=== PATIENT | female | born 1945 | race Caucasian/White ===

== ENCOUNTER 2020-05-04 16:11 | Outpatient (REF) | payer MEDICARE, SELFPAY ==
[2020-05-04 20:54] LABS: Bilirubin Negative (Negative); Blood Negative (Negative); Clarity Clear (Clear); Glucose Negative (Negative); Ketones Negative (Negative); Leukocyte Esterase Small (Negative); Nitrite Negative (Negative); Specific Gravity >= 1.030 (1.005-1.025)
[2020-05-04 21:07] LABS: Bacteria Few HPF (Negative); Epithelial Cells Few HPF (Negative); RBC Negative HPF (0-2)
[2020-05-04 21:08] LABS: C & S Indicated? C&S Done As Ordered; Casts Negative LPF (Negative); Crystals Rare Calcium Oxalate HPF (Negative); Mucus Negative (Negative)
== END 2020-05-04 16:31 ==
LOC: LBN 16:11
PROVIDERS: Visit Provider Nurse Practitioner
DX: G20 Parkinson's disease (principal)
CPT/HCPCS: 81003; 81015; 87086

== ENCOUNTER 2020-06-27 07:22 | Day surgery (SDC) | payer MEDICARE, OTHER, SELFPAY ==
[2020-06-27] MEDS: Tropicam./Phenyleph. (1/2.5%) 5 ML BTL OD ×3 (07:44→07:58)
[2020-06-27 07:52] VITALS: BP 117/58; PULSE 67; RESP 16; TEMP 36.8; O2SAT 90
[2020-06-27] MEDS: Tetracaine 0.5% 4 ML BTL OD (08:22)
[2020-06-27] MEDS: Balanced Salt Soln.-PLUS 500 ML BAG (08:24)
[2020-06-27] MEDS: Duovisc Viscoelastic System EACH 1 EACH (08:25)
[2020-06-27] MEDS: Lidocaine 1% Pres-Free 5 ML VIAL (08:25)
[2020-06-27] MEDS: Lidocaine 2% Jelly 6 ML SYR (08:26)
[2020-06-27] MEDS: Povidone-Iodine Ophth 30 ML BTL (08:28)
--- NOTE | 2020-06-27 08:41 | W.PM.DSUDISC ---
Discharge Plan Disposition Patient Disposition: HOME Condition: Good Discharge Details Attending Provider: Brandan Richardson Primary Care Provider: An Tello [place] Meds and New Rx's Prescriptions: No Action miconazole nitrate 2 % Cream 1 applic TOPICAL BID RF: 0 lovastatin 40 mg tablet 40 mg PO DAILY RF: 0 calcium carbonate [Calcium 600] 600 mg calcium (1,500 mg) Tablet 600 mg PO DAILY RF: 0 lisinopril 10 mg tablet 10 mg PO DAILY RF: 0 carbidopa-levodopa 25-100 mg tablet 1 tab PO TID RF: 0 atenolol 50 mg tablet 50 mg PO DAILY RF: 0 pregabalin 50 mg Capsule 50 mg PO TID RF: 0 cholecalciferol (vitamin D3) [Vitamin D3] 50 mcg (2,000 unit) Capsule 2,000 unit PO DAILY RF: 0 multivitamin [One A Day] Tablet 1 tab PO DAILY RF: 0 aspirin 81 mg Tablet 81 mg PO DAILY RF: 0 Discharge Instructions Stand Alone Forms: Post-op Topical Cataract, Tucker Ganey (DSU) Discharge Orders Discharge Orders: Discharge Order (Routine); Ordered 06/27/20 Ordered By: Brandan Richardson DS: Diagnosis Discharge Diagnosis (1) Cortical cataract of right eye: Status: Resolved (2) Nuclear sclerotic cataract of right eye: Status: Resolved (3) Epiretinal membrane (ERM) of right eye: Status: Chronic
--- NOTE | 2020-06-27 08:42 | W.PM.OP ---
Date of service: 06/27/20 Time of Service: 08:42 Operative Note Operative Note DATE OF PROCEDURE: 06/27/20 PRE-OP DIAGNOSIS: Nuclear/cortical cataract, right eye POST-OP DIAGNOSIS: same PROCEDURE: Cataract extraction using phacoemulsification with intraocular lens implant, right eye SURGEON: Brandan Richardson ANESTHESIA TYPE: Local By Surgeon and MAC Refer to Anesthesia Record ESTIMATED BLOOD LOSS: 0 PATHOLOGY: none sent COMPLICATIONS: None Patient was transported to: same day Patient's condition: stable Implants: [employer] / [employer] Tecnis ZCB00 intraocular lens Indications: Progressive decreased vision due to cataract, right eye Procedure Description: CATARACT SURGERY OPERATIVE REPORT PREOPERATIVE DIAGNOSIS: Nuclear/cortical cataract, right eye POSTOPERATIVE DIAGNOSIS: Same OPERATION: Cataract extraction using phacoemulsification with posterior chamber intraocular lens implant, right eye. IOL: IOL Insurance Consultant/Model: [employer] / SAMYM Tecnis ZCB00 IOL Power: + 21.5 diopters IOL Serial Number: [id number] Optic Diameter: 6.0mm Haptic/Overall Diameter: 13.0mm PHACO INFO: Dwaine [employer]erm[employer]urion Vision System with OZil and Active Fluidics Cumulative Dispersed Energy (CDE): 12.76 seconds SURGEON: Brandan Richardson MD, RYAN ANESTHESIA: Monitored Anesthesia Care (MAC), with local sub-tenon's anesthetic infiltration COMPLICATIONS: None SPECIMENS: None INDICATIONS FOR PROCEDURE: The patient is a 74-year-old lady with history of diminished visual acuity in her right eye. She is noted to have a significant nuclear and cortical cataract. She also has an epiretinal membrane in the right eye. The option of cataract surgery was offered to the patient and she wished to proceed, understanding that postoperative visual acuity will be limited by the presence of her pre-existing maculopathy. PROCEDURE: The correct surgical eye was identified and marked as the right eye and the pupil was dilated in the preoperative area using mydriatics and cycloplegics. The dilated pupil size was 7.0 mm. She elected to proceed with out oral sedation. The patient was brought to the operating room where cardiopulmonary monitoring was instituted and surgical time-out was performed, confirming the correct operative eye and IOL power. Topical anesthesia was administered and ophthalmic povidone-iodine 5% was instilled into the conjunctival fornices. Lidocaine gel was applied to the cornea and the alvin-ocular area was prepped with Betadine 10% solution and draped in the usual sterile fashion for intraocular surgery, including an aperture drape. A Tegaderm transparent film dressing was cut in half and used to cover the lashes and lid margins. Care was taken to sequester the lashes and lid margins under the Tegaderm dressing. A lid speculum was placed between the lids of the operative eye and the Sal[place]-Toño operating microscope was maneuvered into position. Jeovany scissors were then used to make a conjunctival buttonhole approximately 6mm posterior to the limbus in the inferonasal quadrant. Blunt dissection was carried out to expose bare sclera, and a blunt-tipped sub-tenon?s anesthesia cannula was introduced and passed posteriorly along the globe where non-preserved plain lidocaine was injected into posterior sub-Tenon?s space. A sideport knife was used to make a paracentesis port inferiortemporally. Intraocular phenylephrine/lidocaine was injected into the anterior chamber. The anterior chamber was then filled with viscoelastic. A 2.4mm keratome knife was used to create a half-thickness groove at the limbus and then to construct a three-plane near-clear corneal tunnel extending 2.0mm into clear cornea in the superiortemporal position. . A flap was raised on the anterior capsule and capsulorhexis forceps were used to complete a continuous curvilinear capsulorhexis of 5.5 mm. Balanced salt solution was then used to perform cortical cleaving hydrodissection and nuclear hydrodelineation until the lens could be freely rotated within the capsular bag. The lens nucleus was then disassembled and removed within the capsular bag and iris plane using phacoemulsification. Residual cortical material was removed using the I/A handpiece. The posterior capsule was carefully polished to remove as much residual lens epithelial cells as safely possible. There was some residual posterior subcapsular plaque in the subincisional area which could not be safely removed. The capsular bag was then inflated and the anterior chamber deepened with viscoelastic. The lens implant described above was inserted into the capsular bag using the SAMMY [place] Injector. A Kuglen hook was used to dial the IOL into position. Residual viscoelastic was then removed first from posterior to the IOL, then from the anterior chamber using the I/A handpiece. The lens implant was noted to center nicely within the capsular bag. The incisions were stromally hydrated, and the anterior chamber was reformed using BSS. Then 0.5cc of moxifloxacin 1.0mg/ml were injected into the capsular bag and anterior chamber. The incisions were checked with a Weck spear and found to be secure. Several drops of ophthalmic povidone-iodine 5% were then applied to the eye followed by two drops of Imprimis combination prednisolone/moxifloxacin/nepafenac solution. The drapes were removed and a clear plastic protective eye shield was placed over the eye. The patient was then returned to [facility] in stable condition.
== END 2020-06-27 09:08 | disposition home or self-care (01) ==
PROVIDERS: PCP Nurse Practitioner; Visit Provider Ophthalmology
PROC: (CPT 66984; principal; 2020-06-27 08:30)
DX: H25.11 Age-related nuclear cataract, right eye (principal); H35.371 Puckering of macula, right eye; E11.9 Type 2 diabetes mellitus without complications; I10 Essential (primary) hypertension; E78.5 Hyperlipidemia, unspecified
CPT/HCPCS: 66984; V2632

== ENCOUNTER 2020-07-11 06:30 | Day surgery (SDC) | payer MEDICARE, OTHER, SELFPAY ==
[2020-07-11 06:36] VITALS: BP 120/62; PULSE 63; RESP 18; TEMP 36.5; O2SAT 92
[2020-07-11] MEDS: Tropicam./Phenyleph. (1/2.5%) 5 ML BTL OS ×3 (06:57→07:08)
[2020-07-11] MEDS: Tetracaine 0.5% 4 ML BTL OS (07:26)
[2020-07-11] MEDS: Lidocaine 2% Jelly 6 ML SYR (07:27)
[2020-07-11] MEDS: Povidone-Iodine Ophth 30 ML BTL (07:27)
[2020-07-11] MEDS: Lidocaine 1% Pres-Free 5 ML VIAL (07:35)
[2020-07-11] MEDS: Balanced Salt Soln.-PLUS 500 ML BAG (07:35)
[2020-07-11] MEDS: Duovisc Viscoelastic System EACH 1 EACH (07:36)
--- NOTE | 2020-07-11 08:05 | PDOC.DSDIS_ITS ---
Discharge Plan Disposition Patient Disposition: HOME Condition: Good Discharge Details Attending Provider: Brandan Richardson Primary Care Provider: An Tello [place] Meds and New Rx's Prescriptions: No Action miconazole nitrate 2 % Cream 1 applic TOPICAL BID RF: 0 lovastatin 40 mg tablet 40 mg PO DAILY RF: 0 calcium carbonate [Calcium 600] 600 mg calcium (1,500 mg) Tablet 600 mg PO DAILY RF: 0 lisinopril 10 mg tablet 10 mg PO DAILY RF: 0 carbidopa-levodopa 25-100 mg tablet 1 tab PO TID RF: 0 atenolol 50 mg tablet 50 mg PO DAILY RF: 0 pregabalin 50 mg Capsule 50 mg PO TID RF: 0 cholecalciferol (vitamin D3) [Vitamin D3] 50 mcg (2,000 unit) Capsule 2,000 unit PO DAILY RF: 0 multivitamin [One A Day] Tablet 1 tab PO DAILY RF: 0 aspirin 81 mg Tablet 81 mg PO DAILY RF: 0 Discharge Instructions Stand Alone Forms: Post-op Topical Cataract, Tucker Salazar (DSU) Discharge Orders Discharge Orders: Discharge Order (Routine); Ordered 07/11/20 Ordered By: Brandan Richardson DS: Diagnosis Discharge Diagnosis (1) Cortical cataract of left eye: Status: Resolved (2) Nuclear sclerotic cataract of left eye: Status: Resolved
--- NOTE | 2020-07-11 08:06 | W.PM.OP ---
Date of service: 07/11/20 Time of Service: 08:06 Operative Note Operative Note DATE OF PROCEDURE: 07/11/20 PRE-OP DIAGNOSIS: Nuclear/cortical cataract, left eye POST-OP DIAGNOSIS: same PROCEDURE: Cataract extraction using phacoemulsification with intraocular lens implant, left eye SURGEON: Brandan Richardson ANESTHESIA TYPE: Local By Surgeon and MAC Refer to Anesthesia Record PATHOLOGY: none sent COMPLICATIONS: None Patient was transported to: same day Patient's condition: stable Implants: [employer] / [employer] Tecnis ZCB00 Indications: Progressive decreased vision due to cataract, left eye Procedure Description: CATARACT SURGERY OPERATIVE REPORT PREOPERATIVE DIAGNOSIS: Nuclear/cortical cataract, left eye POSTOPERATIVE DIAGNOSIS: Same OPERATION: Cataract extraction using phacoemulsification with posterior chamber intraocular lens implant, left eye. IOL: IOL Vacuum Conditioner Operator/Model: [employer] / SAMMY Tecnis ZCB00 IOL Power: + 21.5 diopters IOL Serial Number: [id number] Optic Diameter: 6.0mm Haptic/Overall Diameter: 13.0mm PHACO INFO: [employer] Vision System with OZil and Active Fluidics Cumulative Dispersed Energy (CDE): 5.59 seconds SURGEON: Brandan Richardson MD, RYAN ANESTHESIA: Monitored Anesthesia Care (MAC), with local sub-tenon's anesthetic infiltration COMPLICATIONS: None SPECIMENS: None INDICATIONS FOR PROCEDURE: The patient is a 74-year-old lady with history of diminished visual acuity in both eyes secondary to the development of bilateral nuclear and cortical cataract. She has already undergone cataract surgery in her right eye and is doing fairly well postoperatively. Postoperative visual acuity is limited by the presence of her pre-existing epiretinal membrane in the right eye. She now presents for cataract surgery in the left eye. PROCEDURE: The correct surgical eye was identified and marked as the left eye and the pupil was dilated in the preoperative area using mydriatics and cycloplegics. The dilated pupil size was 7.0 mm. She elected to proceed without sedation. The patient was brought to the operating room where cardiopulmonary monitoring was instituted and surgical time-out was performed, confirming the correct operative eye and IOL power. Topical anesthesia was administered and ophthalmic povidone-iodine 5% was instilled into the conjunctival fornices. Lidocaine gel was applied to the cornea and the alvin-ocular area was prepped with Betadine 10% solution and draped in the usual sterile fashion for intraocular surgery, including an aperture drape. A Tegaderm transparent film dressing was cut in half and used to cover the lashes and lid margins. Care was taken to sequester the lashes and lid margins under the Tegaderm dressing. A lid speculum was placed between the lids of the operative eye and the Salinas-Toño operating microscope was maneuvered into position. Jeovany scissors were then used to make a conjunctival buttonhole approximately 6mm posterior to the limbus in the inferonasal quadrant. Blunt dissection was carried out to expose bare sclera, and a blunt-tipped sub-tenon?s anesthesia cannula was introduced and passed posteriorly along the globe where non-preserved plain lidocaine was injected into posterior sub-Tenon?s space. A sideport knife was used to make a paracentesis port superior/superiortemporally. Intraocular phenylephrine/lidocaine was injected into the anterior chamber. The anterior chamber was then filled with viscoelastic. A 2.4mm keratome knife was used to create a half-thickness groove at the limbus and then to construct a three-plane near-clear corneal tunnel extending 2.0mm into clear cornea in the temporal position. . A flap was raised on the anterior capsule and capsulorhexis forceps were used to complete a continuous curvilinear capsulorhexis of 5.0 mm. Balanced salt solution was then used to perform cortical cleaving hydrodissection and nuclear hydrodelineation until the lens could be freely rotated within the capsular bag. The lens nucleus was then disassembled and removed within the capsular bag and iris plane using phacoemulsification. Residual cortical material was removed using the 45-degree angled silicone I/A tip with 0.3mm port. The posterior capsule was carefully polished to remove as much residual lens epithelial cells as safely possible. The capsular bag was then inflated and the anterior chamber deepened with viscoelastic. The lens implant described above was inserted into the capsular bag using the SAMMY [place] Injector. A Kuglen hook was used to dial the IOL into position. Residual viscoelastic was then removed first from posterior to the IOL, then from the anterior chamber using the I/A handpiece. The lens implant was noted to center nicely within the capsular bag. The incisions were stromally hydrated, and the anterior chamber was reformed using BSS. Then 0.5cc of moxifloxacin 1.0mg/ml were injected into the capsular bag and anterior chamber. The incisions were checked with a Weck spear and found to be secure. Several drops of ophthalmic povidone-iodine 5% were then applied to the eye followed by two drops of Imprimis combination prednisolone/moxifloxacin/nepafenac solution. The drapes were removed and a clear plastic protective eye shield was placed over the eye. The patient was then returned to Same Day Surgery in stable condition.
== END 2020-07-11 08:25 | disposition home or self-care (01) ==
PROVIDERS: PCP Nurse Practitioner; Visit Provider Ophthalmology
PROC: (CPT 66984; principal; 2020-07-11 07:30)
DX: H25.12 Age-related nuclear cataract, left eye; H25.012 Cortical age-related cataract, left eye; Z96.1 Presence of intraocular lens; Z98.41 Cataract extraction status, right eye
CPT/HCPCS: 66984; V2632

== ENCOUNTER 2022-06-04 19:13 | Outpatient (REF) | payer MEDICARE, OTHER, SELFPAY ==
[2022-06-04 19:27] LABS: Abs Immature Grans 0.02 10^3/uL (0.0-0.06); Absolute Basophil Count 0.02 10^3/uL (0.0-0.2); Absolute Lymphocyte Count 1.37 10^3/uL (1.2-3.4); Absolute Monocyte Count 0.43 10^3/uL (0.1-0.8); Absolute Neutrophil Count 2.37 10^3/uL (1.2-6.7); Basophils % 0.5; Eosinophils % 2.3; HCT 40.8 % (36.0-46.0); Immature Grans % 0.5; Lymphocytes % 31.8; MCH 29.5 pg (27.0-33.0); MCHC 31.9 % (32.0-36.0); MCV 93 fL (80-95); MPV 10.9 fL (8.0-11.0); Neutrophils % 54.9; Platelet Count 179 10^3/uL (130-400); RDW 14.9 % (11.7-14.6); RDW-SD 51.8 fL; WBC 4.31 10^3/uL (4.4-10.8)
[2022-06-04 19:36] LABS: Iron 85 ug/dL (50-170); Total Iron Binding Capacity 317 ug/dL (250-450); Transferrin Sat 27 % (15-50)
[2022-06-04 19:49] LABS: Hemoglobin A1C 6.4 % (<5.7)
[2022-06-04 20:00] LABS: Vitamin D 25 Total 46.3 ng/mL (30-100)
[2022-06-04 20:03] LABS: ALT 9 U/L (14-59); AST 12 U/L (15-37); Albumin 3.9 g/dL (3.4-5.0); Alkaline Phosphatase 73 U/L (46-116); Anion Gap 6.6 mmol/L (3-11); BUN 15 mg/dL (7-18); Bilirubin, Total 0.4 mg/dL (0.2-1.0); CO2 32.4 mmol/L (21.0-32.0); CREATININE 0.7 mg/dL (0.55-1.02); Chloride 105 mmol/L (98-107); Estimated GFR 90.14 (mL/min/1.73m2); Ferritin 209 ng/mL (8-252); Glucose 143 mg/dL (74-106); Potassium 4.5 mmol/L (3.5-5.1); Sodium 144 mmol/L (136-145); TSH (W/Ref FT4) 0.87 uIU/mL (0.36-3.74); Total Protein 6.5 g/dL (6.4-8.2); Vitamin B12 421 pg/mL (193-986)
[2022-06-04 20:07] LABS: Folate > 20.0 ng/mL (8.6-20.0)
[2022-06-04 20:26] LABS: NT-proBNP 938 pg/mL (<300)
== END 2022-06-04 19:14 | disposition home or self-care (01) ==
LOC: LBN 19:13
PROVIDERS: PCP Nurse Practitioner; Visit Provider Nurse Practitioner Gerontology
DX: J12.81 Pneumonia due to SARS-associated coronavirus (principal); R68.89 Other general symptoms and signs; E11.9 Type 2 diabetes mellitus without complications; R00.2 Palpitations; I10 Essential (primary) hypertension; E78.5 Hyperlipidemia, unspecified; R06.02 Shortness of breath; R06.2 Wheezing; R05.8 Other specified cough; Z79.899 Other long term (current) drug therapy
CPT/HCPCS: 80053; 82306; 82607; 82728; 82746; 83036; 83540; 83550; 83735; 83880; 84443; 85025

== ENCOUNTER 2022-06-13 16:46 | Outpatient (REF) | payer MEDICARE, OTHER, SELFPAY ==
--- OUTSIDE RECORDS SUMMARY | 2022-06-13 17:01 | XMS_ITS ---
Author Name An Tello Address [address], [place] [id number] Organization [facility] Address [address], [place] [id number] Care Team Providers Care Cytogeneticist Name Role Phone An Tello Unavailable [phone] PROBLEMS Type Condition ICD9-CM Code NPH69-OR Code Onset Dates Condition Status SNOMED Code Problem Family history of breast cancer Z80.3 Active 188252004 Problem Cataract H26.9 Active 143063426 Problem Osteopenia M85.80 Active 26254437 Problem Murmur R01.1 Active 501521925 Problem Neuropathy G62.9 Active 855433763 Problem Other specified diabetes mellitus without complications E13.9 Active 513446422 Problem Hyperlipidemia, unspecified E78.5 Active 56356120 Problem Parkinson disease G20 Active 472237 00 Problem Hypertension I10 Active 45573104 Problem Controlled type 2 diabetes mellitus without complication, without long-term current use of insulin E11.9 Active 148072725 Problem GERD (gastroesophageal reflux disease) K21.9 Active 928329838 Problem Unsteady R26.81 Active 616132140 Problem Aortic valve insufficiency, etiology of cardiac valve disease unspecified I35.1 Active 7254492 Problem Swelling of both lower extremities M79.89 Active 78359593 Problem Arthritis M19.90 Active 4206234 ALLERGIES Substance Reaction Event Type Date Status Niacin Flushing and hives Drug Allergy May, Ac tive ENCOUNTERS Encounter Location Date Diagnosis [address] [id number] May, [address] [id number] 30 Apr, 2022 [facility] [address] [id number] Apr, [address] [id number] Apr, [address] [id number] 18 Apr, 2022 Housing Assistance HOUS [address] [id number] 17 Apr, 2022 Controlled type 2 diabetes mellitus without complication, unspecified penitentiary insulin use status E11.9 ; Burning sensation R20.8 and History of recent hospitalization Z92.[address] [id number] 11 Apr, [address] [id number] 10 Apr, 2022 [facility] [address] [id number] 05 Apr, 2022 Diffuse pain in left lower extremity M79.605 ; Left leg swelling M79.89 and Cellulitis of left lower extremity L03.[address] [id number] 05 Apr, [address] [id number] 08 Feb, [address] [id number] 03 Feb, [address] [id number] 25 Jan, 2022 [facility] Referral Insurance Coverage [facility] Referral Insurance Coverage [address] [id number] Jan, Screening mammogram for breast cancer Z12.31 ; Osteopenia M85.80 ; Annual physical exam Z00.00 ; Encounter for immunization Z23 ; Other specified diabetes mellitus without complications E13.9 and Parkinson disease G20 [address] [address] 06 Jan, 2022 [facility] Care Coordination [facility] Care Coordination [address] [id number] 28 Dec, 2021 [place] Medicaid for [place]ly and Disabled VTM[employer] [address] [address] Dec, [place] [employer] for [place]ly and [place] VTM[place] ; Housing Assistance HOUS and [facility]CM [place] [address] [place] [address] 15 Dec, [address] [id number] 08 Dec, [address], [place] [id number] 02 Dec, [address], [place] [id number] 16 Nov, 2021 Controlled type 2 diabetes mellitus without complication, unspecified continuous churn buttermaker insulin use status E11.9 ; Osteopenia M85.80 ; GERD (gastroesophageal reflux disease) K21.9 ; Murmur R01.1 ; Hypertension I10 ; Hyperlipidemia, unspecified E78.5 ; Neuropathy G62.9 and Breast cancer screening by mammogram Z12.[address] [id number] Oct, [address], [place] [id number] Oct, Hyperlipidemia, unspecified E78.[address], [place] [id number] 11 Oct, 2021 [place] [address] [facility] [id number] August, [address], [place] [id number] August, Intertrigo L30.[address], [place] [id number] August, [address], [place] [id number] 17 Aug, 2021 Controlled type 2 diabetes mellitus without complication, unspecified penitentiary insulin use status E11.9 ; Dietary counseling and surveillance Z71.3 ; Counseling on health promotion and disease prevention Z71.89 ; Neuropathy G62.9 ; Encounter for immunization Z23 ; Unsteady R26.81 and Intertrigo L30.[address], [place] [id number] 20 Jul, [address], [place] [id number] 13 Jul, [address], [place] [id number] 16 Jun, [address] [id number] 03 Jun, 2021 CCM Update Care Plan CCM Update Care Plan [address], [place] [id number] 15 May, 2021 Dietary counseling and surveillance Z71.3 ; Counseling on health promotion and disease prevention Z71.89 ; Controlled type 2 diabetes mellitus without complication, without long-term current use of insulin E11.9 ; Unsteady R26.81 ; Parkinson disease G20 and Aortic valve insufficiency, etiology of cardiac valve disease unspecified I35.[address] [id number] 11 May, [address] [id number] 04 May, 2021 Hypertension 401.9 ; Swelling of both lower extremities M79.89 and Hypertension I10 [address] [id number] Apr, [facility] Referral equipment need CCC Referral [address] [id number] Apr, [address] [id number] Apr, Hyperlipidemia, unspecified E78.[address] [place] [address] Apr, [facility] Healthy Living Referral [facility] Healthy Living Referral [address] [id number] Mar, Neuropathy G62.[address] [place] [address] Feb, [facility] Referral Utility Assistance [facility] Referral Utility Assistance [address] [id number] Feb, Encounter for immunization Z23 ; Dietary counseling and surveillance Z71.3 ; Counseling on health promotion and disease prevention Z71.89 ; Controlled type 2 diabetes mellitus without complication, unspecified continuous churn buttermaker insulin use status E11.9 ; Blurred vision, left eye H53.8 ; Swelling of both lower extremities M79.89 and Neuropathy G62.[address] [id number] Feb, [facility] Referral Utility Assistance CCC Referral Utility Assistance and CCM Specialist Visit Follow Up CCM Specialist Visit Follow Up [address] [id number] Feb, [facility] Referral Utility Assistance CCC Referral Utility Assistance and CCM Specialist Visit Follow Up CCM Specialist Visit Follow Up [address] [id number] Jan, [address] [id number] Jan, Neuropathy G62.[address] [id number] Jan, [address] [id number] 28 Dec, [address], [place] [id number] Nov, Hypertension I10 [address], [place] [id number] Nov, [address], [place] [id number] Nov, Swelling of both lower extremities M79.89 and Neuropathy G62.[address], [place] [id number] Nov, Hypertension 401.9 and Hyperlipidemia, unspecified E78.[address], [place] [id number] 15 Oct, 2020 Swelling of both lower extremities M79.[address], [place] [id number] Sep, [address] [id number] Sep, [address] [id number] August, [address], [place] [id number] August, Dietary counseling and surveillance Z71.3 ; Counseling on health promotion and disease prevention Z71.89 ; Controlled type 2 diabetes mellitus without complication, unspecified penitentiary insulin use status E11.9 ; Aortic valve insufficiency, etiology of cardiac valve disease unspecified I35.1 ; Hypertension I10 ; Swelling of both lower extremities M79.89 ; Murmur R01.1 ; Neuropathy G62.9 and Parkinson disease G20 [address], [place] [id number] 08 Jul, 2020 Edema, unspecified type R60.[address], [place] [id number] 08 Jul, 2020 Essential hypertension I10 and Swelling of both lower extremities M79.[address], [place] [id number] Jul, Aortic valve insufficiency, etiology of cardiac valve disease unspecified I35.1 and Edema, unspecified type R60.[address], [place] [id number] Jul, [address] [id number] Jun, [address], [place] [id number] Jun, Pre-operative general physical examination Z01.818 ; Hypertension I10 ; Aortic valve insufficiency, etiology of cardiac valve disease unspecified I35.1 ; Swelling of both lower extremities M79.89 ; Controlled type 2 diabetes mellitus without complication, without long-term current use of insulin E11.9 and Parkinson disease G20 [address] [id number] May, [address] [id number] May, [address] [id number] May, [address], [place] [id number] 16 May, 2020 Hypertension I10 and Hypertension 401.[address], [place] [id number] 11 May, 2020 Parkinson disease G20 ; Controlled type 2 diabetes mellitus without complication, unspecified penitentiary insulin use status E11.9 and Unsteadiness R26.[address], [place] [id number] 03 May, 2020 Hyperlipidemia, unspecified E78.[address], [place] [id number] Apr, Right knee pain, unspecified chronicity M25.561 and Dysuria R30.[address], [place] [id number] Apr, [address], [place] [id number] Apr, [address], [place] [id number] Apr, [address], [place] [id number] 15 Apr, 2020 Neuropathy G62.9 ; Controlled type 2 diabetes mellitus without complication, unspecified penitentiary insulin use status E11.9 ; Cataract H26.9 ; Parkinson disease G20 ; Swelling of both lower extremities M79.89 and Right knee pain, unspecified chronicity M25.561 [facility] [address] [id number] 13 Apr, 2020 Transportation TRANS [address], [place] [id number] Apr, [address], [place] [id number] Apr, Unsteadiness R26.81 [facility] [address], [place] [id number] Mar, General Assistance GEN [address] [id number] Mar, [address] [id number] Mar, Transportation TRANS [facility] [address] [facility], [place] [id number] 11 Mar, 2020 Other OTH [address], [place] [id number] 09 Mar, [address], [place] [id number] Mar, Controlled type 2 diabetes mellitus without complication, unspecified continuous churn buttermaker insulin use status E11.9 ; Stress fracture, unspecified site, sequela M84.30XS ; Swelling of both lower extremities M79.89 ; Neuropathy G62.9 and Essential hypertension I10 [facility] [address] [facility], [place] [id number] 08 Mar, 2020 [facility] [address] [facility], [place] [id number] Mar, Acute pain of right knee M25.[address] [id number] Feb, [facility] [address] [facility], [place] [id number] Feb, Hyperlipidemia 272.[address], [place] [id number] Feb, [address], [place] [id number] Feb, Unilateral edema of lower extremity R60.[address] [id number] Feb, Outreach OUT [address], [place] [id number] Feb, [address], [place] [id number] Feb, Acute pain of right knee M25.561 and Unilateral edema of lower extremity R60.0 [facility] [address] [facility], [place] [id number] Feb, [facility] [address] [facility], [place] [id number] Feb, [facility] [address] [facility], [place] [id number] 18 Feb, 2020 Acute pain of right knee M25.561 [facility] [address] [facility], [place] [id number] 16 Feb, 2020 Transitional Care Management TCM [facility] [address] [facility], [place] [id number] 15 Jan, 2020 Neuropathy G62.[address], [place] [id number] 05 Jan, [address] [id number] 28 Dec, [address] [id number] 09 Dec, 2019 Dietary counseling and surveillance Z71.3 ; Counseling on health promotion and disease prevention Z71.89 ; Controlled type 2 diabetes mellitus without complication, without long-term current use of insulin E11.9 and Encounter for immunization Z23 [address] [id number] 31 Nov, 2019 Hypertension I10 [address] [id number] 04 Nov, 2019 Hypertension 401.9 and Hyperlipidemia, unspecified E78.[address] [id number] 21 Oct, 2019 CCM Follow up CCM and General Assistance GEN [address] [id number] 10 Oct, 2019 Screening for breast cancer Z12.[address] [id number] 11 Sep, 2019 Controlled type 2 diabetes mellitus without complication, unspecified continuous churn buttermaker insulin use status E11.9 ; Dietary counseling and surveillance Z71.3 ; Encounter for immunization Z23 ; Counseling on health promotion and disease prevention Z71.89 ; Parkinson disease G20 ; Neuropathy G62.9 and Hypertension I10 [address] [id number] 10 Sep, [address] [id number] 26 Aug, 2019 General Assistance GEN and CCM Follow up CCM [address] [id number] August, CCM Follow up CCM [address] [id number] August, Hyperlipidemia, unspecified E78.[address] [id number] Jul, General Assistance GEN and CCM CCM [address] [place] [phone] 16 Jul, 2019 HLW HTN HLW HTN [address] [id number] 15 Jul, 2019 CCM CCM ; CCM Follow up CCM and General Assistance GEN [address] [id number] 14 Jul, 2019 Neuropathy G62.[address] [id number] 13 Jul, 2019 Neuropathy G62.[address] [id number] Jun, General Assistance GEN ; Food Assistance FOOD and Other OTH [address] [id number] Jun, [address] [id number] Jun, [address] [id number] Jun, [address] [id number] Jun, Controlled type 2 diabetes mellitus without complication, unspecified penitentiary insulin use status E11.9 ; Tinea pedis of both feet B35.3 ; Dietary counseling Z71.3 ; Exercise counseling Z71.82 ; Hypertension I10 and Rash R21 [address] [id number] Apr, Hypertension I10 and Hypertension 401.[address] [id number] Mar, [address] [id number] Mar, Hyperlipidemia, unspecified E78.[address] [id number] Mar, Dietary counseling and surveillance Z71.3 ; Rash R21 ; Controlled type 2 diabetes mellitus without complication, unspecified penitentiary insulin use status E11.9 ; Counseling on health promotion and disease prevention Z71.89 and Hyperlipidemia, unspecified E78.[address] [id number] Feb, Neuropathy G62.[address] [id number] Feb, [address] [id number] Feb, [address] [id number] Feb, [address] [id number] Jan, [address] [id number] Dec, Rash R21 ; Swelling of both lower extremities M79.89 ; Controlled type 2 diabetes mellitus without complication, unspecified penitentiary insulin use status E11.9 ; Hypertension I10 and Hyperlipidemia, unspecified E78.[address] [id number] Nov, Swelling of both lower extremities M79.[address] [id number] 15 Nov, [address] [id number] 15 Nov, [address] [id number] 14 Nov, 2018 GERD (gastroesophageal reflux disease) K21.9 ; Hypertension I10 and Hypertension 401.[address] [id number] 13 Nov, 2018 Aortic valve insufficiency, etiology of cardiac valve disease unspecified I35.1 and Swelling of both lower extremities M79.[address] [id number] 07 Nov, 2018 Bilateral lower extremity edema R60.[address] [id number] Oct, PRAPARE NEGATIVE PRAN [address] [id number] Sep, Controlled type 2 diabetes mellitus without complication, unspecified penitentiary insulin use status E11.9 ; Parkinson disease G20 ; Neuropathy G62.9 and GERD (gastroesophageal reflux disease) K21.[address] [id number] August, Screening for malignant neoplasm of breast Z12.[address] [id number] 17 Aug, 2018 Neuropathy G62.9 and Hyperlipidemia, unspecified E78.[address] [id number] August, [address] [id number] August, [address] [id number] August, Neuropathy G62.[address] [id number] Jul, [address] [id number] Jul, At low risk for fall Z91.81 ; Screening for neurological condition Z13.89 ; Driving safety issue Z91.89 ; Dietary counseling Z71.3 and Depression screening Z13.[address] [id number] 15 Jun, 2018 Hyperlipidemia, unspecified E78.[address] [id number] Jun, Controlled type 2 diabetes mellitus without complication, without long-term current use of insulin E11.9 ; Parkinson disease G20 ; Neuropathy G62.9 and Hypertension I10 [address], [place] [id number] May, GERD (gastroesophageal reflux disease) K21.9 and Hypertension I10 [address] [id number] Apr, Hypertension 401.9 ; Hyperlipidemia 272.4 ; Neuropathy G62.9 and GERD (gastroesophageal reflux disease) K21.[address] [id number] Apr, [address] [id number] Mar, Hypertension I10 [address] [id number] Mar, Controlled type 2 diabetes mellitus without complication, unspecified continuous churn buttermaker insulin use status E11.9 ; Hypertension I10 and Neuropathy G62.[address], [place] [id number] Feb, Hypertension I10 [address] [id number] Jan, Encounter for immunization Z23 [address] [id number] Dec, Neuropathy G62.[address] [id number] Dec, Neuropathy G62.[address] [id number] Dec, Hyperlipidemia, unspecified E78.[address], [place] [id number] Dec, Controlled type 2 diabetes mellitus without complication, unspecified penitentiary insulin use status E11.9 ; Annual physical exam Z00.00 ; Hyperlipidemia, unspecified E78.5 ; Neuropathy G62.9 ; Hypertension I10 ; Parkinson disease G20 and Nutritional counseling Z71.[address] [id number] Nov, GERD (gastroesophageal reflux disease) K21.[address], [place] [id number] Sep, Hypertension I10 [address] [id number] Sep, Hyperlipidemia, unspecified E78.[address], [place] [id number] Sep, Controlled type 2 diabetes mellitus without complication, unspecified continuous churn buttermaker insulin use status E11.9 and Parkinson disease G20 [address] [id number] August, Hypertension I10 [address] [id number] Jul, [address] [id number] Jun, Screening for breast cancer Z12.[address] [id number] Jun, Neuropathy G62.[address] [id number] May, GERD (gastroesophageal reflux disease) K21.[address] [id number] 15 May, [address] [id number] 14 May, 2017 Controlled type 2 diabetes mellitus without complication, unspecified penitentiary insulin use status E11.9 ; Neuropathy G62.9 and Arthritis M19.[address] [id number] Apr, Neuropathy G62.[address] [id number] Mar, Hypertension I10 [address] [id number] 04 Mar, 2017 Hyperlipidemia, unspecified E78.[address] [id number] 10 Feb, 2017 Transportation TRANS [address] [id number] 08 Feb, 2017 Hypertension I10 and Hyperlipidemia, unspecified E78.[address] [id number] 08 Feb, 2017 Controlled type 2 diabetes mellitus without complication, unspecified continuous churn buttermaker insulin use status E11.9 ; Hypertension I10 ; GERD (gastroesophageal reflux disease) K21.9 ; Hyperlipidemia, unspecified E78.5 ; Neuropathy G62.9 ; Generalized muscle weakness M62.81 ; Unsteadiness R26.81 and Encounter for immunization Z23 [address] [id number] Nov, Need for hepatitis C screening test Z11.59 ; Aortic valve insufficiency, etiology of cardiac valve disease unspecified I35.1 ; Neuropathy G62.9 ; Acute bilateral low back pain without sciatica M54.5 and Swelling of both lower extremities M79.[address] [id number] Nov, Hypertension I10 [address] [id number] Nov, Hypertension I10 [address] [id number] Nov, [address] [id number] Nov, Neuropathy G62.[address] [id number] Nov, Neuropathy G62.9 ; Lower extremity edema R60.0 ; Cardiac murmur R01.1 ; Unsteady R26.81 and Acute bilateral low back pain without sciatica M54.[address] [id number] Nov, GERD (gastroesophageal reflux disease) K21.[address] [id number] Sep, Hypertension I10 [address] [id number] August, [address] [id number] August, Annual physical exam Z00.00 ; Hyperlipidemia, unspecified E78.5 ; GERD (gastroesophageal reflux disease) K21.9 ; Neuropathy G62.9 ; Controlled type 2 diabetes mellitus without complication, unspecified continuous churn buttermaker insulin use status E11.9 and Osteopenia, unspecified location M85.[address] [id number] Jul, Hypertension I10 [address] [id number] May, Hypertension I10 [address] [id number] Apr, [address] [id number] Apr, [address] [id number] Apr, Other specified diabetes mellitus without complications E13.9 ; Neuropathy G62.9 ; Murmur, cardiac R01.1 and Screening for breast cancer Z12.[address] [id number] Apr, Screening for breast cancer Z12.[address] [id number] Apr, Hyperlipidemia, unspecified E78.[address] [id number] Apr, [address] [id number] Mar, Hypertension I10 [address], [place] [id number] Mar, Hypertension I10 [address] [id number] Feb, Hypertension I10 [address], [place] [id number] Jan, [address] [id number] Jan, [address] [id number] Jan, Other specified diabetes mellitus without complications E13.9 and Hyperlipidemia, unspecified E78.[address], [place] [id number] Nov, [address] [id number] Oct, Diabetes type 2, controlled E11.9 ; Rash R21 and Immunization due Z23 [address] [place] [address] Oct, [address], [place] [id number] Sep, [address] [place] [address] August, [address] [id number] Jul, Diabetes type 2 controlled 250.00 ; Osteopenia M85.80 ; GERD (gastroesophageal reflux disease) K21.9 ; Hypertension I10 and Skin lesion L98.[address], [place] [id number] Apr, Type 2 diabetes mellitus without complications E11.9 ; Osteopenia M85.80 ; Hypertension I10 ; Hyperlipidemia E78.5 and GERD (gastroesophageal reflux disease) K21.[address], [place] [id number] Apr, Hyperlipidemia, unspecified E78.5 and Essential (primary) hypertension I10 [address] [id number] Apr, [address], [place] [id number] Feb, [address] [id number] Jan, Breast cancer screening Z12.[address] [id number] Oct, Diabetes type 2 controlled 250.00 ; Hypertension 401.9 ; Hyperlipidemia 272.4 and GERD (gastroesophageal reflux disease) 530.[address], [place] [id number] Sep, Heartburn 787.1 and Pain in both feet 729.[address], [place] [id number] Jul, [address] [place] [address] Jul, [address], [place] [id number] Jul, Annual Physical Exam V70.0 ; Diabetes type 2 controlled 250.00 ; Heartburn 787.1 ; Joint pain 719.40 ; Lipoma 214.9 and Bilateral tinnitus 388.[address], [place] [id number] Jul, Hypertension 401.9 and Hyperlipidemia 272.[address], [place] [id number] Jul, Hypertension 401.[address], [place] [id number] Mar, Diabetes type 2 controlled 250.[address], [place] [id number] Mar, Hypertension 401.9 and Hyperlipidemia 272.[address], [place] [id number] Jan, [address], [place] [id number] Jan, Need for prophylactic vaccination with Streptococcus pneumoniae (Pneumococcus) and Influenza vaccines V06.[address], [place] [id number] Jan, Diabetes type 2 controlled 250.00 ; Hyperlipidemia 272.4 ; Hypertension 401.9 ; Screening for breast cancer V76.10 and Screening for Osteoporosis V82.[address], [place] [id number] Nov, Dysuria 788.[address], [place] [id number] Nov, Hypertension 401.[address], [place] [id number] Nov, Hyperlipidemia 272.[address], [place] [id number] Nov, Hyperlipidemia 272.4 and Hypertension 401.[address], [place] [id number] Oct, [address], [place] [id number] Jun, Diabetes type 2 controlled 250.00 ; Hypertension 401.9 and Hyperlipidemia 272.[address], [place] [id number] Mar, Hypertension 401.9 and Hyperlipidemia 272.[address], [place] [id number] Jan, [address], [place] [id number] Dec, Diabetes type 2 controlled 250.00 ; Hypertension 401.9 ; Hyperlipidemia 272.4 and Cerumen impaction 380.[address], [place] [id number] Dec, Foot pain, left 729.5 and HTN (hypertension) 401.[address], [place] [id number] Oct, [address], [place] [id number] Oct, [address], [place] [id number] Oct, Family history of breast cancer V16.[address], [place] [id number] Sep, Diabetes type 2 controlled 250.00 ; Hyperlipidemia 272.4 and Hypertension 401.[address], [place] [id number] Sep, Hyperlipidemia 272.4 and Hypertension 401.[address], [place] [id number] August, Left foot pain 729.[address], [place] [id number] Jul, [address], [place] [id number] Jul, [address], [place] [id number] Jun, Diabetes type 2 controlled 250.00 ; Hyperlipidemia 272.4 ; Hypertension 401.9 and LBP (low back pain) 724.[address] [id number] Jun, [address], [place] [id number] Jun, [address], [place] [id number] May, Colon cancer screening V76.[address], [place] [id number] May, [address], [place] [id number] Mar, Diabetes type 2 controlled [address], [place] [id number] Jan, [address] [id number] Dec, [address] [id number] Dec, 2011 Elevated cholesterol 272.0 ; Benign essential HTN 401.1 and Controlled diabetes mellitus 250.[address] [id number] Sep, [address] [id number] Jun, [address] [id number] May, [address] [id number] August, Cervical cancer screening V76.2 IMMUNIZATIONS Vaccine Route Administration Date Status Influenza Adult FluBlok high dose PURCHASED IM Intramuscular Jan 16, 2019 Administered Influenza Adult FluBlok high dose PURCHASED IM Intramuscular Dec 23, 2019 Administered Influenza Adult FluBlok high dose PURCHASED IM Intramuscular Jan 24, 2022 Administered COVID-19 Pfizer IM Intramuscular Mar 10, 2021 Administ ered Tetanus Toxoid [id number] Unknown Apr 14, 2010 Adminis tered Toradol Ketorolac Tromethamine IM Intramuscular Feb Administered Influenza Adult FluBlok high dose PURCHASED IM Intramuscular Jan 27, 2018 Administered INFLUENZA 18 YRS TO 64 YRS OLD-STATE SUPPLIED Unknown Jan 16, 2010 Administered COVID-19 Pfizer Unknown August 29, 2021 Administered COVID-19 Moderna [id number] Unknown June 21, 2020 Adm inistered COVID-19 Moderna [id number] Unknown July 19, 2020 Adm inistered Zostavax [facility] [id number] [place] Subcutaneous Jan 07, 2013 Admi nistered Prevnar PCV 13 [facility] [id number] Unknown Nov 30, 2015 Ad ministered Pneumovax [facility] [id number] IM Intramuscular Feb 01, 2014 Adm inistered TDaP Adult [facility] [id number] Unknown November 12, 2019 Admin istered INFLUENZA 18 YRS TO 64 YRS OLD-STATE SUPPLIED IM Intramuscular Feb 20, 2017 Administered INFLUENZA 18 YRS TO 64 YRS OLD-STATE SUPPLIED Unknown Nov 30, 2015 Administered INFLUENZA 18 YRS TO 64 YRS OLD-STATE SUPPLIED Unknown Jan 28, 2015 Administered INFLUENZA 18 YRS TO 64 YRS OLD-STATE SUPPLIED Unknown Jan 13, 2014 Administered SOCIAL HISTORY Qualifiers Date Former Smoker REASON FOR REFERRAL Reason screening mammo Referral Organization [facility] Referring Provider First Name Brandan Referring Provider Last Name Radha Referring Provider Specialty [facility] Referring Provider Referring Provider email [email or web address] Referred Provider [facility], [facility] Referred Provider Specialty Radiology Referral Appointment Date 2011-09-03 Reason screening colonoscop y Referral Organization [facility] Referring Provider First Name Brandan Referring Provider Last Name Radha Referring Provider Specialty Family Medi cine Referring Provider Referring Provider email [email or web address] Referred Provider Andres Roe Referred Provider Specialty Gastroentero logy Referral Appointment Date 2012-06-05 Reason left foot pain with weight bearing. Referral Organization [facility] Referring Provider First Name An Referring Provider Last Name Omer Referring Provider Specialty Nurse Libra jo Referring Provider Referring Provider email [email or web address] Referred Provider [facility], [facility] Medicine Referred Provider Specialty Physical The rapist Reason Left foot pain great er than six months refractory to treatment. Referral Organization [facility] Referring Provider First Name An Referring Provider Last Name Omer Referring Provider Specialty Nurse Libra jo Referring Provider Referring Provider email [email or web address] Referred Provider Jacob Brown Referred Provider Specialty Podiatry Referral Appointment Date 2013-01-20 Reason left foot, chronic t endonitis 06/24/13 TH Pt went to [facility] in [place], [place] 06/23/13 Referral Organization [facility] Referring Provider First Name An Referring Provider Last Name Omer Referring Provider Specialty Nurse Libra jo Referring Provider Referring Provider email [email or web address] Referred Provider Jacob Brown Referred Provider Specialty Podiatry Reason Please evaluate for progressing weakness and unsteadiness. Faxed referral please call pt to schedule appt Referral Organization [facility] Referring Provider First Name An Referring Provider Last Name Omer Referring Provider Specialty Nurse Libra jo Referring Provider Referring Provider email [email or web address] Referred Provider [facility], Neurology Referred Provider Specialty Neurology Referral Appointment Date 2017-04-18 Reason Patient currently in pain. Difficult navigating her home. Please evaluate and treat. URGENT Faxed referral. Please call pt to schedule appt. JM Referral Organization [facility] Referring Provider First Name An Referring Provider Last Name Omer Referring Provider Specialty Nurse Libra oj Referring Provider Referring Provider email [email or web address] Special[facility] Orthopedic S vivian Referral Appointment Date 2020-03-02 Reason Patient needs home h ealth services due to inability to walk while right knee pain is being evaluated by Ortho, cause is unknown at this time Faxed referral. 03/15/2020 JM Referral Organization [facility] [place] Referring Provider First Name An Referring Provider Last Name Omer Referring Provider Specialty Nurse Libra jo Referring Provider Referring Provider email [email or web address] Referred Provider [facility] Care, Referral Appointment Date 2020-05-03 Reason PLease evaluate and treat Please contact our office within 7 days to notify [facility] of scheduled appointment Faxed to [facility] 04/25/20 [facility] Referral Organization [facility] [place] Referring Provider First Name An Referring Provider Last Name Omer Referring Provider Specialty Nurse Libra jo Referring Provider Referring Provider email [email or web address] Referred Provider [facility], Referred Provider Specialty Physical The rapist Referral Appointment Date 2020-05-03 FUNCTIONAL STATUS PLAN OF CARE Activity Details VITAL SIGNS Temperature 98.2 degrees Fahrenheit Heart Rate 70 BPM 2022-05-01 Respiratory Rate 16 /min 2022-04-19 Oximetry 97 % 2022-05-01 Height 67 in 2022-05-01 Weight 187 lbs 2022-01-24 BMI 29.29 kg/m2 2022-01-24 Blood pressure systolic 132 mmHg Blood pressure diastolic 80 mmHg 2022-04 MEDICATIONS Medication Instructions Dosage Frequency Start Date End Date Duration Status ACCUCHEK AMARILYS PLUS FASTCLIX DRUM 1 Code 250 Medicall necessity Test once daily as directed Oct, 90 days Active Accu-Chek Amarilys Plus N/A In Vitro Once a day (250.00, medical necessity) as directed Oct, 90 days Active Carbidopa-Levod opa 25-100 MG Orally Three times a day 2 tablets 8h Active Protonix 40 MG Orally every 24 hours 1 tablet Apr, Active Zofran ODT 4 MG Orally Every 8 hours 1 tablet on the tongue and allow to dissolve as needed 8h May, Active Ecotrin Low Strength 81 MG Orally every 24 hours 1 tablet Apr, Active MiraLax 17 GM Orally Once a day 1 packet mixed with 8 ounces of fluid 24h May, Active Calcium Carbonate 500 MG Orally Twice a day 2 tablets with food 12h May, Active Gabapentin 100 MG Orally three times a day two capsules 8h 90 days Active Apixaban 5 MG Orally Twice a day 1 tablet 12h May, Active One Daily - Orally Once a day 1 tablet 24h Active Senna Lax 8.6 MG Orally Once a day 2 tablets as needed 24h May, Active Lisinopril 5 MG Orally Once a day 3 tablets 24h 15 May, 2022 90 days Active Atorvastatin Calcium 10 MG Orally Once a day 1 tablet 24h May, Active Miconazole Nitrate 2 % Topically Twice a day 1 application 12h May, Active Atenolol 50 MG Orally Once a day 1 tablet 24h 90 days Active Vitamin D3 2000 UNIT Orally Once a day as directed 24h 27 Jan, 2014 Active PROCEDURES Procedure Date Ordered Result Body Site Manager Benef[employer] Phone Consultation November 03, 2019 CAPILLARY BLOOD DRAW September 24, 2019 Manager Benef[employer] Phone Consultation Feb 29, 2020 [facility] ([facility]) only, general care management, 20 minutes or more of clinical staff time for chronic care management services or behavioral health integration services directed by an [facility] pract Jan 11, 2020 CAPILLARY BLOOD DRAW June 17, 2019 MED NUTRITION, INDIV, SUBSEQ Dec 23, 2019 [facility] ([facility]) only, general care management, 20 minutes or more of clinical staff time for chronic care management services or behavioral health integration services directed by an [facility] pract Mar 11, 2020 [employer] Phone Consultation Mar 09, 2020 INJ KETOROLAC TROMETHAMINE 15 MG Mar 08, 2020 [facility] VISIT ESTABLISHED PATIENT Mar 02, 2020 FQ VISIT ESTABLISHED PATIENT Dec 11, 2018 Manager Benef[employer] Phone Consultation July 29, 2019 Manager [employer] Phone Consultation July 10, 2019 CAPILLARY BLOOD DRAW Mar 18, 2019 CAPILLARY BLOOD DRAW Dec 18, 2018 Manager Benef[employer] Phone Consultation September 08, 2019 Manager [employer] Phone Consultation September 01, 2019 [facility] ([facility]) only, general care management, 20 minutes or more of clinical staff time for chronic care management services or behavioral health integration services directed by an [facility] or [facility] pract August 05, 2019 Manager [employer] Phone Consultation August 05, 2019 [facility] ([facility]) only, general care management, 20 minutes or more of clinical staff time for chronic care management services or behavioral health integration services directed by an [facility] pract September 08, 2019 GLYCATED HEMOGLOBIN TEST Mar 07, 2021 [facility] VISIT ESTABLISHED PATIENT July 15, 2020 [facility] ([facility]) only, general care management, 20 minutes or more of clinical staff time for chronic care management services or behavioral health integration services directed by an [facility] pract Jun 08, 2020 [facility] VISIT ESTABLISHED PATIENT May 26, 2020 [facility] ([facility]) only, general care management, 20 minutes or more of clinical staff time for chronic care management services or behavioral health integration services directed by an [facility] pract Apr 27, 2020 CCM PHONE Feb 10, 2021 [facility] ([facility]) only, general care management, 20 minutes or more of clinical staff time for chronic care management services or behavioral health integration services directed by an [facility] pract Jan 10, 2021 [facility] ([facility]) only, general care management, 20 minutes or more of clinical staff time for chronic care management services or behavioral health integration services directed by an [facility] or [facility] pract Dec 06, 2020 MED NUTRITION, INDIV, SUBSEQ August 23, 2020 CCM PHONE Mar 03, 2021 [facility] ([facility]) only, general care management, 20 minutes or more of clinical staff time for chronic care management services or behavioral health integration services directed by an [facility] pract Feb 10, 2021 Manager [employer] Phone Consultation Mar 25, 2020 [facility]Q VISIT ESTABLISHED PATIENT Mar 16, 2020 Manager [employer] Phone Consultation Mar 15, 2020 Manager [employer] Phone Consultation Apr 27, 2020 [facility] ([facility]) only, general care management, 20 minutes or more of clinical staff time for chronic care management services or behavioral health integration services directed by an [facility] or [facility] pract Apr 06, 2020 [employer] Phone Consultation Apr 06, 2020 Manager [employer] Phone Consultation Apr 05, 2020 [facility] VISIT ESTABLISHED PATIENT May 10, 2020 [facility] VISIT ESTABLISHED PATIENT Mar 23, 2020 [facility] VISIT ESTABLISHED PATIENT Apr 29, 2020 CAPILLARY BLOOD DRAW July 03, 2012 CAPILLARY BLOOD DRAW June 30, 2013 CAPILLARY BLOOD DRAW July 28, 2014 VENIPUNCTURE IH July 19, 2014 [facility] VISIT ESTABLISHED PATIENT September 17, 2018 CAPILLARY BLOOD DRAW Jan 27, 2014 [facility] VISIT ESTABLISHED PATIENT Dec 18, 2018 URINE-NO MICRO (Urine Dip Stick) Dec 09, 2013 GLYCATED HEMOGLOBIN TEST Mar 18, 2019 CAPILLARY BLOOD DRAW May 06, 2015 GLYCATED HEMOGLOBIN TEST September 24, 2019 CAPILLARY BLOOD DRAW November 03, 2014 GLYCATED HEMOGLOBIN TEST Dec 23, 2019 [facility] VISIT ESTABLISHED PATIENT September 24, 2014 [facility] VISIT ESTABLISHED PATIENT June 17, 2019 PNEUMOCOCCAL VACCINE (23) Adult Feb 01, 2014 [facility] VISIT ESTABLISHED PATIENT Mar 08, 2020 CAPILLARY BLOOD DRAW Apr 29, 2020 URINE-NO MICRO (Urine Dip Stick) May 10, 2020 GLYCATED HEMOGLOBIN TEST August 23, 2020 GLYCATED HEMOGLOBIN TEST Jan 06, 2013 GLYCATED HEMOGLOBIN TEST October 02, 2012 CAPILLARY BLOOD DRAW Mar 19, 2018 FLU VACCINE Jan 27, 2018 [facility] VISIT ESTABLISHED PATIENT Dec 18, 2017 CAPILLARY BLOOD DRAW September 18, 2017 Manager [employer] Phone Consultation October 31, 2018 ANNUAL WELLNESS SUBSEQUENT VISIT July 18, 2018 CAPILLARY BLOOD DRAW September 17, 2018 CAPILLARY BLOOD DRAW June 17, 2018 GLYCATED HEMOGLOBIN TEST Apr 01, 2012 [facility] VISIT ESTABLISHED PATIENT Nov 25, 2018 EAR irrigation/lavage Jan 06, 2013 [facility] VISIT ESTABLISHED PATIENT Nov 19, 2018 MAMMOGRAM, BOTH BREASTS Jan 27, 2014 [facility] VISIT ESTABLISHED PATIENT July 28, 2014 FQ VISIT ESTABLISHED PATIENT November 03, 2014 [facility] VISIT ESTABLISHED PATIENT May 06, 2015 VENIPUNCTURE IH May 04, 2016 CAPILLARY BLOOD DRAW November 04, 2015 CAPILLARY BLOOD DRAW August 10, 2015 FQ VISIT ESTABLISHED PATIENT Dec 12, 2016 FQ VISIT ESTABLISHED PATIENT Nov 16, 2016 CAPILLARY BLOOD DRAW August 15, 2016 FQ VISIT ESTABLISHED PATIENT August 10, 2015 CAPILLARY BLOOD DRAW May 09, 2016 [facility] VISIT ESTABLISHED PATIENT November 04, 2015 [facility] VISIT ESTABLISHED PATIENT May 09, 2016 CAPILLARY BLOOD DRAW May 29, 2017 [facility] VISIT ESTABLISHED PATIENT August 15, 2016 Manager Benef[employer] Phone Consultation Feb 22, 2017 FLU VACCINE Feb 20, 2017 [facility] VISIT ESTABLISHED PATIENT Feb 20, 2017 [facility] VISIT ESTABLISHED PATIENT May 29, 2017 [facility] VISIT ESTABLISHED PATIENT September 18, 2017 Fluzone High-Dose over age 65 Jan 27, 2018 [facility] VISIT ESTABLISHED PATIENT Mar 19, 2018 [facility] VISIT ESTABLISHED PATIENT June 17, 2018 GLYCATED HEMOGLOBIN TEST June 17, 2018 GLYCATED HEMOGLOBIN TEST Mar 19, 2018 ADMN FLU VACCINE Jan 27, 2018 GLYCATED HEMOGLOBIN TEST September 18, 2017 GLYCATED HEMOGLOBIN TEST May 29, 2017 GLYCATED HEMOGLOBIN TEST August 15, 2016 GLYCATED HEMOGLOBIN TEST May 09, 2016 GLYCATED HEMOGLOBIN TEST November 04, 2015 GLYCATED HEMOGLOBIN TEST August 10, 2015 GLYCATED HEMOGLOBIN TEST May 06, 2015 GLYCATED HEMOGLOBIN TEST November 03, 2014 IMMUNIZATION ADMIN Feb 01, 2014 GLYCATED HEMOGLOBIN TEST July 28, 2014 GLYCATED HEMOGLOBIN TEST Jan 27, 2014 GLYCATED HEMOGLOBIN TEST July 03, 2012 GLYCATED HEMOGLOBIN TEST June 30, 2013 [facility] VISIT ESTABLISHED PATIENT Dec 23, 2019 IMMUNIZATION ADMIN Feb 20, 2017 CAPILLARY BLOOD DRAW Mar 07, 2021 CAPILLARY BLOOD DRAW Feb 20, 2017 CAPILLARY BLOOD DRAW August 23, 2020 GLYCATED HEMOGLOBIN TEST Feb 20, 2017 MED NUTRITION, INDIV, SUBSEQ September 24, 2019 THER/PROPH/DIAG INJ, SC/IM Mar 08, 2020 GLYCATED HEMOGLOBIN TEST June 17, 2019 CAPILLARY BLOOD DRAW Dec 23, 2019 MED NUTRITION, INDIV, SUBSEQ Mar 18, 2019 GLYCATED HEMOGLOBIN TEST Dec 18, 2018 ANNUAL WELLNESS INITIAL VISIT July 18, 2018 GLYCATED HEMOGLOBIN TEST September 17, 2018 CCM PHONE Jan 18, 2022 [facility] VISIT ESTABLISHED PATIENT Jan 24, 2022 Manager Benefit Phone Consultation Jan 10, 2022 CCM Home Visit Feb 06, 2022 ADMN FLU VACCINE Feb 20, 2017 [facility] ([facility]) only, general care management, 20 minutes or more of clinical staff time for chronic care management services or behavioral health integration services directed by an [facility] pract Feb 06, 2022 [facility] ([facility]) only, general care management, 20 minutes or more of clinical staff time for chronic care management services or behavioral health integration services directed by an [facility] pract Feb 20, 2022 [facility] VISIT ESTABLISHED PATIENT Apr 19, 2022 Manager Benefit Phone Consultation Apr 24, 2022 CCM PHONE May 11, 2021 CCM PHONE Apr 21, 2021 MED NUTRITION, INDIV, SUBSEQ May 30, 2021 CCM PHONE May 26, 2021 [facility] ([facility]) only, general care management, 20 minutes or more of clinical staff time for chronic care management services or behavioral health integration services directed by an [facility] pract May 11, 2021 CCM PHONE May 11, 2021 [facility] ([facility]) only, general care management, 20 minutes or more of clinical staff time for chronic care management services or behavioral health integration services directed by an [facility] pract September 07, 2021 VENIPUNCT, ROUTINE* (IH) Mar 20, 2013 MED NUTRITION, INDIV, SUBSEQ August 29, 2021 Manager Benefit Face to Face visit Jan 15, 2013 [facility] ([facility]) only, general care management, 20 minutes or more of clinical staff time for chronic care management services or behavioral health integration services directed by an [facility] pract July 11, 2021 CAPILLARY BLOOD DRAW Jan 06, 2013 [facility] ([facility]) only, general care management, 20 minutes or more of clinical staff time for chronic care management services or behavioral health integration services directed by an [facility] pract May 26, 2021 CAPILLARY BLOOD DRAW October 02, 2012 VENIPUNCTURE IH September 23, 2012 TRANS CARE MGMT 14 DAY DISCH May 01, 2022 CCM Home Visit Dec 21, 2021 Manager Benefit Face to Face visit Jan 01, 2022 Manager Benefit Phone Consultation May 02, 2022 [facility] ([facility]) only, general care management, 20 minutes or more of clinical staff time for chronic care management services or behavioral health integration services directed by an [facility] pract May 02, 2022 Manager Benefit Phone Consultation May 14, 2022 Transitional Care Management-CC Portion May 14, 2022 ADMN FLU VACCINE Dec 23, 2019 CCM Home Visit Jan 01, 2022 TRANS CARE MGMT 7 DAY DISCH May 01, 2022 MED NUTRITION, INDIV, SUBSEQ Mar 07, 2021 [facility] ([facility]) only, general care management, 20 minutes or more of clinical staff time for chronic care management services or behavioral health integration services directed by an [facility] October 13, 2020 [facility] ([facility]) only, general care management, 20 minutes or more of clinical staff time for chronic care management services or behavioral health integration services directed by an [facility] pract October 11, 2020 [facility] ([facility]) only, general care management, 20 minutes or more of clinical staff time for chronic care management services or behavioral health integration services directed by an [facility] August 24, 2020 CCM PHONE August 24, 2020 [facility] Clinic Visit Mar 07, 2021 [facility] VISIT ESTABLISHED PATIENT July 21, 2020 [facility] ([facility]) only, general care management, 20 minutes or more of clinical staff time for chronic care management services or behavioral health integration services directed by an [facility] pract July 13, 2020 [facility] VISIT ESTABLISHED PATIENT Nov 30, 2020 [facility] ([facility]) only, general care management, 20 minutes or more of clinical staff time for chronic care management services or behavioral health integration services directed by an [facility] pract Mar 03, 2021 Transitional Care Management-CC Portion Apr 24, 2022 CAPILLARY BLOOD DRAW August 29, 2021 SPECIMEN HANDLING May 01, 2022 CAPILLARY BLOOD DRAW May 30, 2021 [facility] VISIT ESTABLISHED PATIENT May 01, 2022 GLYCATED HEMOGLOBIN TEST May 30, 2021 GLYCATED HEMOGLOBIN TEST August 29, 2021 [facility] VISIT ESTABLISHED PATIENT Nov 28, 2021 FLU VACCINE Jan 24, 2022 URINE-NO MICRO (Urine Dip Stick) May 01, 2022 SPECIMEN HANDLING May 01, 2022 ADMN FLU VACCINE Jan 24, 2022 [facility] VISIT ESTABLISHED PATIENT August 29, 2021 [facility] VISIT ESTABLISHED PATIENT May 30, 2021 [facility] VISIT ESTABLISHED PATIENT Mar 07, 2021 [facility] VISIT ESTABLISHED PATIENT August 23, 2020 SPECIMEN HANDLING May 10, 2020 [facility] VISIT ESTABLISHED PATIENT September 24, 2019 GLYCATED HEMOGLOBIN TEST Apr 29, 2020 FLU VACCINE Dec 23, 2019 FQ VISIT ESTABLISHED PATIENT Mar 18, 2019 CAPILLARY BLOOD DRAW Apr 01, 2012 VENIPUNCTURE Dec 21, 2011 [facility] ([facility]) only, general care management, 20 minutes or more of clinical staff time for chronic care management services or behavioral health integration services directed by an [facility] pract November 10, 2021 [facility] ([facility]) only, general care management, 20 minutes or more of clinical staff time for chronic care management services or behavioral health integration services directed by an [facility] pract Jan 10, 2022 RESULTS Name Result Date Reference Range [facility] 2022-05-18 AGAP 12.4 BUN 12 7-18 BN/CR 15.1 CA 8.7 8.5-10.1 CO2 33 21-31 CL 100 98-107 CREAT 0.82 0.55-1.02 EGFRAA 82.37 EGFRNAA 67.96 GLU 103 70-100 K 3.7 3.5-5.1 NA 142 136-145 CBC WITH DIFF 2022-05-18 IG% 2.30 BA% 0.2 0.0-2.0 BA# 0.01 0.00-0.20 EO% 1.2 1.0-7.0 EO# 0.06 0.00-0.70 HCT 40 36-46 HGB 12.5 12.0-15.5 LY% 24 19-48 LY# 1.22 1.20-3.40 MCH 30.1 27.1-32.0 MCHC 32 33-36 IG% 2.30 MCV 95.7 81.0-99.0 MO% 7.9 3.0-10.0 MO# 0.41 0.11-0.70 IG% 2.30 NE# 3.38 1.20-6.70 IG% 2.30 NEUT% 65 40-74 PLATELETS 198 150-400 RBC 4.15 3.90-5.03 RDW 15.4 11.6-14.8 WBC 5.2 4.8-10.8 [facility] 2022-05-17 AGAP 5.9 BUN 12 7-18 BN/CR 16.4 CA 8.5 8.5-10.1 CO2 39 21-31 CL 104 98-107 CREAT 0.72 0.55-1.02 EGFRAA 95.71 EGFRNAA 78.97 GLU 97 70-100 K 4.0 3.5-5.1 NA 145 136-145 CBC WITH DIFF 2022-05-17 IG% 2.10 BA% 0.2 0.0-2.0 BA# 0.01 0.00-0.20 EO% 2.1 1.0-7.0 EO# 0.09 0.00-0.70 HCT 40 36-46 HGB 12.3 12.0-15.5 LY% 25 19-48 LY# 1.08 1.20-3.40 MCH 30.0 27.1-32.0 MCHC 31 33-36 IG% 2.10 MCV 96.8 81.0-99.0 MO% 5.7 3.0-10.0 MO# 0.25 0.11-0.70 IG% 2.10 NE# 2.86 1.20-6.70 IG% 2.10 NEUT% 65 40-74 PLATELETS 186 150-400 RBC 4.10 3.90-5.03 RDW 15.5 11.6-14.8 WBC 4.4 4.8-10.8 CBC WITH DIFF 2022-05-16 IG% 3.20 BA% 0.0 0.0-2.0 BA# 0.00 0.00-0.20 EO% 1.4 1.0-7.0 EO# 0.06 0.00-0.70 HCT 40 36-46 HGB 12.0 12.0-15.5 LY% 25 -48 LY# 1.09 1.20-3.40 MCH 29.5 27.1-32.0 MCHC 30 33-36 IG% 3.20 MCV 97.1 81.0-99.0 MO% 7.5 3.0-10.0 MO# 0.33 0.11-0.70 IG% 3.20 NE# 2.80 1.20-6.70 IG% 3.20 NEUT% 63 40-74 PLATELETS 181 150-400 RBC 4.07 3.90-5.03 RDW 15.3 11.6-14.8 WBC 4.4 4.8-10.8 I-STAT BMP W/IONIZED CALCIUM (BACKUP) 06-14-00 IBUN 10.0 8.0-26.0 ICL 97 98-109 ICO2 37 24-29 ICREAT 0.9 0.6-1.3 IGLUC 91 70-105 IONIZEDCA 1.18 1.12-1.32 IPOT 3.90 3.50-4.90 ISODIUM 141 138-146 [facility] 2022-05-15 AGAP 8.5 BUN 11 7-18 BN/CR 14.9 CA 8.3 8.5-10.1 CO2 38 21-31 CL 103 98-107 CREAT 0.72 0.55-1.02 EGFRAA 95.71 EGFRNAA 78.97 GLU 117 70-100 K 4.1 3.5-5.1 NA 145 136-145 CBC WITH DIFF 2022-05-15 IG% 1.30 BA% 0.2 0.0-2.0 BA# 0.01 0.00-0.20 EO% 1.3 1.0-7.0 EO# 0.06 0.00-0.70 HCT 36 36-46 HGB 11.3 12.0-15.5 LY% 24 19-48 LY# 1.12 1.20-3.40 MCH 30.5 27.1-32.0 MCHC 31 33-36 IG% 1.30 MCV 97.3 81.0-99.0 MO% 8.4 3.0-10.0 MO# 0.39 0.11-0.70 IG% 1.30 NE# 2.98 1.20-6.70 IG% 1.30 NEUT% 65 40-74 PLATELETS 165 150-400 RBC 3.71 3.90-5.03 RDW 15.3 11.6-14.8 WBC 4.6 4.8-10.8 [facility] 2022-05-14 AGAP 7.7 BUN 9 7-18 BN/CR 10.7 CA 8.2 8.5-10.1 CO2 38 21-31 CL 104 98-107 CREAT 0.87 0.55-1.02 EGFRAA 76.93 EGFRNAA 63.47 GLU 125 70-100 K 3.7 3.5-5.1 NA 146 136-145 CBC WITH DIFF 2022-05-14 IG% 1.20 BA% 0.2 0.0-2.0 BA# 0.01 0.00-0.20 EO% 0.8 1.0-7.0 EO# 0.04 0.00-0.70 HCT 36 36-46 HGB 11.2 12.0-15.5 LY% 13 19-48 LY# 0.65 1.20-3.40 MCH 29.9 27.1-32.0 MCHC 31 33-36 IG% 1.20 MCV 96.8 81.0-99.0 MO% 9.1 3.0-10.0 MO# 0.45 0.11-0.70 IG% 1.20 NE# 3.72 1.20-6.70 IG% 1.20 NEUT% 76 40-74 PLATELETS 160 150-400 RBC 3.74 3.90-5.03 RDW 15.1 11.6-14.8 WBC 4.9 4.8-10.8 ARTERIAL BLOOD GAS 2022-05-14 DENILSON'S POSITIVE BE 16.0 DEVICE Nasal Cannula FIO2 8 LPM HCO3 41.1 22.0-26.0 O2SAT 52.0 95.0-100.0 PCO2 72.5 35.0-45.0 PH(A) 7.36 7.35-7.45 PO2 30.0 70.0-100.0 SITE (A) LEFT RADIAL TCO2 43.0 23.0-27.0 BMP 2022-05-13 AGAP 4.5 BUN 10 7-18 BN/CR 12.9 CA 8.5 8.5-10.1 CO2 40 21-31 CL 105 98-107 CREAT 0.80 0.55-1.02 EGFRAA 84.75 EGFRNAA 69.93 GLU 113 70-100 K 4.4 3.5-5.1 NA 144 136-145 CBC WITH DIFF 2022-05-13 IG% 0.60 BA% 0.2 0.0-2.0 BA# 0.01 0.00-0.20 EO% 1.2 1.0-7.0 EO# 0.06 0.00-0.70 HCT 37 36-46 HGB 11.3 12.0-15.5 LY% 20 -48 LY# 1.02 1.20-3.40 MCH 30.0 27.1-32.0 MCHC 31 33-36 IG% 0.60 MCV 97.9 81.0-99.0 MO% 7.0 3.0-10.0 MO# 0.36 0.11-0.70 IG% 0.60 NE# 3.64 1.20-6.70 IG% 0.60 NEUT% 71 40-74 PLATELETS 189 150-400 RBC 3.77 3.90-5.03 RDW 15.1 11.6-14.8 WBC 5.1 4.8-10.8 BMP 2022-05-12 AGAP 6.7 BUN 10 7-18 BN/CR 12.8 CA 8.4 8.5-10.1 CO2 38 21-31 CL 105 98-107 CREAT 0.79 0.55-1.02 EGFRAA 85.99 EGFRNAA 70.95 GLU 129 70-100 K 4.6 3.5-5.1 NA 145 136-145 CBC WITH DIFF 2022-05-12 IG% 0.50 BA% 0.2 0.0-2.0 BA# 0.01 0.00-0.20 EO% 0.4 1.0-7.0 EO# 0.02 0.00-0.70 HCT 38 36-46 HGB 11.8 12.0-15.5 LY% 16 19-48 LY# 0.89 1.20-3.40 MCH 30.3 27.1-32.0 MCHC 31 33-36 IG% 0.50 MCV 98.2 81.0-99.0 MO% 6.5 3.0-10.0 MO# 0.36 0.11-0.70 IG% 0.50 NE# 4.23 1.20-6.70 IG% 0.50 NEUT% 76 40-74 PLATELETS 199 150-400 RBC 3.90 3.90-5.03 RDW 15.2 11.6-14.8 WBC 5.5 4.8-10.8 ESR 2022-05-12 ESR 16.00 0.00-30.00 C-REACTIVE PROTEIN 2022-05-12 CRP 4.70 <0.90 BMP 2022-05-11 AGAP 6.2 BUN 14 7-18 BN/CR 17.5 CA 8.6 8.5-10.1 CO2 36 21-31 CL 104 98-107 CREAT 0.80 0.55-1.02 EGFRAA 84.75 EGFRNAA 69.93 GLU 180 70-100 K 4.5 3.5-5.1 NA 141 136-145 CBC WITH DIFF 2022-05-11 IG% 1.00 BA% 0.3 0.0-2.0 BA# 0.01 0.00-0.20 EO% 0.0 1.0-7.0 EO# 0.00 0.00-0.70 HCT 36 36-46 HGB 11.3 12.0-15.5 LY% 19 19-48 LY# 0.57 1.20-3.40 MCH 30.0 27.1-32.0 MCHC 31 33-36 IG% 1.00 MCV 96.3 81.0-99.0 MO% 5.0 3.0-10.0 MO# 0.15 0.11-0.70 IG% 1.00 NE# 2.27 1.20-6.70 IG% 1.00 NEUT% 75 40-74 PLATELETS 173 150-400 RBC 3.77 3.90-5.03 RDW 14.9 11.6-14.8 WBC 3.0 4.8-10.8 MAGNESIUM 2022-05-11 MG 1.9 1.8-2.4 TROPONIN-I HIGH SENSITIVITY 2022-05-10 TROP-I HS 10 0-51 CMP 2022-05-10 A/G 0.9 AGAP 9.5 ALB 3.2 3.4-5.0 ALKP 76 50-130 ALT 6 14-59 AST 29 15-37 BUN 23 7-18 BN/CR 24.1 CA 8.6 8.5-10.1 CO2 35 21-31 CL 99 98-107 CREAT 0.95 0.55-1.02 EGFRAA 69.50 EGFRNAA 57.35 GLOB 3.76 GLU 137 70-100 K 5.0 3.5-5.1 NA 138 136-145 TBIL 0.8 <=1.2 TP 7.0 6.4-8.2 BNP BETA NATRIURETIC PEPTIDE 2022-05-10 BNP 275 0-100 CBC WITH DIFF 2022-05-10 IG% 0.30 BA% 0.5 0.0-2.0 BA# 0.03 0.00-0.20 EO% 2.6 1.0-7.0 EO# 0.15 0.00-0.70 HCT 41 36-46 HGB 12.6 12.0-15.5 LY% 13 19-48 LY# 0.75 1.20-3.40 MCH 29.6 27.1-32.0 MCHC 31 33-36 IG% 0.30 MCV 96.9 81.0-99.0 MO% 7.9 3.0-10.0 MO# 0.46 0.11-0.70 IG% 0.30 NE# 4.38 1.20-6.70 IG% 0.30 NEUT% 76 40-74 PLATELETS 189 150-400 RBC 4.26 3.90-5.03 RDW 15.4 11.6-14.8 WBC 5.8 4.8-10.8 PT INR OUTSIDE FACILITY 2022-05-10 INR 1.06 INR 1.06 INR 1.06 INR 1.06 10.9 9.3-11.2 LDH 2022-05-10 LDH 281 81-234 D-DIMER 2022-05-10 DDIMER 1620.0 0.0-400.0 SARS-COV ANTIGEN, [place] 2022-05-10 SARS COV ANTIGEN NEGATIVE NEGATIVE TROPONIN-I HIGH SENSITIVITY 2022-05-10 TROP-I HS 12 0-51 VIRAL PANEL BY PCR (FLU A/B, RSV, SARS-COV-2) 2022-05-10 CULTURE, BLOOD ADULT 2([facility]) 2022-05-10 BLOOD CULTURE See Result Notes CULTURE, BLOOD ADULT 1([facility] [place]) 2022-05-10 BLOOD CULTURE See Result Notes URINE DIP IH 2022-05-01 Microscopic Examination Urine-Color yellow Appearance cloudy Specific [place] 1.010 pH 6 Glucose normal Protein negative Occult Blood negative Bilirubin negative Urobilinogen,Semi-Qn negative Nitrite, Urine negative Ketones negative Leukocyte esterase +++ HCG Urinalysis Gross Exam CMP 2022-05-01 ALBUMIN 4.0 3.6-5.1 ALBUMIN/GLOBULIN RATIO 2.0 1.0-2 .5 ALKALINE PHOSPHATASE 47 37-153 ALT 12 6-29 AST 13 10-35 BILIRUBIN, TOTAL 0.6 0.2-1.2 UREA NITROGEN (BUN) 25 7-25 BUN/CREATININE RATIO NOT APPLICABLE 6-22 CALCIUM 8.8 8.6-10.4 CARBON DIOXIDE 37 20-32 CHLORIDE 100 98-110 CREATININE 0.95 0.60-1.00 EGFR 62 >OR = 60 GLOBULIN 2.0 1.9-3.7 GLOBULIN 2.0 1.9-3.7 GLUCOSE 88 65-99 POTASSIUM 4.1 3.5-5.3 PROTEIN, TOTAL 6.0 6.1-8.1 SODIUM 142 135-146 URINE CULTURE ROUTINE 2022-05-01 CULTURE, URINE, ROUTINE SEE NOTE CBC WITH DIFF 2022-05-01 ABSOLUTE BASOPHILS 52 0-200 ABSOLUTE LYMPHOCYTES 1813 850-390 0 BASOPHILS 0.5 COMMENT(S) ABSOLUTE EOSINOPHILS 82 15-500 EOSINOPHILS 0.8 HEMATOCRIT 41.7 35.0-45.0 HEMOGLOBIN 13.9 11.7-15.5 LYMPHOCYTES 17.6 MCH 30.8 27.0-33.0 MCHC 33.3 32.0-36.0 MCV 92.5 80.0-100.0 ABSOLUTE MONOCYTES 721 200-950 MONOCYTES 7.0 MPV 9.7 7.5-12.5 NEUTROPHILS 74.1 ABSOLUTE NEUTROPHILS 7632 1500-78 00 PLATELET COUNT 316 140-400 RED BLOOD CELL COUNT 4.51 3.80-5. 10 RDW 14.0 11.0-15.0 WHITE BLOOD CELL COUNT 10.3 3.8-1 0.8 CBC WITH DIFF 2022-04-22 IG% 0.50 BA% 0.1 0.0-2.0 BA# 0.01 0.00-0.20 EO% 0.0 1.0-7.0 EO# 0.00 0.00-0.70 HCT 40 36-46 HGB 12.9 12.0-15.5 LY% 9 19-48 LY# 0.73 1.20-3.40 MCH 30.3 27.1-32.0 MCHC 32 33-36 IG% 0.50 MCV 94.1 81.0-99.0 MO% 3.7 3.0-10.0 MO# 0.31 0.11-0.70 IG% 0.50 NE# 7.32 1.20-6.70 IG% 0.50 NEUT% 87 40-74 PLATELETS 229 150-400 RBC 4.26 3.90-5.03 RDW 14.0 11.6-14.8 WBC 8.4 4.8-10.8 PTT 2022-04-22 PTT 63.3 21.7-29.3 CBC WITH DIFF 2022-04-21 IG% 0.90 BA% 0.5 0.0-2.0 BA# 0.03 0.00-0.20 EO% 4.6 1.0-7.0 EO# 0.27 0.00-0.70 HCT 38 36-46 HGB 12.2 12.0-15.5 LY% 20 19-48 LY# 1.19 1.20-3.40 MCH 30.7 27.1-32.0 MCHC 32 33-36 IG% 0.90 MCV 95.2 81.0-99.0 MO% 10.0 3.0-10.0 MO# 0.58 0.11-0.70 IG% 0.90 NE# 3.70 1.20-6.70 IG% 0.90 NEUT% 64 40-74 PLATELETS 179 150-400 RBC 3.98 3.90-5.03 RDW 14.3 11.6-14.8 WBC 5.8 4.8-10.8 PTT 2022-04-21 PTT 45.0 21.7-29.3 PTT 2022-04-20 PTT 54.1 21.7-29.3 CMP 2022-04-20 A/G 0.8 AGAP 11.4 ALB 2.9 3.4-5.0 ALKP 67 50-130 ALT 6 14-59 AST 15 15-37 BUN 27 7-18 BN/CR 31.4 CA 8.3 8.5-10.1 CO2 31 21-31 CL 101 98-107 CREAT 0.85 0.55-1.02 EGFRAA 79.02 EGFRNAA 65.20 GLOB 3.72 GLU 141 70-100 K 4.2 3.5-5.1 NA 139 136-145 TBIL 0.7 <=1.2 TP 6.6 6.4-8.2 FOLATE ([place]) 2022-04-20 FOL 46.3 8.6-58.9 LDH 2022-04-20 LDH 362 81-234 PTT 2022-04-20 PTT 39.7 21.7-29.3 FERRITIN 2022-04-20 FERR 288 8-252 C-REACTIVE PROTEIN 2022-04-20 CRP 29.20 <0.90 HEMOGLOBIN A1C 2022-04-20 A1C 6.2 <5.7 ESTAVEGLUC 131 <140 SARS-COV ANTIGEN, [place]INTON 2022-04-20 SARS COV ANTIGEN NEGATIVE NEGATIVE VIRAL PANEL BY PCR (FLU A/B, RSV, SARS-COV-2) 2022-04-19 CBC WITH DIFF 2022-04-19 IG% 0.50 BA% 0.4 0.0-2.0 BA# 0.03 0.00-0.20 EO% 1.5 1.0-7.0 EO# 0.12 0.00-0.70 HCT 43 36-46 HGB 13.7 12.0-15.5 LY% 13 19-48 LY# 1.03 1.20-3.40 MCH 30.4 27.1-32.0 MCHC 32 33-36 IG% 0.50 MCV 95.8 81.0-99.0 MO% 8.9 3.0-10.0 MO# 0.72 0.11-0.70 IG% 0.50 NE# 6.17 1.20-6.70 IG% 0.50 NEUT% 76 40-74 PLATELETS 167 150-400 RBC 4.50 3.90-5.03 RDW 14.6 11.6-14.8 WBC 8.1 4.8-10.8 D-DIMER 2022-04-19 DDIMER >5000.0 0.0-400.0 CBC WITH DIFF 2022-04-20 IG% 0.70 BA% 0.3 0.0-2.0 BA# 0.02 0.00-0.20 EO% 2.6 1.0-7.0 EO# 0.15 0.00-0.70 HCT 45 36-46 HGB 14.6 12.0-15.5 LY% 17 19-48 LY# 0.99 1.20-3.40 MCH 30.9 27.1-32.0 MCHC 33 33-36 IG% 0.70 MCV 94.3 81.0-99.0 MO% 9.9 3.0-10.0 MO# 0.57 0.11-0.70 IG% 0.70 NE# 4.01 1.20-6.70 IG% 0.70 NEUT% 69 40-74 PLATELETS 129 150-400 RBC 4.72 3.90-5.03 RDW 14.5 11.6-14.8 WBC 5.8 4.8-10.8 D-DIMER 2022-04-20 DDIMER 4290.0 0.0-400.0 Venous Doppler 2022-04-19 MAMMOGRAM 2022-02-02 Results: Birads 1 DEXA 2022-02-02 RESULTS: Normal HGA1C [place] 2021-11-28 HGA1C 6.0 4 - 7 BMP 2021-11-28 UREA NITROGEN (BUN) 18 7-25 BUN/CREATININE RATIO NOT APPLICABLE -22 CALCIUM 9.6 8.6-10.4 CARBON DIOXIDE 24 20-32 CHLORIDE 97 98-110 CREATININE 0.98 0.60-1.00 EGFR 60 >OR = 60 GLUCOSE TNP SODIUM 145 135-146 SPECIMEN INTEGRITY COMPROMISED 2021-11-28 SPECIMEN INTEGRITY COMPROMISED HGA1C [place] 2021-08-29 HGA1C 6.5 4 - 7 CMP 2021-08-29 ALBUMIN 4.5 3.6-5.1 ALBUMIN/GLOBULIN RATIO 1.9 1.0-2 .5 ALKALINE PHOSPHATASE 63 37-153 ALT 11 6-29 AST 13 10-35 BILIRUBIN, TOTAL 0.5 0.2-1.2 UREA NITROGEN (BUN) 18 7-25 BUN/CREATININE RATIO NOT APPLICABLE 10-04 CALCIUM 9.7 8.6-10.4 CARBON DIOXIDE 29 20-32 CHLORIDE 100 98-110 CREATININE 0.80 0.60-0.93 eGFR 84 >OR = 60 eGFR NON-AFR. SPANISH 73 >OR = 60 GLOBULIN 2.4 1.9-3.7 GLOBULIN 2.4 1.9-3.7 GLUCOSE 117 65-99 POTASSIUM 4.5 3.5-5.3 PROTEIN, TOTAL 6.9 6.1-8.1 SODIUM 138 135-146 HGA1C [place] 2021-05-30 HGA1C 6.3 4 - 7 HGA1C [place] 2021-03-07 HGA1C 6.1 4 - 7 HGA1C [place] 2020-08-23 HGA1C 6.1 4 - 7 BMP 2020-07-21 UREA NITROGEN (BUN) 14 7-25 BUN/CREATININE RATIO NOT APPLICABLE -22 CALCIUM 9.3 8.6-10.4 CARBON DIOXIDE 33 20-32 CHLORIDE 101 98-110 CREATININE 0.66 0.60-0.93 eGFR 102 >OR = 60 eGFR NON-AFR. SPANISH 88 >OR = 60 GLUCOSE 91 65-139 POTASSIUM 4.4 3.5-5.3 SODIUM 141 135-146 Echocardiogram Ejection Fraction % URINE DIP IH Microscopic Examination Urine-Color yellow Appearance clear Specific [place] 1.020 pH 5 Glucose normal Protein trace Occult Blood trace Bilirubin negative Urobilinogen,Semi-Qn negative Nitrite, Urine negative Ketones negative Leukocyte esterase ++ HCG Urinalysis Gross Exam URINE CULTURE ROUTINE 2020-05-10 CULTURE, URINE, ROUTINE SEE NOTE HGA1C [place] 2020-04-29 HGA1C 6.2 4 - 7 CMP 2020-03-24 A/G 1.4 AGAP 12.8 ALB 4.1 3.4-5.0 ALKP 86 50-130 ALT 17 14-59 AST 14 15-37 BUN 15 7-18 BN/CR 20.5 CA 9.3 8.5-10.1 CO2 32 21-31 CL 105 98-107 CREAT 0.75 0.55-1.02 EGFRAA 91.81 EGFRNAA 75.75 GLOB 2.88 GLU 85 70-100 K 4.1 3.5-5.1 NA 146 136-145 TBIL 0.4 <=1.2 TP 7.0 6.4-8.2 HGA1C [place] 2019-12-23 HGA1C 6.2 4 - 7 MAMMOGRAM 2019-11-04 Results: BIRADS 1 HGA1C [place] HGA1C 6.1 4 - 7 BMP 2019-09-24 UREA NITROGEN (BUN) 17 7-25 BUN/CREATININE RATIO NOT APPLICABLE -22 CALCIUM 9.3 8.6-10.4 CARBON DIOXIDE 29 20-32 CHLORIDE 103 98-110 CREATININE 0.76 0.60-0.93 eGFR 91 >OR = 60 eGFR NON-AFR. SPANISH 78 >OR = 60 GLUCOSE 144 65-139 POTASSIUM 4.3 3.5-5.3 SODIUM 143 135-146 HGA1C [place] HGA1C 6.1 4 - 7 HGA1C [place] HGA1C 6.1 4 - 7 LIPID PANEL 2019-03-18 CHOLESTEROL, TOTAL 164 <200 CHOLESTEROL, TOTAL 164 <200 HDL CHOLESTEROL 59 >50 LDL-CHOLESTEROL 75 NON HDL CHOLESTEROL 105 <130 CHOL/HDLC RATIO 2.8 <5.0 TRIGLYCERIDES 199 <150 HGA1C [place] HGA1C 6.1 4 - 7 Echocardiogram 2018-12-09 Ejection Fraction % BMP 2018-11-19 UREA NITROGEN (BUN) 17 7-25 BUN/CREATININE RATIO NOT APPLICABLE 6-22 CALCIUM 9.2 8.6-10.4 CARBON DIOXIDE 31 20-32 CHLORIDE 105 98-110 CREATININE 0.83 0.60-0.93 eGFR 82 >OR = 60 eGFR NON-AFR. SPANISH 71 >OR = 60 GLUCOSE 112 65-99 POTASSIUM 4.3 3.5-5.3 SODIUM 141 135-146 HGA1C [place] HGA1C 6.0 4 - 7 MAMMOGRAM 2018-09-18 Results: BIRADS 1 HGA1C [place] HGA1C 6.2 4 - 7 HGA1C [place] HGA1C 6.0 4 - 7 LIPID PANEL 2017-12-24 CHOLESTEROL, TOTAL 157 <200 CHOLESTEROL, TOTAL 157 <200 HDL CHOLESTEROL 49 >50 LDL-CHOLESTEROL 79 NON HDL CHOLESTEROL 108 <130 CHOL/HDLC RATIO 3.2 <5.0 TRIGLYCERIDES 202 <150 HGA1C [place] HGA1C 6.1 4 - 7 CMP 2017-12-18 ALBUMIN 4.5 3.6-5.1 ALBUMIN/GLOBULIN RATIO 2.1 1.0-2 .5 ALKALINE PHOSPHATASE 53 33-130 ALT 17 6-29 AST 18 10-35 BILIRUBIN, TOTAL 0.3 0.2-1.2 UREA NITROGEN (BUN) 17 7-25 BUN/CREATININE RATIO NOT APPLICABLE 6-22 CALCIUM 9.5 8.6-10.4 CARBON DIOXIDE 30 20-32 CHLORIDE 104 98-110 CREATININE 0.86 0.60-0.93 eGFR 79 >OR = 60 eGFR NON-AFR. SPANISH 68 >OR = 60 GLOBULIN 2.1 1.9-3.7 GLOBULIN 2.1 1.9-3.7 GLUCOSE 100 65-99 POTASSIUM 4.3 3.5-5.3 PROTEIN, TOTAL 6.6 6.1-8.1 SODIUM 142 135-146 MICROALBUMIN RANDOM URINE WITH CREATININE CREATININE RANDOM URINE MICROALBUMIN MICROALBUMIN/CREATININE RATIO X HGA1C [place] 2017-09-18 HGA1C 6.2 4 - 7 MAMMOGRAM Results: BIRADS 1 HGA1C [place] 2017-05-29 HGA1C 6.2 4 - 7 HGA1C [place] 2017-02-21 HGA1C 6.0 4 - 7 CMP 2017-02-20 ALBUMIN 4.7 3.6-5.1 ALBUMIN/GLOBULIN RATIO 2.1 1.0-2 .5 ALKALINE PHOSPHATASE 67 33-130 ALT 15 6-29 AST 15 10-35 BILIRUBIN, TOTAL 0.5 0.2-1.2 UREA NITROGEN (BUN) 13 7-25 BUN/CREATININE RATIO NOT APPLICABLE 6-22 CALCIUM 10.5 8.6-10.4 CARBON DIOXIDE 28 20-31 CHLORIDE 102 98-110 CREATININE 0.73 0.60-0.93 eGFR 97 >OR = 60 eGFR NON-AFR. SPANISH 83 >OR = 60 GLOBULIN 2.2 1.9-3.7 GLOBULIN 2.2 1.9-3.7 GLUCOSE 120 65-99 POTASSIUM 4.6 3.5-5.3 PROTEIN, TOTAL 6.9 6.1-8.1 SODIUM 141 135-146 JOE IFA SCREEN WITH REFL TO TITER AND PATTERN IFA 2017-02-20 JOE SCREEN, IFA NEGATIVE NEGATIVE TSH WITH REFLEX 2017-02-20 TSH W/REFLEX TO FT4 1.78 0.40-4.5 0 RHEUMATOID FACTOR 2017-02-20 RHEUMATOID FACTOR <14 <14 CBC WITH DIFF 2017-02-20 ABSOLUTE BASOPHILS 40 0-200 ABSOLUTE LYMPHOCYTES 1727 850-390 0 BASOPHILS 0.7 ABSOLUTE EOSINOPHILS 34 15-500 EOSINOPHILS 0.6 HEMATOCRIT 42.9 35.0-45.0 HEMOGLOBIN 14.6 11.7-15.5 LYMPHOCYTES 30.3 MCH 30.1 27.0-33.0 MCHC 33.9 32.0-36.0 MCV 88.9 80.0-100.0 ABSOLUTE MONOCYTES 382 200-950 MONOCYTES 6.7 MPV 8.7 7.5-12.5 NEUTROPHILS 61.7 ABSOLUTE NEUTROPHILS 3517 1500-78 00 PLATELET COUNT 195 140-400 RED BLOOD CELL COUNT 4.83 3.80-5. 10 RDW 14.0 11.0-15.0 WHITE BLOOD CELL COUNT 5.7 3.8-1 0.8 VITAMIN B12 AND FOLATE SERUM PANEL [id number] FOLATE, SERUM >24.0 VITAMIN B12 [phone] LIPID PANEL 2017-02-20 CHOLESTEROL, TOTAL 164 <200 CHOLESTEROL, TOTAL 164 <200 HDL CHOLESTEROL 55 >50 LDL-CHOLESTEROL 78 NON HDL CHOLESTEROL 109 <130 CHOL/HDLC RATIO 3.0 <5.0 TRIGLYCERIDES 213 <150 SED RATE BY MODIFIED [place] 8 SED RATE BY MODIFIED [place] 2 < OR = 30 HEPATITIS C ANTIBODY /WITH R EFLEX TO HCV RNA QUANTITATIVE REAL TIME PCR 2016-12-12 HEPATITIS C ANTIBODY NON-REACTIVE NON-KIESHA CTIVE SIGNAL TO CUT-OFF 0.01 <1.00 Echocardiogram Ejection Fraction % HGA1C [facility] 2016-08-15 HGA1C 6.2 4 - 7 DEXA RESULTS: HGA1C [facility] 2016-05-09 HGA1C 6.0 4 - 7 MAMMOGRAM Results: [facility] 2016-05-04 ALBUMIN 4.5 3.6-5.1 ALBUMIN/GLOBULIN RATIO 2.0 1.0-2 .5 ALKALINE PHOSPHATASE 60 33-130 ALT 18 6-29 AST 19 10-35 BILIRUBIN, TOTAL 0.5 0.2-1.2 UREA NITROGEN (BUN) 15 -25 BUN/CREATININE RATIO NOT APPLICABLE 10-04 CALCIUM 9.7 8.6-10.4 CARBON DIOXIDE 25 20-31 CHLORIDE 104 98-110 CREATININE 0.77 0.50-0.99 eGFR 91 >OR = 60 eGFR NON-AFR. SPANISH 79 >OR = 60 GLOBULIN 2.2 1.9-3.7 GLOBULIN 2.2 1.9-3.7 GLUCOSE 125 65-99 POTASSIUM 4.3 3.5-5.3 PROTEIN, TOTAL 6.7 6.1-8.1 SODIUM 142 135-146 LIPID PANEL 2016-05-04 CHOLESTEROL, TOTAL 162 125-200 CHOLESTEROL, TOTAL 162 125-200 HDL CHOLESTEROL 52 >OR = 46 LDL-CHOLESTEROL 73 <130 NON HDL CHOLESTEROL 110 CHOL/HDLC RATIO 3.1 < OR = 5.0 TRIGLYCERIDES 184 <150 HGA1C [facility] 2015-11-04 HGA1C 5.8 4 - 7 HGA1C [facility] 2015-08-10 HGA1C 5.9 4 - 7 HGA1C [facility] 2015-05-06 HGA1C 6.2 4 - 7 [facility] 2015-04-29 ALBUMIN 4.6 3.6-5.1 ALBUMIN/GLOBULIN RATIO 2.1 1.0-2 .5 ALKALINE PHOSPHATASE 65 33-130 ALT 15 6-29 AST 17 10-35 BILIRUBIN, TOTAL 0.5 0.2-1.2 UREA NITROGEN (BUN) 14 725 BUN/CREATININE RATIO NOT APPLICABLE 10-04 CALCIUM 10.0 8.6-10.4 CARBON DIOXIDE 30 19-30 CHLORIDE 104 98-110 CREATININE 0.80 0.50-0.99 eGFR 88 >OR = 60 eGFR NON-AFR. SPANISH 76 >OR = 60 GLOBULIN 2.2 1.9-3.7 GLOBULIN 2.2 1.9-3.7 GLUCOSE 113 65-99 POTASSIUM 4.4 3.5-5.3 PROTEIN, TOTAL 6.8 6.1-8.1 SODIUM 143 135-146 LIPID PANEL 2015-04-29 CHOLESTEROL, TOTAL 200 125-200 CHOLESTEROL, TOTAL 200 125-200 HDL CHOLESTEROL 51 >OR = 46 LDL-CHOLESTEROL 103 <130 NON HDL CHOLESTEROL 149 CHOL/HDLC RATIO 3.9 < OR = 5.0 TRIGLYCERIDES 228 <150 MAMMOGRAM Results: HGA1C [facility] 2014-11-03 HGA1C 6.1 4 - 7 HGA1C [facility] 2014-07-28 HGA1C 6.1 4 - 7 CMP 2014-07-19 ALBUMIN 4.6 3.6-5.1 ALBUMIN/GLOBULIN RATIO 2.1 1.0-2 .5 ALKALINE PHOSPHATASE 60 33-130 ALT 17 6-29 AST 16 10-35 BILIRUBIN, TOTAL 0.4 0.2-1.2 UREA NITROGEN (BUN) 12 7-25 BUN/CREATININE RATIO NOT APPLICABLE 6-22 CALCIUM 9.8 8.6-10.4 CARBON DIOXIDE 30 19-30 CHLORIDE 104 98-110 CREATININE 0.74 0.50-0.99 eGFR 97 >OR = 60 eGFR NON-AFR. SPANISH 84 >OR = 60 GLOBULIN 2.2 1.9-3.7 GLOBULIN 2.2 1.9-3.7 GLUCOSE 104 65-99 POTASSIUM 4.2 3.5-5.3 PROTEIN, TOTAL 6.8 6.1-8.1 SODIUM 142 135-146 LIPID PANEL 2014-07-19 CHOLESTEROL, TOTAL 158 125-200 CHOLESTEROL, TOTAL 158 125-200 HDL CHOLESTEROL 50 >OR = 46 LDL-CHOLESTEROL 55 <130 NON HDL CHOLESTEROL 108 CHOL/HDLC RATIO 3.2 < OR = 5.0 TRIGLYCERIDES 267 <150 HGA1C [facility] 2014-01-27 HGA1C 6.0 4 - 7 MAMMOGRAM Results: DEXA RESULTS: URINE DIP 2013-12-09 Microscopic Examination Urine-Color yellow Appearance clear Specific [place] 1.020 pH 5 Glucose normal Protein trace Occult Blood about 250 Bilirubin negative Urobilinogen,Semi-Qn negative Nitrite, Urine negative Ketones negative Leukocyte esterase 2++ HCG Urinalysis Gross Exam URINE CULTURE ROUTINE 2013-12-09 CULTURE, URINE, ROUTINE SEE NOTE HGA1C [facility] 2013-06-30 HGA1C 6.1 4 - 7 % [facility] 2013-03-20 ALBUMIN 4.4 3.6-5.1 ALBUMIN/GLOBULIN RATIO 1.8 1.0-2 .5 ALKALINE PHOSPHATASE 58 33-130 ALT 18 6-29 AST 18 10-35 BILIRUBIN, TOTAL 0.4 0.2-1.2 UREA NITROGEN (BUN) 14 7-25 BUN/CREATININE RATIO NOT APPLICABLE 10-04 CALCIUM 9.6 8.6-10.4 CARBON DIOXIDE 29 19-30 CHLORIDE 105 98-110 CREATININE 0.81 0.50-0.99 eGFR 88 >OR = 60 eGFR NON-AFR. SPANISH 76 >OR = 60 GLOBULIN 2.4 1.9-3.7 GLOBULIN 2.4 1.9-3.7 GLUCOSE 113 65-99 POTASSIUM 4.5 3.5-5.3 PROTEIN, TOTAL 6.8 6.1-8.1 SODIUM 142 135-146 LIPID PANEL 2013-03-20 CHOLESTEROL, TOTAL 155 125-200 CHOLESTEROL, TOTAL 155 125-200 HDL CHOLESTEROL 48 >OR = 46 LDL-CHOLESTEROL 69 <130 NON HDL CHOLESTEROL 107 CHOL/HDLC RATIO 3.2 < OR = 5.0 TRIGLYCERIDES 192 <150 HGA1C [place] HGA1C 6.1 4 - 7 % MAMMOGRAM Results: HGA1C [facility] 2012-10-02 HGA1C 6.3 4 - 7 % [facility] 2012-09-23 ALBUMIN 4.5 3.6-5.1 ALBUMIN/GLOBULIN RATIO 1.9 1.0-2 .5 ALKALINE PHOSPHATASE 58 33-130 ALT 16 6-29 AST 17 10-35 BILIRUBIN, TOTAL 0.4 0.2-1.2 UREA NITROGEN (BUN) 18 7-25 BUN/CREATININE RATIO NOT APPLICABLE 10-04 CALCIUM 9.0 8.6-10.4 CARBON DIOXIDE 26 19-30 CHLORIDE 107 98-110 CREATININE 0.70 0.50-0.99 eGFR 105 >OR = 60 eGFR NON-AFR. SPANISH 91 >OR = 60 GLOBULIN 2.4 1.9-3.7 GLOBULIN 2.4 1.9-3.7 GLUCOSE 100 65-99 POTASSIUM 4.5 3.5-5.3 PROTEIN, TOTAL 6.9 6.1-8.1 SODIUM 143 135-146 LIPID PANEL 2012-09-23 CHOLESTEROL, TOTAL 162 125-200 CHOLESTEROL, TOTAL 162 125-200 HDL CHOLESTEROL 51 >OR = 46 LDL-CHOLESTEROL 71 <130 NON HDL CHOLESTEROL 111 CHOL/HDLC RATIO 3.2 < OR = 5.0 TRIGLYCERIDES 200 <150 HGA1C [facility] HGA1C 6.1 4 - 7 % COLONOSCOPY 2012-06-11 NOTES: RESULTS: diverticulosis HGA1C [facility] 2012-04-01 HGA1C 6.2 4 - 7 % Blood Pressure Monitoring Blood Pressure Monitoring [facility] 2011-12-21 ALB 4.1 3.4-5.0 A/G RAT 1.9 1.1-1.8 ALK PHOS 57 38-126 SGPT/ALT 23 14-54 ANION GP 10.7 SGOT/AST 21 15-37 T. BILI 0.5 0.4-2.0 BUN 15 8-26 BUN/CREA 23.4 12-20 CALCIUM 9.4 8.5-10.5 CO2 30.5 21-32 CL 103 100-108 CREAT 0.64 0.6-1.3 GFR >60 GLUCOSE 107 70-110 POTASSIUM 4.2 3.6-5.2 T. PROT 6.3 6.4-8.2 NA 140 135-148 LIPID PANEL 2011-12-21 CHOL 151 -200 HDL CHOL 42 40-60 LDL CALCULATED 70 -130 RISK 3.6 TRIG 197 30-200 HGA1C [facility] HGA1C MAMMOGRAM Results: DIABETIC RETINAL EYE EXAM RESULT: THINPREP PAP AND HPV mRNA E6 E7 with imaging 2010-08-31 COMMENT REPORT STATUS: INTERPRETATION/RESULT: normal HPV mRNA E6/E7 not detected GENERAL CATEGORIZATION: PATHOLOGIST: CLINICAL INFORMATION: COMMENT: REVENUE ACCOUNTANT: INFECTION: LMP: PREV. BX: PREV. PAP: REVIEW REVENUE ACCOUNTANT: SOURCE: STATEMENT OF ADEQUACY: HPV 16 RNA HPV 18/45 RNA ANNUAL PHYSICAL DATE: NOTES: RESULTS: COLONOSCOPY NOTES: RESULTS: REASON FOR VISIT Insurance Providers Health Insurance Type Health Plan Insurance Address Health Plan Insurance Phone Health Plan Insurance Name Health Plan Coverage Dates Member ID Patient Relationship to Subscriber Patient Address Patient Phone Patient Name Patient Date of Subscriber ID Subscriber Name Subscriber Date of Group No MEDICARE [facility] [address] [facility] [address] MEDICARE [employer] self Ivette Page [id number] [place] F[employer]HC [address] [facility] [address] [place] F[employer] self Ivette Page [id number] [employer] [address] [place] [address] [employer] [place] [employer] self Ivette Page [id number] [facility] [address] [place] [address] [facility] C[facility] self Ivette Page [id number] ANTHEM BC/BS [address] [facility] [address] AN[employer]M BC/BS self Ivette Page [id number] MEDICAL (GENERAL) HISTORY Type Description Date Medical History Type II diabetes Medical History Hypertension Medical History Hyperlipidemia Medical History Hypercholesterolemia Medical History Carpal Tunnel Right Hand Medical History Lipoma Left Thigh Medical History Functional Heart Murmur Medical History Early Cataracts Medical History family history of Adenomatous Po lyps Surgical History Lumpectomy- benign 1976 Surgical History Bilateral cataracts 2020 Hospitalization History [facility] -Deep Venous Thrombosis; Covid-19; Coronary Arteriosclerosis 04/19-04/23/22 Hospitalization History [facility] -Asthenia; Acute hypoxemic respiratory failure; Pneumonia; DVT; Hypertensive disorder 05/17-05/30/22
[2022-06-13 17:11] LABS: Abs Immature Grans 0.04 10^3/uL (0.0-0.06); Absolute Basophil Count 0.03 10^3/uL (0.0-0.2); Absolute Eosinophil Count 0.11 10^3/uL (0.0-0.7); Absolute Lymphocyte Count 1.38 10^3/uL (1.2-3.4); Absolute Monocyte Count 0.38 10^3/uL (0.1-0.8); Absolute Neutrophil Count 3.09 10^3/uL (1.2-6.7); Basophils % 0.6; Eosinophils % 2.2; HCT 40.5 % (36.0-46.0); HGB 12.7 g/dL (11.2-15.7); Immature Grans % 0.8; Lymphocytes % 27.4; MCH 29.3 pg (27.0-33.0); MCHC 31.4 % (32.0-36.0); MCV 93 fL (80-95); MPV 10.7 fL (8.0-11.0); Monocytes % 7.6; Neutrophils % 61.4; Platelet Count 224 10^3/uL (130-400); RBC 4.34 10^6/uL (3.93-5.22); RDW-SD 51.8 fL; WBC 5.03 10^3/uL (4.4-10.8)
[2022-06-13 17:28] LABS: ALT 12 U/L (14-59); AST 14 U/L (15-37); Albumin 3.7 g/dL (3.4-5.0); Alkaline Phosphatase 67 U/L (46-116); Anion Gap 4.5 mmol/L (3-11); BUN 18 mg/dL (7-18); Bilirubin, Total 0.5 mg/dL (0.2-1.0); CO2 33.5 mmol/L (21.0-32.0); CREATININE 0.9 mg/dL (0.55-1.02); Calcium 9.3 mg/dL (8.5-10.1); Chloride 109 mmol/L (98-107); Estimated GFR 66.67 (mL/min/1.73m2); Glucose 117 mg/dL (74-106); NT-proBNP 546 pg/mL (<300); Potassium 4.8 mmol/L (3.5-5.1); Sodium 147 mmol/L (136-145)
== END 2022-06-13 16:47 | disposition home or self-care (01) ==
LOC: LBN 16:46
PROVIDERS: PCP Nurse Practitioner; Visit Provider Nurse Practitioner Gerontology
DX: I10 Essential (primary) hypertension (principal); E11.9 Type 2 diabetes mellitus without complications; R68.89 Other general symptoms and signs; R06.02 Shortness of breath; E78.5 Hyperlipidemia, unspecified
CPT/HCPCS: 80053; 83880; 85025

== ENCOUNTER 2022-07-02 16:31 | Outpatient (REF) | payer MEDICARE, OTHER, SELFPAY ==
[2022-07-02 20:08] LABS: Bilirubin Negative (Negative); Blood Negative (Negative); Clarity Sl Cloudy (Clear); Glucose Negative (Negative); Ketones Trace mg/dL (Negative); Leukocyte Esterase Trace (Negative); Nitrite Negative (Negative); Specific Gravity >= 1.030 (1.005-1.025); Urobilinogen 0.2 mg/dL (Up to 0.2); pH 5.5 (5-8)
[2022-07-02 20:14] LABS: Bacteria Few HPF (Negative); C & S Indicated? C&S Done As Ordered; Casts Negative LPF (Negative); Crystals Negative HPF (Negative); Epithelial Cells Few HPF (Negative); Mucus Negative (Negative); RBC 0-2 HPF (0-2)
== END 2022-07-02 16:32 | disposition home or self-care (01) ==
LOC: LBN 16:31
PROVIDERS: PCP Nurse Practitioner; Visit Provider Nurse Practitioner Gerontology
DX: R41.3 Other amnesia (principal); R53.83 Other fatigue; R68.89 Other general symptoms and signs; R82.998 Other abnormal findings in urine
CPT/HCPCS: 87077; 81003; 81015; 87086; 87186

== ENCOUNTER 2022-07-14 10:30 | Emergency (ER) | payer MEDICARE, OTHER, MEDICAID, SELFPAY ==
[2022-07-14] VITALS (11 sets, daily range): BP systolic 133–150; BP diastolic 54–77; PULSE 64–71; RESP 18–20; TEMP 36.2–37.1; O2SAT 88–99
--- NOTE | 2022-07-14 10:43 | W.ED.GENAD ---
Discharge Plan Disposition Patient Disposition[facility] Discharge Details Clinical Impression: Bilateral edema of lower extremity Primary Care Provider: An Tello ED Provider: Brian Le Home Meds and New Rx's Prescriptions: No Action miconazole nitrate 2 % Cream 1 applic TOPICAL BID Patient Comments: not taking lovastatin 40 mg tablet 40 mg PO DAILY Patient Comments: TAKE 1 TABLET BY MOUTH ONCE DAILY DIRECTED calcium carbonate [Calcium 600] 600 mg calcium (1,500 mg) Tablet 600 mg PO DAILY lisinopril 10 mg tablet 15 mg PO DAILY Patient Comments: TAKE 1 TABLET BY MOUTH ONCE DAILY carbidopa-levodopa 25-100 mg tablet 1 tab PO TID Patient Comments: TAKE 1 TABLET BY MOUTH THREE TIMES DAILY atenolol 50 mg tablet 50 mg PO DAILY Patient Comments: TAKE 1 TABLET BY MOUTH ONCE DAILY FOR 90 DAYS pregabalin 50 mg Capsule 50 mg PO TID Patient Comments: not taking cholecalciferol (vitamin D3) [Vitamin D3] 50 mcg (2,000 unit) Capsule 2,000 unit PO DAILY Patient Comments: not taking multivitamin [One A Day] Tablet 1 tab PO DAILY aspirin 81 mg Tablet 81 mg PO DAILY quetiapine 25 mg Tablet 25 mg PO DAILY sennosides [senna] 8.6 mg Tablet 8.6 mg PO DAILY atorvastatin 10 mg tablet 10 mg PO QHS pantoprazole 40 mg tablet,delayed release (DR/EC) 40 mg PO DAILY ropinirole 0.5 mg Tablet 0.5 mg PO QHS furosemide 20 mg Tablet 20 mg PO TID gabapentin 100 mg capsule 200 mg PO TID polyethylene glycol Powder 1 pwd MISCELLANEOUS PRN PRN acetaminophen 325 mg Capsule 650 mg PO PRN PRN Eliquis 5 mg tablet 5 mg PO BID Patient Comments: Take 2 tablets by mouth two times a day for 6 days. Then take 1 tablet by mouth two times a day. Discharge Instructions Additional Instructions: Please resume all medications. If you were concerned regarding progression of the DVT that this lady has had since May please have this done as an outpatient. Her exam [id number] ultrasound in the emergency department did not reveal any abnormalities. No evidence of CHF on presentation to the emergency department. Please continue all medications Medical Decision Making 76-year-old lady sent to the emergency department by the prison for evaluation of possible DVT and congestive heart failure. She was given extra dose of Lasix for some lower extremity swelling since she reports a dramatic improvement since the Lasix was given to her yesterday. She arrives to the emergency department in no acute distress. No shortness of breath. Her work-up in the emergency room does not reveal any significant congestive heart failure. Her BNP is elevated at 800 however at her age cutoff of 900 is reasonable. EKG without any signs of ischemia. Normal troponin Bedside ultrasound did not reveal any B-lines. And bedside ultrasound did not reveal any DVTs of his left or right lower extremity. Unfortunately we are unable to obtain a formal ultrasound of the lower extremities. The patient is anticoagulated with Eliquis 5 mg twice daily. She will be sent back to the [facility] without any change in her management. HPI General Date/Time Provider Initiated Documentation: 07/14/22 10:43. HPI Narrative: 76-year-old lady presented to the emergency department from her prison without any complaints other than she felt her legs but under tension last night from some fluid retention and she was given a dose of Lasix with great improvement according to the patient. She arrives with out any complaints. Report from EMS and from the prison states that they are concerned that the patient may be in CHF and that she may have a DVT. We are reaching out to [facility] where she was treated before being transferred to the [facility] to understand what medical problems she has. We will also reach out to the [facility] for a list of her current medications. Related Data Home Medications Medication Instructions Recorded Confirmed atenolol 50 mg tablet 50 mg PO DAILY 06/24/20 07/14/22 calcium carbonate 600 mg calcium 600 mg PO DAILY 06/24/20 07/14/22 (1,500 mg) tablet (Calcium) carbidopa 25 mg-levodopa 100 mg 1 tab PO TID 06/24/20 07/14/22 tablet cholecalciferol (vitamin D3) 50 2,000 unit PO DAILY 06/24/20 07/11/20 mcg (2,000 unit) capsule (Vitamin D3) lisinopril 10 mg tablet 15 mg PO DAILY 06/24/20 07/14/22 lovastatin 40 mg tablet 40 mg PO DAILY 06/24/20 07/11/20 miconazole nitrate 2 % topical 1 applic topical BID 06/24/20 07/11/20 cream pregabalin 50 mg capsule 50 mg PO TID 06/24/20 07/08/20 aspirin 81 mg tablet 81 mg PO DAILY 06/27/20 07/14/22 multivitamin 1 tab PO DAILY 06/27/20 07/14/22 acetaminophen 325 mg capsule 650 mg PO PRN PRN 07/14/22 07/14/22 apixaban 5 mg tablet (Eliquis) 5 mg PO BID 07/14/22 07/14/22 atorvastatin 10 mg tablet 10 mg PO QHS 07/14/22 07/14/22 furosemide 20 mg tablet 20 mg PO TID 07/14/22 07/14/22 gabapentin 100 mg capsule 200 mg PO TID 07/14/22 07/14/22 pantoprazole 40 mg tablet,delayed 40 mg PO DAILY 07/14/22 07/14/22 release polyethylene glycol 1 pwd miscellaneous PRN PRN 07/14/22 07/14/22 quetiapine 25 mg tablet 25 mg PO DAILY 07/14/22 07/14/22 ropinirole 0.5 mg tablet 0.5 mg PO QHS 07/14/22 07/14/22 sennosides 8.6 mg tablet (senna) 8.6 mg PO DAILY 07/14/22 07/14/22 Allergies Allergy/AdvReac Type Severity Reaction Status Date / Time niacin AdvReac Intermediate Flushing & Unverified 07/11/20 06:50 Hives General Stated Complaint: GenMedical SHERIDAN: 4 Review of Systems Narrative: 10 point review of system is otherwise negative unless otherwise specified in the HPI PFSH All Active Problems (Updated 07/14/22 @ 12:25 by Brian Le MD) Bilateral edema of lower extremity (Acute) Epiretinal membrane (ERM) of right eye (Chronic) Medical History (Updated 07/14/22 @ 12:25 by Brian Le MD) Aortic valve insufficiency Carpal tunnel syndrome, right Diabetes mellitus Functional heart murmur History of adenomatous polyp of colon Hypercholesteremia Hyperlipidemia Hypertension Lipoma of left thigh Parkinson disease Swelling of both lower extremities Surgical History (Updated 07/11/20 @ 08:06 by Brandan Richardson MD) History of lumpectomy History of tubal ligation Hx of carpal tunnel repair Right Social History Smoking/Tobacco Use Status: Former Tobacco Use Quit Date: 04/15/89 Smoking risk assessment performed?: Yes Alcohol Intake: never Drug use: Never Substance use type: does not use Do you feel safe at home: Yes Exam Narrative Exam Narrative: Awake alert calm no acute distress pleasant cooperative PERRLA EOMI MMM Neck no JVD Heart regular rhythm and rate no murmurs Lungs clear to auscultation bilaterally Abdomen soft nondistended nontender Neuro 2-12 grossly intact strength 5/5 bilaterally Skin no rashes Lower extremities. Mild pitting edema. Psych calm adequate mood Course Vital Signs Vital signs: Vital Signs Temperature 37.1 C 07/14/22 10:35 Pulse 71 07/14/22 10:35 Respiratory Rate 18 07/14/22 10:35 Blood Pressure 133/77 07/14/22 10:35 Pulse Oximetry 88 L 07/14/22 10:35 Temperature 37.1 C 07/14/22 10:35 Temperature Source Temporal Artery Scan 07/14/22 10:35 Pulse 71 07/14/22 10:35 Respiratory Rate 18 07/14/22 10:35 Respiratory Effort Normal 07/14/22 10:40 Blood Pressure 133/77 07/14/22 10:35 Blood Pressure Position Sitting 07/14/22 10:35 Pulse Oximetry 88 L 07/14/22 10:35 Oxygen Delivery Method Room Air 07/14/22 10:35 Oxygen Flow Rate 0 07/14/22 10:35 Pain Level 0 07/14/22 10:35 POCUS Exam (ED) Limited Thoracic Lung Exam DATE OF EXAM: 07/14/22 TIME OF EXAM: 11:40 PROVIDER THAT PERFORMED THE STUDY: Brian Le REASON FOR EXAM: Shortness ofBreath VISUALIZED STRUCTURES: right anterior and left anterior PERTINENT FINDINGS/IMPRESSION: No apparent abnormalities Limited Vascular Exam DATE OF EXAM: 07/14/22 TIME OF EXAM: 11:50 PROVIDER THAT PERFORMED THE STUDY: Brian Le IS THIS A REPEAT EXAM DURING THIS ENCOUNTER: No Vascular Exam: Left lower extremity REASON FOR EXAM: Concern for DVT left lower extremity Exam Complete and Right lower extremity REASON FOR EXAM: Concern for DVT right lower extremity Exam Complete DIFFERENTIAL DIAGNOSES: No DVT visualized
--- NOTE | 2022-07-14 10:45 | RT.EKG_ITS ---
APPROVED REPORT Exam: Resting ECG Reason for Exam: sob Patient Location: E HR:62 bpm ECG Measurements Heart Rate 62 AXIS MN 193 P 37 QRSd 97 QRS 1 QT 416 T -6 QTc 423 Conclusion Sinus rhythm...normal P axis, V-rate 60- 99 Inferior infarct, age indeterminate...Q>35mS, T neg, II III aVF Anterolateral infarct, old...Q>40mS, abnrm ST-T, V3-V6,I,aVL
--- NOTE | 2022-07-14 10:58 | DI.RAD_ITS ---
Exam(s) XR CHEST 2V PA LATERAL EXAM: XR CHEST 2V PA LATERAL CLINICAL HISTORY: sob. TECHNIQUE: 2D digital imaging was performed. COMPARISON: No exams were available for comparison FINDINGS: 2 views: Cardiomegaly. Tortuous ascending thoracic aorta and aortic arch. Lungs are clear. No infiltrates nor pleural effusions. No evidence of pulmonary edema. IMPRESSION: No acute pulmonary findings. Cardiomegaly and tortuous intrathoracic aorta. DATA REPOSITORY: RADIATION DOSE DELIVERED:
[2022-07-14 11:41] LABS: Abs Immature Grans 0.03 10^3/uL (0.0-0.06); Absolute Basophil Count 0.04 10^3/uL (0.0-0.2); Absolute Eosinophil Count 0.07 10^3/uL (0.0-0.7); Absolute Lymphocyte Count 1.53 10^3/uL (1.2-3.4); Absolute Monocyte Count 0.53 10^3/uL (0.1-0.8); Absolute Neutrophil Count 3.51 10^3/uL (1.2-6.7); Basophils % 0.7; Eosinophils % 1.2; HCT 43.1 % (36.0-46.0); HGB 13.8 g/dL (11.2-15.7); Immature Grans % 0.5; Lymphocytes % 26.8; MCH 29.5 pg (27.0-33.0); MCV 92 fL (80-95); MPV 9.3 fL (8.0-11.0); Monocytes % 9.3; Neutrophils % 61.5; Platelet Count 205 10^3/uL (130-400); RBC 4.68 10^6/uL (3.93-5.22); RDW 15.2 % (11.7-14.6); RDW-SD 51.6 fL; WBC 5.71 10^3/uL (4.4-10.8)
[2022-07-14 11:59] LABS: Troponin I < 50 ng/L (<or=60)
[2022-07-14 12:02] LABS: ALT 12 U/L (14-59); AST 16 U/L (15-37); Albumin 3.8 g/dL (3.4-5.0); Alkaline Phosphatase 74 U/L (46-116); Anion Gap 3.8 mmol/L (3-11); BUN 15 mg/dL (7-18); Bilirubin, Total 0.5 mg/dL (0.2-1.0); CO2 37.2 mmol/L (21.0-32.0); CREATININE 0.9 mg/dL (0.55-1.02); Calcium 9.2 mg/dL (8.5-10.1); Chloride 103 mmol/L (98-107); Estimated GFR 66.67 (mL/min/1.73m2); Glucose 107 mg/dL (74-106); NT-proBNP 881 pg/mL (<300); Potassium 3.9 mmol/L (3.5-5.1); Sodium 144 mmol/L (136-145); Total Protein 6.6 g/dL (6.4-8.2)
--- NOTE | 2022-07-14 12:15 | DI.VRAD_ITS ---
PROCEDURE INFORMATION: Exam: XR Chest Exam date and time: 07/14/2022 12:02 PM Age: 76 years old Clinical indication: Shortness of breath TECHNIQUE: Imaging protocol: Radiologic exam of the chest. Views: 2 views. COMPARISON: No relevant prior studies available. FINDINGS: Lungs: No focal consolidation. Pleural spaces: Unremarkable. No pleural effusion. No pneumothorax. Heart/Mediastinum: Mild cardiomegaly Vasculature: Tortuous aorta Bones/joints: Unremarkable. IMPRESSION: No focal consolidation. Dictated and Authenticated by: Joe Gray MD. Ordering:LISET Torres MD
--- NOTE | 2022-07-14 13:35 | NUR.NOTE ---
Nursing Note: Patient returned to the [facility] via [facility]. Facesheet faxed to [facility].
== END 2022-07-14 13:25 | disposition skilled nursing facility (03) ==
PROVIDERS: Emergency Provider Emergency Medicine; PCP Nurse Practitioner
DX: R60.0 Localized edema (principal); I11.0 Hypertensive heart disease with heart failure; I50.9 Heart failure, unspecified; E11.9 Type 2 diabetes mellitus without complications; G20 Parkinson's disease; R79.89 Other specified abnormal findings of blood chemistry; Z79.01 Long term (current) use of anticoagulants; Z79.82 Long term (current) use of aspirin
CPT/HCPCS: 36415; 80053; 93005; 99285; 71046; 83880; 84484; 85025; 93010; 99284

== ENCOUNTER 2022-07-18 16:13 | Outpatient (REF) | payer MEDICARE, OTHER, SELFPAY ==
[2022-07-18 17:49] LABS: Abs Immature Grans 0.02 10^3/uL (0.0-0.06); Absolute Basophil Count 0.04 10^3/uL (0.0-0.2); Absolute Lymphocyte Count 1.29 10^3/uL (1.2-3.4); Absolute Monocyte Count 0.45 10^3/uL (0.1-0.8); Basophils % 0.8; HCT 43.3 % (36.0-46.0); HGB 13.8 g/dL (11.2-15.7); Immature Grans % 0.4; Lymphocytes % 26.3; MCH 30.2 pg (27.0-33.0); MCHC 31.9 % (32.0-36.0); MCV 95 fL (80-95); MPV 10.2 fL (8.0-11.0); Monocytes % 9.2; Neutrophils % 61.3; Platelet Count 211 10^3/uL (130-400); RBC 4.57 10^6/uL (3.93-5.22); RDW 15.1 % (11.7-14.6); RDW-SD 53.1 fL
[2022-07-18 18:01] LABS: ALT 12 U/L (14-59); AST 15 U/L (15-37); Alkaline Phosphatase 79 U/L (46-116); Anion Gap 5.2 mmol/L (3-11); BUN 15 mg/dL (7-18); Bilirubin, Total 0.5 mg/dL (0.2-1.0); CO2 32.8 mmol/L (21.0-32.0); CREATININE 0.8 mg/dL (0.55-1.02); Chloride 105 mmol/L (98-107); Estimated GFR 76.79 (mL/min/1.73m2); Glucose 106 mg/dL (74-106); NT-proBNP 622 pg/mL (<300); Potassium 4.7 mmol/L (3.5-5.1); Sodium 143 mmol/L (136-145); Total Protein 6.5 g/dL (6.4-8.2)
== END 2022-07-18 16:14 | disposition home or self-care (01) ==
LOC: LBN 16:13
PROVIDERS: PCP Nurse Practitioner; Visit Provider Nurse Practitioner Gerontology
DX: R68.89 Other general symptoms and signs (principal)
CPT/HCPCS: 80053; 83880; 85025

== ENCOUNTER 2022-07-31 16:30 | Outpatient (REF) | payer MEDICARE, OTHER, SELFPAY ==
[2022-07-31 17:49] LABS: Abs Immature Grans 0.03 10^3/uL (0.0-0.06); Absolute Basophil Count 0.03 10^3/uL (0.0-0.2); Absolute Lymphocyte Count 1.33 10^3/uL (1.2-3.4); Absolute Monocyte Count 0.41 10^3/uL (0.1-0.8); Absolute Neutrophil Count 3.17 10^3/uL (1.2-6.7); Basophils % 0.6; HCT 43.9 % (36.0-46.0); HGB 13.9 g/dL (11.2-15.7); Immature Grans % 0.6; Lymphocytes % 26.2; MCH 29.6 pg (27.0-33.0); MCHC 31.7 % (32.0-36.0); MCV 93 fL (80-95); MPV 10.4 fL (8.0-11.0); Monocytes % 8.1; Neutrophils % 62.5; Platelet Count 202 10^3/uL (130-400); RDW 14.8 % (11.7-14.6); RDW-SD 50.8 fL; WBC 5.07 10^3/uL (4.4-10.8)
[2022-07-31 17:52] LABS: Bilirubin Negative (Negative); Blood Negative (Negative); Clarity Clear (Clear); Glucose Negative (Negative); Ketones Negative (Negative); Leukocyte Esterase Negative (Negative); Nitrite Negative (Negative); Urobilinogen 0.2 mg/dL (Up to 0.2); pH 6.5 (5-8)
[2022-07-31 17:59] LABS: ALT 17 U/L (14-59); AST 15 U/L (15-37); Albumin 3.9 g/dL (3.4-5.0); Alkaline Phosphatase 82 U/L (46-116); Anion Gap 5.3 mmol/L (3-11); BUN 13 mg/dL (7-18); Bilirubin, Total 0.4 mg/dL (0.2-1.0); CO2 34.7 mmol/L (21.0-32.0); CREATININE 0.8 mg/dL (0.55-1.02); Calcium 8.8 mg/dL (8.5-10.1); Chloride 106 mmol/L (98-107); Estimated GFR 76.79 (mL/min/1.73m2); Glucose 141 mg/dL (74-106); NT-proBNP 739 pg/mL (<300); Potassium 4.8 mmol/L (3.5-5.1); Sodium 146 mmol/L (136-145); Total Protein 6.5 g/dL (6.4-8.2)
== END 2022-07-31 16:31 | disposition home or self-care (01) ==
LOC: LBN 16:30
PROVIDERS: PCP Nurse Practitioner; Visit Provider Nurse Practitioner Gerontology
DX: R53.83 Other fatigue (principal); R68.89 Other general symptoms and signs; I50.9 Heart failure, unspecified; E11.9 Type 2 diabetes mellitus without complications; R39.89 Other symptoms and signs involving the genitourinary system
CPT/HCPCS: 80053; 81003; 83880; 85025; 87086

== ENCOUNTER 2022-10-12 12:41 | Inpatient (IN) | payer MEDICARE, OTHER, SELFPAY ==
--- NOTE | 2022-10-12 12:30 | RT.EKG_ITS ---
APPROVED REPORT Exam: Resting ECG Reason for Exam: Dyspnea Patient Location: E HR:65 bpm ECG Measurements Heart Rate 65 AXIS SD 202 P 48 QRSd 149 QRS -67 QT 456 T 52 QTc 475 Conclusion Sinus rhythm...normal P axis, V-rate 60- 99 Left bundle branch block...QRSd>120, broad/notched R ST elevation secondary to IVCD...Multiple VCG criteria
[2022-10-12 12:44] VITALS: BP 112/59; PULSE 66; RESP 21; TEMP 36.9; O2SAT 95
[2022-10-12 12:52] VITALS: RESP 20
--- NOTE | 2022-10-12 13:00 | DI.CT_ITS ---
Exam(s) CT CHEST PE CTA EXAM: CT CHEST PE CTA CLINICAL HISTORY: shortness of breath, hypoxia. TECHNIQUE: Imaging Protocol: Axial CT angiography was performed with multi-slice acquisition and mu lti-planar reconstructions as well as axial, coronal and sagittal MIP reconstructions. CONTRAST MATERIAL: Intravenous: Omnipaque 350 Contrast volume:100 ml COMPARISON: CR,XR XR CHEST 2V PA LATERAL from 07/14/2022 FINDINGS: Exam somewhat limited due to respiratory motion. Pulmonary Arteries: No evidence of filling defect to suggest pulmonary emboli. Tracheobronchial tree: Patent where visualized. Mediastinum and Lanie: No dominant adenopathy or fluid collection. Pulmonary parenchyma: Limited evaluation due to respiratory motion and expiratory changes. Mild to m oderate emphysematous changes. No consolidation or dominant measurable mass. Pleura: No effusion or pneumothorax. Heart: Mild left ventricular dilatation.. No coronary artery calcifications are seen. Aorta: Motion at the aortic root. Dilatation of the ascending aorta to 6.2 by 5.6 cm. Accurate leif urement difficult due to motion. No dissection. Descending aorta 2.8 cm and tortuous. Upper abdomen: Moderate size hiatal hernia. Bones: Unremarkable for age. Tubes, Catheters, and Lines: None IMPRESSION: No evidence of pulmonary embolism. Dilated ascending aorta to a diameter of 6.2 cm. Lungs not well evaluated due to expiratory changes and respiratory motion. Findings called to Dr. Senior of the emergency department. RADIATION DOSE DELIVERED: 550.51mGy.cm Total DLP DATA REPOSITORY: All CT scans at this facility are submitted to the National Radiology Data Registry (NRDR) Dose Index Registry (DIR) with the [employer] (A[employer]). RADIATION OPTIMIZATION: All CT scans at this facility use at least one of these dose optimization te chniques: automated exposure control; mA and/or kV adjustment per patient size (includes targeted exa ms where dose is matched to clinical indication); or iterative reconstruction.
--- NOTE | 2022-10-12 13:12 | ED.GENADUL_ITS ---
Discharge Plan Discharge Details Chief Complaint: SOB Primary Care Provider: An Tello ED Provider: Zacarias Sneior Home Meds and New Rx's Prescriptions: No Action miconazole nitrate 2 % Cream 1 applic TOPICAL BID Patient Comments: not taking lovastatin 40 mg tablet 40 mg PO DAILY Patient Comments: TAKE 1 TABLET BY MOUTH ONCE DAILY DIRECTED calcium carbonate [Calcium 600] 600 mg calcium (1,500 mg) Tablet 600 mg PO DAILY lisinopril 10 mg tablet 15 mg PO DAILY Patient Comments: TAKE 1 TABLET BY MOUTH ONCE DAILY carbidopa-levodopa 25-100 mg tablet 1 tab PO TID Patient Comments: TAKE 1 TABLET BY MOUTH THREE TIMES DAILY atenolol 50 mg tablet 50 mg PO DAILY Patient Comments: TAKE 1 TABLET BY MOUTH ONCE DAILY FOR 90 DAYS pregabalin 50 mg Capsule 50 mg PO TID Patient Comments: not taking cholecalciferol (vitamin D3) [Vitamin D3] 50 mcg (2,000 unit) Capsule 2,000 unit PO DAILY Patient Comments: not taking multivitamin [One A Day] Tablet 1 tab PO DAILY aspirin 81 mg Tablet 81 mg PO DAILY quetiapine 25 mg Tablet 25 mg PO DAILY sennosides [senna] 8.6 mg Tablet 8.6 mg PO DAILY atorvastatin 10 mg tablet 10 mg PO QHS pantoprazole 40 mg tablet,delayed release (DR/EC) 40 mg PO DAILY ropinirole 0.5 mg Tablet 0.5 mg PO QHS furosemide 20 mg Tablet 20 mg PO TID gabapentin 100 mg capsule 200 mg PO TID polyethylene glycol Powder 1 pwd MISCELLANEOUS PRN PRN acetaminophen 325 mg Capsule 650 mg PO PRN PRN Eliquis 5 mg tablet 5 mg PO BID Patient Comments: Take 2 tablets by mouth two times a day for 6 days. Then take 1 tablet by mouth two times a day. Medical Decision Making 76 yo female with hx of dvt on apixiban, hld, htn, DM, who comes in with cc of shortness of breath for 2 days and at the [facility] today was found to have a room air saturation of 80% so was sent here. She denies fevers, has had a dry cough, no chest pain/pressure. She arrives stable, on 3 L NC she is 95% and speaking in full sentences. She has wheezing at the apices bilaterally, diminished breath sounds at the bases, no jvd, no calf tenderness, mild sewlling of both lower extremities to the distal tibias. Bedside u/s shows no significant b lines, no effusion and normal appearing EF. Unclear etiology for her hypoxia and shortness of breath, will treat with duoneb and obtain ecg/troponin, cbc, cmp, probnp and cta of the chest to evaluate for pe vs infiltrate. labs show pco2 over 80, mild increase in probnp from prior, mag 1.6 otherwise benign labs, ct shows enlarged thoracic aorta, no dissection, no PE. Still requiring oxygen is 4L NC and still has wheezing at the apices, given the pco2 suspect she could have undiagnosed copd, will discuss with hospitalist about admission Differential Diagnosis Differential Diagnosis: asthma/copd, chf, pneumonia, pe Medical Records Medical records reviewed: Yes I reviewed the patient's medical records. ECG Data Attestation: I personally reviewed and interpreted this ECG (s) as follows: Prior ECG tracings: available for review Interpretation: sinus rate of 65, pr 202, qtc 475, no stemi, lbbb HPI General Mode of arrival: EMS . Date/Time Provider Initiated Documentation: 10/12/22 12:47 . Limitations to Documentation: no limitations . Information obtained by: patient . History of Present Illness 76 year old F presents to the emergency department with the chief complaint of shortness of breath, Patient started experiencing this day(s) (2) and it has been constant. No relieving factors improve symptom(s), No exacerbating factors reported . Patient notes no other symptoms.. Patient did receive the following treatments prior to arrival, none Related Data Home Medications Medication Instructions Recorded Confirmed atenolol 50 mg tablet 50 mg PO DAILY 06/24/20 07/14/22 calcium carbonate 600 mg calcium 600 mg PO DAILY 06/24/20 07/14/22 (1,500 mg) tablet (Calcium) carbidopa 25 mg-levodopa 100 mg 1 tab PO TID 06/24/20 07/14/22 tablet cholecalciferol (vitamin D3) 50 2,000 unit PO DAILY 06/24/20 07/11/20 mcg (2,000 unit) capsule (Vitamin D3) lisinopril 10 mg tablet 15 mg PO DAILY 06/24/20 07/14/22 lovastatin 40 mg tablet 40 mg PO DAILY 06/24/20 07/11/20 miconazole nitrate 2 % topical 1 applic topical BID 06/24/20 07/11/20 cream pregabalin 50 mg capsule 50 mg PO TID 06/24/20 07/08/20 aspirin 81 mg tablet 81 mg PO DAILY 06/27/20 07/14/22 multivitamin 1 tab PO DAILY 06/27/20 07/14/22 acetaminophen 325 mg capsule 650 mg PO PRN PRN 07/14/22 07/14/22 apixaban 5 mg tablet (Eliquis) 5 mg PO BID 07/14/22 07/14/22 atorvastatin 10 mg tablet 10 mg PO QHS 07/14/22 07/14/22 furosemide 20 mg tablet 20 mg PO TID 07/14/22 07/14/22 gabapentin 100 mg capsule 200 mg PO TID 07/14/22 07/14/22 pantoprazole 40 mg tablet,delayed 40 mg PO DAILY 07/14/22 07/14/22 release polyethylene glycol 1 pwd miscellaneous PRN PRN 07/14/22 07/14/22 quetiapine 25 mg tablet 25 mg PO DAILY 07/14/22 07/14/22 ropinirole 0.5 mg tablet 0.5 mg PO QHS 07/14/22 07/14/22 sennosides 8.6 mg tablet (senna) 8.6 mg PO DAILY 07/14/22 07/14/22 Allergies Allergy/AdvReac Type Severity Reaction Status Date / Time niacin AdvReac Intermediate Flushing & Unverified 07/11/20 06:50 Hives General Stated Complaint: SOB SHERIDAN: 3 Review of Systems All systems reviewed & are unremarkable except as noted in HPI and below Constitutional Constitutional: Denies chills, Denies fever(s) and Denies weakness Cardiovascular Cardiovascular: Denies chest pain Respiratory Respiratory: Denies cough Gastrointestinal Gastrointestinal: Denies abdominal pain, Denies nausea and Denies vomiting Musculoskeletal Musculoskeletal: Denies joint swelling Integumentary/Breasts Skin/Breast: Denies rash Neurologic Neurologic: Denies weakness PFSH All Active Problems (Updated 08/14/22 @ 00:03 by JAMARCUS SAUER) Epiretinal membrane (ERM) of right eye (Chronic) Medical History (Updated 08/14/22 @ 00:03 by JAMARCUS SAUER) Aortic valve insufficiency Carpal tunnel syndrome, right Diabetes mellitus Functional heart murmur History of adenomatous polyp of colon Hypercholesteremia Hyperlipidemia Hypertension Lipoma of left thigh Parkinson disease Swelling of both lower extremities Surgical History (Updated 07/11/20 @ 08:06 by Brandan Richardson MD) History of lumpectomy History of tubal ligation Hx of carpal tunnel repair Right Social History Smoking/Tobacco Use Status: Former Tobacco Use Quit Date: 04/15/89 Smoking risk assessment performed?: Yes Alcohol Intake: never Drug use: Never Substance use type: does not use Do you feel safe at home: Yes Exam Const General: no acute distress Orientation: alert HENMT Head: normal to inspection Ears: external ears normal General nose exam: external nose normal Mouth: moist mucous membranes Eyes General: appearance normal, both eyes and all related structures Neck Neck: normal visual inspection Resp Effort & Inspection: normal respiratory effort and able to speak in complete sentences Auscultation: wheezes Cardio Jugular venous pressure: no JVD Rate: regular rate Skin General skin exam: no rashes or lesions noted Neuro General: patient alert and patient oriented x3 Extrem General: normal to inspection Psych Mental Status: mental status grossly normal Course Vital Signs Vital signs: Vital Signs Temperature 36.9 C 10/12/22 12:44 Pulse 66 10/12/22 12:44 Respiratory Rate 21 10/12/22 12:44 Blood Pressure 112/59 L 10/12/22 12:44 Pulse Oximetry 95 10/12/22 12:44 Temperature 36.9 C 10/12/22 12:44 Temperature Source Oral 10/12/22 12:44 Pulse 66 10/12/22 12:44 Respiratory Rate 20 10/12/22 12:52 Respiratory Effort Normal, Non-Labored 10/12/22 12:52 Respiratory Depth Normal 10/12/22 12:52 Respiratory Pattern Normal 10/12/22 12:52 Blood Pressure 112/59 L 10/12/22 12:44 Pulse Oximetry 95 10/12/22 12:44 Oxygen Delivery Method Nasal Cannula 10/12/22 12:44 Oxygen Flow Rate 5 10/12/22 12:44 Pain Level 0 10/12/22 12:44 Lab/Test Results Lab/Test Results: 10/12/22 12:53 Blood Blood Culture - Pending 10/12/22 12:53 Blood Blood Culture - Pending POCUS Exam (ED) Limited Cardiac Exam DATE OF EXAM: 10/12/22 TIME OF EXAM: 13:17 PROVIDER THAT PERFORMED THE STUDY: Zacarias Parrish IS THIS A REPEAT EXAM DURING THIS ENCOUNTER: no REASON FOR EXAM: Dyspnea VISUALIZED STRUCTURES: Left ventricle and Right ventricle VIEW OBTAINED: Parasternal long-axis PERTINENT FINDINGS/IMPRESSION: No LV dysfunction and No pericardial effusion Exam complete
[2022-10-12 13:19] LABS: Source Nasal/Nares
[2022-10-12 13:22] LABS: BE (Venous) 13 mmol/L (-2-3); HCO3 (Venous) 40 mmol/L (23-28); O2 Sat (Venous) 90 %; TCO2 (Venous) 36 mmol/L (24-29); pH (Venous) 7.29 (7.31-7.41); pO2 (Venous) 63 mmHg
[2022-10-12 13:23] LABS: Abs Immature Grans 0.03 10^3/uL (0.0-0.06); Absolute Basophil Count 0.03 10^3/uL (0.0-0.2); Absolute Eosinophil Count 0.06 10^3/uL (0.0-0.7); Absolute Lymphocyte Count 1.03 10^3/uL (1.2-3.4); Absolute Monocyte Count 0.52 10^3/uL (0.1-0.8); Absolute Neutrophil Count 4.94 10^3/uL (1.2-6.7); Basophils % 0.5; Eosinophils % 0.9; HCT 43.9 % (36.0-46.0); HGB 13.6 g/dL (11.2-15.7); Immature Grans % 0.5; Lymphocytes % 15.6; MCH 29.6 pg (27.0-33.0); MCV 96 fL (80-95); MPV 9.3 fL (8.0-11.0); Monocytes % 7.9; Neutrophils % 74.6; Platelet Count 187 10^3/uL (130-400); RBC 4.59 10^6/uL (3.93-5.22); RDW 14.5 % (11.7-14.6); RDW-SD 50.4 fL; WBC 6.61 10^3/uL (4.4-10.8)
[2022-10-12 13:24] LABS: pCO2 (Venous) 83 mmHg (41-51)
[2022-10-12 13:44] LABS: INR 1.1 (0.9-1.1); Prothrombin Time 10.7 sec (9.3-11.0)
[2022-10-12 13:46] VITALS: O2SAT 98
[2022-10-12] MEDS: Albuterol/Ipratropium 3 ML UPD VIAL UPD ×3 (13:46→16:50)
[2022-10-12 13:53] LABS: AST 14 U/L (15-37); Albumin 3.5 g/dL (3.4-5.0); Alkaline Phosphatase 95 U/L (46-116); BUN 9 mg/dL (7-18); Bilirubin, Total 0.9 mg/dL (0.2-1.0); CREATININE 0.8 mg/dL (0.55-1.02); Calcium 8.3 mg/dL (8.5-10.1); Chloride 101 mmol/L (98-107); Estimated GFR 76.79 (mL/min/1.73m2); Glucose 124 mg/dL (74-106); Magnesium 1.6 mg/dL (1.8-2.4); NT-proBNP 1179 pg/mL (<300); Potassium 3.9 mmol/L (3.5-5.1); Sodium 144 mmol/L (136-145); TSH (W/Ref FT4) 0.91 uIU/mL (0.36-3.74); Total Protein 6.3 g/dL (6.4-8.2); Troponin I < 50 ng/L (<or=60)
[2022-10-12 13:54] LABS: ALT < 6 U/L (14-59)
[2022-10-12 14:01] LABS: Procalcitonin < 0.1 ng/mL
[2022-10-12 14:08] LABS: COVID-19 PCR Negative (Negative)
[2022-10-12] MEDS: Normal Saline Flush 10 ML SYR IVP (14:11)
[2022-10-12] MEDS: Normal Saline - Diluent 50 ML VIAL IJ (14:14)
[2022-10-12] MEDS: Omnipaque 350 MG/ML 100 ML BTL IJ (14:14)
[2022-10-12] MEDS: MAGNESIUM SULFATE 2 GM/50 ML BAG IVPB (15:30)
[2022-10-12] MEDS: methylPREDNISolone SUCC 125 MG VIAL IVP (15:39)
[2022-10-12 15:58] LABS: Bilirubin Negative (Negative); Blood Trace-intact (Negative); Clarity Clear (Clear); Glucose Negative (Negative); Ketones Negative (Negative); Leukocyte Esterase Negative (Negative); Nitrite Negative (Negative); Urobilinogen 0.2 mg/dL (Up to 0.2)
--- OUTSIDE RECORDS SUMMARY | 2022-10-12 16:03 | XMS_ITS | Patient Health Record ---
Author Name Unknown Organization [facility] Address [address] [facility], [place] [address] Care Team Providers Care Multimedia Journalist Name Role Phone An Tello Unavailable [phone] Morenita Dumas Unavailable [phone] Juana Kwan Unavailable Juliet Tyler Unavailable [phone] Vane Belle Unavailable [phone] Brandan Garcia MD Unavailable [phone] DONNA Mahan Kerry Unavailable [phone] Mickei Lemons Unavailable PROBLEMS Type Condition ICD9-CM Code [id number] Code Onset Dates Condition Status W/U Status Risk SNOMED Code Notes Problem Family history of breast cancer Z80.3 confirmed 609498471 Problem Cataract H26.9 confirmed 069117140 Problem Osteopenia M85.80 confirmed 64533710 0 Problem Murmur R01.1 confirmed 14560126 Problem Neuropathy G62.9 confirmed 930335249 Problem Other specified diabetes mellitus without complications E13.9 confirmed 275752839 Problem Hyperlipidemi a, unspecified E78.5 confirmed 19080167 Problem Parkinson disease G20 confirmed 93037915 Problem Hypertension I10 confirmed 0139750 3 Problem Controlled type 2 diabetes mellitus without complication, without long-term current use of insulin E11.9 confirmed 806611518 Problem GERD (gastroesopha geal reflux disease) K21.9 confirmed 828880740 Problem Unsteady R26.81 confirmed 92462456 Problem Aortic valve insufficiency , etiology of cardiac valve disease unspecified I35.1 confirmed 50751914 Problem Swelling of both lower extremities M79.89 confirmed 83021016 00 6018349 Problem Arthritis M19.90 confirmed 5874428 ALLERGIES Allergen (clinical drug ingredient) Drug/Non Drug Allergy documented on EMR Reaction Allergy Type Onset Date Status Niacin([facility] Code:[id number]) Flushing and hives Drug Allergy Active ENCOUNTERS from 1945 to 2022-10-12 Encounter Location Date Provider Diagnosis [address] [id number] 18 Jul, [address] [id number] Jul, [facility] ER Visit ER [address] [id number] Jun, [address] [id number] Jun, [facility] CCM Update Care Plan CCM Update Care Plan [address] [id number] May, [address] [id number] Apr, [facility] and Transitional Care Management [address] [id number] Apr, [address] [id number] Apr, [address] [id number] Apr, [facility] Housing Assistance [address] [id number] Apr, [facility] Controlled type 2 diabetes mellitus without complication, 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 terminal press operator insulin 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 E11.9 ; Burning sensation R20.8 and History of recent hospitalization Z92.[address] [id number] 11 Apr, [address] [id number] Apr, [facility] and Transitional Care Management [address] [id number] 05 Apr, 2022 [place] [facility] Diffuse pain in left lower extremity M79.605 ; Left leg swelling M79.89 and Cellulitis of left lower extremity L03.[address] [id number] 05 Apr, [address] [id number] 08 Feb, [address] [id number] Feb, [address] [id number] Jan, [facility] Referral Insuran ce Coverage [facility] Referral Insurance Coverage [address] [id number] Jan, [facility] Screening mammogram for breast cancer Z12.31 ; Osteopenia M85.80 ; Annual physical exam Z00.00 ; Encounter for immunization Z23 ; Other specified diabetes mellitus without complications E13.9 and Parkinson disease G20 [address] [phone] 06 Jan, 2022 [facility] Care Coordination [facility] Care Coordination [address] [id number] 28 Dec, 2021 [facility] Medicaid for Elderly and Disabled VTMED [address] [phone] 19 Dec, 2021 [facility] Medicaid for Elderly and Disabled VTMED ; Housing Assistance HOUS and [address] [address] 15 Dec, [address] [id number] 08 Dec, [address] [id number] 02 Dec, [address] [id number] 16 Nov, 2021 [facility] Controlled type 2 diabetes mellitus without complication, unspecified long-term insulin use status E11.9 ; Osteopenia M85.80 ; GERD (gastroesophageal reflux disease) K21.9 ; Murmur R01.1 ; Hypertension I10 ; Hyperlipidemia, unspecified E78.5 ; Neuropathy G62.9 and Breast cancer screening by mammogram Z12.[address] [id number] Oct, [address] [id number] Oct, An Tello Hyperlipidemia, unspecified E78.[address], [place] [id number] Oct, An Tello [facility] [address] [facility] [id number] August, An Tello [address], [place] [id number] August, An Tello Intertrigo L30.[address], [place] [id number] August, An Tello [address] [id number] August, An Tello Controlled type 2 diabetes mellitus without complication, unspecified long-term insulin use status E11.9 ; Dietary counseling and surveillance Z71.3 ; Counseling on health promotion and disease prevention Z71.89 ; Neuropathy G62.9 ; Encounter for immunization Z23 ; Unsteady R26.81 and Intertrigo L30.[address], [place] [id number] 20 Jul, 2021 An Tello [address] [id number] 13 Jul, 2021 An Tello [address] [id number] 16 Jun, 2021 An Tello [address] [id number] Jun, An Tello CCM Update Care Plan CCM Update Care Plan [address], [place] [id number] 15 May, 2021 An Tello Dietary counseling a nd surveillance Z71.3 ; Counseling on health promotion and disease prevention Z71.89 ; Controlled type 2 diabetes mellitus without complication, without long-term current use of insulin E11.9 ; Unsteady R26.81 ; Parkinson disease G20 and Aortic valve insufficiency, etiology of cardiac valve disease unspecified I35.[address] [id number] 11 May, 2021 An Tello [address] [id number] 04 May, 2021 An Tello Hypertension 401.9 ; Swelling of both lower extremities M79.89 and Hypertension I10 [address] [id number] Apr, An Tello [facility] Referral equipme nt need CCC Referral [address] [id number] Apr, An Tello [address] [id number] Apr, An Tello Hyperlipidemia, unspecified E78.[address] [place] [address] Apr, An Tello [facility]CM Healthy Living Referral CCM Healthy Living Referral [address] [id number] Mar, Mickie Lemons Neuropathy G62.[address] [place] [address] Feb, An Tello [facility] Referral Utility Assistance [facility] Referral Utility Assistance [address], [place] [id number] Feb, An Tello Encounter for immunization Z23 ; Dietary counseling and surveillance Z71.3 ; Counseling on health promotion and disease prevention Z71.89 ; Controlled type 2 diabetes mellitus without complication, unspecified long-term insulin use status E11.9 ; Blurred vision, left eye H53.8 ; Swelling of both lower extremities M79.89 and Neuropathy G62.[address] [id number] Feb, An Tello [facility] Referral Utility Assistance [facility] Referral Utility Assistance and CCM Specialist Visit Follow Up CCM Specialist Visit Follow Up [address] [id number] Feb, An Tello [facility] Referral Utility Assistance [facility] Referral Utility Assistance and CCM Specialist Visit Follow Up CCM Specialist Visit Follow Up [address] [id number] Jan, An Tello [address] [id number] Jan, An Tello Neuropathy G62.[address] [id number] Jan, An Tello [address] [id number] Dec, An Tello [address] [id number] Nov, An Tello Hypertension I10 [address] [id number] Nov, An Tello [address] [id number] Nov, An Tello Swelling of both low er extremities M79.89 and Neuropathy G62.[address] [id number] Nov, An Tello Hypertension 401.9 a nd Hyperlipidemia, unspecified E78.[address] [id number] Oct, An Tello Swelling of both low er extremities M79.[address] [id number] Sep, An Tello [address] [id number] Sep, An Tello [address] [id number] August, An Tello [address] [id number] August, An Tello Dietary counseling a nd surveillance Z71.3 ; Counseling on health promotion and disease prevention Z71.89 ; Controlled type 2 diabetes mellitus without complication, unspecified long-term insulin use status E11.9 ; Aortic valve insufficiency, etiology of cardiac valve disease unspecified I35.1 ; Hypertension I10 ; Swelling of both lower extremities M79.89 ; Murmur R01.1 ; Neuropathy G62.9 and Parkinson disease G20 [address] [id number] Jul, An Tello Edema, unspecified type R60.[address] [id number] 08 Jul, 2020 An Tello Essential hypertensi on I10 and Swelling of both lower extremities M79.[address] [id number] Jul, An Tello Aortic valve insufficiency, etiology of cardiac valve disease unspecified I35.1 and Edema, unspecified type R60.[address] [id number] Jul, An Tello [address] [id number] Jun, An Tello [address] [id number] Jun, An Tello Pre-operative genera l physical examination Z01.818 ; Hypertension I10 ; Aortic valve insufficiency, etiology of cardiac valve disease unspecified I35.1 ; Swelling of both lower extremities M79.89 ; Controlled type 2 diabetes mellitus without complication, without long-term current use of insulin E11.9 and Parkinson disease G20 [address] [id number] May, [address] [id number] May, [address] [id number] May, [address] [id number] 16 May, 2020 [facility] Hypertension I10 and Hypertension 401.[address], [place] [id number] 11 May, 2020 [facility] Parkinson disease G2 0 ; Controlled type 2 diabetes mellitus without complication, unspecified terminal press operator insulin use status E11.9 and Unsteadiness R26.[address], [place] [id number] 03 May, 2020 Ansteve Tello Hyperlipidemia, unspecified E78.[address], [place] [id number] Apr, [facility] Right knee pain, unspecified chronicity M25.561 and Dysuria R30.[address], [place] [id number] Apr, [address], [place] [id number] Apr, [address], [place] [id number] Apr, [address] [id number] 15 Apr, 2020 [facility] Neuropathy G62.9 ; Controlled type 2 diabetes mellitus without complication, unspecified long-term insulin use status E11.9 ; Cataract H26.9 ; Parkinson disease G20 ; Swelling of both lower extremities M79.89 and Right knee pain, unspecified chronicity M25.561 [place] [address] [address] [facility] [id number] 13 Apr, 2020 [facility] Transportation TRANS [address], [place] [id number] Apr, An Dyer [address], [place] [id number] Apr, An Tello Unsteadiness R26.81 [facility] [address] [facility], [place] [id number] Mar, An Tello General Assistance G EN [facility] [address] [facility], [place] [id number] Mar, An Tello [facility] [address] [facility] [id number] Mar, An Tello Transportation TRANS [facility] [address] [facility], [place] [id number] Mar, An Tello Other OTH [address], [place] [id number] Mar, An Tello [address], [place] [id number] Mar, nA Tello Controlled type 2 diabetes mellitus without complication, unspecified terminal press operator insulin use status E11.9 ; Stress fracture, unspecified site, sequela M84.30XS ; Swelling of both lower extremities M79.89 ; Neuropathy G62.9 and Essential hypertension I10 [address], [place] [id number] Mar, An Tello [address], [place] [id number] Mar, An Tello Acute pain of right knee M25.[address] [id number] Feb, An Tello [address], [place] [id number] Feb, An Tello Hyperlipidemia 272.[address], [place] [id number] Feb, An Tello [address] [place] [id number] Feb, An Tello Unilateral edema of lower extremity R60.[address] [id number] Feb, An Tello Outreach OUT [address], [place] [id number] Feb, An Tello [address], [place] [id number] Feb, An Tello Acute pain of right knee M25.561 and Unilateral edema of lower extremity R60.[address], [place] [id number] Feb, [address] [id number] Feb, [address] [id number] 18 Feb, 2020 [facility] Acute pain of right knee M25.[address] [id number] 16 Feb, 2020 [facility] Transitional Care Management TCM [address] [id number] 15 Jan, 2020 [facility] Neuropathy G62.[address] [id number] 05 Jan, 2020 [facility] [address] [facility], [place] [id number] 28 Dec, [address] [id number] 09 Dec, 2019 [facility] Dietary counseling a nd surveillance Z71.3 ; Counseling on health promotion and disease prevention Z71.89 ; Controlled type 2 diabetes mellitus without complication, without long-term current use of insulin E11.9 and Encounter for immunization Z23 [address] [id number] 31 Nov, 2019 [facility] Hypertension I10 [address] [id number] 04 Nov, 2019 [facility] Hypertension 401.9 a nd Hyperlipidemia, unspecified E78.[address] [id number] Oct, [facility] CCM Follow up CCM an d General Assistance GEN [address] [id number] Oct, [facility] Screening for breast cancer Z12.[address] [id number] 11 Sep, 2019 [facility] Controlled type 2 diabetes mellitus without complication, unspecified terminal press operator insulin use status E11.9 ; Dietary counseling and surveillance Z71.3 ; Encounter for immunization Z23 ; Counseling on health promotion and disease prevention Z71.89 ; Parkinson disease G20 ; Neuropathy G62.9 and Hypertension I10 [address] [id number] Sep, [address] [id number] August, [facility] General Assistance G EN and CCM Follow up CCM [address] [id number] August, [facility] CCM Follow up CCM [address], [place] [id number] August, An Omer Hyperlipidemia, unspecified E78.[address], [place] [id number] Jul, [facility] General Assistance G EN and CCM CCM [place] [address] [place] [phone] 16 Jul, 2019 An Dyer HLW HTN HLW HTN [address], [place] [id number] Jul, An Dyer CCM CCM ; CCM Follow up CCM and General Assistance GEN [address], [place] [id number] Jul, [facility] Neuropathy G62.[address], [place] [id number] Jul, An Omer Neuropathy G62.[address], [place] [id number] Jun, [facility] General Assistance G EN ; Food Assistance FOOD and Other OTH [address], [place] [id number] Jun, [facility] [address] [facility], [place] [id number] Jun, [address], [place] [id number] Jun, [address] [id number] Jun, [facility] Controlled type 2 diabetes mellitus without complication, unspecified long-term insulin use status E11.9 ; Tinea pedis of both feet B35.3 ; Dietary counseling Z71.3 ; Exercise counseling Z71.82 ; Hypertension I10 and Rash R21 [address], [place] [id number] Apr, An Dyer Hypertension I10 and Hypertension 401.[address], [place] [id number] Mar, An Omer [address], [place] [id number] Mar, Andeyanira Tello Hyperlipidemia, unspecified E78.[address] [id number] Mar, An Omer Dietary counseling a nd surveillance Z71.3 ; Rash R21 ; Controlled type 2 diabetes mellitus without complication, unspecified long-term insulin use status E11.9 ; Counseling on health promotion and disease prevention Z71.89 and Hyperlipidemia, unspecified E78.[address] [id number] Feb, An Tello Neuropathy G62.[address] [id number] Feb, An Tello [address] [id number] Feb, An Tello [address] [id number] Feb, An Tello [address] [id number] Jan, An Tello [address] [id number] Dec, An Tello Rash R21 ; Swelling of both lower extremities M79.89 ; Controlled type 2 diabetes mellitus without complication, unspecified long-term insulin use status E11.9 ; Hypertension I10 and Hyperlipidemia, unspecified E78.[address] [id number] Nov, An Tello Swelling of both low er extremities M79.[address] [id number] Nov, An Tello [address] [id number] Nov, An Tello [address] [id number] Nov, An Tello GERD (gastroesophage al reflux disease) K21.9 ; Hypertension I10 and Hypertension 401.[address] [id number] Nov, An Tello Aortic valve insufficiency, etiology of cardiac valve disease unspecified I35.1 and Swelling of both lower extremities M79.[address] [id number] Nov, An Tello Bilateral lower extremity edema R60.[address] [id number] Oct, An Tello PRAPARE NEGATIVE PRA N [address] [id number] Sep, An Tello Controlled type 2 diabetes mellitus without complication, unspecified long-term insulin use status E11.9 ; Parkinson disease G20 ; Neuropathy G62.9 and GERD (gastroesophageal reflux disease) K21.[address], [place] [id number] August, [facility] Screening for malignant neoplasm of breast Z12.[address], [place] [id number] August, An Omer Neuropathy G62.9 and Hyperlipidemia, unspecified E78.[address], [place] [id number] 14 Aug, [address], [place] [id number] August, [address], [place] [id number] August, An Omer Neuropathy G62.[address], [place] [id number] Jul, An Omer [address], [place] [id number] Jul, Ansteve Tello At low risk for fall Z91.81 ; Screening for neurological condition Z13.89 ; Driving safety issue Z91.89 ; Dietary counseling Z71.3 and Depression screening Z13.[address], [place] [id number] Jun, An Omer Hyperlipidemia, unspecified E78.[address], [place] [id number] Jun, An Omer Controlled type 2 diabetes mellitus without complication, without long-term current use of insulin E11.9 ; Parkinson disease G20 ; Neuropathy G62.9 and Hypertension I10 [address] [id number] May, An Omer GERD (gastroesophage al reflux disease) K21.9 and Hypertension I10 [address] [id number] Apr, An Omer Hypertension 401.9 ; Hyperlipidemia 272.4 ; Neuropathy G62.9 and GERD (gastroesophageal reflux disease) K21.[address], [place] [id number] Apr, Andeyanira Tello [address], [place] [id number] Mar, An Omer Hypertension I10 [address] [id number] Mar, An Tello Controlled type 2 diabetes mellitus without complication, unspecified terminal press operator insulin use status E11.9 ; Hypertension I10 and Neuropathy G62.[address], [place] [id number] 15 Feb, 2018 An Tello Hypertension I10 [address] [id number] 15 Jan, 2018 An Tello Encounter for immunization Z23 [address] [id number] 21 Dec, 2017 An Tello Neuropathy G62.[address] [id number] 20 Dec, 2017 An Tello Neuropathy G62.[address], [place] [id number] 11 Dec, 2017 An Tello Hyperlipidemia, unspecified E78.[address], [place] [id number] 05 Dec, 2017 An Tello Controlled type 2 diabetes mellitus without complication, unspecified terminal press operator insulin use status E11.9 ; Annual physical exam Z00.00 ; Hyperlipidemia, unspecified E78.5 ; Neuropathy G62.9 ; Hypertension I10 ; Parkinson disease G20 and Nutritional counseling Z71.[address], [place] [id number] Nov, An Tello GERD (gastroesophage al reflux disease) K21.[address], [place] [id number] 14 Sep, 2017 An Tello Hypertension I10 [address] [id number] 11 Sep, 2017 An Tello Hyperlipidemia, unspecified E78.[address] [id number] 06 Sep, 2017 An Tello Controlled type 2 diabetes mellitus without complication, unspecified long-term insulin use status E11.9 and Parkinson disease G20 [address], [place] [id number] August, An Tello Hypertension I10 [address] [id number] 16 Jul, 2017 An Tello [address] [id number] 23 Jun, 2017 An Tello Screening for breast cancer Z12.[address], [place] [id number] Jun, An Tello Neuropathy G62.[address] [id number] 19 May, 2017 An Tello GERD (gastroesophage al reflux disease) K21.[address] [id number] 15 May, 2017 An Tello [address] [id number] 14 May, 2017 An Tello Controlled type 2 diabetes mellitus without complication, unspecified long-term insulin use status E11.9 ; Neuropathy G62.9 and Arthritis M19.[address] [id number] Apr, An Tello Neuropathy G62.[address] [id number] Mar, An Tello Hypertension I10 [address] [id number] Mar, An Tello Hyperlipidemia, unspecified E78.[address] [id number] 10 Feb, 2017 An Tello Transportation TRANS [address] [id number] Feb, An Tello Hypertension I10 and Hyperlipidemia, unspecified E78.[address] [id number] 08 Feb, 2017 An Tello Controlled type 2 diabetes mellitus without complication, unspecified terminal press operator insulin use status E11.9 ; Hypertension I10 ; GERD (gastroesophageal reflux disease) K21.9 ; Hyperlipidemia, unspecified E78.5 ; Neuropathy G62.9 ; Generalized muscle weakness M62.81 ; Unsteadiness R26.81 and Encounter for immunization Z23 [address] [id number] Nov, An Tello Need for hepatitis C screening test Z11.59 ; Aortic valve insufficiency, etiology of cardiac valve disease unspecified I35.1 ; Neuropathy G62.9 ; Acute bilateral low back pain without sciatica M54.5 and Swelling of both lower extremities M79.[address] [id number] Nov, An Tello Hypertension I10 [address] [id number] Nov, An Tello Hypertension I10 [address] [id number] Nov, An Tello [address] [id number] Nov, An Tello Neuropathy G62.[address] [id number] Nov, An Tello Neuropathy G62.9 ; Lower extremity edema R60.0 ; Cardiac murmur R01.1 ; Unsteady R26.81 and Acute bilateral low back pain without sciatica M54.[address] [id number] Nov, An Tello GERD (gastroesophage al reflux disease) K21.[address] [id number] Sep, Brandan Garcia MD Hypertension I10 [address] [id number] August, An Tello [address] [id number] August, An Tello Annual physical exam Z00.00 ; Hyperlipidemia, unspecified E78.5 ; GERD (gastroesophageal reflux disease) K21.9 ; Neuropathy G62.9 ; Controlled type 2 diabetes mellitus without complication, unspecified long-term insulin use status E11.9 and Osteopenia, unspecified location M85.[address] [id number] Jul, An Tello Hypertension I10 [address] [id number] May, Brandan Garcia MD Hypertension I10 [address] [id number] Apr, Brandan Garcia MD [address] [id number] Apr, Brandan Garcia MD [address] [id number] Apr, An Tello Other specified diabetes mellitus without complications E13.9 ; Neuropathy G62.9 ; Murmur, cardiac R01.1 and Screening for breast cancer Z12.[address] [id number] Apr, Brandan Garcia MD Screening for breast cancer Z12.[address] [id number] Apr, An Tello Hyperlipidemia, unspecified E78.[address], [place] [id number] Apr, Brandan Garcia MD [address], [place] [id number] Mar, Brandan Garcia MD Hypertension I10 [address] [id number] Mar, Brandan Garcia MD Hypertension I10 [address], [place] [id number] Feb, Brandan Garcia MD Hypertension I10 [address] [id number] Jan, Brandan Garcia MD [address] [id number] Jan, An Tello [address] [id number] Jan, Brandan Garcia MD Other specified diabetes mellitus without complications E13.9 and Hyperlipidemia, unspecified E78.[address], [place] [id number] Nov, Brandan Garcia MD [address] [id number] Oct, An Tello Diabetes type 2, controlled E11.9 ; Rash R21 and Immunization due Z23 [address] [place] [address] Oct, An Tello [address] [id number] Sep, An Tello [address] [place] [address] August, Brandan Garcia MD [address], [place] [id number] Jul, An Tello Diabetes type 2 controlled 250.00 ; Osteopenia M85.80 ; GERD (gastroesophageal reflux disease) K21.9 ; Hypertension I10 and Skin lesion L98.[address], [place] [id number] Apr, An Tello Type 2 diabetes mellitus without complications E11.9 ; Osteopenia M85.80 ; Hypertension I10 ; Hyperlipidemia E78.5 and GERD (gastroesophageal reflux disease) K21.[address], [place] [id number] Apr, An Tello Hyperlipidemia, unspecified E78.5 and Essential (primary) hypertension I10 [place] [address] [place], [place] [id number] Apr, Brandan Garcia MD [address] [id number] Feb, Brandan Garcia MD [address] [id number] Jan, Brandan Garcia MD Breast cancer screening Z12.[address] [id number] Oct, [place] Diabetes type 2 controlled 250.00 ; Hypertension 401.9 ; Hyperlipidemia 272.4 and GERD (gastroesophageal reflux disease) 530.[address] [id number] Sep, [place] Heartburn 787.1 and Pain in both feet 729.[address] [id number] Jul, Brandan Gacria MD [address] [id number] Jul, Brandan Garcia MD [address] [id number] Jul, [place] Annual Physical Exam V70.0 ; Diabetes type 2 controlled 250.00 ; Heartburn 787.1 ; Joint pain 719.40 ; Lipoma 214.9 and Bilateral tinnitus 388.[address] [id number] Jul, [place] Hypertension 401.9 a nd Hyperlipidemia 272.[address] [id number] Jul, [place] Hypertension 401.[address] [id number] Mar, [place] Diabetes type 2 controlled 250.[address] [id number] Mar, [place] Hypertension 401.9 a nd Hyperlipidemia 272.[address] [id number] Jan, An T[place] [address] [id number] Jan, [place] Need for prophylacti c vaccination with Streptococcus pneumoniae (Pneumococcus) and Influenza vaccines V06.[address] [id number] Jan, [place] Diabetes type 2 controlled 250.00 ; Hyperlipidemia 272.4 ; Hypertension 401.9 ; Screening for breast cancer V76.10 and Screening for Osteoporosis V82.[address] [id number] Nov, [place] Dysuria 788.[address] [id number] Nov, [place] Hypertension 401.[address] [id number] Nov, Brandan Garcia MD Hyperlipidemia 272.[address] [id number] Nov, [place] Hyperlipidemia 272.4 and Hypertension 401.[address] [id number] Oct, [place] [address] [id number] Jun, [place] Diabetes type 2 controlled 250.00 ; Hypertension 401.9 and Hyperlipidemia 272.[address] [id number] Mar, [place] Hypertension 401.9 a nd Hyperlipidemia 272.[address] [id number] Jan, An [place] [address] [id number] Dec, [place] Diabetes type 2 controlled 250.00 ; Hypertension 401.9 ; Hyperlipidemia 272.4 and Cerumen impaction 380.[address] [id number] Dec, [place] Foot pain, left 729. 5 and HTN (hypertension) 401.[address] [id number] Oct, Brandan Garcia MD [address] [id number] Oct, Brandan Garcia MD [address] [id number] Oct, [place] Family history of breast cancer V16.[address] [id number] Sep, [place] Diabetes type 2 controlled 250.00 ; Hyperlipidemia 272.4 and Hypertension 401.[address] [id number] Sep, [place] Hyperlipidemia 272.4 and Hypertension 401.[address], [place] [id number] August, [place] Left foot pain 729.[address], [place] [id number] Jul, Brandan Garcia MD [address] [id number] Jul, Brandan Garcia MD [address], [place] [id number] Jun, [place] Diabetes type 2 controlled 250.00 ; Hyperlipidemia 272.4 ; Hypertension 401.9 and LBP (low back pain) 724.2 [facility] [address], [place] [id number] Jun, Brandan Garcia MD [address], [place] [id number] Jun, Brandan Garcia MD [address] [id number] May, [place] Colon cancer screeni ng V76.[address] [id number] May, Brandan Garcia MD [address] [id number] Mar, [place] Diabetes type 2 controlled 250.[address], [place] [id number] Jan, Brandan Garcia MD [address] [id number] Dec, [place] [address] [id number] Dec, [place] Elevated cholesterol 272.0 ; Benign essential HTN 401.1 and Controlled diabetes mellitus 250.[address] [id number] Sep, [place] [address] [id number] Jun, [place] [address] [id number] May, [place] [address] [id number] August, [place] Cervical cancer screening V76.2 IMMUNIZATIONS Vaccine Route Administration Date Status Influenza Adult FluBlok high dose PURCHASED IM Intramuscular Dec 23, 2019 Administered Influenza Adult FluBlok high dose PURCHASED IM Intramuscular Jan 24, 2022 Administered COVID-19 Pfizer IM Intramuscular Mar 10, 2021 Administ ered COVID-19 Pfizer Unknown August 29, 2021 Administered Tetanus Toxoid [id number] Unknown Apr 14, 2010 Adminis tered Influenza Adult FluBlok high dose PURCHASED IM Intramuscular Jan 27, 2018 Administered Influenza Adult FluBlok high dose PURCHASED IM Intramuscular Jan 16, 2019 Administered INFLUENZA 18 YRS TO 64 YRS [employer]LD-STATE SUPPLIED Unknown Jan 16, 2010 Administered COVID-19 Moderna [id number] Unknown June 21, 2020 Adm inistered COVID-19 Moderna [id number] Unknown July 19, 2020 Adm inistered Zostavax [facility] [id number] SC Subcutaneous Jan 07, 2013 Admi nistered Prevnar PCV 13 [facility] [id number] Unknown Nov 30, 2015 Ad ministered Pneumovax [facility] [id number] IM Intramuscular Feb 01, 2014 Adm inistered TDaP Adult [facility] [id number] Unknown November 12, 2019 Admin istered INFLUENZA 18 YRS TO 64 YRS [employer]LD-STATE SUPPLIED IM Intramuscular Feb 20, 2017 Administered INFLUENZA 18 YRS TO 64 YRS OLD-STATE SUPPLIED Unknown Nov 30, 2015 Administered INFLUENZA 18 YRS TO 64 YRS OLD-STATE SUPPLIED Unknown Jan 28, 2015 Administered INFLUENZA 18 YRS TO 64 YRS OLD-STATE SUPPLIED Unknown Jan 13, 2014 Administered SOCIAL HISTORY Tobacco Use: Social History Observation Description Date Details (start date - stop date) Former Smoker Sex Assigned At : Social History Observation Description Sex Assigned At Unknown OTHER TOBACCO USE: Question Answer Notes Are you an other tobacco user? No SMOKING STATUS: Question Answer Notes Are you a: former smoker PRAPARE Question Answer Notes Date Completed/Updated: 09/17/2018 Are you worried about losing your housing? No What is the highest level of school that you have finished? High school diploma or GED Has lack of transportation k ept you from medical appointments, meetings, work or from getting things needed for daily living? No How often do you see or talk to people that you care about and feel close to? (For example: talking to friends on the phone, visiting friends or family, going to anabaptism or club meetings) 3 to 5 times a week How stressed are you? Stress is when someone feels tense, nervous, anxious, or can't sleep at night because their mind is troubled A little bit In the past year have you sp ent more than 2 nights in a row in a senior living, usp, skilled nursing center, or juvenile correctional facility? No Are you a refugee? No What country are you from? [place] Do you feel physically and e motionally safe where you currently live? Yes In the past year, have you b een afraid of your partner or ex-partner? No PRAPARE Score: 4 REASON FOR REFERRAL from 1945 to 2022-10-12 Reason screening mammo Diagnosis 1 Screening Mammo (V76 .12) Referral Organization [facility] [place] Referring Provider First Name Brandan Referring Provider Last Name Radha Villagomez Referring Provider Specialty Family Medi cine Referred Provider [facility] Referred Provider Specialty Radiology Referral Priority Routine Referral Appointment Date 2011-09-03 Reason screening colonoscop y Diagnosis 1 Encounter for screen ing colonoscopy (V76.51) Referral Organization [facility] Referring Provider First Name Brandan Referring Provider Last Name Radha Villagomez Referring Provider Specialty Family Medi cine Referred Provider Andres Roe Referred Provider Specialty Gastroentero logy Referral Priority Routine Referral Appointment Date 2012-06-05 Reason left foot pain with weight bearing. Diagnosis 1 Left foot pain (729. 5) Referral Organization [facility] Referring Provider First Name An Referring Provider Last Name Omer Referring Provider Specialty Nurse Libra jo Referred Provider [facility] Referred Provider Specialty Physical The rapist Referral Priority Routine General Notes Jessie Brower 09/05 10:33:13 AM >referral faxed Reason Left foot pain great er than six months refractory to treatment. Diagnosis 1 Foot pain, left (729 .5) Referral Organization [facility] Referring Provider First Name An Referring Provider Last Name Omer Referring Provider Specialty Nurse Libra jo Referred Provider Jacob Brown Referred Provider Specialty Podiatry Referral Priority Routine Referral Appointment Date 2013-01-20 General Notes Daphney Vidal 013 9:34:07 AM >Scheduled 01/20/13 @ 2:00pm , faxed to provider's office, Pt aware of time and date of appt. Reason left foot, chronic t endonitis 06/24/13 TH Pt went to [facility] in [place], [place] 06/23/13 Diagnosis 1 Left foot pain (729. 5) Referral Organization [facility] Referring Provider First Name An Referring Provider Last Name Omer Referring Provider Specialty Nurse Pracbrit jo Referred Provider Jacob Brown Referred Provider Specialty Podiatry Referral Priority Routine General Notes Mckenzie Chappell 06/24/2013 3:47:34 PM >Pt went to [facility] in [place], [place] 06/23/13 Reason Please evaluate for progressing weakness and unsteadiness. Faxed referral please call pt to schedule appt Diagnosis 1 Generalized muscle w eakness (M62.81) Referral Organization [facility] [place] Referring Provider First Name An Referring Provider Last Name Omer Referring Provider Specialty Nurse Libra jo Referred Provider [facility], Neurology Referred Provider Specialty Neurology Referral Priority Routine Referral Appointment Date 2017-04-18 General Notes Ambreen Charles 02/22/20 11:52:32 AM >Faxed referral please call pt to schedule appt Ambreen Charles 02/21/2017 11:53:13 AM >Labs are pending Ambreen Charles 03/26/2017 10:41:31 AM >pt r/s due to weather. Reason Patient currently in pain. Difficult navigating her home. Please evaluate and treat. URGENT Faxed referral. Please call pt to schedule appt. JM Diagnosis 1 Acute pain of right knee (M25.561) Referral Organization [facility] Referring Provider First Name An Referring Provider Last Name Omer Referring Provider Specialty Nurse Libra jo Referred Provider [facility] Referred Provider Specialty Orthopedic S urgery Referral Priority Urgent Referral Appointment Date 2020-03-02 General Notes Lucy Mcneill 03/03 1:14:51 PM >Faxed referral. Please call pt to schedule appt. Reason Patient needs home h ealth services due to inability to walk while right knee pain is being evaluated by Ortho, cause is unknown at this time Faxed referral. 03/15/2020 JM Diagnosis 1 Right knee pain, uns pecified chronicity (M25.561) Referral Organization [facility] Referring Provider First Name An Referring Provider Last Name Omer Referring Provider Specialty Nurse Libra jo [facility] Referral Priority Routine Referral Appointment Date 2020-05-03 General Notes Lucy Mcneill 2019 11:20:55 AM >Faxed referral. Reason PLease evaluate and treat Please contact our office within 7 days to notify LR of scheduled appointment Faxed to [facility] 04/25/20 ath Diagnosis 1 Unsteadiness (R26.81 ) Referral Organization [facility] [place] Referring Provider First Name An Referring Provider Last Name Omer Referring Provider Specialty Nurse Libra jo Referred Provider [facility], Referred Provider Specialty Physical The rapist Referral Priority Routine Referral Appointment Date 2020-05-03 General Notes Elaine Salguero 04/25 11:07:52 AM >Faxed to [facility] VITAL SIGNS from 1945 to 2022-10-12 Temperature 98.2 degrees Fahrenheit Apr, Heart Rate 70 BPM Apr, Respiratory Rate 16 /min Apr, Oximetry 97 % Apr, Height 67 in Apr, Weight 187 lbs Jan, BMI 29.29 kg/m2 Jan, Blood pressure systolic 132 mmHg Apr, Blood pressure diastolic 80 mmHg Apr, MEDICATIONS Medication SIG (Take, Route, Frequency, Duration) Notes Start Date End Date Status Protonix 40 MG 1 tablet Orally ever y 24 hours Apr, Active Apixaban 5 MG 1 tablet Orally Twic e a day May, Active ACCUCHEK AMARILYS PLUS FASTCLIX DRUM 1 as directed Code 250 Medicall necessity Test once daily for 90 days Oct, Active Atenolol 50 MG 1 tablet Orally Once a day for 90 days Active Zofran ODT 4 MG 1 tablet on the tong ue and allow to dissolve as needed Orally Every 8 hours May, Active Vitamin D3 2000 UNIT as directed Orally Once a day Jan, Active Calcium Carbonate 500 MG 2 tablets with food Orally Twice a day May, Active Atorvastatin Calcium 10 MG 1 tablet Oral ly Once a day May, Active Lisinopril 5 MG 3 tablets Orally Onc e a day for 90 days May, Active Gabapentin 100 MG two capsules Orally three times a day for 90 days Active Carbidopa-Levodopa 25-100 MG 2 tablets Orally Three times a day Active MiraLax 17 GM 1 packet mixed with 8 ounces of fluid Orally Once a day May, Active Ecotrin Low Strength 81 MG 1 tablet Oral ly every 24 hours Apr, Active Miconazole Nitrate 2 % 1 application Top ically Twice a day May, Active Senna Lax 8.6 MG 2 tablets as needed Orally Once a day May, Active Accu-Chek Amarilys Plus N/A as directed In Vitro Once a day (250.00, medical necessity) for 90 days Oct, Active One Daily - 1 tablet Orally Once a day Active PROCEDURES from 1945 to 2022-10-12 Procedure Date Ordered Date Performed Result Body Sit e EAR IRRIGATION 2013-01-06 N/A RESULTS from 1945 to 2022-10-12 REASON FOR VISIT No Information MEDICAL (GENERAL) HISTORY Type Description Date Medical History Type II diabetes Medical History Hypertension Medical History Hyperlipidemia Medical History Hypercholesterolemia Medical History Carpal Tunnel Right Hand Medical History Lipoma Left Thigh Medical History Functional Heart Murmur Medical History Early Cataracts Medical History family history of Adenomatous Po lyps Surgical History Lumpectomy- benign 1976 Surgical History Bilateral cataracts 2020 Hospitalization History [facility] -Deep Venous Thrombosis; Covid-19; Coronary Arteriosclerosis 04/19-04/23/22 Hospitalization History [facility] -Asthenia; Acute hypoxemic respiratory failure; Pneumonia; DVT; Hypertensive disorder 05/17-05/30/22 MENTAL STATUS No Information ASSESSMENTS Encounter Date Diagnosis Assessment Notes Treatment Notes Treatment Clinical Notes Jul, Dietary counseling and surveillance (ICD-10 - Z71.3) Jul, Counseling on health promotion and disease prevention (ICD-10 - Z71.89) Physical activity counseling provided Jul, Controlled type 2 diabetes mellitus without complication, without long-term current use of insulin (ICD-10 - E11.9) Jul, ER Visit (ICD9-CM - ER) Jun, CCM Update Care Plan (ICD9-CM - CCM Update Care Plan ) Apr, Hospital Admit (ICD9-CM - HOSP) Apr, Transitional Care Management (ICD-10 - TCM) Apr, Arthritis (ICD-10 - M19.90) Apr, Housing Assistance (ICD9-CM - HOUS) Apr, Cataract (ICD-10 - H26.9) Apr, Controlled type 2 diabetes mellitus without complication, without long-term current use of insulin (ICD-10 - E11.9) Apr, Hyperlipidemia, unspecified (ICD-10 - E78.5) Apr, Hypertension (ICD-10 - I10) Apr, Other specified diabetes mellitus without complications (ICD-10 - E13.9) Apr, Controlled type 2 diabetes mellitus without complication, unspecified long-term insulin use status (ICD-10 - E11.9) Apr, Burning sensation (ICD-10 - R20.8) Apr, History of recent hospitalization (ICD-10 - Z92.89) Apr, Other Scribed for BENNIE Campoverde, by Morenita Dumas, Virtual scribe. I, BENNIE Machuca, have personally reviewed and agreed with the information entered by the Virtual scribe. Apr, Transitional Care Management (ICD-10 - TCM) Apr, Hospital Admit (ICD9-CM - HOSP) Apr, Diffuse pain in left lower extremity (ICD-10 - M79.605) Apr, Left leg swelling (ICD-10 - M79.89) Apr, Cellulitis of left lower extremity (ICD-10 - L03.116) Apr, Other Scribed for Dr. Belle by Demetrice Becker, medical clerk, on 04/19/2022. I, Dr. Belle, have personally reviewed and agreed with the information entered by the medical clerk. Feb, Cataract (ICD-10 - H26.9) Feb, Hypertension (ICD-10 - I10) Feb, Other specified diabetes mellitus without complications (ICD-10 - E13.9) Feb, Hyperlipidemia, unspecified (ICD-10 - E78.5) Feb, Controlled type 2 diabetes mellitus without complication, unspecified terminal press operator insulin use status (ICD-10 - E11.9) Feb, Arthritis (ICD-10 - M19.90) Feb, Controlled type 2 diabetes mellitus without complication, without long-term current use of insulin (ICD-10 - E11.9) Feb, Essential hypertension (ICD-10 - I10) Jan, [facility] Referral Insurance Coverage (ICD9-CM - [facility] Referral Insurance Coverage) Jan, Cataract (ICD-10 - H26.9) Jan, Hypertension (ICD-10 - I10) Jan, Other specified diabetes mellitus without complications (ICD-10 - E13.9) Jan, Hyperlipidemia, unspecified (ICD-10 - E78.5) Jan, Controlled type 2 diabetes mellitus without complication, unspecified terminal press operator insulin use status (ICD-10 - E11.9) Jan, Arthritis (ICD-10 - M19.90) Jan, Controlled type 2 diabetes mellitus without complication, without long-term current use of insulin (ICD-10 - E11.9) Jan, Essential hypertension (ICD-10 - I10) Jan, Other Assisted patimallika t with Utility Accounts Director Medicaid Application, attached all supporting documentation. Dropped application off to sister and she will have patient sign and return so I can fax in. Jan, Screening mammogram for breast cancer (ICD-10 - Z12.31) [facility] Jan, Osteopenia (ICD-10 - M85.80) [facility] Jan, Annual physical exam (ICD-10 - Z00.00) Jan, Encounter for immunization (ICD-10 - Z23) Patient presents for flu shot. Screening questions reviewed with patient. There was no contraindication to patient receiving the flu shot today. Consent received prior to injection. Vaccine Information Sheet offered to patient. Jan, Other specified diabetes mellitus without complications (ICD-10 - E13.9) Jan, Parkinson disease (ICD-10 - G20) Jan, Other Scribed for BENNIE Campoverde, by Elaina Feliz scribe. I, BENNIE Machuca, have personally reviewed and agreed with the information entered by the Virtual scribe. Jan, [facility] Care Coordination (ICD9-CM - [facility] Care Coordination) Dec, [place] Medicaid for Elderly and Disabled (ICD9-CM - VTMED) Dec, Cataract (ICD-10 - H26.9) Dec, Hypertension (ICD-10 - I10) 28 Dec, 2021 Other specified diabetes mellitus without complications (ICD-10 - E13.9) 28 Dec, 2021 Hyperlipidemia, unspecified (ICD-10 - E78.5) 28 Dec, 2021 Controlled type 2 diabetes mellitus without complication, unspecified terminal press operator insulin use status (ICD-10 - E11.9) 28 Dec, 2021 Arthritis (ICD-10 - M19.90) 28 Dec, 2021 Controlled type 2 diabetes mellitus without complication, without long-term current use of insulin (ICD-10 - E11.9) 28 Dec, 2021 Essential hypertension (ICD-10 - I10) 19 Dec, 2021 Housing Assistance (ICD9-CM - HOUS) 19 Dec, 2021 [place] Medicaid for Elderly and Disabled (ICD9-CM - VTMED) 19 Dec, 2021 CCM (ICD-10 - CCM) 16 Nov, 2021 Osteopenia (ICD-10 - M85.80) 16 Nov, 2021 Controlled type 2 diabetes mellitus without complication, unspecified terminal press operator insulin use status (ICD-10 - E11.9) 16 Nov, 2021 GERD (gastroesophageal reflux disease) (ICD-10 - K21.9) 16 Nov, 2021 Murmur (ICD-10 - R01.1) 16 Nov, 2021 Hypertension (ICD-10 - I10) 16 Nov, 2021 Hyperlipidemia, unspecified (ICD-10 - E78.5) Nov, Neuropathy (ICD-10 - G62.9) Nov, Breast cancer screening by mammogram (ICD-10 - Z12.31) Nov, Other Scribed for BENNIE Campoverde, by Morenita Dumas Virtual scribe. I, BENNIE Machuca, have personally reviewed and agreed with the information entered by the Virtual scribe. Oct, Cataract (ICD-10 - H26.9) Oct, Hypertension (ICD-10 - I10) Oct, Other specified diabetes mellitus without complications (ICD-10 - E13.9) Oct, Hyperlipidemia, unspecified (ICD-10 - E78.5) Oct, Controlled type 2 diabetes mellitus without complication, unspecified long-term insulin use status (ICD-10 - E11.9) Oct, Arthritis (ICD-10 - M19.90) Oct, Controlled type 2 diabetes mellitus without complication, without long-term current use of insulin (ICD-10 - E11.9) Oct, Essential hypertension (ICD-10 - I10) Oct, Hyperlipidemia, unspecified (ICD-10 - E78.5) August, Cataract (ICD-10 - H26.9) August, Hypertension (ICD-10 - I10) August, Other specified diabetes mellitus without complications (ICD-10 - E13.9) August, Hyperlipidemia, unspecified (ICD-10 - E78.5) August, Controlled type 2 diabetes mellitus without complication, unspecified long-term insulin use status (ICD-10 - E11.9) August, Arthritis (ICD-10 - M19.90) August, Controlled type 2 diabetes mellitus without complication, without long-term current use of insulin (ICD-10 - E11.9) August, Essential hypertension (ICD-10 - I10) August, Intertrigo (ICD-10 - L30.4) August, Controlled type 2 diabetes mellitus without complication, unspecified terminal press operator insulin use status (ICD-10 - E11.9) August, Counseling on health promotion and disease prevention (ICD-10 - Z71.89) Physical activity counseling provided August, Dietary counseling and surveillance (ICD-10 - Z71.3) August, Neuropathy (ICD-10 - G62.9) August, Encounter for immunization (ICD-10 - Z23) Patient presented requesting COVID vaccination. Screening questions reviewed with patient and patient was appropriate to vaccinate. Patient questions answered and Emergency Use Authorization Statements given. Patient tolerated the immunization well, was observed in clinic for the recommended interval, and left the clinic in stable condition. August, Unsteady (ICD-10 - R26.81) August, Intertrigo (ICD-10 - L30.4) August, Other Scribed for BENNIE Campoverde, by Elaina Feliz scribe. I, BENNIE Machuca, have personally reviewed and agreed with the information entered by the Virtual scribe. Jun, Cataract (ICD-10 - H26.9) Jun, Hypertension (ICD-10 - I10) Jun, Other specified diabetes mellitus without complications (ICD-10 - E13.9) Jun, Hyperlipidemia, unspecified (ICD-10 - E78.5) Jun, Controlled type 2 diabetes mellitus without complication, unspecified long-term insulin use status (ICD-10 - E11.9) Jun, Arthritis (ICD-10 - M19.90) Jun, Controlled type 2 diabetes mellitus without complication, without long-term current use of insulin (ICD-10 - E11.9) Jun, Essential hypertension (ICD-10 - I10) Jun, CCM Update Care Plan (ICD9-CM - CCM Update Care Plan ) May, Dietary counseling and surveillance (ICD-10 - Z71.3) May, Counseling on health promotion and disease prevention (ICD-10 - Z71.89) Physical activity counseling provided May, Controlled type 2 diabetes mellitus without complication, without long-term current use of insulin (ICD-10 - E11.9) May, Unsteady (ICD-10 - R26.81) May, Parkinson disease (ICD-10 - G20) May, Aortic valve insufficiency, etiology of cardiac valve disease unspecified (ICD-10 - I35.1) May, Other Scribed for BENNIE Campoverde, by Elaina Feliz scribe. I, BENNIE Machuca, have personally reviewed and agreed with the information entered by the Virtual scribe. 11 May, 2021 Cataract (ICD-10 - H26.9) May, Hypertension (ICD-10 - I10) May, Other specified diabetes mellitus without complications (ICD-10 - E13.9) May, Hyperlipidemia, unspecified (ICD-10 - E78.5) May, Controlled type 2 diabetes mellitus without complication, unspecified terminal press operator insulin use status (ICD-10 - E11.9) May, Arthritis (ICD-10 - M19.90) May, Controlled type 2 diabetes mellitus without complication, without long-term current use of insulin (ICD-10 - E11.9) 11 May, 2021 Essential hypertension (ICD-10 - I10) May, Hypertension (ICD9-CM - 401.9) May, Swelling of both lower extremities (ICD-10 - M79.89) May, Hypertension (ICD-10 - I10) Apr, [facility] Referral equipment need (ICD9-CM - [facility] Referral) Apr, Cataract (ICD-10 - H26.9) Apr, Hypertension (ICD-10 - I10) Apr, Other specified diabetes mellitus without complications (ICD-10 - E13.9) Apr, Hyperlipidemia, unspecified (ICD-10 - E78.5) Apr, Controlled type 2 diabetes mellitus without complication, unspecified terminal press operator insulin use status (ICD-10 - E11.9) Apr, Arthritis (ICD-10 - M19.90) Apr, Controlled type 2 diabetes mellitus without complication, without long-term current use of insulin (ICD-10 - E11.9) Apr, Essential hypertension (ICD-10 - I10) Apr, Hyperlipidemia, unspecified (ICD-10 - E78.5) Apr, [facility] Healthy Living Referral (ICD9-CM - [facility] Healthy Living Referral) Mar, Neuropathy (ICD-10 - G62.9) Feb, Encounter for immunization (ICD-10 - Z23) Patient presented requesting COVID vaccination. Screening questions reviewed with patient and patient was appropriate to vaccinate. Patient questions answered and Emergency Use Authorization Statements given. Patient tolerated the immunization well, was observed in clinic for the recommended interval, and left the clinic in stable condition. Patient presented requesting COVID vaccination. Screening questions reviewed with patient and patient was appropriate to vaccinate. Patient questions answered and Emergency Use Authorization Statements given. Patient tolerated the immunization well, was observed in clinic for the recommended interval, and left the clinic in stable condition. Patient presents for flu shot. Screening questions reviewed with patient. There was no contraindication to patient receiving the flu shot today. Consent received prior to injection. Vaccine Information Sheet offered to patient. Feb, Dietary counseling and surveillance (ICD-10 - Z71.3) Feb, [facility] Referral Utility Assistance (ICD9-CM - [facility] Referral Utility Assistance) Feb, Counseling on health promotion and disease prevention (ICD-10 - Z71.89) Physical activity counseling provided Feb, Controlled type 2 diabetes mellitus without complication, unspecified long-term insulin use status (ICD-10 - E11.9) Feb, Blurred vision, left eye (ICD-10 - H53.8) Feb, Swelling of both lower extremities (ICD-10 - M79.89) Feb, Neuropathy (ICD-10 - G62.9) Feb, Other Scribed for BENNIE Campoverde, by Elaina Feliz scribe. I, BENNIE Machuca, have personally reviewed and agreed with the information entered by the Virtual scribe. Feb, [facility] Referral Utility Assistance (ICD9-CM - [facility] Referral Utility Assistance) Feb, CCM Specialist Visit Follow Up (ICD9-CM - CCM Specialist Visit Follow Up) Feb, [facility] Referral Utility Assistance (ICD9-CM - [facility] Referral Utility Assistance) Feb, CCM Specialist Visit Follow Up (ICD9-CM - CCM Specialist Visit Follow Up) Feb, Cataract (ICD-10 - H26.9) Feb, Hypertension (ICD-10 - I10) Feb, Other specified diabetes mellitus without complications (ICD-10 - E13.9) Feb, Hyperlipidemia, unspecified (ICD-10 - E78.5) Feb, Controlled type 2 diabetes mellitus without complication, unspecified terminal press operator insulin use status (ICD-10 - E11.9) Feb, Arthritis (ICD-10 - M19.90) Feb, Controlled type 2 diabetes mellitus without complication, without long-term current use of insulin (ICD-10 - E11.9) Feb, Essential hypertension (ICD-10 - I10) Jan, Cataract (ICD-10 - H26.9) Jan, Hypertension (ICD-10 - I10) Jan, Other specified diabetes mellitus without complications (ICD-10 - E13.9) Jan, Hyperlipidemia, unspecified (ICD-10 - E78.5) 29 Jan, 2021 Controlled type 2 diabetes mellitus without complication, unspecified terminal press operator insulin use status (ICD-10 - E11.9) 29 Jan, 2021 Arthritis (ICD-10 - M19.90) 29 Jan, 2021 Controlled type 2 diabetes mellitus without complication, without long-term current use of insulin (ICD-10 - E11.9) 29 Jan, 2021 Essential hypertension (ICD-10 - I10) 26 Jan, 2021 Neuropathy (ICD-10 - G62.9) 28 Dec, 2020 Cataract (ICD-10 - H26.9) 28 Dec, 2020 Hypertension (ICD-10 - I10) 28 Dec, 2020 Other specified diabetes mellitus without complications (ICD-10 - E13.9) Dec, Hyperlipidemia, unspecified (ICD-10 - E78.5) 28 Dec, 2020 Controlled type 2 diabetes mellitus without complication, unspecified long-term insulin use status (ICD-10 - E11.9) 28 Dec, 2020 Arthritis (ICD-10 - M19.90) Dec, Controlled type 2 diabetes mellitus without complication, without long-term current use of insulin (ICD-10 - E11.9) Dec, Essential hypertension (ICD-10 - I10) Nov, Cataract (ICD-10 - H26.9) Nov, Hypertension (ICD-10 - I10) Nov, Hypertension (ICD-10 - I10) Nov, Other specified diabetes mellitus without complications (ICD-10 - E13.9) Nov, Hyperlipidemia, unspecified (ICD-10 - E78.5) Nov, Controlled type 2 diabetes mellitus without complication, unspecified terminal press operator insulin use status (ICD-10 - E11.9) Nov, Arthritis (ICD-10 - M19.90) Nov, Controlled type 2 diabetes mellitus without complication, without long-term current use of insulin (ICD-10 - E11.9) Nov, Essential hypertension (ICD-10 - I10) 18 Nov, 2020 Neuropathy (ICD-10 - G62.9) Nov, Swelling of both lower extremities (ICD-10 - M79.89) Nov, Other Scribed for BENNIE Campoverde, by Morenita Dumas Virtual scribe. I, BENNIE Machuca, have personally reviewed and agreed with the information entered by the Virtual scribe. Nov, Hypertension (ICD9-CM - 401.9) Nov, Hyperlipidemia, unspecified (ICD-10 - E78.5) Oct, Swelling of both lower extremities (ICD-10 - M79.89) Oct, Cataract (ICD-10 - H26.9) Oct, Hypertension (ICD-10 - I10) Oct, Other specified diabetes mellitus without complications (ICD-10 - E13.9) Oct, Hyperlipidemia, unspecified (ICD-10 - E78.5) Oct, Controlled type 2 diabetes mellitus without complication, unspecified long-term insulin use status (ICD-10 - E11.9) Oct, Arthritis (ICD-10 - M19.90) Oct, Controlled type 2 diabetes mellitus without complication, without long-term current use of insulin (ICD-10 - E11.9) Oct, Essential hypertension (ICD-10 - I10) Sep, Cataract (ICD-10 - H26.9) Sep, Hypertension (ICD-10 - I10) Sep, Other specified diabetes mellitus without complications (ICD-10 - E13.9) Sep, Hyperlipidemia, unspecified (ICD-10 - E78.5) Sep, Controlled type 2 diabetes mellitus without complication, unspecified terminal press operator insulin use status (ICD-10 - E11.9) Sep, Arthritis (ICD-10 - M19.90) Sep, Controlled type 2 diabetes mellitus without complication, without long-term current use of insulin (ICD-10 - E11.9) Sep, Essential hypertension (ICD-10 - I10) August, Cataract (ICD-10 - H26.9) August, Hypertension (ICD-10 - I10) August, Other specified diabetes mellitus without complications (ICD-10 - E13.9) August, Hyperlipidemia, unspecified (ICD-10 - E78.5) August, Controlled type 2 diabetes mellitus without complication, unspecified long-term insulin use status (ICD-10 - E11.9) 12 Aug, 2020 Arthritis (ICD-10 - M19.90) August, Controlled type 2 diabetes mellitus without complication, without long-term current use of insulin (ICD-10 - E11.9) August, Essential hypertension (ICD-10 - I10) August, Dietary counseling and surveillance (ICD-10 - Z71.3) August, Counseling on health promotion and disease prevention (ICD-10 - Z71.89) Physical activity counseling provided August, Controlled type 2 diabetes mellitus without complication, unspecified long-term insulin use status (ICD-10 - E11.9) August, Aortic valve insufficiency, etiology of cardiac valve disease unspecified (ICD-10 - I35.1) August, Hypertension (ICD-10 - I10) August, Swelling of both lower extremities (ICD-10 - M79.89) August, Murmur (ICD-10 - R01.1) August, Neuropathy (ICD-10 - G62.9) August, Parkinson disease (ICD-10 - G20) August, Other Scribed for BENNIE Campoverde, by Morenita Dumas Virtual scribe. I, BENNIE Machuca, have personally reviewed and agreed with the information entered by the Virtual scribe. Jul, Essential hypertension (ICD-10 - I10) Jul, Edema, unspecified type (ICD-10 - R60.9) Jul, Swelling of both lower extremities (ICD-10 - M79.89) Advised to take Lasix 20mg in the morning rather than at night. Reviewed the importance of elevating her legs for 15 minutes at least 2-3x/day in her recliner and to stick with a low salt diet. Another handout on low salt diet given. Will recheck BMP today and follow up during the first week of August after she has had her ECHO. Jul, Aortic valve insufficiency, etiology of cardiac valve disease unspecified (ICD-10 - I35.1) Jul, Edema, unspecified type (ICD-10 - R60.9) Jul, Other Scribed for An Tello NP by Lilly Javier medical clerk. An Price NP, have reviewed and agree with the information entered by the scribe Jun, Controlled type 2 diabetes mellitus without complication, without long-term current use of insulin (ICD-10 - E11.9) Jun, Cataract (ICD-10 - H26.9) Jun, Hypertension (ICD-10 - I10) Jun, Essential hypertension (ICD-10 - I10) Jun, Other specified diabetes mellitus without complications (ICD-10 - E13.9) Jun, Arthritis (ICD-10 - M19.90) Jun, Hyperlipidemia, unspecified (ICD-10 - E78.5) Jun, Controlled type 2 diabetes mellitus without complication, unspecified terminal press operator insulin use status (ICD-10 - E11.9) Jun, Pre-operative general physical examination (ICD-10 - Z01.818) Jun, Hypertension (ICD-10 - I10) Jun, Aortic valve insufficiency, etiology of cardiac valve disease unspecified (ICD-10 - I35.1) Jun, Swelling of both lower extremities (ICD-10 - M79.89) Jun, Controlled type 2 diabetes mellitus without complication, without long-term current use of insulin (ICD-10 - E11.9) Jun, Parkinson disease (ICD-10 - G20) Jun, Other Scribed for BENNIE Campoverde, by Morenita Dumas Virtual scribe. An Price FNP, have personally reviewed and agreed with the information entered by the Virtual scribe. Jun, Other Scribed for BENNIE Campoverde, by Elaina Feliz scribe. An Price FNP, have personally reviewed and agreed with the information entered by the Virtual scribe. May, Controlled type 2 diabetes mellitus without complication, unspecified long-term insulin use status (ICD-10 - E11.9) May, Hyperlipidemia, unspecified (ICD-10 - E78.5) May, Cataract (ICD-10 - H26.9) May, Essential hypertension (ICD-10 - I10) May, Hypertension (ICD-10 - I10) May, Controlled type 2 diabetes mellitus without complication, without long-term current use of insulin (ICD-10 - E11.9) May, Other specified diabetes mellitus without complications (ICD-10 - E13.9) May, Arthritis (ICD-10 - M19.90) May, Hypertension (ICD-10 - I10) 16 May, 2020 Hypertension (ICD9-CM - 401.9) May, Parkinson disease (ICD-10 - G20) May, Controlled type 2 diabetes mellitus without complication, unspecified terminal press operator insulin use status (ICD-10 - E11.9) May, Unsteadiness (ICD-10 - R26.81) May, Other Scribed for BENNIE Campoverde, by Elaina Feliz scribe. I, BENNIE Machuca, have personally reviewed and agreed with the information entered by the Virtual scribe. May, Hyperlipidemia, unspecified (ICD-10 - E78.5) Apr, Dysuria (ICD-10 - R30.0) Apr, Right knee pain, unspecified chronicity (ICD-10 - M25.561) Apr, Other Scribed for BENNIE Campoverde, by Elaina Feliz scribe. An Price FNP, have personally reviewed and agreed with the information entered by the Virtual scribe. Apr, Controlled type 2 diabetes mellitus without complication, unspecified terminal press operator insulin use status (ICD-10 - E11.9) Apr, Neuropathy (ICD-10 - G62.9) Apr, Cataract (ICD-10 - H26.9) Apr, Parkinson disease (ICD-10 - G20) Apr, Swelling of both lower extremities (ICD-10 - M79.89) Apr, Right knee pain, unspecified chronicity (ICD-10 - M25.561) 15 Yoel, 2021 Other Scribed for BENNIE Campoverde, by Elaina Feliz scribe. I, BENNIE Machuca, have personally reviewed and agreed with the information entered by the Virtual scribe. Apr, Arthritis (ICD-10 - M19.90) Apr, Controlled type 2 diabetes mellitus without complication, unspecified terminal press operator insulin use status (ICD-10 - E11.9) Apr, Hyperlipidemia, unspecified (ICD-10 - E78.5) Apr, Transportation (ICD-10 - TRANS) Apr, Cataract (ICD-10 - H26.9) Apr, Controlled type 2 diabetes mellitus without complication, without long-term current use of insulin (ICD-10 - E11.9) Apr, Essential hypertension (ICD-10 - I10) Apr, Hypertension (ICD-10 - I10) Apr, Other specified diabetes mellitus without complications (ICD-10 - E13.9) Apr, Unsteadiness (ICD-10 - R26.81) Mar, General Assistance (ICD9-CM - GEN) Mar, Other specified diabetes mellitus without complications (ICD-10 - E13.9) Mar, Arthritis (ICD-10 - M19.90) Mar, Hyperlipidemia, unspecified (ICD-10 - E78.5) Mar, Controlled type 2 diabetes mellitus without complication, unspecified long-term insulin use status (ICD-10 - E11.9) Mar, Cataract (ICD-10 - H26.9) Mar, Controlled type 2 diabetes mellitus without complication, without long-term current use of insulin (ICD-10 - E11.9) Mar, Essential hypertension (ICD-10 - I10) Mar, Hypertension (ICD-10 - I10) Mar, Transportation (ICD-10 - TRANS) Mar, Other (ICD9-CM - OTH) Mar, Stress fracture, unspecified site, sequela (ICD-10 - M84.30XS) Mar, Controlled type 2 diabetes mellitus without complication, unspecified long-term insulin use status (ICD-10 - E11.9) Mar, Swelling of both lower extremities (ICD-10 - M79.89) Mar, Neuropathy (ICD-10 - G62.9) Mar, Essential hypertension (ICD-10 - I10) Mar, Other Scribed for BENNIE Campoverde, by Elaina Feliz scribe. I, BENNIE Machuca, have personally reviewed and agreed with the information entered by the Virtual scribe. Mar, Acute pain of right knee (ICD-10 - M25.561) Mar, Other Scribed for BENNIE Campoverde, by Elaina Feliz scribe. I, BENNIE Machuca, have personally reviewed and agreed with the information entered by the Virtual scribe. Feb, Cataract (ICD-10 - H26.9) Feb, Hypertension (ICD-10 - I10) Feb, Controlled type 2 diabetes mellitus without complication, without long-term current use of insulin (ICD-10 - E11.9) Feb, Other specified diabetes mellitus without complications (ICD-10 - E13.9) Feb, Arthritis (ICD-10 - M19.90) Feb, Controlled type 2 diabetes mellitus without complication, unspecified terminal press operator insulin use status (ICD-10 - E11.9) Feb, Hyperlipidemia, unspecified (ICD-10 - E78.5) 25 Feb, 2020 Hyperlipidemia (ICD9-CM - 272.4) 25 Feb, 2020 Outreach (ICD9-CM - OUT) 25 Feb, 2020 Unilateral edema of lower extremity (ICD-10 - R60.0) Feb, Acute pain of right knee (ICD-10 - M25.561) Feb, Unilateral edema of lower extremity (ICD-10 - R60.0) Feb, Other Scribed for BENNIE Campoverde, by Elaina Feliz scribe. Dee, BENNIE Machuca, have personally reviewed and agreed with the information entered by the Virtual scribe. Feb, Acute pain of right knee (ICD-10 - M25.561) Feb, Other Scribed for BENNIE Campoverde, by Elaina Feliz scribe. I, BENNIE Machuca, have personally reviewed and agreed with the information entered by the Virtual scribe. Feb, Transitional Care Management (ICD-10 - TCM) Jan, Neuropathy (ICD-10 - G62.9) Dec, Other specified diabetes mellitus without complications (ICD-10 - E13.9) Dec, Arthritis (ICD-10 - M19.90) Dec, Controlled type 2 diabetes mellitus without complication, unspecified long-term insulin use status (ICD-10 - E11.9) Dec, Hyperlipidemia, unspecified (ICD-10 - E78.5) Dec, Controlled type 2 diabetes mellitus without complication, without long-term current use of insulin (ICD-10 - E11.9) Dec, Cataract (ICD-10 - H26.9) Dec, Hypertension (ICD-10 - I10) Dec, Dietary counseling and surveillance (ICD-10 - Z71.3) Dec, Counseling on health promotion and disease prevention (ICD-10 - Z71.89) Physical activity counseling provided Dec, Controlled type 2 diabetes mellitus without complication, without long-term current use of insulin (ICD-10 - E11.9) Dec, Encounter for immunization (ICD-10 - Z23) Screening questionnaire reviewed with patient and consent obtained. Pt given flu shot; see immunization record. Bandaid applied, pt tolerated well. DONNA Castrejon Dec, Other Scribed for BENNIE Campoverde, by Elaina Feliz scribe on 12/23/19. An Price FNP, have personally reviewed and agreed with the information entered by the Virtual scribe. Nov, Hypertension (ICD-10 - I10) Nov, Hypertension (ICD9-CM - 401.9) Nov, Hyperlipidemia, unspecified (ICD-10 - E78.5) Oct, CCM Follow up (ICD-10 - CCM) Oct, General Assistance (ICD9-CM - GEN) Oct, Screening for breast cancer (ICD-10 - Z12.39) Sep, Controlled type 2 diabetes mellitus without complication, unspecified long-term insulin use status (ICD-10 - E11.9) Rancho Price, scribed for An Tello on 09/24/19 at 11:00 am for this patient. Sep, Dietary counseling and surveillance (ICD-10 - Z71.3) Sep, Encounter for immunization (ICD-10 - Z23) Sep, Counseling on health promotion and disease prevention (ICD-10 - Z71.89) Physical activity counseling provided Sep, Parkinson disease (ICD-10 - G20) Sep, Neuropathy (ICD-10 - G62.9) Sep, Hypertension (ICD-10 - I10) August, Other specified diabetes mellitus without complications (ICD-10 - E13.9) August, Arthritis (ICD-10 - M19.90) August, Controlled type 2 diabetes mellitus without complication, unspecified terminal press operator insulin use status (ICD-10 - E11.9) August, General Assistance (ICD9-CM - GEN) August, Hyperlipidemia, unspecified (ICD-10 - E78.5) August, Hypertension (ICD-10 - I10) August, Cataract (ICD-10 - H26.9) August, Controlled type 2 diabetes mellitus without complication, without long-term current use of insulin (ICD-10 - E11.9) August, CCM Follow up (ICD-10 - CCM) August, CCM Follow up (ICD-10 - CCM) August, Hyperlipidemia, unspecified (ICD-10 - E78.5) Jul, Other specified diabetes mellitus without complications (ICD-10 - E13.9) Jul, Arthritis (ICD-10 - M19.90) Jul, Controlled type 2 diabetes mellitus without complication, unspecified terminal press operator insulin use status (ICD-10 - E11.9) Jul, General Assistance (ICD9-CM - GEN) Jul, Hyperlipidemia, unspecified (ICD-10 - E78.5) Jul, Cataract (ICD-10 - H26.9) Jul, Controlled type 2 diabetes mellitus without complication, without long-term current use of insulin (ICD-10 - E11.9) Jul, Hypertension (ICD-10 - I10) 22 Jul, 2019 CCM (ICD-10 - CCM) 16 Jul, 2019 HLW HTN (ICD9-CM - HLW HTN) 15 Jul, 2019 CCM (ICD-10 - CCM) 15 Jul, 2019 CCM Follow up (ICD-10 - CCM) 15 Jul, 2019 General Assistance (ICD9-CM - GEN) 14 Jul, 2019 Neuropathy (ICD-10 - G62.9) 13 Jul, 2019 Neuropathy (ICD-10 - G62.9) Jun, General Assistance (ICD9-CM - GEN) Jun, Food Assistance (ICD-10 - FOOD) Jun, Other (ICD9-CM - OTH) Jun, Controlled type 2 diabetes mellitus without complication, unspecified long-term insulin use status (ICD-10 - E11.9) Jun, Tinea pedis of both feet (ICD-10 - B35.3) Jun, Dietary counseling (ICD-10 - Z71.3) Jun, Exercise counseling (ICD-10 - Z71.82) Jun, Hypertension (ICD-10 - I10) Jun, Rash (ICD-10 - R21) Jun, Other Scribed for An Tello by Juana Rios and Nima Horton, medical scribes. I, An Tello APRN, have personally reviewed and agree with the information entered. Apr, Hypertension (ICD-10 - I10) Apr, Hypertension (ICD9-CM - 401.9) Mar, Hyperlipidemia, unspecified (ICD-10 - E78.5) Mar, Dietary counseling and surveillance (ICD-10 - Z71.3) Mar, Rash (ICD-10 - R21) Mar, Controlled type 2 diabetes mellitus without complication, unspecified long-term insulin use status (ICD-10 - E11.9) Mar, Counseling on health promotion and disease prevention (ICD-10 - Z71.89) Physical activity counseling provided Mar, Hyperlipidemia, unspecified (ICD-10 - E78.5) Feb, Neuropathy (ICD-10 - G62.9) Dec, Rash (ICD-10 - R21) Dec, Swelling of both lower extremities (ICD-10 - M79.89) Dec, Controlled type 2 diabetes mellitus without complication, unspecified long-term insulin use status (ICD-10 - E11.9) Dec, Hypertension (ICD-10 - I10) Dec, Hyperlipidemia, unspecified (ICD-10 - E78.5) Nov, Swelling of both lower extremities (ICD-10 - M79.89) Nov, GERD (gastroesophageal reflux disease) (ICD-10 - K21.9) Nov, Hypertension (ICD-10 - I10) Nov, Hypertension (ICD9-CM - 401.9) Nov, Aortic valve insufficiency, etiology of cardiac valve disease unspecified (ICD-10 - I35.1) Nov, Swelling of both lower extremities (ICD-10 - M79.89) Nov, Bilateral lower extremity edema (ICD-10 - R60.0) Pt to lab, sitting in chair. Venous blood draw, #23 G needle, Left AC, 1st attempt. Sample obtained, pressure bandage applied, pt tolerated well. Label applied to sample. DONNA Castrejon Oct, PRAPARE NEGATIVE (ICD9-CM - PRAN) Sep, Controlled type 2 diabetes mellitus without complication, unspecified terminal press operator insulin use status (ICD-10 - E11.9) Sep, Parkinson disease (ICD-10 - G20) Sep, Neuropathy (ICD-10 - G62.9) Sep, GERD (gastroesophageal reflux disease) (ICD-10 - K21.9) August, Screening for malignant neoplasm of breast (ICD-10 - Z12.31) August, Neuropathy (ICD-10 - G62.9) August, Hyperlipidemia, unspecified (ICD-10 - E78.5) August, Neuropathy (ICD-10 - G62.9) Jul, At low risk for fall (ICD-10 - Z91.81) Patient has not had any falls in the past year. She lives in a one story house with a basement where laundry is located. We discussed potenial risks for falls, including making sure her house was well lit, using rails when walking up ans down stairs and ensuring that all rugs have no slip backing on them. Patient is not currently exercsing on a regular basis she agrees to start regular exercising at least 20 min three times a week. DONNA Castrejon Jul, Screening for neurological condition (ICD-10 - Z13.89) Patient passed mini-cog, denies any memory issues, councelled on importance of excersing brain, she does do word puzzles and reads often. She will continue to do so. DONNA baird Jul, Driving safety issue (ICD-10 - Z91.89) Patient does not drive due to macular degeneration, she reports that she does not always wear seatbelt for short distance. Councelled that most accidents happen within a mile from home. Patient agrees to try to wear seatbelt 100% of the time. DONNA Darenll Jul, Dietary counseling (ICD-10 - Z71.3) Patient states she eats three meals a day and tries to avoid snacking. She reports that she only drinks two cups of coffee a day and one small glass of water with her pills. We talked about importance of being well hydrated, she expressed concern over having to void more with increased fluid intake. Patient agrees to try to increase water by two 8 oz glasses in the daytime. DONNA Castrejon Jul, Depression screening (ICD-10 - Z13.31) Patient's mood is good, she is pleasant and engaged throughout the encounter, she reports sleep is good and she denies daytime fatigue or sleepiness. DONNA baird Jun, Hyperlipidemia, unspecified (ICD-10 - E78.5) Jun, Controlled type 2 diabetes mellitus without complication, without long-term current use of insulin (ICD-10 - E11.9) Jun, Parkinson disease (ICD-10 - G20) Jun, Neuropathy (ICD-10 - G62.9) Jun, Hypertension (ICD-10 - I10) May, GERD (gastroesophageal reflux disease) (ICD-10 - K21.9) May, Hypertension (ICD-10 - I10) Apr, Hypertension (ICD9-CM - 401.9) Apr, Hyperlipidemia (ICD9-CM - 272.4) Apr, Neuropathy (ICD-10 - G62.9) Apr, GERD (gastroesophageal reflux disease) (ICD-10 - K21.9) Mar, Hypertension (ICD-10 - I10) Mar, Controlled type 2 diabetes mellitus without complication, unspecified long-term insulin use status (ICD-10 - E11.9) Mar, Hypertension (ICD-10 - I10) Mar, Neuropathy (ICD-10 - G62.9) Feb, Hypertension (ICD-10 - I10) Jan, Encounter for immunization (ICD-10 - Z23) Pt here as a walk-in pt for flu shot, to lab, sitting in chair. Screening questionnaire reviewed with patient and consent obtained. Pt given flu shot; see immunization record. Bandaid applied, pt tolerated well. Juliet Tyler MA Dec, Neuropathy (ICD-10 - G62.9) Dec, Neuropathy (ICD-10 - G62.9) Dec, Hyperlipidemia, unspecified (ICD-10 - E78.5) Dec, Controlled type 2 diabetes mellitus without complication, unspecified long-term insulin use status (ICD-10 - E11.9) Diabetes diet reviewed. Dec, Annual physical exam (ICD-10 - Z00.00) Dec, Hyperlipidemia, unspecified (ICD-10 - E78.5) Heart healthy diet reviewed Dec, Neuropathy (ICD-10 - G62.9) To examine feet daily. Dec, Hypertension (ICD-10 - I10) avoid excess salt. Dec, Parkinson disease (ICD-10 - G20) carbidopa/levadopa - neuro f/u. Dec, Nutritional counseling (ICD-10 - Z71.3) Nov, GERD (gastroesophageal reflux disease) (ICD-10 - K21.9) Sep, Hypertension (ICD-10 - I10) Sep, Hyperlipidemia, unspecified (ICD-10 - E78.5) Sep, Controlled type 2 diabetes mellitus without complication, unspecified terminal press operator insulin use status (ICD-10 - E11.9) Sep, Parkinson disease (ICD-10 - G20) August, Hypertension (ICD-10 - I10) Jun, Screening for breast cancer (ICD-10 - Z12.31) Jun, Neuropathy (ICD-10 - G62.9) May, GERD (gastroesophageal reflux disease) (ICD-10 - K21.9) May, Controlled type 2 diabetes mellitus without complication, unspecified long-term insulin use status (ICD-10 - E11.9) Will forward DM diet info May, Neuropathy (ICD-10 - G62.9) May, Arthritis (ICD-10 - M19.90) May, Annual physical exam (ICD-10 - Z00.00) Apr, Neuropathy (ICD-10 - G62.9) Mar, Hypertension (ICD-10 - I10) Mar, Hyperlipidemia, unspecified (ICD-10 - E78.5) Feb, Transportation (ICD-10 - TRANS) Feb, Hypertension (ICD-10 - I10) Feb, Controlled type 2 diabetes mellitus without complication, unspecified terminal press operator insulin use status (ICD-10 - E11.9) Feb, Hyperlipidemia, unspecified (ICD-10 - E78.5) Feb, Hypertension (ICD-10 - I10) Feb, GERD (gastroesophageal reflux disease) (ICD-10 - K21.9) Feb, Hyperlipidemia, unspecified (ICD-10 - E78.5) Feb, Neuropathy (ICD-10 - G62.9) gabapentin at night, consider lyrica going forward. Feb, Generalized muscle weakness (ICD-10 - M62.81) Neuro eval. Feb, Unsteadiness (ICD-10 - R26.81) neuro eval. Consider PT for unsteadiness and strengthening going forward. Feb, Encounter for immunization (ICD-10 - Z23) Pt here for the Influenza vaccine, paitent sitting in chair, R deltoid cleaned w/alcohol wipe. Patient tolarated porcedure well. Bandaid applied and information of vaccine sent with patient. Adrianne Stevenson CMA. Nov, Need for hepatitis C screening test (ICD-10 - Z11.59) Nov, Aortic valve insufficiency, etiology of cardiac valve disease unspecified (ICD-10 - I35.1) Reveiwed echo and expectations going forward. Nov, Neuropathy (ICD-10 - G62.9) Continue hs dose of gabapentin - she defers an increase at this time. Nov, Acute bilateral low back pain without sciatica (ICD-10 - M54.5) OTC analgesics prn. She defers PT but consider going forward. Heat/cold prn. Nov, Swelling of both lower extremities (ICD-10 - M79.89) Begin wearing support hose, non in am and off in pm. Nov, Other 25 minutes spen t in counseling and coordination of care. Nov, Hypertension (ICD-10 - I10) Nov, Hypertension (ICD-10 - I10) Nov, Neuropathy (ICD-10 - G62.9) Rx cancelled at [facility] and a new one was sent to [facility] per Pt's request Nov, Neuropathy (ICD-10 - G62.9) Trial of gabapentin hs. Nov, Lower extremity edema (ICD-10 - R60.0) Elevate, avoid salt, wear compression hose. Nov, Cardiac murmur (ICD-10 - R01.1) Nov, Unsteady (ICD-10 - R26.81) consider referral to PT. Nov, Acute bilateral low back pain without sciatica (ICD-10 - M54.5) Nov, GERD (gastroesophageal reflux disease) (ICD-10 - K21.9) Sep, Hypertension (ICD-10 - I10) August, Annual physical exam (ICD-10 - Z00.00) August, Hyperlipidemia, unspecified (ICD-10 - E78.5) No change in meds. Increase activity. August, GERD (gastroesophageal reflux disease) (ICD-10 - K21.9) May use tums prn. August, Neuropathy (ICD-10 - G62.9) Today appers more pain when walking. Podiatry f/u. Willing to do lyrica/gabapentin trial in the future. August, Controlled type 2 diabetes mellitus without complication, unspecified long-term insulin use status (ICD-10 - E11.9) Diabetes diet, reviewed carbohydrate lowering diet. August, Osteopenia, unspecified location (ICD-10 - M85.80) Cont/ vit D3 and calcium. Jul, Hypertension (ICD-10 - I10) May, Hypertension (ICD-10 - I10) Apr, Other specified diabetes mellitus without complications (ICD-10 - E13.9) Diet , activity, wt. loss. No rx changes. Apr, Neuropathy (ICD-10 - G62.9) Try otc topicas, consider lyrica going forward. Apr, Murmur, cardiac (ICD-10 - R01.1) Not symptomatic, consider echo at some time. Apr, Screening for breast cancer (ICD-10 - Z12.39) Apr, Screening for breast cancer (ICD-10 - Z12.39) Apr, Hyperlipidemia, unspecified (ICD-10 - E78.5) Venipuncture with 23g from L AC on 1st attempt. Patient tolerated procedure well. Pressure bandage applied. Adrianne Stevenson, [employer] TECHNICIAN Mar, Hypertension (ICD-10 - I10) Mar, Hypertension (ICD-10 - I10) Feb, Hypertension (ICD-10 - I10) Jan, Other specified diabetes mellitus without complications (ICD-10 - E13.9) Jan, Hyperlipidemia, unspecified (ICD-10 - E78.5) Oct, Diabetes type 2, controlled (ICD-10 - E11.9) Continue excellant diabetes control, increase activity. Oct, Rash (ICD-10 - R21) Oct, Immunization due (ICD-10 - Z23) prevnar called to [facility] Jul, Diabetes type 2 controlled (ICD9-CM - 250.00) Exercise and lower carbohydrates. Jul, Osteopenia (ICD-10 - M85.80) continue vit d and calcium Jul, GERD (gastroesophageal reflux disease) (ICD-10 - K21.9) con't ranitadine Jul, Hypertension (ICD-10 - I10) monitor sodium Jul, Skin lesion (ICD-10 - L98.9) Eval by dr. Marie next week will bx if lesion is dermal. Apr, Type 2 diabetes mellitus without complications (ICD-10 - E11.9) Counseled on diabetes diet, carbs listed and to reduce carb consumption. Defers nutritional counseling Pt here sitting in chair. Pt needs HgA1C check done. Explained procedure to patient. Finger cleansed with alcohol prep pad. Fingerstick done, sample obtained. Bandaid applied. Pt tolerated well. Results entered in computer and forwarded to provider.Ellen, [employer] TECHNICIAN Apr, Osteopenia (ICD-10 - M85.80) walking encouraged Apr, Hypertension (ICD-10 - I10) monitor sodium - limit to 2300mg daily Apr, Hyperlipidemia (ICD-10 - E78.5) heart healthy diet and exercise Apr, GERD (gastroesophageal reflux disease) (ICD-10 - K21.9) GERD diet. Raise HOB. Do not eat prior to bedtime. Apr, Hyperlipidemia, unspecified (ICD-10 - E78.5) Apr, Essential (primary) hypertension (ICD-10 - I10) Apr, Other Pt here for scheduled blood draw. 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 Pt ambulated out of office. Jan, Breast cancer screening (ICD-10 - Z12.39) Oct, Diabetes type 2 controlled (ICD9-CM - 250.00) Pt here, to lab, sitting in chair. Pt needs HgA1C check done. Fingerstick done, sample obtained. Bandaid applied. Pt tolerated well. DONNA Mena Counseled on carohydrates and need to use decreasing carbs in diet as 1st line strategy for diabetes tx. Oct, Hypertension (ICD9-CM - 401.9) Monitor sodium Oct, Hyperlipidemia (ICD9-CM - 272.4) Heart healthy diet counseling Oct, GERD (gastroesophageal reflux disease) (ICD9-CM - 530.81) GERD diet and modifications discussed Sep, Heartburn (ICD9-CM - 787.1) may do trial of reduced dosing. Gerd diet discussed. Sep, Pain in both feet (ICD9-CM - 729.5) supportive shoes, monitor, defers podiatry appt. today but will consider in future. Jul, Annual Physical Exam (ICD9-CM - V70.0) Jul, Diabetes type 2 controlled (ICD9-CM - 250.00) Pt needs HgA1C check done. Fingerstick done, sample obtained. Pt tolerated well. DONNA Mena Continue heart healthydiet and exercise - increase activity. No med changes Jul, Heartburn (ICD9-CM - 787.1) Trial of H2 megan to be re-evaluated in 6-8 weeks. Jul, Joint pain (ICD9-CM - 719.40) Improving with exercise - monitor. Jul, Lipoma (ICD9-CM - 214.9) Does not appear to be excisable - continue to monitor. Jul, Bilateral tinnitus (ICD9-CM - 388.30) Consider ENT for any hearing issues or worsening of symptoms. Jul, Hypertension (ICD9-CM - 401.9) Jul, Hyperlipidemia (ICD9-CM - 272.4) Jul, Other Pt to lab, sitt ing in chair. Venous blood draw, #23 G needle, Left AC, 1st attempt. obtained, pressure bandage applied, pt tolerated well. MARK Griffin Jul, Hypertension (ICD9-CM - 401.9) Mar, Diabetes type 2 controlled (ICD9-CM - 250.00) Mar, Hypertension (ICD9-CM - 401.9) Mar, Hyperlipidemia (ICD9-CM - 272.4) Jan, Need for prophylactic vaccination with Streptococcus pneumoniae (Pneumococcus) and Influenza vaccines (ICD9-CM - V06.6) Pt here in lab. Discussed vaccines, VIS forms given. Immunizations given, see immunization section. Bandaids applied, patient tolerated well. MARK Mcgovern Jan, Diabetes type 2 controlled (ICD9-CM - 250.00) Continue dietary monitoring and exercise encouraged. Jan, Hyperlipidemia (ICD9-CM - 272.4) Jan, Hypertension (ICD9-CM - 401.9) Jan, Screening for breast cancer (ICD9-CM - V76.10) Jan, Screening for Osteoporosis (ICD9-CM - V82.81) Encouraged calcium rich foods and to maintain activity level. Plan may change with dexa results. Jan, Other Will follow up on immunizations of Pneumovax and tetanus Nov, Dysuria (ICD9-CM - 788.1) Nov, Hypertension (ICD9-CM - 401.9) Nov, Hyperlipidemia (ICD9-CM - 272.4) Nov, Hyperlipidemia (ICD9-CM - 272.4) Nov, Hypertension (ICD9-CM - 401.9) Jun, Diabetes type 2 controlled (ICD9-CM - 250.00) Jun, Hypertension (ICD9-CM - 401.9) Jun, Hyperlipidemia (ICD9-CM - 272.4) Jun, Other Heart healthy d iet and exercise. Mar, Hypertension (ICD9-CM - 401.9) Mar, Hyperlipidemia (ICD9-CM - 272.4) Jan, Other Questions about Medicare programs. Will call and we will sit down with her book and look through them. Dec, Diabetes type 2 controlled (ICD9-CM - 250.00) Dec, Hypertension (ICD9-CM - 401.9) Dec, Hyperlipidemia (ICD9-CM - 272.4) Dec, Cerumen impaction (ICD9-CM - 380.4) Dec, Foot pain, left (ICD9-CM - 729.5) Dec, HTN (hypertension) (ICD9-CM - 401.9) Oct, Family history of breast cancer (ICD9-CM - V16.3) Sep, Diabetes type 2 controlled (ICD9-CM - 250.00) Control carb intake. Sep, Hyperlipidemia (ICD9-CM - 272.4) Heart healthy diet. Sep, Hypertension (ICD9-CM - 401.9) Home b/p's and monitor salt. Sep, Hyperlipidemia (ICD9-CM - 272.4) Sep, Hypertension (ICD9-CM - 401.9) Sep, Other Venipuncture R hand by DG. August, Left foot pain (ICD9-CM - 729.5) Jun, Diabetes type 2 controlled (ICD9-CM - 250.00) Defers nutritional counseling. Discussed low carbs,low fat and exercise. Jun, Hyperlipidemia (ICD9-CM - 272.4) Jun, Hypertension (ICD9-CM - 401.9) Jun, LBP (low back pain) (ICD9-CM - 724.2) Defers PT. She requested stretching suggestions - a handout was provided. May, Colon cancer screening (ICD9-CM - V76.51) Mar, Diabetes type 2 controlled (ICD9-CM - 250.00) Hgba1c is increased. Counseld on carbohydrates and exercise today and consequences of long-term elevated blood glocose with end point organ damage. 25 minutes spent in counseling. She will work towards complying with a heart healthy diabetic diet and increase her activity. Dec, Elevated cholesterol (ICD9-CM - 272.0) Fasting lab draw R AC #23bf for CMP and Lipids. No problems. Dec, Benign essential HTN (ICD9-CM - 401.1) Dec, Controlled diabetes mellitus (ICD9-CM - 250.00) August, Cervical cancer screening (ICD9-CM - V76.2) PLAN OF TREATMENT Treatment Notes Assessment Notes Clinical Notes Controlled type 2 diabetes mellitus without complication, unspecified long-term insulin use status I, Rancho Velazquez, scribed for An Tello on 09/24/19 at 11:00 am for this patient. Dietary counseling Patient state s she eats three meals a day and tries to avoid snacking. She reports that she only drinks two cups of coffee a day and one small glass of water with her pills. We talked about importance of being well hydrated, she expressed concern over having to void more with increased fluid intake. Patient agrees to try to increase water by two 8 oz glasses in the daytime. DONNA Castrejon Heartburn may do trial of redu romy dosing. Gerd diet discussed. Joint pain Improving with exerc ise - monitor. Other specified diabetes mellitus without complications Diet , activity, wt. loss. No rx changes. Encounter for immunization Annalisa hansen questionnaire reviewed with patient and consent obtained. Pt given flu shot; see immunization record. Bandaid applied, pt tolerated well. DONNA Castrejon Neuropathy Trial of gabapentin hs. Encounter for immunization Patient prese nts for flu shot. Screening questions reviewed with patient. There was no contraindication to patient receiving the flu shot today. Consent received prior to injection. Vaccine Information Sheet offered to patient. Diabetes type 2 controlled Defers nutrit ional counseling. Discussed low carbs,low fat and exercise. Diabetes type 2 controlled Control carb intake. Hyperlipidemia, unspecified Venipuncture with 23g from L AC on 1st attempt. Patient tolerated procedure well. Pressure bandage applied. K. Elva, [employer] TECHNICIAN Diabetes type 2 controlled Exercise and lower carbohydrates. Neuropathy To examine feet evin y. Acute bilateral low back pain without sciatica OTC analgesics prn. She defers PT but consider going forward. Heat/cold prn. Hyperlipidemia heart healthy diet a nd exercise Unsteady consider referral to PT. Need for prophylactic vaccination with Streptococcus pneumoniae (Pneumococcus) and Influenza vaccines Pt here in lab. Discussed vaccines, VIS forms given. Immunizations given, see immunization section. Bandaids applied, patient tolerated well. MARK Mcgovern Encounter for immunization Patient prese nted requesting COVID vaccination. Screening questions reviewed with patient and patient was appropriate to vaccinate. Patient questions answered and Emergency Use Authorization Statements given. Patient tolerated the immunization well, was observed in clinic for the recommended interval, and left the clinic in stable condition. Encounter for immunization Patient prese nted requesting COVID vaccination. Screening questions reviewed with patient and patient was appropriate to vaccinate. Patient questions answered and Emergency Use Authorization Statements given. Patient tolerated the immunization well, was observed in clinic for the recommended interval, and left the clinic in stable condition. Patient presented requesting COVID vaccination. Screening questions reviewed with patient and patient was appropriate to vaccinate. Patient questions answered and Emergency Use Authorization Statements given. Patient tolerated the immunization well, was observed in clinic for the recommended interval, and left the clinic in stable condition. Patient presents for flu shot. Screening questions reviewed with patient. There was no contraindication to patient receiving the flu shot today. Consent received prior to injection. Vaccine Information Sheet offered to patient. Hypertension monitor sodium Neuropathy Continue hs dose of gabapentin - she defers an increase at this time. Type 2 diabetes mellitus without complications Counseled on diabetes diet, carbs listed and to reduce carb consumption. Defers nutritional counseling Pt here sitting in chair. Pt needs HgA1C check done. Explained procedure to patient. Finger cleansed with alcohol prep pad. Fingerstick done, sample obtained. Bandaid applied. Pt tolerated well. Results entered in computer and forwarded to provider.Mellissaylkhushbu,LJ GERD (gastroesophageal reflux disease) con't ranitadine Encounter for immunization Pt he re as a walk-in pt for flu shot, to lab, sitting in chair. Screening questionnaire reviewed with patient and consent obtained. Pt given flu shot; see immunization record. Bandaid applied, pt tolerated well. Juliet Tyler MA GERD (gastroesophageal reflux disease) GERD diet and modifications discussed At low risk for fall Patient has not had any falls in the past year. She lives in a one story house with a basement where laundry is located. We discussed potenial risks for falls, including making sure her house was well lit, using rails when walking up ans down stairs and ensuring that all rugs have no slip backing on them. Patient is not currently exercsing on a regular basis she agrees to start regular exercising at least 20 min three times a week. DONNA Castrejon LBP (low back pain) Defers PT. She reque sted stretching suggestions - a handout was provided. Bilateral lower extremity edema Pt to lab, sitting in chair. Venous blood draw, #23 G needle, Left AC, 1st attempt. Sample obtained, pressure bandage applied, pt tolerated well. Label applied to sample. DONNA Castrejon Screening mammogram for breast cancer [facility] Neuropathy Today appers more pa in when walking. Podiatry f/u. Willing to do lyrica/gabapentin trial in the future. Osteopenia [facility] Diabetes type 2 controlled Pt here, to l ab, sitting in chair. Pt needs HgA1C check done. Fingerstick done, sample obtained. Bandaid applied. Pt tolerated well. DONNA Mena Counseled on carohydrates and need to use decreasing carbs in diet as 1st line strategy for diabetes tx. GERD (gastroesophageal reflux disease) May use tums prn. Hyperlipidemia, unspecified Heart health y diet reviewed Immunization due [facility] Hyperlipidemia Heart healthy diet c ounseling Hypertension Home b/p's and monit or salt. Diabetes type 2 controlled Continue diet jessica monitoring and exercise encouraged. Diabetes type 2, controlled Continue exc ellant diabetes control, increase activity. Elevated cholesterol Fasting lab draw R AC #23bf for CMP and Lipids. No problems. Screening for neurological condition Patient passed mini-cog, denies any memory issues, councelled on importance of excersing brain, she does do word puzzles and reads often. She will continue to do so. DONNA Castrejon Swelling of both lower extremities Advised to take Lasix 20mg in the morning rather than at night. Reviewed the importance of elevating her legs for 15 minutes at least 2-3x/day in her recliner and to stick with a low salt diet. Another handout on low salt diet given. Will recheck BMP today and follow up during the first week of August after she has had her ECHO. Heartburn Trial of H2 megan to be re-evaluated in 6-8 weeks. Driving safety issue Patient lim s not drive due to macular degeneration, she reports that she does not always wear seatbelt for short distance. Councelled that most accidents happen within a mile from home. Patient agrees to try to wear seatbelt 100% of the time. DONNA Darnell Hypertension monitor sodium - betancourt it to 2300mg daily Murmur, cardiac Not symptomatic, con monotype setter echo at some time. Parkinson disease carbidopa/levadopa - neuro f/u. Bilateral tinnitus Consider ENT for any hearing issues or worsening of symptoms. Unsteadiness neuro eval. Consider PT for unsteadiness and strengthening going forward. Osteopenia, unspecified location Cont/ vit D3 and calcium. Aortic valve insufficiency, etiology of cardiac valve disease unspecified Reveiwed echo and expectations going forward. Hypertension Monitor sodium Encounter for immunization Pt here for t he Influenza vaccine, paitent sitting in chair, R deltoid cleaned w/alcohol wipe. Patient tolarated porcedure well. Bandaid applied and information of vaccine sent with patient. Adrianne Stevenson CMA. Lower extremity edema Elevate, avoid bobby t, wear compression hose. Hyperlipidemia, unspecified No change in meds. Increase activity. Osteopenia walking encouraged Screening for Osteoporosis Encouraged ca lcium rich foods and to maintain activity level. Plan may change with dexa results. Controlled type 2 diabetes mellitus without complication, unspecified long-term insulin use status Diabetes diet reviewed. Lipoma Does not appear to b e excisable - continue to monitor. Pain in both feet supportive shoes, mo ralf, defers podiatry appt. today but will consider in future. Neuropathy Try otc topicas, con monotype setter lyrica going forward. Generalized muscle weakness Neuro eval. Diabetes type 2 controlled Pt needs HgA1 C check done. Fingerstick done, sample obtained. Pt tolerated well. DONNA Mena Continue heart healthydiet and exercise - increase activity. No med changes Osteopenia continue vit d and c alcium Hyperlipidemia Heart healthy diet. Depression screening Patient's m ood is good, she is pleasant and engaged throughout the encounter, she reports sleep is good and she denies daytime fatigue or sleepiness. DONNA Castrejon GERD (gastroesophageal reflux disease) GERD diet. Raise HOB. Do not eat prior to bedtime. 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 Neuropathy Rx cancelled at [facility] and a new one was sent to [facility] per Pt's request Swelling of both lower extremities Begin wearing support hose, non in am and off in pm. Hypertension avoid excess salt. Controlled type 2 diabetes mellitus without complication, unspecified long-term insulin use status Will forward DM diet info Neuropathy gabapentin at night, consider lyrica going forward. Diabetes type 2 controlled Hgba1c is inc reased. 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 25 minutes spent in counseling. She will work towards complying with a heart healthy diabetic diet and increase her activity. Skin lesion Eval by dr. Pace ne next week will bx if lesion is dermal. Future Test Test Name Order Date HGA1C FINGERSTICK [id number] HGA1C FINGERSTICK [id number] Referrals Referral Date Details 2011-09-03 2011-09-03, screenin g mammo, Radiology [facility] 2012-06-05 2012-06-05, za [facility] colonoscopy, Andres Roe left foot pain with weight bearing., Rehab Medicine [facility] 2013-01-20 2013-01-20, Left ronnie t pain greater than six months refractory to treatment., Jacob Brown left foot, chronic t endonitis 06/24/13 TH Pt went to [facility] in [place], [place] 06/23/13, Jacob Brown 2017-04-18 2017-04-18, Please e valuate for progressing weakness and unsteadiness. Faxed referral please call pt to schedule appt, Neurology [facility] 2020-03-02 2020-03-02, Patient currently in pain. Difficult navigating her home. Please evaluate and treat. URGENT Faxed referral. Please call pt to schedule appt. NATTY, Orthopedics [facility] 2020-05-03 2020-05-03, Patient needs home health services due to inability to walk while right knee pain is being evaluated by Ortho, cause is unknown at this time Faxed referral. 03/15/2020 NATTY [facility] 2020-05-03 2020-05-03, PLease e valuate and treat Please contact our office within 7 days to notify HC of scheduled appointment Faxed to [facility] 04/25/20 carine [facility] Health Care Insurance Providers Payer Name Payer Address Payer Phone Insured Name Patient Relationship to Insured Coverage Start Date Coverage End Date Subscriber Number Group Number MEDICARE FQHC [address] [place] [phone] Page,Nellie knapp Self - patient is the insured 3 [id number] [employer] [address] [place] [address] [phone] Page,Nellie knapp Self - patient is the insured [id number] [place] FQHC [address] [facility] [phone] Page,Nellie knapp Self - patient is the insured [id number] MEDICATIONS ADMINISTERED Medication Instructions Date of Administration Dosag e Toradol Ketorolac Tromethamine Feb, 20 20 60 mg
[2022-10-12 16:05] LABS: Bacteria Rare HPF (Negative); C & S Indicated? No; Crystals Negative HPF (Negative); Epithelial Cells Rare HPF (Negative); Mucus Negative (Negative); RBC 0-2 HPF (0-2); WBC 0-2 HPF (0-5)
[2022-10-12 16:11] LABS: BE (Venous) 13 mmol/L (-2-3); HCO3 (Venous) 40 mmol/L (23-28); O2 Sat (Venous) 61 %; TCO2 (Venous) 37 mmol/L (24-29); pH (Venous) 7.29 (7.31-7.41); pO2 (Venous) 34 mmHg
[2022-10-12 16:13] LABS: pCO2 (Venous) 82 mmHg (41-51)
[2022-10-12 17:01] VITALS: BP 141/64; PULSE 70; RESP 20; TEMP 36.1; O2SAT 100
--- NOTE | 2022-10-12 17:56 | W.PM.HP.N ---
Date of service: 10/12/22 Time of Service: 17:56 Assessment and Plan Assessment and plan (1) COPD exacerbation: Status: Acute Assessment and plan: patient presented w/ hypoxemia and hypercarbia however she seems to be partially compensating for her hypercarbia and this has been chronic as evidence by her his CO2 on her electrolyte panel. She is not obtunded from her CO2 levels and her oxygen needs have quickly corrected. She has been weaned to room air w/ SPO2 of 100%. This suggests that her oxygen deficity was rapidly corrected, probably by the diuresis from her lasix. As Dr. Senior found no systolic dysfunction on her POCUS exam, she probably has HFPEF although it is not listed on her problems list from the senior care. We will try to get records from [facility]. If she remains hospitalized through the weekend, then I will get a formal echocardiogram on Saturday. For her COPD, I will keep her on corticosteroids for now but put her on a short burst over a few days, add Spiriva to her regimen, add short course of doxycycline as she told me she has coughed up some yellowish mucous recently I have given her one more dose of lasix 40 mg IVP this evening and will resume her home dose (2) Acute on chronic heart failure: Status: Acute (3) Diabetes mellitus: Assessment and plan: monitor blood sugars and cover w/ sliding scale (4) Hypertension: Assessment and plan: resume her home meds History of Present Illness History of Present Illness Chief Complaint: dyspnea Narrative: 76 yr old female resident of [facility] who has been there since April 2022 after hospitalization at [facility], details of her hospitalization are not clear but she apparently had a DVT and had been on apixaban until recently presented to the ED from [facility] w/ symptoms of dyspnea associated w/ SPO2 of 80%. The patient herself is a bit vague about the onset of her symptoms but our ED learned from [facility] that she has been dyspneic x 2 days. She denies any fever or rigors and has had minimal cough or sputum production. No associated CP. She has had some mild leg edema. Evaluation in the ED included labs, EKG, CTA chest. Patient arrived to the ED in acute respiratory distress on 3 lpm oxygen w/ SPO2 of 95% The ED attending performed beside POCUS exam of her lungs and heart. He indicated that her LV function was grossly normal and her lung chun had no significant B lines. CTA chest showed the following: FINDINGS: Exam somewhat limited due to respiratory motion. Pulmonary Arteries: No evidence of filling defect to suggest pulmonary emboli. Tracheobronchial tree: Patent where visualized. Mediastinum and Lanie: No dominant adenopathy or fluid collection. Pulmonary parenchyma: Limited evaluation due to respiratory motion and expiratory changes.? Mild to moderate emphysematous changes.? No consolidation or dominant measurable mass. Pleura: No effusion or pneumothorax. Heart: Mild left ventricular dilatation..? No coronary artery calcifications are seen. Aorta: Motion at the aortic root.? Dilatation of the ascending aorta to 6.2 by 5.6 cm.? Accurate measurement difficult due to motion.? No dissection.? ? Descending aorta 2.8 cm and tortuous. Upper abdomen:? Moderate size hiatal hernia. Bones: Unremarkable for age. Tubes, Catheters, and Lines: None Labs were remarkable for the following: normal CBC, CMP elevated CO2 41, low Mg 1.6 otherwise normal renal and liver fxn, pro-BNP 1179 (previous values of 600 to 700), normal troponin, normal procalcitonin, normal TSH, VBG w/ elevated PCO2 83, pH 7.29 Patient was treated w/ lasix 20 mg IVP and given solumedrol 125 mg IVP and DuoNeb treatments x 2. She was not started on antibiotics as she had no evidence for pneumonia or infectious cause. The working diagnosis was combination of CHF and COPD exacerbation. Dr. Senior called upon me to admit her for control of her CHF and COPD. Review of Systems All systems reviewed & are unremarkable except as noted in HPI and below PFSH All Active Problems (Updated 10/12/22 @ 21:53 by Marco Jordan MD) Acute on chronic heart failure (Acute) COPD exacerbation (Acute) Epiretinal membrane (ERM) of right eye (Chronic) Medical History Aortic valve insufficiency Carpal tunnel syndrome, right Diabetes mellitus Functional heart murmur History of adenomatous polyp of colon Hypercholesteremia Hyperlipidemia Hypertension Lipoma of left thigh Parkinson disease Swelling of both lower extremities Surgical History History of lumpectomy History of tubal ligation Hx of carpal tunnel repair Right Social History Smoking/Tobacco Use Status: Former Tobacco Use Quit Date: 04/15/89 Smoking risk assessment performed?: Yes Alcohol Intake: never Drug use: Never Substance use type: does not use Housing: senior care Do you feel safe at home: Yes Meds Allergies and Home Medications Allergies Allergy/AdvReac Type Severity Reaction Status Date / Time niacin AdvReac Intermediate Flushing & Unverified 10/12/22 17:07 Hives Home Medications Medication Instructions Recorded Confirmed Type atenolol 50 mg tablet 50 mg PO DAILY 06/24/20 10/12/22 History calcium carbonate 600 mg calcium 600 mg PO DAILY 06/24/20 10/12/22 History (1,500 mg) tablet (Calcium) carbidopa 25 mg-levodopa 100 mg 1 tab PO DIRECTED 06/24/20 10/12/22 History tablet lisinopril 10 mg tablet 15 mg PO DAILY 06/24/20 10/12/22 History aspirin 81 mg tablet 81 mg PO DAILY 06/27/20 10/12/22 History multivitamin 1 tab PO DAILY 06/27/20 10/12/22 History acetaminophen 325 mg capsule 650 mg PO PRN PRN 07/14/22 10/12/22 History atorvastatin 10 mg tablet 10 mg PO QHS 07/14/22 10/12/22 History furosemide 20 mg tablet 20 mg PO DIRECTED 07/14/22 10/12/22 History gabapentin 100 mg capsule 200 mg PO TID 07/14/22 10/12/22 History pantoprazole 40 mg tablet,delayed 40 mg PO DAILY 07/14/22 10/12/22 History release ropinirole 0.5 mg tablet 0.5 mg PO QHS 07/14/22 10/12/22 History sennosides 8.6 mg tablet (senna) 17.2 mg PO DAILY 07/14/22 10/12/22 History cholecalciferol (vitamin D3) 10 400 unit PO DAILY 10/12/22 10/12/22 History mcg (400 unit) tablet pimavanserin 34 mg capsule 34 mg PO DAILY 10/12/22 10/12/22 History (Nuplazid) polyethylene glycol 3350 17 gram 17 g PO BID 10/12/22 10/12/22 History oral powder packet (Miralax) Exam Narrative Exam Narrative: Alert and oriented to person and place and circumstances HEENT: Atraumatic normocephalic, pupils equally round reactive to light and accommodation, extraocular motion intact, TMs intact, nares moist and patent without exudate or bleeding, oropharynx noninjected without exudate Neck: Supple, nontender, without thyromegaly or lymphadenopathy or JVD. Normal carotid pulses, no use of accessory respiratory muscles Lungs: diffuse dry rales with expiratory wheezing Heart: Regular rate and rhythm without murmur rub or gallop. Normal apical impulse Abdomen: Nondistended, normal bowel sounds, nontender to palpation or percussion, no organomegaly, no bruits, no palpable masses Genitalia and rectal exam: Deferred Breasts: Deferred Extremities: Normal range of motion with normal strength. 1+ edema of her feet and ankles Neurologic: Cranial nerves II through XII grossly within normal limits. Normal strength and sensation over the face trunk and extremities. No tremors. Results Imaging CT scan - chest: report reviewed EKG: image reviewed Labs 10/12/22 13:12 10/12/22 13:12 Labs: Laboratory Results - last 24 hr 10/12/22 10/12/22 10/12/22 13:08 13:12 13:12 WBC RBC Hgb Hct MCV MCH MCHC RDW Plt Count MPV Immature Gran % Neutrophils % Lymphocytes % Monocytes % Eosinophils % Basophils % Nucleated RBC % Absolute Neutrophils Absolute Lymphocytes Absolute Monocytes Absolute Eosinophils Absolute Basophils PT INR APTT VBG pH VBG pCO2 VBG pO2 VBG HCO3 VBG Total CO2 VBG O2 Saturation VBG Base Excess Sodium 144 Potassium 3.9 Chloride 101 Carbon Dioxide 41.0 H Anion Gap 2.0 L BUN 9 Creatinine 0.8 Est GFR (CKD-EPI 2020) 76.79 Glucose 124 H Calcium 8.3 L Magnesium 1.6 L Total Bilirubin 0.9 AST 14 L ALT < 6 L Alkaline Phosphatase 95 Troponin I < 50 NT-Pro-B Natriuret Pep 1179 H Total Protein 6.3 L Albumin 3.5 Procalcitonin < 0.1 TSH 0.91 Urine Color Urine Clarity Urine pH Ur Specific [place] Urine Protein Urine Ketones Urine Blood Urine Nitrite Urine Bilirubin Urine Urobilinogen Ur Leukocyte Esterase Urine RBC Urine WBC Ur Epithelial Cells Urine Crystals Urine Bacteria Urine Mucus Ur Culture Indicated? Urine Glucose COVID-19 Source Nasal/Nares SARS-CoV-2 (PCR) Negative 10/12/22 10/12/22 10/12/22 13:12 13:12 13:12 WBC 6.61 RBC 4.59 Hgb 13.6 Hct 43.9 MCV 96 H MCH 29.6 MCHC 31.0 L RDW 14.5 Plt Count 187 MPV 9.3 Immature Gran % 0.5 Neutrophils % 74.6 Lymphocytes % 15.6 Monocytes % 7.9 Eosinophils % 0.9 Basophils % 0.5 Nucleated RBC % 0.0 Absolute Neutrophils 4.94 Absolute Lymphocytes 1.03 L Absolute Monocytes 0.52 Absolute Eosinophils 0.06 Absolute Basophils 0.03 PT 10.7 INR 1.1 APTT 25.0 VBG pH 7.29 L VBG pCO2 83 H* VBG pO2 63 VBG HCO3 40 H VBG Total CO2 36 H VBG O2 Saturation 90 VBG Base Excess 13 H Sodium Potassium Chloride Carbon Dioxide Anion Gap BUN Creatinine Est GFR (CKD-EPI 2020) Glucose Calcium Magnesium Total Bilirubin AST ALT Alkaline Phosphatase Troponin I NT-Pro-B Natriuret Pep Total Protein Albumin Procalcitonin TSH Urine Color Urine Clarity Urine pH Ur Specific [place] Urine Protein Urine Ketones Urine Blood Urine Nitrite Urine Bilirubin Urine Urobilinogen Ur Leukocyte Esterase Urine RBC Urine WBC Ur Epithelial Cells Urine Crystals Urine Bacteria Urine Mucus Ur Culture Indicated? Urine Glucose COVID-19 Source SARS-CoV-2 (PCR) 10/12/22 10/12/22 15:45 16:00 WBC RBC Hgb Hct MCV MCH MCHC RDW Plt Count MPV Immature Gran % Neutrophils % Lymphocytes % Monocytes % Eosinophils % Basophils % Nucleated RBC % Absolute Neutrophils Absolute Lymphocytes Absolute Monocytes Absolute Eosinophils Absolute Basophils PT INR APTT VBG pH 7.29 L VBG pCO2 82 H* VBG pO2 34 VBG HCO3 40 H VBG Total CO2 37 H VBG O2 Saturation 61 VBG Base Excess 13 H Sodium Potassium Chloride Carbon Dioxide Anion Gap BUN Creatinine Est GFR (CKD-EPI 2020) Glucose Calcium Magnesium Total Bilirubin AST ALT Alkaline Phosphatase Troponin I NT-Pro-B Natriuret Pep Total Protein Albumin Procalcitonin TSH Urine Color Yellow Urine Clarity Clear Urine pH 6.0 Ur Specific [place] 1.010 Urine Protein Negative Urine Ketones Negative Urine Blood Trace-intact H Urine Nitrite Negative Urine Bilirubin Negative Urine Urobilinogen 0.2 Ur Leukocyte Esterase Negative Urine RBC 0-2 Urine WBC 0-2 Ur Epithelial Cells Rare Urine Crystals Negative Urine Bacteria Rare Urine Mucus Negative Ur Culture Indicated? No Urine Glucose Negative COVID-19 Source SARS-CoV-2 (PCR) Last Vital Signs Temp 36.1 C L 10/12/22 17:01 Pulse 70 10/12/22 17:01 Resp 20 10/12/22 17:01 BP 141/64 H 10/12/22 17:01 Pulse Ox 100 10/12/22 17:01 Time Spent Time spent with Patient: 55-74 minutes Time was spent: preparing to see the patient(eg.review tests), obtaining and/or reviewing separately otained hiistory, ordering medications,tests, procedures, indepentently interpreting results, counseling the patient and care coordination
[2022-10-12] MEDS: Magnesium Oxide 400 MG TAB 800 MG PO (20:13)
[2022-10-12] MEDS: Doxycycline Hyclate 100 MG CAP PO (20:14)
[2022-10-12] MEDS: Acetaminophen 325 MG TAB PO (20:14)
[2022-10-12] MEDS: Gabapentin 100 MG CAP 200 MG PO (20:15)
[2022-10-12] MEDS: Furosemide 40 MG/4 ML VIAL IVP (20:15)
[2022-10-12] MEDS: Carbidopa 25/Levodopa 100 TAB PO (20:58)
[2022-10-12 21:30] LABS: Troponin I < 50 ng/L (<or=60)
[2022-10-12] MEDS: rOPINIRole 0.5 MG TAB PO (22:14)
[2022-10-12] MEDS: Atorvastatin 10 MG TAB PO (22:15)
[2022-10-12] MEDS: methylPREDNISolone SUCC 125 MG VIAL 60 MG IVP (22:15)
[2022-10-12] MEDS: Haloperidol 5 MG/ML VIAL (23:05)
--- NOTE | 2022-10-12 23:15 | RES.FACE_ITS ---
Date of service: 10/12/22 Time of Service: 23:15 Assessment & Plan (1) Delirium: Ms nuno is disoriented and agitated acutely. She was spitting on and grabbing and twisting the fingers of the nurses, so soft restraints were applied for her safety and that of the staff. I think given the clinical scenario steroid- induced delerium/psychosis is the most likely diagnosis. She is retatin CO2, but I would expect this to cause more sedation. When I evaluated her in person, she was confused and cussing at me and the nurse and kicking me (legs are free). She had grabbed the O2 tube and refusing to put it back on. R41.0 - Disorientation, unspecified Plan Continue soft restrains as long as they are adequate We tried 2mg haloperidol, but this hasn't had much effect. Given her state of hightened stimulation, will try lorazepam 1mg IV Plan Detail Total time on date of encounter, ([id number] and non [id number]) (minutes): 25 Time was spent: reviewing prior notes and diagnostics, providing direct patient care and documenting today's visit
[2022-10-12] MEDS: LORazepam 2 MG/ML VIAL 1 MG IVP (23:28)
[2022-10-13] VITALS (18 sets, daily range): BP systolic 115–138; BP diastolic 65–72; PULSE 65–80; RESP 7–20; TEMP 36.4–37; O2SAT 86–99
[2022-10-13] MEDS: diphenhydrAMINE 50 MG/ML VIAL 25 MG IVP (01:19)
[2022-10-13] MEDS: methylPREDNISolone SUCC 125 MG VIAL 60 MG IVP (05:48)
--- NOTE | 2022-10-13 06:03 | NUR.NOTE ---
Pt started getting agitated around 2300 , pt was violent , kicking and hitting, scratching, spitting, profanity toward staff, pt tried to pull her iv and would not allow iv meds, pt also tried to pull her Mac catheter out. pt scratch herself on right groin and it is red as the result. meds were ordered and charge nurse helped pulling the med . during this time pt scratched staffs hands during.
[2022-10-13] MEDS: Magnesium Oxide 400 MG TAB 800 MG PO (08:28)
[2022-10-13] MEDS: Lisinopril 5 MG TAB 15 MG PO (08:28)
[2022-10-13] MEDS: Polyethylene Glycol 3350 17 GM PACKET PO (08:28)
[2022-10-13] MEDS: Aspirin E.C. 81 MG TABEC PO (08:29)
[2022-10-13] MEDS: Pantoprazole 40 MG TABCR PO (08:29)
[2022-10-13] MEDS: Gabapentin 100 MG CAP 200 MG PO ×2 (08:29→13:39)
[2022-10-13] MEDS: Senna TAB 1 TAB PO (08:29)
[2022-10-13] MEDS: Atenolol 50 MG TAB PO (08:29)
[2022-10-13] MEDS: Multivitamin TAB 1 TAB PO (08:29)
[2022-10-13] MEDS: Cholecalciferol (Vitamin D3) 400 UNIT TAB PO (08:30)
[2022-10-13] MEDS: Furosemide 20 MG TAB PO (08:30)
[2022-10-13] MEDS: Doxycycline Hyclate 100 MG CAP PO (08:30)
[2022-10-13] MEDS: Carbidopa 25/Levodopa 100 TAB PO ×3 (08:30→17:20)
[2022-10-13] MEDS: Calcium Carbonate 1.5 GM TAB PO (08:30)
[2022-10-13] MEDS: Insulin Aspart 300 UNITS/3 ML PEN SC ×3 (09:02→17:19)
[2022-10-13] MEDS: Albuterol/Ipratropium 3 ML UPD VIAL UPD ×2 (09:05→17:25)
[2022-10-13] MEDS: Tiotropium Bromide-Respimat 10 PUFF INH 2 PUFF IH (09:06)
--- NOTE | 2022-10-13 09:13 | INITIAL_ITS ---
Date of service: 10/13/22 Time of Service: 09:13 Care Management Initial Assmt Initial Assessment REASON FOR HOSPITALIZATION:: COPD exacerbation PREVIOUS FUNCTIONAL STATUS/SOCIAL/FAMILY SUPPORTS:: Pamela lives at the [facility] in [place]. She has a son Gianfranco and a daughter Mckayla and both live locally. She also has 3 grandchildren that she sees from time to time. Ivette is . CURRENT FUNCTIONAL STATUS:: Pamela was sitting up in bed when CM met with her. She had been confused and a bit combative earlier but appeared to be alert and oriented at the time of the visit. She informed CM that she has been at the [facility] for about 6 months (true) and that she went there from [facility] in [place] where she was hospitalized for about 6 weeks with covid, a blood clot and parkinsonism. ADVANCE DIRECTIVES:: on file. Marco and Mckayla are agent/alternate agent Has patient been provided with info about the portal/API?: Yes Did the patient sign up for the portal?: No CODE STATUS:: DNR/DNI INSURANCE COVERAGE / FINANCIAL ISSUES:: Medicare, [employer], [email or web address] CURRENT HOME/COMMUNITY SERVICES/EQUIPMENT:: lives at [facility] PRIMARY CARE PHYSICIAN:: An Tello POTENTIAL DISCHARGE NEEDS:: follow up with facility provider and PCP PATIENT/FAMILY EDUCATION NEEDS:: Review of discharge instructions, limitations, activity, follow up plan discuss Ask Me Three TRANSPORTATION:: via RCT coordinated by CM PLAN:: Anticipate Ivette will discharge back to [facility] when medically cleared by the provider. She will follow up with the facility provider and plan of care and transport via RCT., CM will follow and assess for ongoing discharge concerns. [facility] All Active Problems (Updated 10/13/22 @ 15:15 by Marco Jordan MD) Metabolic encephalopathy (Acute) Delirium (Acute) Acute on chronic heart failure (Acute) COPD exacerbation (Acute) Epiretinal membrane (ERM) of right eye (Chronic) Medical History Aortic valve insufficiency Carpal tunnel syndrome, right Diabetes mellitus Functional heart murmur History of adenomatous polyp of colon Hypercholesteremia Hyperlipidemia Hypertension Lipoma of left thigh Parkinson disease Swelling of both lower extremities Surgical History History of lumpectomy History of tubal ligation Hx of carpal tunnel repair Right Social History Smoking/Tobacco Use Status: Unknown Smoking risk assessment performed?: Yes Alcohol Intake: never Drug use: Never Substance use type: does not use Housing: half-way Do you feel safe at home: Yes
[2022-10-13 09:14] LABS: Anion Gap 2.4 mmol/L (3-11); BUN 14 mg/dL (7-18); CO2 40.6 mmol/L (21.0-32.0); CREATININE 0.7 mg/dL (0.55-1.02); Chloride 101 mmol/L (98-107); Estimated GFR 90.14 (mL/min/1.73m2); Glucose 161 mg/dL (74-106); Magnesium 2.2 mg/dL (1.8-2.4); Potassium 3.9 mmol/L (3.5-5.1); Sodium 144 mmol/L (136-145)
[2022-10-13 09:18] LABS: Hemoglobin A1C 6.1 % (<5.7)
--- NOTE | 2022-10-13 09:19 | RESPIRATORY ---
Pt states that she normally wears 2L O2 all the time at the [facility].
--- NOTE | 2022-10-13 09:50 | PDOC.CMIN ---
Date of service: 10/13/22 Time of Service: 09:50 Care Management Initial Assmt Initial Assessment REASON FOR HOSPITALIZATION:: COPD Exacerbation PFSH All Active Problems (Updated 10/12/22 @ 23:18 by Sudheer Benitez) Delirium (Acute) Acute on chronic heart failure (Acute) COPD exacerbation (Acute) Epiretinal membrane (ERM) of right eye (Chronic) Medical History Aortic valve insufficiency Carpal tunnel syndrome, right Diabetes mellitus Functional heart murmur History of adenomatous polyp of colon Hypercholesteremia Hyperlipidemia Hypertension Lipoma of left thigh Parkinson disease Swelling of both lower extremities Surgical History History of lumpectomy History of tubal ligation Hx of carpal tunnel repair Right Social History Smoking/Tobacco Use Status: Former Tobacco Use Quit Date: 04/15/89 Smoking risk assessment performed?: Yes Alcohol Intake: never Drug use: Never Substance use type: does not use Housing: custodial Do you feel safe at home: Yes
[2022-10-13] MEDS: predniSONE 20 MG TAB 40 MG PO (11:48)
--- NOTE | 2022-10-13 13:45 | W.PM.PROGNOT ---
Date of Service Date of service: 10/13/22 Time of Service: 13:45 Assessment and Plan Assessment and plan (1) COPD exacerbation: Status: Acute Assessment and plan: Patient is exhibited hypercapnic respiratory failure will be put on BiPAP we will recheck her VBG and monitor her response. Change Solu-Medrol to prednisone continue bronchodilators continue Spiriva. Professional time spent interviewing and examining patient, discussion of goals of care with hospital team (care management, nursing and consulting professionals) was 30 minutes. (2) Acute on chronic heart failure: Status: Acute Assessment and plan: Continue furosemide however I will increase her dose to twice a day monitor electrolytes as well as her daily weight and intake and output. We will obtain an echocardiogram on Saturday morning (3) Diabetes mellitus: Assessment and plan: monitor blood sugars and cover w/ sliding scale (4) Hypertension: Assessment and plan: resume her home meds (5) Metabolic encephalopathy: Status: Acute Assessment and plan: Combination of baseline dementia from her parkinsonism but also suspect superimposed hypercapnic narcosis but also cannot rule out steroid-induced encephalopathy versus . We will withhold her gabapentin while she is somnolent. We have already checked a VBG and her CO2 is already declining. We will support her with BiPAP overnight. Continue treatment of her COPD exacerbation with steroids and bronchodilators. I switch her Solu-Medrol to prednisone and we will taper that over the next few days. Subjective Subjective Interval history since last seen: Patient became very agitated last night and was medicated w/ ativan and haldol and now she is encephalopathic thinking she is in [facility] airport then when told she is in [place], she thought she was in [place]. When I told her that she is in [facility], she told me that she did not realize they had such a nice TV studio. Apparently The [facility] did not send her Nuplazid. She has Parkinsonism w/ dementia but yesterday on admission she was very much alert and oriented, she knew she was in [facility] and in the hospital. While I was talking the patient she attempted to take a pill from 1 hand to the other but she did not actually have a pill in her hand. Exam Narrative Exam Narrative: Elderly white female lying in bed with her eyes shut who is obviously confused not oriented to place or time HEENT is unremarkable no facial asymmetry no dysarthric speech Lungs with diffuse fine rales no rhonchi no wheezing Heart is regular with a harsh systolic murmur best heard over the apex and left lower sternal border consistent with much regurgitation Abdomen obese soft and nontender normal bowel sounds Extremities with trace to 1+ pitting edema, normal strength in both upper and lower extremities Objective Last Vital Signs Temp 36.5 C 10/13/22 11:02 Pulse 78 10/13/22 11:02 Resp 18 10/13/22 11:02 BP 115/70 10/13/22 11:02 Pulse Ox 95 10/13/22 11:02 Laboratory Results - last 24 hr 10/12/22 10/12/22 10/12/22 13:08 13:12 13:12 PT INR APTT VBG pH VBG pCO2 VBG pO2 VBG HCO3 VBG Total CO2 VBG O2 Saturation VBG Base Excess Sodium 144 Potassium 3.9 Chloride 101 Carbon Dioxide 41.0 H Anion Gap 2.0 L BUN 9 Creatinine 0.8 Est GFR (CKD-EPI 2020) 76.79 Glucose 124 H Hemoglobin A1c Calcium 8.3 L Magnesium 1.6 L Total Bilirubin 0.9 AST 14 L ALT < 6 L Alkaline Phosphatase 95 Troponin I < 50 NT-Pro-B Natriuret Pep 1179 H Total Protein 6.3 L Albumin 3.5 Procalcitonin < 0.1 TSH 0.91 Urine Color Urine Clarity Urine pH Ur Specific [place] Urine Protein Urine Ketones Urine Blood Urine Nitrite Urine Bilirubin Urine Urobilinogen Ur Leukocyte Esterase Urine RBC Urine WBC Ur Epithelial Cells Urine Crystals Urine Bacteria Urine Mucus Ur Culture Indicated? Urine Glucose SARS-CoV-2 (PCR) Negative 10/12/22 10/12/22 10/12/22 13:12 15:45 16:00 PT 10.7 INR 1.1 APTT 25.0 VBG pH VBG pCO2 VBG pO2 VBG HCO3 VBG Total CO2 VBG O2 Saturation VBG Base Excess Sodium Potassium Chloride Carbon Dioxide Anion Gap BUN Creatinine Est GFR (CKD-EPI 2020) Glucose Hemoglobin A1c Calcium Magnesium Total Bilirubin AST ALT Alkaline Phosphatase Troponin I < 50 NT-Pro-B Natriuret Pep Total Protein Albumin Procalcitonin TSH Urine Color Yellow Urine Clarity Clear Urine pH 6.0 Ur Specific [place] 1.010 Urine Protein Negative Urine Ketones Negative Urine Blood Trace-intact H Urine Nitrite Negative Urine Bilirubin Negative Urine Urobilinogen 0.2 Ur Leukocyte Esterase Negative Urine RBC 0-2 Urine WBC 0-2 Ur Epithelial Cells Rare Urine Crystals Negative Urine Bacteria Rare Urine Mucus Negative Ur Culture Indicated? No Urine Glucose Negative SARS-CoV-2 (PCR) 10/12/22 10/13/22 10/13/22 16:00 08:45 08:45 PT INR APTT VBG pH 7.29 L VBG pCO2 82 H* VBG pO2 34 VBG HCO3 40 H VBG Total CO2 37 H VBG O2 Saturation 61 VBG Base Excess 13 H Sodium 144 Potassium 3.9 Chloride 101 Carbon Dioxide 40.6 H Anion Gap 2.4 L BUN 14 Creatinine 0.7 Est GFR (CKD-EPI 2020) 90.14 Glucose 161 H Hemoglobin A1c 6.1 H Calcium 9.0 Magnesium 2.2 Total Bilirubin AST ALT Alkaline Phosphatase Troponin I NT-Pro-B Natriuret Pep Total Protein Albumin Procalcitonin TSH Urine Color Urine Clarity Urine pH Ur Specific [place] Urine Protein Urine Ketones Urine Blood Urine Nitrite Urine Bilirubin Urine Urobilinogen Ur Leukocyte Esterase Urine RBC Urine WBC Ur Epithelial Cells Urine Crystals Urine Bacteria Urine Mucus Ur Culture Indicated? Urine Glucose SARS-CoV-2 (PCR) Time Spent with Patient Time Spent with Patient: 25-34 minutes Time was spent: preparing to see the patient(eg.review tests), ordering medications,tests, procedures, referring, communicating with other health lawn care professional, indepentently interpreting results and care coordination
--- NOTE | 2022-10-13 14:17 | RESPIRATORY ---
Pt unable to provide thorough history at this time due to lethargy and being placed on BiPAP for increased CO2 on blood gas. RT Assessment Start: 10/13/22 13:51 Freq: .q shift and prn Status: Active Protocol: Document 10/13/22 14:16 ([facility]13[facility]22 14[email or web address] Assessment Pulmonary History Pulmonary History COPD Smoking History Smoking/Tobacco Use Status Unknown OXYGEN HISTORY: Supplemental O2 At Rest 2 Current Respiratory Symptoms Current Respiratory Symptoms Other Respiratory Breath Sounds Pulse Rate <100 Respiratory Rate 18-25 Shortness of Breath None Respiratory Therapy Score Total 1 Assessment and Plan RT Treatment Protocol Bronchodilator Aerosol Therapy Protocol,Lung Expansion Therapy Protocol,Bronchial Hygiene Therapy Protocol Note Pt unable to provide thorough history at this time. Pt lethargic and placed on BiPAP S/T, 12/, 40%.
[2022-10-13 14:28] LABS: BE (Venous) 15 mmol/L (-2-3); HCO3 (Venous) 40 mmol/L (23-28); O2 Sat (Venous) 91 %; TCO2 (Venous) 35 mmol/L (24-29); pCO2 (Venous) 58 mmHg (41-51); pH (Venous) 7.44 (7.31-7.41); pO2 (Venous) 57 mmHg
[2022-10-13] MEDS: Enoxaparin 40 MG/0.4 ML SYR SC (15:35)
[2022-10-13] MEDS: Normal Saline Flush 10 ML SYR IVP (16:17)
[2022-10-13] MEDS: LORazepam 2 MG/ML VIAL 1 MG IM ×2 (16:18→23:02)
--- NOTE | 2022-10-13 21:17 | NUR.NOTE ---
Nursing Note:pt agitated upon entering shift. restraints still in place from previous shift. Pt yelling at this rn asking what I am trying to prove and to set her free. pt then tried to claw at this rn arm. deescalation used and patient calmed down, but per medical charge entry specialist restraints kept in place to ensure patient remains non violent and that oxygen and valencia stay in place. restraints assessed with no significant findings. wctm.
--- NOTE | 2022-10-13 23:02 | NUR.NOTE ---
Nursing Note: Introduced self to patient. Pulling Oxygen mask off and confused. Requested by primary nurse to administer Lorazepam 1mg IM for agitation. Patient is oriented to person and that she is at the hospital.
[2022-10-14] VITALS (7 sets, daily range): BP systolic 108–157; BP diastolic 54–83; PULSE 75–78; RESP 12–22; TEMP 36.5–36.6; O2SAT 88–94
[2022-10-14] MEDS: Doxycycline Hyclate 100 MG CAP PO ×2 (07:28→21:19)
[2022-10-14] MEDS: Pantoprazole 40 MG TABCR PO (07:28)
[2022-10-14] MEDS: Lisinopril 5 MG TAB 15 MG PO (07:30)
[2022-10-14] MEDS: Carbidopa 25/Levodopa 100 TAB PO ×2 (07:31→16:56)
[2022-10-14] MEDS: Atenolol 50 MG TAB PO (07:31)
[2022-10-14] MEDS: Aspirin E.C. 81 MG TABEC PO (07:31)
[2022-10-14] MEDS: Furosemide 20 MG TAB PO (07:31)
[2022-10-14] MEDS: Cholecalciferol (Vitamin D3) 400 UNIT TAB PO (07:32)
[2022-10-14] MEDS: Calcium Carbonate 1.5 GM TAB PO (07:32)
[2022-10-14] MEDS: Magnesium Oxide 400 MG TAB 800 MG PO ×2 (07:32→21:19)
[2022-10-14] MEDS: Polyethylene Glycol 3350 17 GM PACKET PO ×2 (07:33→21:20)
[2022-10-14] MEDS: Multivitamin TAB 1 TAB PO (07:33)
[2022-10-14] MEDS: Enoxaparin 40 MG/0.4 ML SYR SC (07:36)
[2022-10-14] MEDS: Senna TAB 2 TAB PO (07:36)
[2022-10-14] MEDS: predniSONE 20 MG TAB 40 MG PO (07:37)
[2022-10-14] MEDS: Nystatin POWDER 60 GM JAR TP (07:52)
[2022-10-14] MEDS: LORazepam 2 MG/ML VIAL 1 MG IM/IV ×4 (09:02→22:23)
[2022-10-14] MEDS: Tiotropium Bromide-Respimat 10 PUFF INH 2 PUFF IH (09:46)
[2022-10-14] MEDS: Albuterol/Ipratropium 3 ML UPD VIAL UPD ×4 (09:46→21:19)
[2022-10-14 11:54] LABS: Abs Immature Grans 0.06 10^3/uL (0.0-0.06); Absolute Neutrophil Count 14.55 10^3/uL (1.2-6.7); BE (Venous) 16 mmol/L (-2-3); Basophils % 0.2; Eosinophils % 0.1; HCO3 (Venous) 39 mmol/L (23-28); HCT 47.9 % (36.0-46.0); HGB 15.1 g/dL (11.2-15.7); Immature Grans % 0.4; Lymphocytes % 5.1; MCH 29.6 pg (27.0-33.0); MCHC 31.5 % (32.0-36.0); MCV 94 fL (80-95); MPV 9.1 fL (8.0-11.0); Neutrophils % 90.2; O2 Sat (Venous) 96 %; Platelet Count 213 10^3/uL (130-400); RDW 14.6 % (11.7-14.6); RDW-SD 49.8 fL; TCO2 (Venous) 34 mmol/L (24-29); WBC 16.13 10^3/uL (4.4-10.8); pCO2 (Venous) 51 mmHg (41-51); pO2 (Venous) 73 mmHg
[2022-10-14 11:57] LABS: Absolute Basophil Count 0.03 10^3/uL (0.0-0.2); Absolute Eosinophil Count 0.02 10^3/uL (0.0-0.7); Absolute Lymphocyte Count 0.82 10^3/uL (1.2-3.4); Absolute Monocyte Count 0.65 10^3/uL (0.1-0.8)
[2022-10-14 12:06] LABS: Ammonia 14 umol/L (11-32)
[2022-10-14 12:13] LABS: Calcium 8.9 mg/dL (8.5-10.1)
[2022-10-14 12:36] LABS: BUN 24 mg/dL (7-18); CREATININE 0.7 mg/dL (0.55-1.02); Chloride 100 mmol/L (98-107); Estimated GFR 90.14 (mL/min/1.73m2); Glucose 153 mg/dL (74-106); Potassium 4.4 mmol/L (3.5-5.1); Sodium 139 mmol/L (136-145)
--- NOTE | 2022-10-14 14:57 | PGE_ITS ---
Date of Service Date of service: 10/14/22 Time of Service: 14:57 Assessment and Plan Assessment and plan (1) COPD exacerbation: Status: Acute Assessment and plan: patient demonstrated hypercapnic and hypoxemic respiratory failure on admission but the hypercapnia has resolved. She still has hypoxemia when she is off her oxygen. She is not showing acute infection although I did put her on doxycycline for possible bronchitis. We will start to wean her steroids. Continue bronchodilators and supplemental oxygen. Continue use of soft wrist restraints as needed to protect her from her self. Professional time spent interviewing and examining patient, discussion of goals of care with hospital team (care management, nursing and consulting professionals) was 45 minutes. (2) Acute on chronic heart failure: Status: Acute Assessment and plan: I think she may have had some mild congestive failure on admission she does not appear to be overtly hypervolemic at the present time. Continue on her current home dose of furosemide 20 mg daily. Continue to monitor her electrolytes and BUN and creatinine. Continue her Lasix PERRL and her aspirin and atenolol and atorvastatin. 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 There may be a component of steroid-induced encephalopathy. Her ammonia level is normal so it does not appear to be hepatic encephalopathy. Her CO2 now is normalized so does not appear to be secondary to CO2 narcosis. Furthermore if she were hypercapnic she would probably be more sedated. We will treat her with scheduled doses of low- dose Klonopin along with prn Ativan for breakthrough agitation. Avoid QTc prolonging medications and avoid medicines require cytochrome metabolism. We will discontinue her Nuplazid I expect he will take 5 half-lives or 11 days for this to get out of her system. Subjective Subjective Interval history since last seen: Patient was briefly calm and cooperative this morning and her soft wrist restraints were removed. However at late this morning she became severely agitated uncooperative pulling her oxygen off try to pull her Mac catheter out. While she is awake she is delirious and agitated. I reviewed her medication history from her MAR from [place]. Patient's been on Nuplazid since 08/29/2022. I also reviewed the monograph on Nuplazid and has a prolonged half- life. Has elimination half-life of 57 hours. He also has a greater than 5% incidence of increasing confusion. I think given that she has been on this medication for 6 weeks now and she has had no improvement in her dementia from her parkinsonism think we should take her off the Nuplazid allows us to wash out of her system before trying another antipsychotic. Has strong interactions with cytochrome medications and also can interact with QTc prolonging medications. As such I will just treat her agitation with benzodiazepines. Her CO2 is actually improved.Her CO2 is down to 51 now from a peak of 82. Her pH is normalized. However she still requiring supplemental oxygen when she pulls her oxygen mask off she drops down in the 70s. She requires soft wrist restraints in order to maintain placement of her oxygen mask. As such if we release her wrist restraints she will pull her oxygen off and because severe hypoxemia and her potential demise. Present time I think she has been diuresed enough. We will continue to treat her COPD exacerbation with bronchodilators. We will start to wean her steroids in case this may be some delirium from her steroids. Exam Narrative Exam Narrative: Patient is awake alert but confused. She does call out for her nurse so I think she recognizes she is in the hospital. She does respond to her name when I call her by her first name. I introduced myself as her doctor she uses a few expletive words and tells me to get out of her room. She is not in any acute respiratory distress she is able to holler and talk wit hout getting dyspneic. There is no accessory respiratory muscle use. Lungs are clear anteriorly with prolonged expiratory phase there is no rales wheezes or rhonchi Heart is regular rate and rhythm Abdomen soft nondistended Lower extremities without peripheral cyanosis or edema. Objective Last Vital Signs Temp 36.6 C 10/14/22 07:20 Pulse 78 10/14/22 09:46 Resp 18 10/14/22 09:46 BP 150/71 H 10/14/22 07:20 Pulse Ox 91 L 10/14/22 11:45 Laboratory Results - last 24 hr 10/14/22 10/14/22 10/14/22 11:47 11:47 11:47 WBC 16.13 H RBC 5.10 Hgb 15.1 Hct 47.9 H MCV 94 MCH 29.6 MCHC 31.5 L RDW 14.6 Plt Count 213 MPV 9.1 Immature Gran % 0.4 Neutrophils % 90.2 Lymphocytes % 5.1 Monocytes % 4.0 Eosinophils % 0.1 Basophils % 0.2 Nucleated RBC % 0.0 Absolute Neutrophils 14.55 H Absolute Lymphocytes 0.82 L Absolute Monocytes 0.65 Absolute Eosinophils 0.02 Absolute Basophils 0.03 VBG pH VBG pCO2 VBG pO2 VBG HCO3 VBG Total CO2 VBG O2 Saturation VBG Base Excess Sodium 139 Potassium 4.4 Chloride 100 Carbon Dioxide 37.0 H Anion Gap 2.0 L BUN 24 H Creatinine 0.7 Est GFR (CKD-EPI 2020) 90.14 Glucose 153 H Calcium 8.9 Ammonia 14 10/14/22 11:47 WBC RBC Hgb Hct MCV MCH MCHC RDW Plt Count MPV Immature Gran % Neutrophils % Lymphocytes % Monocytes % Eosinophils % Basophils % Nucleated RBC % Absolute Neutrophils Absolute Lymphocytes Absolute Monocytes Absolute Eosinophils Absolute Basophils VBG pH 7.50 H VBG pCO2 51 VBG pO2 73 VBG HCO3 39 H VBG Total CO2 34 H VBG O2 Saturation 96 VBG Base Excess 16 H Sodium Potassium Chloride Carbon Dioxide Anion Gap BUN Creatinine Est GFR (CKD-EPI 2020) Glucose Calcium Ammonia Time Spent with Patient Time Spent with Patient: 35-49 minutes Time was spent: preparing to see the patient(eg.review tests), obtaining and/or reviewing separately otained hiistory, ordering medications,tests, procedures, referring, communicating with other health physician locums urgent care, indepentently interpreting results and care coordination
--- NOTE | 2022-10-14 16:05 | NUR.NOTE ---
updated son about patient care. added that pt has been in restrains, has had extreme aggressive and yelling episodes, refusal of food, echo that is scheduled for tomorrow
[2022-10-14] MEDS: Insulin Aspart 300 UNITS/3 ML PEN SC (16:57)
[2022-10-14] MEDS: Normal Saline Flush 10 ML SYR IVP (16:57)
--- NOTE | 2022-10-14 20:22 | NUR.NOTE ---
Nursing Note: upon shift change pt found with valenica disconnected, bed full of food and urine. pt repositioned and cleaned, pt remains calm. wctm.
[2022-10-14] MEDS: Atorvastatin 10 MG TAB PO (21:19)
[2022-10-14] MEDS: clonazePAM 0.5 MG TAB 0.25 MG PO (21:19)
[2022-10-14] MEDS: rOPINIRole 0.5 MG TAB PO (21:19)
[2022-10-15] VITALS (21 sets, daily range): BP systolic 100–174; BP diastolic 60–87; PULSE 68–87; RESP 1–24; TEMP 36.5–37.1; O2SAT 88–97
--- NOTE | 2022-10-15 00:33 | NUR.NOTE ---
Nursing Note:pt continually taking off oxygen, desaturating to mid 70s when this happens. not redirectable. very confused. pt also attempting to pull out valencia. wctm.
--- NOTE | 2022-10-15 01:21 | NUR.NOTE ---
Nursing Note:pt continues screaming into hallway, even with restarted soft upper restraints she is still pulling oxygen off by sitting up and bringing hands to face. i am going to try nasal canula as it is smaller and hopefuly will stay on easier. o2 sat 88 to 91 on nc 5l
[2022-10-15] MEDS: LORazepam 2 MG/ML VIAL 1 MG IM/IV ×4 (05:15→17:39)
[2022-10-15] MEDS: Albuterol/Ipratropium 3 ML UPD VIAL UPD ×4 (07:58→21:41)
[2022-10-15] MEDS: Tiotropium Bromide-Respimat 10 PUFF INH 2 PUFF IH (08:04)
[2022-10-15] MEDS: Polyethylene Glycol 3350 17 GM PACKET PO ×2 (08:34→21:41)
[2022-10-15] MEDS: clonazePAM 0.5 MG TAB 0.25 MG PO ×2 (08:34→20:32)
[2022-10-15] MEDS: Atenolol 50 MG TAB PO (08:34)
[2022-10-15] MEDS: Enoxaparin 40 MG/0.4 ML SYR SC (08:34)
[2022-10-15] MEDS: Doxycycline Hyclate 100 MG CAP PO ×2 (08:34→21:43)
[2022-10-15] MEDS: Aspirin E.C. 81 MG TABEC PO (08:36)
[2022-10-15] MEDS: Nystatin POWDER 60 GM JAR TP ×2 (08:36→21:43)
[2022-10-15] MEDS: Senna TAB 2 TAB PO (08:37)
[2022-10-15] MEDS: Magnesium Oxide 400 MG TAB 800 MG PO ×2 (08:37→21:42)
[2022-10-15] MEDS: Furosemide 20 MG TAB PO (08:38)
[2022-10-15] MEDS: Lisinopril 5 MG TAB 15 MG PO (08:38)
[2022-10-15] MEDS: predniSONE 20 MG TAB PO (08:39)
[2022-10-15] MEDS: Carbidopa 25/Levodopa 100 TAB PO ×2 (08:39→11:49)
[2022-10-15] MEDS: Pantoprazole 40 MG TABCR PO (08:40)
[2022-10-15] MEDS: Calcium Carbonate 1.5 GM TAB PO (08:40)
[2022-10-15] MEDS: Multivitamin TAB 1 TAB PO (08:40)
[2022-10-15] MEDS: Cholecalciferol (Vitamin D3) 400 UNIT TAB PO (08:40)
[2022-10-15] MEDS: Normal Saline Flush 10 ML SYR IVP (10:58)
--- NOTE | 2022-10-15 11:19 | NUR.NOTE ---
@2270 this rn was notified by charge that oxygen needed to be titrated per dr andrade instructions. this rn went into pt room and changed nc 4L to 3L and pt oxygen sat decreased to 85%. this rn placed pt on oxymask and was able to get oxygen sat at 89-90% on 3.5L.
--- NOTE | 2022-10-15 11:23 | NUR.NOTE ---
paged RT as pt could use some deep suctioning and pt is unable to follow commands regarding coordination. RT to attempt to reeval at a later time as pt is extremely agitated and does not want to be disturbed
--- NOTE | 2022-10-15 16:32 | RESPIRATORY ---
Pt more able to answer questions but still un-cooperative RT Assessment Start: 10/13/22 13:51 Freq: .q shift and prn Status: Active Protocol: Document 10/15/22 12:18 NATTY (Rec: 10/15/22 12:26 NATTY [id number]) RT Assessment Pulmonary History Pulmonary History COPD OXYGEN HISTORY: Supplemental O2 At Rest 2 Trilogy/AVAPS Can use home machine No Current Respiratory Symptoms Current Respiratory Symptoms Cough Respiratory Breath Sounds Breath Sounds Any abnormal sounds, decreased breath sounds Response Mild response,subjective improvement Pulse Rate <100 Respiratory Rate 18-25 Shortness of Breath None Respiratory Therapy Score Total 3 Assessment and Plan RT Treatment Protocol Bronchodilator Aerosol Therapy Protocol Note Acapella left in patients room to assist with secretion clearance, patient very un- cooperative and re-evaluate in 72hrs
--- NOTE | 2022-10-15 16:56 | W.PM.PROGNOT ---
Date of Service Date of service: 10/15/22 Time of Service: 16:56 Assessment and Plan Assessment and plan (1) COPD exacerbation: Status: Acute Assessment and plan: with acute hypoxic hypercapnic respiratory failure. Continue doxycycline, scheduled + prn nebs, antitussives, pulmonary toilet. Requiring restraints due to pulling off her oxymask. Continue low dose prednisone, but consider increasing dose. (2) Acute on chronic heart failure: Status: Acute Assessment and plan: Continue furosemide, atenolol, atorvastatin. OBtain an echocardiogram. (3) Diabetes mellitus: Assessment and plan: Continue SSI BGs today: 95, 183, 167 (4) Hypertension: Assessment and plan: Last BP of 173/81 is the only truly elevated BP today. Continue current regimen. (5) Metabolic encephalopathy: Status: Acute Assessment and plan: Vs delirium due to nuplasid or due to dementia and being outside of her environment. I have consulted neurology, unavailable in house until 10/17/22. (6) DVT prophylaxis: Status: Acute Assessment and plan: SC enoxaparin (7) Discharge planning issues: Status: Acute Assessment and plan: DNR/DNI Continues to require hospitalization C/s palliative care, PT. Subjective Subjective Interval history since last seen: Ms Thao denies dizziness, headache, CP, SOB, nausea. She states that it hurts to open her eyes - that the lights bother her. Per nurses, pulls the oxymask off if not in restraints and desaturates to the 70s on RA in seconds. DId not permit bloodwork. Exam Narrative Exam Narrative: General: Pleasant elderly female, A&Ox1, prefers to keep her eyes closed, on oxymask at 3.5 L; in soft upper extremity restraints. HEENT: when does open her eyes (with the curtains closed), EOMI, MMM Heart: RRR, no m/r/g Lungs:Diminished breath sounds B Abdomen: soft, nontender, nondistended Extremities: no edema BLEs; BUEs in soft restraints. Objective Last Vital Signs Temp 36.5 C 10/15/22 14:51 Pulse 74 10/15/22 16:40 Resp 20 10/15/22 16:40 BP 173/81 H 10/15/22 14:51 Pulse Ox 94 10/15/22 16:40 Time Spent with Patient Time Spent with Patient: 25-34 minutes Time was spent: preparing to see the patient(eg.review tests), obtaining and/or reviewing separately otained hiistory, ordering medications,tests, procedures, referring, communicating with other health clinical care manager, indepentently interpreting results, counseling the patient and care coordination
[2022-10-15] MEDS: rOPINIRole 0.5 MG TAB PO (21:42)
[2022-10-15] MEDS: guaiFENesin 600 MG TABCR PO (21:43)
[2022-10-15] MEDS: Atorvastatin 10 MG TAB PO (21:43)
--- NOTE | 2022-10-15 21:44 | PDOC.CMPRO ---
Date of service: 10/15/22 Time of Service: 21:44 Care Management Progress Note Progress Note Text Progress Note Text: S/O:Pamela was sitting up in bed when CM met with her. She was confused and unable to engage in meaningful conversation. Pamela was yelling out periodically during the day and has required the use of soft restraints to prevent removal of oxygen and medical lines. She has requires the use of an oxymask with 3-4L/min of O2 to maintain her oxygen saturation levels in the high 80s to low 90s.. A:Pamela is a 76 year old woman admitted on 10/12/22 with a COPD exacerbation P:Ivette will discharge back to [facility] when medically cleared by the provider. She will follow up with the facility provider and plan of care and transport via RCT., CM will follow and assess for ongoing discharge concerns.
[2022-10-16] VITALS (12 sets, daily range): BP systolic 108–161; BP diastolic 58–72; PULSE 71–90; RESP 5–24; TEMP 36.5–37.1; O2SAT 89–93
[2022-10-16] MEDS: LORazepam 2 MG/ML VIAL 1 MG IM/IV ×2 (07:54→17:41)
[2022-10-16] MEDS: Albuterol/Ipratropium 3 ML UPD VIAL UPD ×4 (08:27→21:37)
[2022-10-16] MEDS: Nystatin POWDER 60 GM JAR TP ×2 (09:00→21:41)
[2022-10-16] MEDS: Insulin Aspart 300 UNITS/3 ML PEN SC (17:01)
--- NOTE | 2022-10-16 17:14 | PGE_ITS ---
Date of Service Date of service: 10/16/22 Time of Service: 17:14 Assessment and Plan Assessment and plan (1) COPD exacerbation: Status: Acute Assessment and plan: with acute hypoxic hypercapnic respiratory failure. Continue doxycycline, scheduled + prn nebs, antitussives, pulmonary toilet. Requiring restraints due to pulling off her oxygen. Continue low dose prednisone. (2) Acute on chronic heart failure: Status: Acute Assessment and plan: Continue furosemide, atenolol, atorvastatin. Await an echocardiogram. (3) Diabetes mellitus: Assessment and plan: Continue SSI (4) Hypertension: Assessment and plan: Last BP of 173/81 is the only truly elevated BP today. Continue current regimen. (5) Metabolic encephalopathy: Status: Acute Assessment and plan: Vs delirium due to nuplasid or due to dementia and being outside of her environment. I have consulted neurology, unavailable in house until 10/17/22. (6) DVT prophylaxis: Status: Acute Assessment and plan: SC enoxaparin (7) Discharge planning issues: Status: Acute Assessment and plan: DNR/DNI Continues to require hospitalization C/s palliative care, PT. Subjective Subjective Interval history since last seen: Ms Thao states that she has been feeling short of breath and coughing. She states her chest is irritated from coughing. Denies dizziness, states she is both hungry and nauseated. She is very interested in dinner, which was right about to be fed to her by nursing. She was transitioned to 3L of o2 By NC. She continues to pull off her NC and continues to require restraints. Exam Narrative Exam Narrative: General: Somewhat irritated elderly female, A&Ox1, prefers to keep her eyes closed, on NC at 3L; in soft upper extremity restraints. HEENT: when does open her eyes EOMI, MMM Heart: RRR, no m/r/g Lungs: Diminished breath sounds B Abdomen: soft, nontender, nondistended Extremities: no edema BLEs; BUEs in soft restraints. Objective Last Vital Signs Temp 36.9 C 10/16/22 15:17 Pulse 83 10/16/22 15:17 Resp 22 10/16/22 15:17 BP 122/68 10/16/22 15:17 Pulse Ox 92 10/16/22 16:19 Laboratory Results - last 24 hr 10/15/22 10/15/2223 11:44 11:44 11:44 WBC Cancelled RBC Cancelled Hgb Cancelled Hct Cancelled MCV Cancelled MCH Cancelled MCHC Cancelled RDW Cancelled Plt Count Cancelled MPV Cancelled Immature Gran % Cancelled Neutrophils % Cancelled Band Neutrophils % Cancelled Lymphocytes % Cancelled Atypical Lymphs % Cancelled Monocytes % Cancelled Eosinophils % Cancelled Basophils % Cancelled Metamyelocytes % Cancelled Myelocytes % Cancelled Promyelocytes % Cancelled Other Cells % Cancelled Nucleated RBC % Cancelled Absolute Neutrophils Cancelled Absolute Lymphocytes Cancelled Absolute Monocytes Cancelled Absolute Eosinophils Cancelled Absolute Basophils Cancelled RBC Morphology Cancelled Polychromasia Cancelled Hypochromasia Cancelled Poikilocytosis Cancelled Basophilic Stippling Cancelled Anisocytosis Cancelled Microcytosis Cancelled Macrocytosis Cancelled Spherocytes Cancelled Tear Drop Cells Cancelled Ovalocytes Cancelled Stomatocytes Cancelled Parsons-Firth Bodies Cancelled Karl Cells/Echinocytes Cancelled Acanthocytes (Spur) Cancelled Schistocytes Cancelled Sodium Cancelled Potassium Cancelled Chloride Cancelled Carbon Dioxide Cancelled Anion Gap Cancelled BUN Cancelled Creatinine Cancelled Est GFR (CKD-EPI 2020) Cancelled Glucose Cancelled Calcium Cancelled Magnesium Cancelled Procalcitonin Cancelled Time Spent with Patient Time Spent with Patient: 25-34 minutes Time was spent: preparing to see the patient(eg.review tests), obtaining and/or reviewing separately otained hiistory, ordering medications,tests, procedures, referring, communicating with other health neonatal intensive care nurse, indepentently interpreting results and counseling the patient
[2022-10-16] MEDS: Polyethylene Glycol 3350 17 GM PACKET PO (21:37)
[2022-10-16] MEDS: guaiFENesin 600 MG TABCR PO (21:39)
[2022-10-16] MEDS: clonazePAM 0.5 MG TAB 0.25 MG PO (21:39)
[2022-10-16] MEDS: Magnesium Oxide 400 MG TAB 800 MG PO (21:39)
[2022-10-16] MEDS: rOPINIRole 0.5 MG TAB PO (21:39)
[2022-10-16] MEDS: Doxycycline Hyclate 100 MG CAP PO (21:39)
[2022-10-16] MEDS: Atorvastatin 10 MG TAB PO (21:40)
[2022-10-17] VITALS (16 sets, daily range): BP systolic 94–137; BP diastolic 58–79; PULSE 69–86; RESP 1–20; TEMP 36.4–37.1; O2SAT 90–98
[2022-10-17 07:04] LABS: Abs Immature Grans 0.04 10^3/uL (0.0-0.06); Absolute Basophil Count 0.03 10^3/uL (0.0-0.2); Absolute Eosinophil Count 0.13 10^3/uL (0.0-0.7); Absolute Lymphocyte Count 0.96 10^3/uL (1.2-3.4); Absolute Monocyte Count 0.55 10^3/uL (0.1-0.8); Absolute Neutrophil Count 4.39 10^3/uL (1.2-6.7); Basophils % 0.5; Eosinophils % 2.1; HCT 46.6 % (36.0-46.0); Immature Grans % 0.7; Lymphocytes % 15.7; MCH 29.2 pg (27.0-33.0); MCHC 32.2 % (32.0-36.0); MCV 91 fL (80-95); MPV 9.4 fL (8.0-11.0); Platelet Count 178 10^3/uL (130-400); RBC 5.14 10^6/uL (3.93-5.22); RDW 14.1 % (11.7-14.6); RDW-SD 47.3 fL
[2022-10-17 07:22] LABS: Anion Gap 3.9 mmol/L (3-11); BUN 23 mg/dL (7-18); CO2 34.1 mmol/L (21.0-32.0); CREATININE 0.7 mg/dL (0.55-1.02); Calcium 8.9 mg/dL (8.5-10.1); Chloride 102 mmol/L (98-107); Estimated GFR 90.14 (mL/min/1.73m2); Glucose 124 mg/dL (74-106); Magnesium 2.2 mg/dL (1.8-2.4); Potassium 4.1 mmol/L (3.5-5.1); Sodium 140 mmol/L (136-145)
[2022-10-17] MEDS: Furosemide 20 MG TAB PO (07:51)
[2022-10-17] MEDS: Lisinopril 5 MG TAB 15 MG PO (07:51)
[2022-10-17] MEDS: Enoxaparin 40 MG/0.4 ML SYR SC (07:51)
[2022-10-17] MEDS: Senna TAB 2 TAB PO (07:51)
[2022-10-17] MEDS: predniSONE 20 MG TAB 10 MG PO (07:52)
[2022-10-17] MEDS: Multivitamin TAB 1 TAB PO (07:53)
[2022-10-17] MEDS: guaiFENesin 600 MG TABCR PO ×2 (07:53→21:05)
[2022-10-17] MEDS: Aspirin E.C. 81 MG TABEC PO (07:53)
[2022-10-17] MEDS: Calcium Carbonate 1.5 GM TAB PO (07:53)
[2022-10-17] MEDS: Cholecalciferol (Vitamin D3) 400 UNIT TAB PO (07:53)
[2022-10-17] MEDS: Pantoprazole 40 MG TABCR PO (07:53)
[2022-10-17] MEDS: Doxycycline Hyclate 100 MG CAP PO ×2 (07:53→21:05)
[2022-10-17] MEDS: Magnesium Oxide 400 MG TAB 800 MG PO ×2 (07:53→21:05)
[2022-10-17] MEDS: Carbidopa 25/Levodopa 100 TAB PO ×3 (07:54→16:52)
[2022-10-17] MEDS: clonazePAM 0.5 MG TAB 0.25 MG PO (07:54)
[2022-10-17] MEDS: Atenolol 50 MG TAB PO (07:55)
[2022-10-17] MEDS: Albuterol/Ipratropium 3 ML UPD VIAL UPD ×4 (08:11→19:13)
[2022-10-17] MEDS: Tiotropium Bromide-Respimat 10 PUFF INH 2 PUFF IH (08:18)
--- NOTE | 2022-10-17 09:24 | PDOC.CMPRO ---
Date of service: 10/17/22 Time of Service: 09:24 Care Management Progress Note Progress Note Text Progress Note Text: S/O: Ivette did not require O2 until three days prior to her admission, per Crystal from the [facility]. Ivette is being closely monitored and treated. She refuses Bi-pap. Neurology and Palliative consults are ordered. Anticipate, Patient will discharge back to the [facility] when medically cleared by provider. A:Pamela is a 76 year old woman admitted on 10/12/22 with a COPD exacerbation P:Ivette will discharge back to [facility] when medically cleared by the provider. She will follow up with the facility provider and plan of care and transport via RCT., CM will follow and assess for ongoing discharge concerns.
--- NOTE | 2022-10-17 10:29 | PT.INNT ---
Date of service: 10/17/22 Time of Service: 10:30 PT Notes Visit Reasons: COPD Exacerbation Patient has been combative and remains on soft restraints. Will hold off on PT evaluation until behavioral issue is managed/minimized/stabilized. Will recheck patient's appropriateness for PT tomorrow morning.
[2022-10-17] MEDS: Insulin Aspart 300 UNITS/3 ML PEN SC ×2 (12:08→16:52)
--- NOTE | 2022-10-17 12:58 | NCONE_ITS ---
Date of service: 10/17/22 Time of Service: 12:59 Assessment and Plan Assessment and plan (1) Delirium: Status: Acute (2) Parkinson disease: Assessment and plan: Ms. Thao is a 76 year-old woman with Parkinsons and MCI with visual hallucinations admitted with complicated respiratory failure with acute d elirium. Today seems to be her most lucid day. Unclear if LACK of Nuplazid contributed to delirium, but not likely as symptoms started prior to missing her first dose. Luckily, she seems to have had a first good day today, though unclear if this was due to any medication changes that have been made (such as steroid reduction), or more likely due to just time/recovery from acute illness. From a long-term care view point, I would d/c ropinirole which is the most likely agent to be contributing to hallucinations and for which there isn't a significant role for as she is on carbidopa-levodopa. I would also recommend d/c'ing clonazepam as this may be contributing to delirum or slowing recovery. Though, if there is a strong anxiety component when coming off, re-evaluation may be necessary. For agitation in the meantime, I would use Seroquel 25mg BID, though this can be increased higher as needed. I have reached out to her retirement team regarding Nuplazid. If that was of significant benefit, it would seem she should transition back to that as an outpatient - which will be somewhat complicated and team should reach out for instructions. Finally, ok to continue Sinemet 2-1-2 for now, though likely needs to increase back to 2 tabs TID at some point given noted outpatient decline in posture following reduction. She should f/up with [facility] as an outpatient. History of Present Illness History of Present Illness Chief Complaint: AMS Narrative: Handedness: right. HPI: Ms. Thao is a 76 year-old with Parkinsons - akinetic rigid type, hypertension, hyperlipidemia, DM2, neuropathy, DVT on apixaban. Ms. Thao was admitted on 10/12/22 for 2 days of increasing shortness of breath and hypoxia found to have hypercapneic respiratory failure, likely COPD exacerbation, and acute on chronic CHF. That first night, Ms. Thao became quite agitated requiring treatment with Ativan and Haldol and has since been in restraints, despite improvements in her CO2, COPD, CHF, etc though she still remains O2 dependent. There was concern steroid Rx may have contributed but I don't see that any steroids were given prior to 10/15/22 at which time she was started on prednisone 20mg daily which was reduced to 10mg daily today. She has not received Nuplazid since her arrival due to not having on formulary and then d/c'd by primary team over concern it could be contributing to her agitation. She has instead been started on clonazepam 0.25mg BID without clear benefit. This afternoon she has been the most lucid and cooperative of her stay. Ms. Thao was diagnosed with Parkinsons in 2018 with +Mary scan, though unclear how long she had symptoms prior to that time. She has been using a walker since 2019 and has not driven since 2019. Her primary neurologist is Dr. Amanda Salguero at [facility] whom she last saw on 04/10/22 at which time she was on Sinemet 25/100mg x2 TID. I reviewed those notes. Ms. Thao has been residing at the [facility] since Apr 2022 after hospitalization at [facility], but I do not have much information about that stay. I was able to review some of her NH notes from 06/12/22 onward. Per nursing staff at her facility whom I spoke to, since admission she has been pleasantly confused at times with non-disturbing visual hallucinations. 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 She was started on ropinirole 0.25mg HS at that time. F/up one week later, noted improved sleep but now with paranoia. On 06/30/22, Ivette was documented to continue to have hallucinations with mild paranoia - evening nurse that previous night indicated she saw 2 men during the night and a rabbit. Rec's at that time were to reduce Sinemet from 2 tabs TID to 2-1-2 as they thought this might help reduce hallucinations and paranoia. Notes also indicated she goes to bed at 7pm and is awake between 2-5am. Requip was increased to 0.5mg HS for insomnia. At follow-up on 07/07/22, notes indicate worsening hallucinations that were then becoming fearful for Ivette. She was started on Seroquel 25mg HS at that time, though they had wanted to start Nuplazid, but couldn't get insurance/NH approval. On 07/30/22, her VH again worsened after several weeks of improvement in both VH and sleep. They also note that she is increasingly leaning to the right. Seroquel was increased to 50mg HS. On 08/29/22, Ivette was no longer considered skilled and Seroquel was switched to Nuplazid for ongoing VH. There are no further notes to indicate response to Nuplazid until 10/11/22 when she was documented to be hypoxic and sent to the ER on 10/12/22. I am hoping to talk with team tomorrow to discuss how she was doing on Nuplazid. Work-up: -Labs (10/02/22): W 6.61, Na 144, CO2 41, Cr 0.8, Ca 8.3, Mag 1.6, trop x2 neg, a mmonia 14, BNP 1179, TSH 0.91, UA neg, VBG CO2 82 --> 51 on 10/14 Review of Systems All systems reviewed & are unremarkable except as noted in HPI and below PFSH All Active Problems (Updated 10/15/22 @ 17:09 by Camelia Asencio MD) Discharge planning issues (Acute) DVT prophylaxis (Acute) Metabolic encephalopathy (Acute) Delirium (Acute) Acute on chronic heart failure (Acute) COPD exacerbation (Acute) Epiretinal membrane (ERM) of right eye (Chronic) Medical History Aortic valve insufficiency Carpal tunnel syndrome, right Diabetes mellitus Functional heart murmur History of adenomatous polyp of colon Hypercholesteremia Hyperlipidemia Hypertension Lipoma of left thigh Parkinson disease Swelling of both lower extremities Surgical History History of lumpectomy History of tubal ligation Hx of carpal tunnel repair Right Social History Smoking/Tobacco Use Status: Unknown Smoking risk assessment performed?: Yes Alcohol Intake: never Drug use: Never Substance use type: does not use Housing: retirement Do you feel safe at home: Yes Visit Medication and Allergies Active Medications Generic Name Dose Route Start Last Admin Trade Name Freq PRN Reason Stop Dose Admin Acetaminophen 0 mg 10/12/22 15:26 10/12/22 20:14 Acetaminophen 325 Mg Tab PO 325 mg Q4H PRN PRN Administration Al Hydrox/Mg Hydrox/Simethicone 30 ml 10/12/22 15:26 Mylanta Suspension 30 Ml Cup PO Q2H PRN PRN Albuterol Sulfate 2.5 mg 10/12/22 15:26 Albuterol 2.5 Mg/3 Ml Inh Soln Vial UPD Q2H PRN PRN Albuterol/Ipratropium 3 ml 10/12/22 16:00 10/17/22 12:37 Albuterol/Ipratropium 3 Ml Upd Vial UPD 3 ml QID JENNY Administration Aspirin 81 mg 10/13/22 08:30 10/17/22 07:53 Aspirin E.C. 81 Mg Tabec PO 81 mg DAILY JENNY Administration Atenolol 50 mg 10/13/22 08:30 10/17/22 07:55 Atenolol 50 Mg Tab PO 50 mg DAILY JENNY Administration Atorvastatin Calcium 10 mg 10/12/22 22:00 10/16/22 21:40 Atorvastatin 10 Mg Tab PO 10 mg HS JENNY Administration Calcium Carbonate 1.5 gm 10/13/22 08:30 10/17/22 07:53 Calcium Carbonate 1.5 Gm Tab PO 1.5 gm DAILY JENNY Administration Carbidopa/Levodopa 1 tab 10/13/22 12:00 10/17/22 12:07 Carbidopa 25/Levodopa 100 Tab PO 1 tab DAILY@1200 JENNY Administration Carbidopa/Levodopa 2 tab 10/12/22 18:00 10/17/22 07:54 Carbidopa 25/Levodopa 100 Tab PO 2 tab BID@0830,1700 JENNY Administration Cholecalciferol 400 unit 10/13/22 08:30 10/17/22 07:53 Cholecalciferol (Vitamin D3) 400 Unit Tab PO 400 unit DAILY JENNY Administration Clonazepam 0.25 mg 10/14/22 20:00 10/17/22 07:54 Clonazepam 0.5 Mg Tab PO 0.25 mg BID JENNY Administration Dextrose 0 gm 10/12/22 22:04 Glucose Oral Gel 15 Gm/37.5 Gm Tube PO DIRECTED PRN Dextrose/Water 0 gm 10/12/22 22:04 Dextrose 50%-Water 25 Gm/50 Ml Syr IVP DIRECTED PRN Dimethicone/Zinc Oxide 0 gm 10/12/22 15:26 Layla Protect Cream 142 Gm Tube TP PRN PRN Docusate Sodium 100 mg 10/12/22 15:26 Docusate Sodium 100 Mg Cap PO TID PRN PRN Doxycycline Hyclate 100 mg 10/12/22 20:00 10/17/22 07:53 Doxycycline Hyclate 100 Mg Cap PO 100 mg BID [facility] Administration Enoxaparin Sodium 40 mg 10/14/22 08:30 10/17/22 07:51 Enoxaparin 40 Mg/0.4 Ml Syr SC 40 mg DAILY [facility] Administration Furosemide 20 mg 10/13/22 08:30 10/17/22 07:51 Furosemide 20 Mg Tab PO 20 mg DAILY [facility] Administration Gabapentin 200 mg 10/12/22 20:00 10/13/22 13:39 Gabapentin 100 Mg Cap PO 200 mg TID [facility] Administration Guaifenesin 600 mg 10/15/22 20:00 10/17/22 07:53 Guaifenesin 600 Mg Tabcr PO 600 mg BID [facility] Administration IV Miscellaneous Supplies 1 each 10/12/22 13:00 Iv Access IV DIRECTED [facility] Insulin Aspart 0 units 10/13/22 08:00 10/17/22 12:08 Insulin Aspart 300 Units/3 Ml Pen SC 1 unit 0800,1200,1700 [facility] Administration Protocol Lisinopril 15 mg 10/13/22 08:30 10/17/22 07:51 Lisinopril 5 Mg Tab PO 15 mg DAILY [facility] Administration Lorazepam 1 mg 10/14/22 00:32 10/16/22 17:41 Lorazepam 2 Mg/Ml Vial IM/IV 1 mg Q4H PRN PRN Administration Magnesium Hydroxide 30 ml 10/12/22 15:26 Milk Of Magnesia 30 Ml Cup PO DAILY PRN PRN Magnesium Oxide 800 mg 10/12/22 20:00 10/17/22 07:53 Magnesium Oxide 400 Mg Tab PO 800 mg BID [facility] Administration Multivitamins 1 tab 10/13/22 08:30 10/17/22 07:53 Multivitamin Tab PO 1 tab DAILY [facility] Administration Nystatin 0 gm 10/13/22 20:00 10/17/22 08:26 Nystatin Powder 60 Gm Jar TP Not Given BID [facility] Pantoprazole Sodium 40 mg 10/13/22 07:30 10/17/22 07:53 Pantoprazole 40 Mg Tabcr PO 40 mg DAILY@0730 JENNY Administration Polyethylene Glycol 17 gm 10/13/22 20:00 10/17/22 07:55 Polyethylene Glycol 3350 17 Gm Packet PO Not Given BID JENNY Prednisone 10 mg 10/17/22 08:30 10/17/22 07:52 Prednisone 20 Mg Tab PO 10/18/22 08:31 10 mg DAILY JENNY Administration Ropinirole HCl 0.5 mg 10/12/22 22:00 10/16/22 21:39 Ropinirole 0.5 Mg Tab PO 0.5 mg HS JENNY Administration Sennosides 2 tab 10/14/22 08:30 10/17/22 07:51 Senna Tab PO 2 tab DAILY JENNY Administration Sodium Chloride 0 ml 10/12/22 12:53 10/15/22 10:58 Normal Saline Flush 10 Ml Syr IVP 10 ml PRN PRN Administration Tiotropium [place] 2 puff 10/13/22 08:30 10/17/22 08:18 Tiotropium [place]-Respimat 10 Puff Inh IH 2 inh DAILY JENNY Administration Allergies niacin Adverse Reaction (Intermediate, Unverified 10/12/22 17:07) Flushing & Hives Exam Narrative Exam Narrative: Physical Exam: Gen: Patient of apparent stated age, NAD Head and face: no facial or cranial abnormalities Neck: Supple, no meningismus, no occipital tenderness CV: RRR, +harsh systolic murmur Resp: CTA B/L Abd: soft, nontender, nondistended Ext: No edema. No clubbing or cyanosis. No bony deformity. Neuro Exam: Language: fluency, naming, repetition, and comprehension intact; Mental Status: AAOxself; knew year, month, day of week; did not know city, hospital;, current events and fund of knowledge limited; Speech: no dysarthria Cranial nerves: Funduscopy: not performed CN II: visual chun intact CN III, IV, : extraocular movements intact, no nystagmus, pupils symmetric and reactive to light CN V: face sensation intact to LT CN VII: no facial asymmetry noted CN VIII: hearing intact bilaterally CN IX, X: palate rises symmetrically CN XI: trapezius/SCM 5/5 bilaterally CN XII: protrudes tongue symmetrically Sensory: intact to LT, absent Romberg Motor: bulk intact. Fine motor movements and pronator drift not tested due to restraints. Mild bilateral cogwheel rigidity. Strength 5/5 throughout including the deltoids, biceps, triceps, wrist extensors, hip flexors, knee flexors, knee extensors, ankle flexors, and ankle extensors. Reflexes: hyporeflexic throughout; toes down going bilaterally; Coordination: no ataixa Gait: not tested Results Last Vital Signs Temp 97.7 F 10/17/22 10:55 Pulse 76 10/17/22 12:37 Resp 20 10/17/22 12:37 BP 94/58 L 10/17/22 10:55 Pulse Ox 96 10/17/22 12:37 Labs 10/17/22 06:19 10/17/22 06:19 Labs: Laboratory Results - last 24 hr 10/16/22 10/16/22 10/17/22 05:35 05:35 06:19 WBC Cancelled RBC Cancelled Hgb Cancelled Hct Cancelled MCV Cancelled MCH Cancelled MCHC Cancelled RDW Cancelled Plt Count Cancelled MPV Cancelled Immature Gran % Cancelled Neutrophils % Cancelled Band Neutrophils % Cancelled Lymphocytes % Cancelled Atypical Lymphs % Cancelled Monocytes % Cancelled Eosinophils % Cancelled Basophils % Cancelled Metamyelocytes % Cancelled Myelocytes % Cancelled Promyelocytes % Cancelled Other Cells % Cancelled Nucleated RBC % Cancelled Absolute Neutrophils Cancelled Absolute Lymphocytes Cancelled Absolute Monocytes Cancelled Absolute Eosinophils Cancelled Absolute Basophils Cancelled RBC Morphology Cancelled Polychromasia Cancelled Hypochromasia Cancelled Poikilocytosis Cancelled Basophilic Stippling Cancelled Anisocytosis Cancelled Microcytosis Cancelled Macrocytosis Cancelled Spherocytes Cancelled Tear Drop Cells Cancelled Ovalocytes Cancelled Stomatocytes Cancelled [place] Bodies Cancelled Karl Cells/Echinocytes Cancelled Acanthocytes (Spur) Cancelled Schistocytes Cancelled Sodium Cancelled 140 Potassium Cancelled 4.1 Chloride Cancelled 102 Carbon Dioxide Cancelled 34.1 H Anion Gap Cancelled 3.9 BUN Cancelled 23 H Creatinine Cancelled 0.7 Est GFR (CKD-EPI 2020) Cancelled 90.14 Glucose Cancelled 124 H Calcium Cancelled 8.9 Magnesium Cancelled 2.2 10/17/22 06:19 WBC 6.10 RBC 5.14 Hgb 15.0 Hct 46.6 H MCV 91 MCH 29.2 MCHC 32.2 RDW 14.1 Plt Count 178 MPV 9.4 Immature Gran % 0.7 Neutrophils % 72.0 Band Neutrophils % Lymphocytes % 15.7 Atypical Lymphs % Monocytes % 9.0 Eosinophils % 2.1 Basophils % 0.5 Metamyelocytes % Myelocytes % Promyelocytes % Other Cells % Nucleated RBC % 0.0 Absolute Neutrophils 4.39 Absolute Lymphocytes 0.96 L Absolute Monocytes 0.55 Absolute Eosinophils 0.13 Absolute Basophils 0.03 RBC Morphology Polychromasia Hypochromasia Poikilocytosis Basophilic Stippling Anisocytosis Microcytosis Macrocytosis Spherocytes Tear Drop Cells Ovalocytes Stomatocytes [place] Bodies Karl Cells/Echinocytes Acanthocytes (Spur) Schistocytes Sodium Potassium Chloride Carbon Dioxide Anion Gap BUN Creatinine Est GFR (CKD-EPI 2020) Glucose Calcium Magnesium
--- NOTE | 2022-10-17 13:55 | NUR.NOTE ---
At approx 1128, pt restraints removed. Pt encouraged not to pull at valencia catheter or PIV. Pt stated she understood. sleeve placed on R leg and L arm to protect against pulling. MD discontineued Co2 monitoring and pt placed on simple NC at 2.5L/min. Pt in NAD. Will continue monitoring. Bed alarm on.
--- NOTE | 2022-10-17 15:23 | IN_ITS ---
Date of service: 10/17/22 Time of Service: 14:28 PT Notes Visit Reasons: COPD Exacerbation Physical Therapy Inpatient Initial Evaluation Date: 10/17/2022 Referring Doctor: Camelia Asencio MD x PT Orders: PT CONSULT: Limited ability Precautions: Fall. Standard. Activity as tolerated. Patient Profile/Admitting Diagnosis: Ivette is a 76-year-old female with past medical history significant for Parkinson's disease and diabetes mellitus who was admitted to the ED on 10/12/2022 due to worsening shortness of breath, wheezing, and generalized weakness. Patient is admitted to the MedSurg unit for COPD exacerbation, acute on chronic heart failure, diabetes mellitus, hypertension, and metabolic encephalopathy. PMHX: All Active Problems?(Updated 10/12/22 @ 21:53 by Marco Jordan MD) Acute on chronic heart failure (Acute) COPD exacerbation (Acute) Epiretinal membrane (ERM) of right eye (Chronic) Medical History? Aortic valve insufficiency Carpal tunnel syndrome, right Diabetes mellitus Functional heart murmur History of adenomatous polyp of colon Hypercholesteremia Hyperlipidemia Hypertension Lipoma of left thigh Parkinson disease Swelling of both lower extremities Surgical History? History of lumpectomy History of tubal ligation Hx of carpal tunnel repair Right Social History/Home Situation: Resident of the [facility]. Assistance with transfers provided by nursing staff at the [facility]. Patient is able to wheel herself from her room to the dining room with her wheelchair. Equipment Owned/DME: Wheelchair, FWW Subjective: Patient was initially seen this morning but was on soft restraints and appeared not appropriate for PT. This afternoon soft restraints were discharged and patient appeared to be much more responsive and appropriate to interview questions. She is agreeable to getting out of bed and transferring onto the [facility]. She states that she uses the wheelchair most of the time at the [facility] and that staff there helps her out with transfers. Objective: General Observation: Supine in bed. Oxygen supplementation at 2.5 L/min via NC. Mac catheter in place. Red toscano noted on left side of upper back and low back hospitalist Dr. Johnston came in to auscultate patient. Mental Status: Alert and oriented as to person and place when seen this afternoon. Now able to pay attention, focus, and respond appropriately. Pain: Denies Vital Signs: Oxygen saturation stayed above 90% on 2.5 L throughout session. ROM: Right Upper Extremity: Shoulder Flexion WFL. Shoulder abduction WFL. Elbow flexion WFL. Wrist flexion WFL. Functional opening and closing of hand WFL. Left Upper Extremity: Shoulder Flexion WFL. Shoulder abduction WFL. Elbow flexion WFL. Wrist flexion WFL. Functional opening and closing of hand WFL. Right Lower Extremity: Hip flexion WFL. Hip abduction WFL. Knee flexion WFL. Ankle dorsiflexion WFL. Ankle plantarflexion WFL. Left Lower Extremity: Hip flexion WFL. Hip abduction WFL. Knee flexion WFL. Ankle dorsiflexion WFL. Ankle plantarflexion WFL. Strength: Right Upper Extremity: Shoulder flexors 4-/5. Shoulder abductors 4-/5. Elbow flexors 4-/5. Elbow extensors 4-/5. Developer Advocate strong. Left Upper Extremity: Shoulder flexors 4-/5. Shoulder abductors 4-/5. Elbow flexors 4-/5. Elbow extensors 4-/5. Developer Advocate strong. Right Lower Extremity: Hip flexors 3+/5. Hip abductors 3+/5. Knee flexors 4-/5. Knee extensors 3+/5. Ankle dorsiflexors 4-/5. Ankle plantarflexors 4-/5. Left Lower Extremity: Hip flexors 3+/5. Hip abductors 3+/5. Knee flexors 4-/5. Knee extensors 3+/5. Ankle dorsiflexors 4-/5. Ankle plantarflexors 4-/5. Bed Mobility/Transfers: Rolling minimal assist with moderate verbal cueing for sequence and correct technique Supine to sit minimal assist with moderate verbal cueing for sequence and correct technique, HOB at 45 degrees Sit to stand minimal assist of 2 with moderate verbal cueing for sequence and correct technique Stand to sit contact guard assist, cues needed for hand placement Bed to reclining chair minimal assist of 2 with moderate verbal cueing for sequence and correct technique Gait: Instructed patient with level surface ambulation of 4-5 small steps x 2 to transfer from bedside to wheelchair and wheelchair to bedside chair. Difficulty initiating and completing movement noted with some freezing episodes made every time she was instrcuted to back up onto transfer surface. Balance: Static Sitting: Normal Dynamic Sitting: Good Static Standing: Fair Dynamic Standing: Poor Special Tests: Mobility Limitations Standardized Measure [facility] AM-PAC 6 clicks Basic Mobility Inpatient Short Form: Raw Score: 12 CMS Score: 69% deficit Informed Consent/Education: Patient was instructed in purpose of PT consult and plan of care. Agreeable to proceed with established PT POC to achieve personal goals. Assessment: Impaired activity tolerance due to pneumonia and COPD exacerbation compounded by pre-existing Parkinson's disease limit ability of patient to perform mobility ADL performance safely. She requires the assistance of 2 for transfers and the use of FWW. She needs verbal, visual, and tactile cueing to maximize her motor initiation, execution, and completion. Patient presents with clinical signs and symptoms consistent with current/admitting diagnoses that have resulted to mobility limitations, gait instability, generalized weakness, and overall ADL decline as demonstrated by the following impairment level findings: 1. Decreased strength to B UE/LE major muscle groups 2. Impaired sitting/standing balance 3. Impaired activity tolerance 4. Shortness of breath 6. Impaired motor planning from pre-existing PD and ongoing metabollic encephalopahty Impairments are contributing to the following functional limitations: 1. Decline in bed mobility skills 2. Decline in transfer skills 3. Difficulty with ambulation without assistive device and physical assistance 4. Increased completion time for mobility ADL performance 5. Increased risk for falls 6. Difficulty with managing steps alone safely Patient is assessed as a 51801 complexity based on the following: History: 76-year-old female with past medical history as indicated above Examination: Demonstrable impairment in strength, balance, and mobility level with underlying impairments and functional limitations as exhibited above as well as deficit score of 69% utilizing the [facility] Mobility Inpatient Short Form Presentation: Evolving Decision Makin moderate complexity Goals: Goals X1 week 1. Supine-Sit supervision 2. Sit-Supine supervision 3. Sit-Stand supervision 4. Stand-Sit stand by assist with FWW 5. Bed-Chair stand by assist with FWW 6. Chair-Bed stand by assist with FWW 7. Stand by assist gait on level surface with use of FWW for at least 25 feet without report of pain nor dyspnea 8. Good static and dynamic standing balance/tolerance Plan of Care/Treatment Plan: 1-2x/day, 7 days/week x 1 week. Plan of care has been reviewed with the DYEHOUSE WORKER providing the service under Physical Therapy direction. Coordinate with nurse to ensure that PD meds are taken half an hour to an hour before PT session to maximize performance and reduce fatigue. Initiate Physical Therapy intervention for pain management as needed, strengthening, bed mobility, transfers, gait, stairs, balance training, and use of assistive device. DISCHARGE RECOMMENDATIONS: [] Home with no services [] [] Home with services [specify] [] Home with outpatient PT [] [] SNF for continued rehabilitation [] [] Group Home Care [] [] SNF versus LTC based on ability to participate and progress [] [X] Return to SNF when medically cleared and continue with sub-acute rehab to maximize functional mobility outcomes TREATMENT CODE/TIME: 86604 x 25 minutes, 68493 x 15 minutes beginning at 14:28 PM. Thank you for the opportunity to participate in the care of this patient. Brittany Negrete PT, DPT, CLT [facility] [place], [place]
--- NOTE | 2022-10-17 20:14 | W.PM.PROGNOT ---
Date of Service Date of service: 10/17/22 Time of Service: 20:14 Subjective Subjective Interval history since last seen: Mary is here with a COPD exacerbation also due to some behavioral problems related to her Parkinson's disease. She has had episodes of being very difficult to manage and at times somewhat violent. She was placed in restraints on at least 1 occasion to avoid harm to others as she was lashing out and hitting the nurses. Most recently she is a bit calmer and cooperative. She had not been wearing her O2 and was desaturating regularly. Today she is much more cooperative. And Izzy from palliative care knows her and makes it clear that her COLST form indicates that she does not want to be treated against her will and is interested in comfort care. Restraints are discontinued. Dr. Acosta saw from neurology and made some recommendations on her medications to help with agitation likely secondary to some of her Parkinson's meds. Exam Narrative Exam Narrative: I visited the patient while she was getting physical therapy. She was cooperative. She helped with swinging her legs to the side of the bed and sat on the side of the bed. A thorough lung exam revealed generally good breath sounds bilaterally. Perhaps some minor end expiratory wheezes but mostly clear heart sounds were regular no abdominal tenderness her lower extremity showed no significant edema. Objective Last Vital Signs Temp 36.7 C 10/17/22 19:52 Pulse 74 10/17/22 19:52 Resp 18 10/17/22 19:52 BP 102/66 10/17/22 19:52 Pulse Ox 92 10/17/22 19:52 Laboratory Results - last 24 hr 10/17/22 10/17/22 06:19 06:19 WBC 6.10 RBC 5.14 Hgb 15.0 Hct 46.6 H MCV 91 MCH 29.2 MCHC 32.2 RDW 14.1 Plt Count 178 MPV 9.4 Immature Gran % 0.7 Neutrophils % 72.0 Lymphocytes % 15.7 Monocytes % 9.0 Eosinophils % 2.1 Basophils % 0.5 Nucleated RBC % 0.0 Absolute Neutrophils 4.39 Absolute Lymphocytes 0.96 L Absolute Monocytes 0.55 Absolute Eosinophils 0.13 Absolute Basophils 0.03 Sodium 140 Potassium 4.1 Chloride 102 Carbon Dioxide 34.1 H Anion Gap 3.9 BUN 23 H Creatinine 0.7 Est GFR (CKD-EPI 2020) 90.14 Glucose 124 H Calcium 8.9 Magnesium 2.2 Objective Narrative Objective Narrative: COPD exacerbation. Continue on present meds she appears to be improving likely may be able to transition back to the [facility] once her O2 dependence improves she is currently on 1.5 L. Parkinsonism she has active hallucinations secondary to the Parkinson's meds. Dr. Acosta feels she would be better off coming off of the antipsychotic medication and try Seroquel 25 mg p.o. twice daily. COLST. She is very clear she wants therapies aimed primarily at comfort and does not want to be treated against her will. We will avoid restraints and we will allow her to refuse treatments. Remains DNR/DNI. Time Spent with Patient Time Spent with Patient: 35-49 minutes Time was spent: preparing to see the patient(eg.review tests), obtaining and/or reviewing separately otained hiistory, ordering medications,tests, procedures, referring, communicating with other health child care center assistant director, indepentently interpreting results, counseling the patient and care coordination
[2022-10-17] MEDS: Atorvastatin 10 MG TAB PO (21:05)
[2022-10-17] MEDS: Polyethylene Glycol 3350 17 GM PACKET PO (21:05)
[2022-10-17] MEDS: QUEtiapine 25 MG TAB PO (21:26)
[2022-10-17] MEDS: Nystatin POWDER 60 GM JAR TP (21:27)
[2022-10-18] VITALS (10 sets, daily range): BP systolic 100–109; BP diastolic 60–70; PULSE 70–86; RESP 1–20; TEMP 35.7–36.7; O2SAT 89–93
[2022-10-18 07:13] LABS: Abs Immature Grans 0.08 10^3/uL (0.0-0.06); Absolute Basophil Count 0.03 10^3/uL (0.0-0.2); Absolute Eosinophil Count 0.15 10^3/uL (0.0-0.7); Absolute Lymphocyte Count 1.44 10^3/uL (1.2-3.4); Absolute Monocyte Count 0.63 10^3/uL (0.1-0.8); Absolute Neutrophil Count 4.25 10^3/uL (1.2-6.7); Basophils % 0.5; Eosinophils % 2.3; HCT 47.4 % (36.0-46.0); HGB 15.4 g/dL (11.2-15.7); Immature Grans % 1.2; Lymphocytes % 21.9; MCH 29.9 pg (27.0-33.0); MCHC 32.5 % (32.0-36.0); MCV 92 fL (80-95); MPV 9.6 fL (8.0-11.0); Monocytes % 9.6; Neutrophils % 64.5; Platelet Count 187 10^3/uL (130-400); RBC 5.15 10^6/uL (3.93-5.22); RDW 14.3 % (11.7-14.6); RDW-SD 48.4 fL; WBC 6.58 10^3/uL (4.4-10.8)
[2022-10-18 07:39] LABS: Anion Gap 6.3 mmol/L (3-11); BUN 23 mg/dL (7-18); CO2 35.7 mmol/L (21.0-32.0); CREATININE 0.8 mg/dL (0.55-1.02); Calcium 8.8 mg/dL (8.5-10.1); Chloride 104 mmol/L (98-107); Estimated GFR 76.79 (mL/min/1.73m2); Glucose 118 mg/dL (74-106); Potassium 3.7 mmol/L (3.5-5.1); Sodium 146 mmol/L (136-145)
[2022-10-18] MEDS: Enoxaparin 40 MG/0.4 ML SYR SC (07:53)
[2022-10-18] MEDS: Polyethylene Glycol 3350 17 GM PACKET PO ×2 (07:53→22:01)
[2022-10-18] MEDS: Senna TAB 2 TAB PO (07:53)
[2022-10-18] MEDS: predniSONE 20 MG TAB 10 MG PO (07:54)
[2022-10-18] MEDS: Carbidopa 25/Levodopa 100 TAB PO ×3 (07:54→16:57)
[2022-10-18] MEDS: Cholecalciferol (Vitamin D3) 400 UNIT TAB PO (07:54)
[2022-10-18] MEDS: Calcium Carbonate 1.5 GM TAB PO (07:54)
[2022-10-18] MEDS: Furosemide 20 MG TAB PO (07:55)
[2022-10-18] MEDS: Magnesium Oxide 400 MG TAB 800 MG PO ×2 (07:55→21:59)
[2022-10-18] MEDS: Multivitamin TAB 1 TAB PO (07:55)
[2022-10-18] MEDS: guaiFENesin 600 MG TABCR PO ×2 (07:55→22:01)
[2022-10-18] MEDS: QUEtiapine 25 MG TAB PO ×2 (07:55→22:00)
[2022-10-18] MEDS: Pantoprazole 40 MG TABCR PO (07:55)
[2022-10-18] MEDS: Nystatin POWDER 60 GM JAR TP (07:56)
[2022-10-18] MEDS: Doxycycline Hyclate 100 MG CAP PO ×2 (07:56→22:00)
[2022-10-18] MEDS: Aspirin E.C. 81 MG TABEC PO (07:56)
[2022-10-18] MEDS: Atenolol 50 MG TAB PO (07:56)
[2022-10-18] MEDS: Lisinopril 5 MG TAB 15 MG PO (07:56)
[2022-10-18] MEDS: Albuterol/Ipratropium 3 ML UPD VIAL UPD ×4 (07:59→19:21)
[2022-10-18] MEDS: Tiotropium Bromide-Respimat 10 PUFF INH 2 PUFF IH (08:00)
--- NOTE | 2022-10-18 09:56 | PDOC.CMPRO ---
Date of service: 10/18/22 Time of Service: 09:56 Care Management Progress Note Progress Note Text Progress Note Text: S/O:Ivette has a Palliative appointment scheduled for today. Neurology saw her yesterday, recommendations made. CM updated Angela at the [facility], where she resides. A:Pamela is a 76 year old woman admitted on 10/12/22 with a COPD exacerbation P:Ivette will discharge back to [facility] when medically cleared by the provider. She will follow up with the facility provider and plan of care and transport via RCT., CM will follow and assess for ongoing discharge concerns.
[2022-10-18] MEDS: Insulin Aspart 300 UNITS/3 ML PEN SC (11:29)
--- NOTE | 2022-10-18 14:03 | PTTR_ITS ---
PT Notes Visit Reasons: COPD Exacerbation 10/18/2022 Precautions: Fall. Standard. Activity as tolerated. SUBJECTIVE: ?Pt approached once in the morning but pt was not available for therapy, pt re-approached in the afternoon, pt in recliner agreeable to therapy. OBJECTIVE: ? PAIN: No c/o pain? BED MOBILITY/TRANSFERS? Sit-stand: Mod A ? Stand-sit: Mod A? Therapeutic Activity: Pt engage with multiple sit to cheryl with pt requiring tactile, verbal cues for guidance with activity, proper body position and safety while doing task, pt able to tolerate static standing balance activity with neutral stance 1min 40secs, 45secs, 3secs with min A/CGA to be able to stay upright. ? ASSESSMENT:?Pt having difficulty with reaching for arm rest during stand to s it, not able to perform sit to stand without using FWW to pull on, not able to initiate side step and forward stepping during transfer training with pot requiring max A for transition. pt situated in recliner after session, alarms, side table and call mejias setup, recliner positioning for safety, proper body alignment post session.? PLAN: Continue with global strengthening and general conditioning for improved mobility and activity tolerance. TREATMENT CODE/TIME: 90540 (1:35-2:00pm)
--- NOTE | 2022-10-18 14:06 | PCNE_ITS ---
Date of service: 10/18/22 Time of Service: 14:07 History of Present Illness Narrative: Ivette nuno is a 76-year-old woman who is a resident at the [facility]. She has a history of COPD, DVT, ascending thoracic aorta, Parkinson disease with hallucinations (on Seroquel for this as per the [facility] problem list), bilateral leg edema ([facility] problem list), aortic valve insufficiency/heart murmur, hypertension, hyperlipidemia, type 2 diabetes SHe was admitted to [facility] from her snf facility several days ago with increasing dyspnea and hypoxia/hypercapnia felt to be due to combination of COPD exacerbation, possible infectious component and acute on chronic heart failure. Her admission has been complicated by delirium, not unexpected given her history of Parkinson's with pervasive nighttime hallucinations. As per son Marco: Pt was independently in [place] until March 2022, when she had a bad fall and in acute hospital or SNF since. She was dxed with COVID, became hypoxic and very weak. Had prolonged hospital stay. (2-3 weeks). Initially went home on Oxygen for a week, but then had to be readmitted to hospital and eventually decision made she could no longer live independently. She has been content at the [facility]. Care Team: Primary Care physician:Selene Roper, JEIMY [facility]; previously followed at [facility] ([facility]), saw Dr. Wright once here. Social HX:[place] resident in the past, three years ago. Lives at the [facility] Children live in [place], [place] ([place], also [facility]) and one [place]([facility]). Sister in [place]. 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 Enjoys reading, soduko Gave up driving a few years ago. Impression of currents health status: I don't know What bothers you the most: can't say What worries you the most: DOn't know Function: Ambulation:Propels herself in WC, was able to use a walker while still living at home. ADLs: was able to toilet herself (including transfers). Dresses with assist, iADLs:Dependent Hearing:slightly decreased, no hearing aids Vision:reading glasses Spiritual history: No formal anabaptist, does not pray COping: I just carry on Palliative review of systems: Pain: None Dyspnea:None today GI symptoms:None Appetite:OK Depression: No Anxiety: None Emotional Distress: Spiritual/Existential Distress: Labs: Cr: 0.8 Liver panel:NL Albumin:NL CBC: hgb sl elevated ECHO 10/12: Mod AI, dilated aortic root. Chest CT: asc. aortic aneurysm. Advanced Care Planning: Advanced Directive: 2020 advanced directive on file. Consistent with 2022 COLST: DNR/DNI. Wants treatment at any time primarily directed towards comfort. Health Care Agent: Gianfranco page listed on 2020 AD. Note HCA listed on May 2022 COLST COLST: May 2022: DNR/DNI, no artificial nutrition, no IV hydration, trial of antibiotics with comfort as goal. This was signed by the patient. Limitations: Assessment and Plan Assessment and plan (1) Palliative care patient: Status: Acute Assessment and plan: PCT plans to continue to follow with patient and family after discharge (2) Hallucination, hypnopompic: Status: Acute Assessment and plan: Patient with known hallucinations on a fairly regular basis attributed to Parkinson's disease. [facility] neurology records not reviewed by me today. I did read Dr. Acosta note. I would say patient at increased risk for delirium given underlying frequent hallucinations. Following recommendations made by Dr. Acosta:- -DC ropinirole, as possibly contributing to hallucinations -Continue Sinemet -She recommended quetiapine 25 mg twice daily -Should patient develop hallucinations or delirium in the future, need to concentrate on supportive environment: -Try to keep patient out of ICU. Note that her COLST clearly states mostly comfort measures and only a trial of antibiotics, DNR/DNI. -Use a sitter to have someone with her 05/11 if she is hallucinating or delirious to reassure her. -Enlist family help to help reorient her. -Avoid physical restraints at all costs. Patient's COLST and advanced direct hiren endorse avoiding interventions and they clearly prioritize the comfort of the patient over procedures/tests requiring restraint. SHe had been goign to [facility] Neuro. But they would very much like to transfer to Dr. Wright for management of PD if possible (3) Ascending aortic aneurysm: Status: Acute Assessment and plan: Diagnosis was presented briefly (and separately to both patient (in person) and son Gianfranco (by phone). Interesting to note that in [facility] notes, 2017 e chocardiogram shows moderately enlarged ascending aortic aneurysm, 4.6, root 4.4. This number sounds similar to our echocardiogram although the CT scan says 6.2 cm. I will post the following to Gianfranco: That we have a family meeting in the next 1 to 2 weeks to discuss this diagnosis and then explore patient's goals of care. Based on this, decide whether to pursue further evaluation regarding possibility of repair. I shared that it is reassuring that it appears to been stable over the last 5 to 6 years. The widening is causing moderate AR. Christopher and patient agreed to follow-up meeting. (4) COPD exacerbation: Status: Acute (5) Hypoxia: Status: Acute (6) Advanced care planning/counseling discussion: Status: Acute Assessment and plan: I spoke with both the patient and son Gianfranco separately today regarding her advanced directives and COLST. Discussed goals of care. -Seems both the patient and the family are comfortable and content with her living at the [facility]. They both see this as a good long-term option for her. -Confirmed DNR/DNI. -Patient's COLST has checked off comfort measures only. Yet patient is in the hospital receiving IV antibiotics, supplemental oxygen. I reviewed this with her. She says she is glad she came into the hospital and received treatment that she received. She is glad she got antibiotics and some IV fluids. I am going to revise her COLST To reflect this today. To reflect this today. -I will also add her son Gianfranco as HCA to the COLST form, confirmed by patient today at the bedside. 16 to 30 minutes spent today on Advance Care Planning. Patient and family participated voluntarily. Advance care planning may include (not limited to) explanation and discussion of advance directives, choosing and appointing healthcare agents, alternatives to various ACP tools, discussion of (and if indicated, completion of) COLST form, discussion of patient's values and overall goals for treatment, palliative and disease directive care options, ways to avoid hospital readmission including hospice discussions, care preferences should the patient's several other adverse health events.See today's palliative care note for additional information. PFSH All Active Problems (Updated 10/18/22 @ 15:38 by Tessa Escobar MD) Advanced care planning/counseling discussion (Acute) Hypoxia (Acute) Ascending aortic aneurysm (Acute) Hallucination, hypnopompic (Acute) Due to Parkinsons Disease. Parkinson disease (Chronic) Palliative care patient (Acute) Discharge planning issues (Acute) DVT prophylaxis (Acute) Metabolic encephalopathy (Acute) Delirium (Acute) Acute on chronic heart failure (Acute) COPD exacerbation (Acute) Epiretinal membrane (ERM) of right eye (Chronic) Medical History Aortic valve insufficiency Carpal tunnel syndrome, right Diabetes mellitus Functional heart murmur History of adenomatous polyp of colon Hypercholesteremia Hyperlipidemia Hypertension Lipoma of left thigh Parkinson disease Swelling of both lower extremities Surgical History History of lumpectomy History of tubal ligation Hx of carpal tunnel repair Right Social History Smoking/Tobacco Use Status: Unknown Smoking risk assessment performed?: Yes Alcohol Intake: never Drug use: Never Substance use type: does not use Housing: detention Do you feel safe at home: Yes Exam Narrative Exam Narrative: [facility], October 18, 2022, Bidden' Pleasant elderly female, seems fatigued. Speech is fluid. Pleasant and interactive. Occasional cough. Wearing oxygen nasal cannula, does not appear to be in any respiratory distress. Results Last Vital Signs Temp 36.4 C L 10/18/22 11:16 Pulse 76 10/18/22 12:26 Resp 20 10/18/22 12:26 BP 103/60 10/18/22 11:16 Pulse Ox 91 L 10/18/22 11:16 Labs 10/18/22 06:26 10/18/22 06:26 Labs: Laboratory Results - last 24 hr 10/18/22 10/18/22 06:26 06:26 WBC 6.58 RBC 5.15 Hgb 15.4 Hct 47.4 H MCV 92 MCH 29.9 MCHC 32.5 RDW 14.3 Plt Count 187 MPV 9.6 Immature Gran % 1.2 Neutrophils % 64.5 Lymphocytes % 21.9 Monocytes % 9.6 Eosinophils % 2.3 Basophils % 0.5 Nucleated RBC % 0.0 Absolute Neutrophils 4.25 Absolute Lymphocytes 1.44 Absolute Monocytes 0.63 Absolute Eosinophils 0.15 Absolute Basophils 0.03 Sodium 146 H Potassium 3.7 Chloride 104 Carbon Dioxide 35.7 H Anion Gap 6.3 BUN 23 H Creatinine 0.8 Est GFR (CKD-EPI 2020) 76.79 Glucose 118 H Calcium 8.8
--- NOTE | 2022-10-18 14:19 | CHAPLAIN ---
Ivette was sitting up in the recliner when I visited. She told me she's from [place], near [facility]. According to Care Management notes, she's lived at [facility] for the past six months. Ivette talked about what she likes about living in [place] and the people there. She said she's in touch with family but was specific about which family members she's in contact with. I will continue to visit.
--- NOTE | 2022-10-18 15:31 | PGE_ITS ---
Date of Service Date of service: 10/18/22 Time of Service: 15:00 Assessment and Plan Assessment and plan (1) COPD exacerbation: Status: Acute Assessment and plan: with acute hypoxic hypercapnic respiratory failure. Continue doxycycline, scheduled + prn nebs, antitussives, pulmonary toilet. Continue low dose prednisone Now that the pateint is not hypoxic she is doing much better, conversant, cooperative, keeps O2 on, eating and drinking (2) Acute on chronic heart failure: Status: Acute Assessment and plan: Continue furosemide, atenolol, atorvastatin. Echocardiogram - LV nl size, wall thickness nl, LV systolic fxn NL, EF 55%, no wall motion abn. (3) Diabetes mellitus: Assessment and plan: Continue SSI Glucose ~ 110s (4) Hypertension: Assessment and plan: BP 110-130/60-70 - stable Continue current regimen. (5) Metabolic encephalopathy: Status: Resolved Assessment and plan: Vs delirium due to nuplasid or due to dementia and being outside of her environment. Neurology consult - improving mental status, pleasant, conversant, follows commands; participating with PT Increase Sinemet to 2 tabs TID per recommendation of neurology No increased somnolence with Seroquel (6) DVT prophylaxis: Status: Acute Assessment and plan: SC enoxaparin (7) Discharge planning issues: Status: Acute Assessment and plan: DNR/DNI Continues to require hospitalization Seen by palliative care - see their note, continues to be DNR/DNI and enjoys being at the [facility], return there when medically stable Discussed with Dr Asencio Subjective Subjective Patient reports: no new complaints, voiding w/o difficulty (valencia - clear yellow) and bowel movement; denies nausea or afebrile Interval history since last seen: Sitting on the bed, RR 16, SPO2 94% currently on 2 lpm, pleasant, conversant, confused. Exam Narrative Exam Narrative: Patient is awake alert but confused. She does respond to her name. She is not in any acute respiratory distress , no accessory respiratory muscle use, conversant, pleasant and cooperative, on 2 lpm O2 NC Lungs are clear anteriorly with prolonged expiratory phase there is no rales wheezes or rhonchi Heart is regular rate and rhythm Abdomen soft nondistended Lower extremities without peripheral cyanosis or edema. Objective Last Vital Signs Temp 36.5 C 07/06/23 16:03 Pulse 78 10/18/22 19:21 Resp 18 10/18/22 19:21 BP 103/63 10/18/22 16:03 Pulse Ox 92 10/18/22 19:21 Laboratory Results - last 24 hr 10/18/22 10/18/22 06:26 06:26 WBC 6.58 RBC 5.15 Hgb 15.4 Hct 47.4 H MCV 92 MCH 29.9 MCHC 32.5 RDW 14.3 Plt Count 187 MPV 9.6 Immature Gran % 1.2 Neutrophils % 64.5 Lymphocytes % 21.9 Monocytes % 9.6 Eosinophils % 2.3 Basophils % 0.5 Nucleated RBC % 0.0 Absolute Neutrophils 4.25 Absolute Lymphocytes 1.44 Absolute Monocytes 0.63 Absolute Eosinophils 0.15 Absolute Basophils 0.03 Sodium 146 H Potassium 3.7 Chloride 104 Carbon Dioxide 35.7 H Anion Gap 6.3 BUN 23 H Creatinine 0.8 Est GFR (CKD-EPI 2020) 76.79 Glucose 118 H Calcium 8.8 Time Spent with Patient Time Spent with Patient: 25-34 minutes Time was spent: preparing to see the patient(eg.review tests), ordering medications,tests, procedures, referring, communicating with other health career development coordinator, indepentently interpreting results, counseling the patient and care coordination
--- NOTE | 2022-10-18 16:21 | W.PM.PROGNOT ---
Date of Service Date of service: 10/18/22 Time of Service: 16:21 Assessment and Plan Assessment and plan (1) Delirium: Status: Acute (2) Parkinson disease: Status: Chronic Assessment and plan: Ms. Thao is a 76 year-old woman with Parkinsons and MCI with visual hallucinations admitted with complicated respiratory failure with acute delirium. She continues to improve from a mental status stand point. Continue medication changes as made yesterday. Monitor for sedation with Seroquel and if drowsy in the ams, but need to reduce the am dose. I will again follow-up with results of Nuplazid while at her halfway. Ok to continue Sinemet 2-1-2 for now, though likely needs to increase back to 2 tabs TID at some point given noted outpatient decline in posture following reduction. She and family would like her to transfer to neurology care closer to home. We will arrange for her to follow-up with me post-discharge. Please call with any further questions or concerns. Subjective Subjective Interval history since last seen: I was able to review more records from [facility]. She entered the [facility] after COVID infection pneumonia in late 2021/early 2022. SLUMS (06/06/22): . She otherwise seems to be doing much better. No longer agitated. Out of restraints. Working with PT, etc. Not overly sedated by Seroquel per nursing team. Exam Narrative Exam Narrative: Physical Exam: Constitutional: Patient of apparent stated age, well nourished, well developed, no acute distress, mild hypomima - she looks quite well today Neuro: MS/Language/Speech: Alert, oriented to self, clear language (fluency and comprehension), no dysarthria Motor: Normal tone. Minimal R UE cogwheel rigidity. FMM reduced bilaterally, no pronator drift. Diffuse bradykinesia, worse on R and in the LE. 4++/5 strength in bilateral upper and lower extremities. Coordination: Finger to nose performed without dysmetria Objective Last Vital Signs Temp 97.7 F 10/18/22 16:03 Pulse 75 10/18/22 16:03 Resp 20 10/18/22 16:03 BP 103/63 10/18/22 16:03 Pulse Ox 91 L 10/18/22 16:03 Laboratory Results - last 24 hr 10/18/22 10/18/22 06:26 06:26 WBC 6.58 RBC 5.15 Hgb 15.4 Hct 47.4 H MCV 92 MCH 29.9 MCHC 32.5 RDW 14.3 Plt Count 187 MPV 9.6 Immature Gran % 1.2 Neutrophils % 64.5 Lymphocytes % 21.9 Monocytes % 9.6 Eosinophils % 2.3 Basophils % 0.5 Nucleated RBC % 0.0 Absolute Neutrophils 4.25 Absolute Lymphocytes 1.44 Absolute Monocytes 0.63 Absolute Eosinophils 0.15 Absolute Basophils 0.03 Sodium 146 H Potassium 3.7 Chloride 104 Carbon Dioxide 35.7 H Anion Gap 6.3 BUN 23 H Creatinine 0.8 Est GFR (CKD-EPI 2020) 76.79 Glucose 118 H Calcium 8.8 Time Spent with Patient Time Spent with Patient: 25-34 minutes Time was spent: preparing to see the patient(eg.review tests), obtaining and/or reviewing separately otained hiistory, referring, communicating with other health career and guidance counselor and counseling the patient
[2022-10-18] MEDS: Atorvastatin 10 MG TAB PO (22:01)
[2022-10-19] VITALS (9 sets, daily range): BP systolic 106–129; BP diastolic 63–79; PULSE 70–78; RESP 4–20; TEMP 36.2–36.6; O2SAT 85–98
[2022-10-19] MEDS: Albuterol/Ipratropium 3 ML UPD VIAL UPD ×4 (07:36→19:49)
[2022-10-19] MEDS: Tiotropium Bromide-Respimat 10 PUFF INH 2 PUFF IH (07:36)
[2022-10-19 07:48] LABS: Abs Immature Grans 0.15 10^3/uL (0.0-0.06); Absolute Basophil Count 0.07 10^3/uL (0.0-0.2); Absolute Eosinophil Count 0.18 10^3/uL (0.0-0.7); Absolute Lymphocyte Count 1.53 10^3/uL (1.2-3.4); Absolute Monocyte Count 0.84 10^3/uL (0.1-0.8); Absolute Neutrophil Count 6.37 10^3/uL (1.2-6.7); Basophils % 0.8; HCT 50.6 % (36.0-46.0); Immature Grans % 1.6; Lymphocytes % 16.7; MCH 29.3 pg (27.0-33.0); MCHC 31.6 % (32.0-36.0); MCV 93 fL (80-95); MPV 9.7 fL (8.0-11.0); Monocytes % 9.2; Neutrophils % 69.7; Platelet Count 164 10^3/uL (130-400); RBC 5.46 10^6/uL (3.93-5.22); RDW 14.4 % (11.7-14.6); RDW-SD 48.7 fL; WBC 9.14 10^3/uL (4.4-10.8)
[2022-10-19 08:21] LABS: Anion Gap 9.5 mmol/L (3-11); BUN 37 mg/dL (7-18); CO2 33.5 mmol/L (21.0-32.0); CREATININE 1.1 mg/dL (0.55-1.02); Chloride 103 mmol/L (98-107); Glucose 112 mg/dL (74-106); Magnesium 2.6 mg/dL (1.8-2.4); Potassium 4.3 mmol/L (3.5-5.1); Sodium 146 mmol/L (136-145)
[2022-10-19] MEDS: Aspirin E.C. 81 MG TABEC PO (09:52)
[2022-10-19] MEDS: Doxycycline Hyclate 100 MG CAP PO ×2 (09:54→21:25)
[2022-10-19] MEDS: Carbidopa 25/Levodopa 100 TAB PO ×3 (09:55→18:15)
[2022-10-19] MEDS: Calcium Carbonate 1.5 GM TAB PO (09:55)
[2022-10-19] MEDS: Furosemide 20 MG TAB PO (09:55)
[2022-10-19] MEDS: Cholecalciferol (Vitamin D3) 400 UNIT TAB PO (09:55)
[2022-10-19] MEDS: Pantoprazole 40 MG TABCR PO (09:56)
[2022-10-19] MEDS: Atenolol 50 MG TAB PO (09:56)
[2022-10-19] MEDS: Lisinopril 5 MG TAB 15 MG PO (09:56)
[2022-10-19] MEDS: guaiFENesin 600 MG TABCR PO ×2 (09:57→21:25)
[2022-10-19] MEDS: Multivitamin TAB 1 TAB PO (09:57)
[2022-10-19] MEDS: QUEtiapine 25 MG TAB PO ×2 (09:57→21:25)
[2022-10-19] MEDS: Senna TAB 2 TAB PO (09:57)
[2022-10-19] MEDS: Polyethylene Glycol 3350 17 GM PACKET PO ×2 (09:58→21:26)
[2022-10-19] MEDS: Nystatin POWDER 60 GM JAR TP (09:58)
[2022-10-19] MEDS: Enoxaparin 40 MG/0.4 ML SYR SC (09:58)
[2022-10-19] MEDS: Insulin Aspart 300 UNITS/3 ML PEN SC (12:29)
[2022-10-19] MEDS: Magnesium Oxide 400 MG TAB 800 MG PO (12:29)
--- NOTE | 2022-10-19 15:26 | PDOC.CMPRO ---
Date of service: 10/19/22 Time of Service: 15:26 Care Management Progress Note Progress Note Text Progress Note Text: S/O: Ivette is medically cleared for discharge and unable to return to the [facility] today since they are short staffed, per Angela from the [facility]. CM attempted to call the [facility] X3 this afternoon to discuss discharge details and is awaiting a return call. A:Pamela is a 76 year old woman admitted on 10/12/22 with a COPD exacerbation P:Ivette will discharge back to [facility] when medically cleared by the provider. She will follow up with the facility provider and plan of care and transport via RCT., CM will follow and assess for ongoing discharge concerns.
--- NOTE | 2022-10-19 20:38 | PGE_ITS ---
Date of Service Date of service: 10/19/22 Time of Service: 11:30 Assessment and Plan Assessment and plan (1) COPD exacerbation: Status: Acute Assessment and plan: with acute hypoxic hypercapnic respiratory failure. Continue doxycycline, scheduled + prn nebs, antitussives, pulmonary toilet. Continue low dose prednisone Now that the pateint is not hypoxic she is doing much better, conversant, cooperative, keeps O2 on, eating and drinking (2) Acute on chronic heart failure: Status: Acute Assessment and plan: Continue furosemide, atenolol, atorvastatin. Echocardiogram - LV nl size, wall thickness nl, LV systolic fxn NL, EF 55%, no wall motion abn. (3) Diabetes mellitus: Assessment and plan: Continue SSI Glucose ~ 110s (4) Hypertension: Assessment and plan: BP 110-130/60-70 - stable Continue current regimen. (5) Metabolic encephalopathy: Status: Resolved Assessment and plan: Vs delirium due to nuplasid or due to dementia and being outside of her environment. Neurology consult - improving mental status, pleasant, conversant, follows commands; participating with PT Increase Sinemet to 2 tabs TID per recommendation of neurology No increased somnolence with Seroquel (6) DVT prophylaxis: Status: Acute Assessment and plan: SC enoxaparin (7) Discharge planning issues: Status: Acute Assessment and plan: DNR/DNI Continues to require hospitalization Seen by palliative care - see their note, continues to be DNR/DNI and enjoys being at the [facility], return there when medically stable Medically stable and at baseline however the [facility] can not take her back until Sunday 10/22. She will stay until then. Discussed with Dr Asencio Subjective Subjective Patient reports: no new complaints, tolerating liquids well, tolerating a regular diet, voiding w/o difficulty (valencia catheter removed), bowel movement and afebrile; denies diarrhea, nausea, vomiting or shortness of breath Interval history since last seen: Continues to be conversant and pleasant. No complaints. Eating and sleeping well. Exam Narrative Exam Narrative: Patient is awake alert but confused. She does respond to her name. She is not in any acute respiratory distress , no accessory respiratory muscle use, conversant, pleasant and cooperative, on 2 lpm O2 NC Lungs are clear anteriorly with prolonged expiratory phase there is no rales wheezes or rhonchi Heart is regular rate and rhythm Abdomen soft nondistended Lower extremities without peripheral cyanosis or edema. Objective Last Vital Signs Temp 36.5 C 10/19/22 16:01 Pulse 74 10/19/22 19:49 Resp 18 10/19/22 19:49 BP 114/66 10/19/22 16:01 Pulse Ox 92 10/19/22 19:49 Laboratory Results - last 24 hr 10/19/22 10/19/22 07:27 07:27 WBC 9.14 RBC 5.46 H Hgb 16.0 H Hct 50.6 H MCV 93 MCH 29.3 MCHC 31.6 L RDW 14.4 Plt Count 164 MPV 9.7 Immature Gran % 1.6 Neutrophils % 69.7 Lymphocytes % 16.7 Monocytes % 9.2 Eosinophils % 2.0 Basophils % 0.8 Nucleated RBC % 0.0 Absolute Neutrophils 6.37 Absolute Lymphocytes 1.53 Absolute Monocytes 0.84 H Absolute Eosinophils 0.18 Absolute Basophils 0.07 Sodium 146 H Potassium 4.3 Chloride 103 Carbon Dioxide 33.5 H Anion Gap 9.5 BUN 37 H Creatinine 1.1 H Est GFR (CKD-EPI 2020) 52.40 Glucose 112 H Calcium 9.0 Magnesium 2.6 H Time Spent with Patient Time Spent with Patient: 35-49 minutes Time was spent: preparing to see the patient(eg.review tests), ordering medications,tests, procedures, referring, communicating with other health respiratory care assistant, indepentently interpreting results, counseling the patient and care coordination
[2022-10-19] MEDS: Atorvastatin 10 MG TAB PO (21:27)
[2022-10-20] VITALS (11 sets, daily range): BP systolic 103–135; BP diastolic 59–74; PULSE 66–79; RESP 1–22; TEMP 35.9–36.9; O2SAT 91–94
[2022-10-20] MEDS: Albuterol/Ipratropium 3 ML UPD VIAL UPD ×4 (07:36→19:30)
[2022-10-20] MEDS: Tiotropium Bromide-Respimat 10 PUFF INH 2 PUFF IH (07:36)
[2022-10-20 08:16] LABS: Abs Immature Grans 0.17 10^3/uL (0.0-0.06); Absolute Basophil Count 0.06 10^3/uL (0.0-0.2); Absolute Eosinophil Count 0.16 10^3/uL (0.0-0.7); Absolute Lymphocyte Count 1.23 10^3/uL (1.2-3.4); Absolute Monocyte Count 0.56 10^3/uL (0.1-0.8); Absolute Neutrophil Count 4.45 10^3/uL (1.2-6.7); Basophils % 0.9; Eosinophils % 2.4; HCT 47.2 % (36.0-46.0); HGB 14.8 g/dL (11.2-15.7); Immature Grans % 2.6; Lymphocytes % 18.6; MCH 29.1 pg (27.0-33.0); MCHC 31.4 % (32.0-36.0); MCV 93 fL (80-95); MPV 9.9 fL (8.0-11.0); Monocytes % 8.4; Neutrophils % 67.1; Platelet Count 176 10^3/uL (130-400); RBC 5.08 10^6/uL (3.93-5.22); RDW 14.1 % (11.7-14.6); RDW-SD 48.7 fL; WBC 6.63 10^3/uL (4.4-10.8)
[2022-10-20 08:28] LABS: BUN 28 mg/dL (7-18); CREATININE 0.9 mg/dL (0.55-1.02); Calcium 8.8 mg/dL (8.5-10.1); Chloride 104 mmol/L (98-107); Estimated GFR 66.67 (mL/min/1.73m2); Glucose 127 mg/dL (74-106); Magnesium 2.4 mg/dL (1.8-2.4); Potassium 4.5 mmol/L (3.5-5.1); Sodium 143 mmol/L (136-145)
[2022-10-20] MEDS: Senna TAB 2 TAB PO (08:44)
[2022-10-20] MEDS: Multivitamin TAB 1 TAB PO (08:44)
[2022-10-20] MEDS: Lisinopril 5 MG TAB 15 MG PO (08:44)
[2022-10-20] MEDS: Pantoprazole 40 MG TABCR PO (08:45)
[2022-10-20] MEDS: Doxycycline Hyclate 100 MG CAP PO ×2 (08:45→20:07)
[2022-10-20] MEDS: Calcium Carbonate 1.5 GM TAB PO (08:45)
[2022-10-20] MEDS: Carbidopa 25/Levodopa 100 TAB PO ×3 (08:45→17:15)
[2022-10-20] MEDS: QUEtiapine 25 MG TAB PO ×2 (08:45→20:07)
[2022-10-20] MEDS: Atenolol 50 MG TAB PO (08:45)
[2022-10-20] MEDS: guaiFENesin 600 MG TABCR PO ×2 (08:45→20:07)
[2022-10-20] MEDS: Furosemide 20 MG TAB PO (08:45)
[2022-10-20] MEDS: Enoxaparin 40 MG/0.4 ML SYR SC (08:46)
[2022-10-20] MEDS: Cholecalciferol (Vitamin D3) 400 UNIT TAB PO (08:46)
[2022-10-20] MEDS: Aspirin E.C. 81 MG TABEC PO (08:46)
--- NOTE | 2022-10-20 11:22 | PGE_ITS ---
Date of Service Date of service: 10/20/22 Time of Service: 11:22 Assessment and Plan Assessment and plan (1) COPD exacerbation: Status: Acute Assessment and plan: with acute hypoxic hypercapnic respiratory failure - resolved Continue doxycycline, scheduled + prn nebs, antitussives, pulmonary toilet. Continue low dose prednisone Now that the patient is not hypoxic she is doing much better, conversant, cooperative, keeps O2 on, eating and drinking (2) Acute on chronic heart failure: Status: Acute Assessment and plan: Continue furosemide, atenolol, atorvastatin. Echocardiogram - LV nl size, wall thickness nl, LV systolic fxn NL, EF 55%, no wall motion abn. (3) Diabetes mellitus: Assessment and plan: Continue SSI Glucose ~ 110s (4) Hypertension: Assessment and plan: BP 110-130/60-70 - stable Continue current regimen. (5) Metabolic encephalopathy: Status: Resolved Assessment and plan: Vs delirium due to nuplasid or due to dementia and being outside of her environment. Neurology consult - improving mental status, pleasant, conversant, follows commands; participating with PT Increase Sinemet to 2 tabs TID per recommendation of neurology No increased somnolence with Seroquel (6) DVT prophylaxis: Status: Acute Assessment and plan: SC enoxaparin (7) Discharge planning issues: Status: Acute Assessment and plan: DNR/DNI Continues to require hospitalization Seen by palliative care - see their note, continues to be DNR/DNI and enjoys being at the [facility], return there when medically stable Medically stable and at baseline however the [facility] can not take her back until Sunday 10/22. This was explained to her and she agrees she will stay until then Discussed with Dr Edmonds Subjective Subjective Patient reports: no new complaints, tolerating a regular diet, voiding w/o difficulty, bowel movement and afebrile; denies diarrhea, nausea, vomiting or shortness of breath Interval history since last seen: Patient is awake and alert, conversant. oriented x4. She has no complaints and is eager to get back to the [facility]. She is eating well and drinking fluid. She has spoken with her sister on the telephone. She is totally clear remote and recent memory Exam Narrative Exam Narrative: Patient is awake alert, oriented x 4, speaks in full sentences She is not in any acute respiratory distress , no accessory respiratory muscle use, conversant, pleasant and cooperative, on 2 lpm O2 NC - this is her baseline Lungs are clear anteriorly with prolonged expiratory phase there is no rales wheezes or rhonchi Heart is regular rate and rhythm Abdomen soft nondistended Lower extremities without peripheral cyanosis or edema. Objective Last Vital Signs Temp 36.9 C 10/20/22 11:16 Pulse 74 10/20/22 11:16 Resp 22 10/20/22 11:16 BP 135/74 10/20/22 11:16 Pulse Ox 93 10/20/22 11:16 Laboratory Results - last 24 hr 10/20/22 10/20/22 07:41 07:41 WBC 6.63 RBC 5.08 Hgb 14.8 Hct 47.2 H MCV 93 MCH 29.1 MCHC 31.4 L RDW 14.1 Plt Count 176 MPV 9.9 Immature Gran % 2.6 Neutrophils % 67.1 Lymphocytes % 18.6 Monocytes % 8.4 Eosinophils % 2.4 Basophils % 0.9 Nucleated RBC % 0.0 Absolute Neutrophils 4.45 Absolute Lymphocytes 1.23 Absolute Monocytes 0.56 Absolute Eosinophils 0.16 Absolute Basophils 0.06 Sodium 143 Potassium 4.5 Chloride 104 Carbon Dioxide 36.0 H Anion Gap 3.0 BUN 28 H Creatinine 0.9 Est GFR (CKD-EPI 2020) 66.67 Glucose 127 H Calcium 8.8 Magnesium 2.4 Time Spent with Patient Time Spent with Patient: 25-34 minutes Time was spent: preparing to see the patient(eg.review tests), ordering medications,tests, procedures, referring, communicating with other health care center manager, indepentently interpreting results, counseling the patient and care coordination
[2022-10-20] MEDS: Insulin Aspart 300 UNITS/3 ML PEN SC (12:31)
[2022-10-20] MEDS: Acetaminophen 325 MG TAB PO (20:07)
[2022-10-20] MEDS: Polyethylene Glycol 3350 17 GM PACKET PO (20:08)
[2022-10-20] MEDS: Atorvastatin 10 MG TAB PO (20:09)
[2022-10-21] VITALS (7 sets, daily range): BP systolic 105–128; BP diastolic 59–80; PULSE 70–73; RESP 1–20; TEMP 35.7–37.1; O2SAT 91–97
[2022-10-21 07:05] LABS: Abs Immature Grans 0.24 10^3/uL (0.0-0.06); Absolute Basophil Count 0.04 10^3/uL (0.0-0.2); Absolute Eosinophil Count 0.12 10^3/uL (0.0-0.7); Absolute Lymphocyte Count 1.15 10^3/uL (1.2-3.4); Absolute Monocyte Count 0.56 10^3/uL (0.1-0.8); Absolute Neutrophil Count 4.12 10^3/uL (1.2-6.7); Basophils % 0.6; Eosinophils % 1.9; HCT 47.9 % (36.0-46.0); HGB 15.1 g/dL (11.2-15.7); Immature Grans % 3.9; Lymphocytes % 18.5; MCH 29.4 pg (27.0-33.0); MCHC 31.5 % (32.0-36.0); MCV 93 fL (80-95); MPV 9.7 fL (8.0-11.0); Neutrophils % 66.1; Platelet Count 184 10^3/uL (130-400); RBC 5.14 10^6/uL (3.93-5.22); RDW-SD 48.6 fL; WBC 6.23 10^3/uL (4.4-10.8)
[2022-10-21 07:19] LABS: Anion Gap 2.4 mmol/L (3-11); BUN 25 mg/dL (7-18); CO2 35.6 mmol/L (21.0-32.0); CREATININE 0.9 mg/dL (0.55-1.02); Chloride 105 mmol/L (98-107); Estimated GFR 66.67 (mL/min/1.73m2); Glucose 125 mg/dL (74-106); Magnesium 2.4 mg/dL (1.8-2.4); Potassium 5.1 mmol/L (3.5-5.1); Sodium 143 mmol/L (136-145)
[2022-10-21] MEDS: Albuterol/Ipratropium 3 ML UPD VIAL UPD (07:45)
[2022-10-21] MEDS: Tiotropium Bromide-Respimat 10 PUFF INH 2 PUFF IH (07:50)
[2022-10-21] MEDS: Enoxaparin 40 MG/0.4 ML SYR SC (08:15)
[2022-10-21] MEDS: Polyethylene Glycol 3350 17 GM PACKET PO ×2 (08:15→19:38)
[2022-10-21] MEDS: Atenolol 50 MG TAB PO (08:16)
[2022-10-21] MEDS: Calcium Carbonate 1.5 GM TAB PO (08:16)
[2022-10-21] MEDS: QUEtiapine 25 MG TAB PO ×2 (08:16→19:37)
[2022-10-21] MEDS: Carbidopa 25/Levodopa 100 TAB PO ×3 (08:16→17:02)
[2022-10-21] MEDS: Aspirin E.C. 81 MG TABEC PO (08:16)
[2022-10-21] MEDS: Cholecalciferol (Vitamin D3) 400 UNIT TAB PO (08:16)
[2022-10-21] MEDS: Lisinopril 5 MG TAB 15 MG PO (08:16)
[2022-10-21] MEDS: Senna TAB 2 TAB PO (08:16)
[2022-10-21] MEDS: Furosemide 20 MG TAB PO (08:16)
[2022-10-21] MEDS: Doxycycline Hyclate 100 MG CAP PO ×2 (08:17→19:37)
[2022-10-21] MEDS: guaiFENesin 600 MG TABCR PO ×2 (08:17→19:37)
[2022-10-21] MEDS: Pantoprazole 40 MG TABCR PO (08:17)
[2022-10-21] MEDS: Multivitamin TAB 1 TAB PO (08:17)
[2022-10-21] MEDS: Nystatin POWDER 60 GM JAR TP ×2 (09:26→19:38)
--- NOTE | 2022-10-21 17:51 | PGE_ITS ---
Date of Service Date of service: 10/21/22 Time of Service: 16:00 Assessment and Plan Assessment and plan (1) COPD exacerbation: Status: Resolved Assessment and plan: with acute hypoxic hypercapnic respiratory failure - resolved Abx course completed. Prn nebs, antitussives, pulmonary toilet. Continue low dose prednisone Now that the patient is not hypoxic she is doing much better, conversant, cooperative, keeps O2 on, eating and drinking (2) Acute on chronic heart failure: Status: Acute Assessment and plan: Continue furosemide, atenolol, atorvastatin. Echocardiogram - LV nl size, wall thickness nl, LV systolic fxn NL, EF 55%, no wall motion abn. (3) Diabetes mellitus: Assessment and plan: Continue SSI Glucose ~ 110s (4) Hypertension: Assessment and plan: BP 110-130/60-70 - stable Continue current regimen. (5) Metabolic encephalopathy: Status: Resolved Assessment and plan: Neurology consult - improving mental status, pleasant, conversant, follows commands; participating with PT Increase Sinemet to 2 tabs TID per recommendation of neurology No increased somnolence with Seroquel Suspect this was result of new med that has now been dc'd or effects of UTI (6) DVT prophylaxis: Status: Acute Assessment and plan: SC enoxaparin (7) Discharge planning issues: Status: Acute Assessment and plan: DNR/DNI Seen by palliative care - see their note, continues to be DNR/DNI and enjoys being at the [facility], return there when medically stable Medically stable and at baseline however the [facility] can not take her back until Sunday 10/22. This was explained to her and she agrees she will stay until then Discussed with Dr Edmonds Subjective Subjective Patient reports: no new complaints, feels better, tolerating liquids well, tolerating a regular diet, bowel movement and afebrile; denies diarrhea, nausea, vomiting or shortness of breath (on 2 LPM NC - baseline) Interval history since last seen: Very pleasant, no complaints, talking with family on the phone, eating meals and has reasonable fluid input. Voiding without issue, no incontinence. Exam Narrative Exam Narrative: Patient is awake alert, oriented x 4, speaks in full sentences, carries on a conversation and is understanding of questions and has appropriate responses She is not in any acute respiratory distress , no accessory respiratory muscle use, conversant, pleasant and cooperative, on 2 lpm O2 NC - this is her baseline Lungs are clear anteriorly with prolonged expiratory phase there is no rales wheezes or rhonchi Heart is regular rate and rhythm Abdomen soft nondistended Lower extremities without peripheral cyanosis or edema. Objective Last Vital Signs Temp 36.2 C L 10/21/22 15:35 Pulse 70 10/21/22 15:35 Resp 20 10/21/22 15:35 BP 126/80 10/21/22 15:35 Pulse Ox 97 10/21/22 15:35 Laboratory Results - last 24 hr 10/21/22 10/21/22 06:45 06:45 WBC 6.23 RBC 5.14 Hgb 15.1 Hct 47.9 H MCV 93 MCH 29.4 MCHC 31.5 L RDW 14.0 Plt Count 184 MPV 9.7 Immature Gran % 3.9 Neutrophils % 66.1 Lymphocytes % 18.5 Monocytes % 9.0 Eosinophils % 1.9 Basophils % 0.6 Nucleated RBC % 0.0 Absolute Neutrophils 4.12 Absolute Lymphocytes 1.15 L Absolute Monocytes 0.56 Absolute Eosinophils 0.12 Absolute Basophils 0.04 Sodium 143 Potassium 5.1 Chloride 105 Carbon Dioxide 35.6 H Anion Gap 2.4 L BUN 25 H Creatinine 0.9 Est GFR (CKD-EPI 2020) 66.67 Glucose 125 H Calcium 9.0 Magnesium 2.4 Time Spent with Patient Time Spent with Patient: 35-49 minutes Time was spent: preparing to see the patient(eg.review tests), ordering medications,tests, procedures, referring, communicating with other health associate director career services, indepentently interpreting results, counseling the patient and care coordination
[2022-10-21] MEDS: Atorvastatin 10 MG TAB PO (22:02)
[2022-10-22 07:16] LABS: Abs Immature Grans 0.15 10^3/uL (0.0-0.06); Absolute Basophil Count 0.05 10^3/uL (0.0-0.2); Absolute Eosinophil Count 0.13 10^3/uL (0.0-0.7); Absolute Lymphocyte Count 1.63 10^3/uL (1.2-3.4); Absolute Monocyte Count 0.45 10^3/uL (0.1-0.8); Absolute Neutrophil Count 3.58 10^3/uL (1.2-6.7); Basophils % 0.8; Eosinophils % 2.2; HCT 49.1 % (36.0-46.0); HGB 15.7 g/dL (11.2-15.7); Immature Grans % 2.5; Lymphocytes % 27.2; MCH 29.4 pg (27.0-33.0); MCV 92 fL (80-95); Monocytes % 7.5; Neutrophils % 59.8; Platelet Count 213 10^3/uL (130-400); RBC 5.34 10^6/uL (3.93-5.22); RDW 13.8 % (11.7-14.6); RDW-SD 46.8 fL; WBC 5.99 10^3/uL (4.4-10.8)
[2022-10-22 07:20] VITALS: BP 115/68; PULSE 60; RESP 20; TEMP 36.5; O2SAT 95
[2022-10-22 07:29] LABS: Anion Gap 5.4 mmol/L (3-11); BUN 24 mg/dL (7-18); CO2 34.6 mmol/L (21.0-32.0); CREATININE 0.9 mg/dL (0.55-1.02); Calcium 9.1 mg/dL (8.5-10.1); Chloride 100 mmol/L (98-107); Estimated GFR 66.67 (mL/min/1.73m2); Glucose 118 mg/dL (74-106); Magnesium 2.2 mg/dL (1.8-2.4); Potassium 4.2 mmol/L (3.5-5.1); Sodium 140 mmol/L (136-145)
[2022-10-22] MEDS: Tiotropium Bromide-Respimat 10 PUFF INH 2 PUFF IH (07:37)
[2022-10-22 07:40] VITALS: PULSE 77; RESP 16; O2SAT 89
[2022-10-22] MEDS: Multivitamin TAB 1 TAB PO (08:21)
[2022-10-22] MEDS: guaiFENesin 600 MG TABCR PO (08:21)
[2022-10-22] MEDS: QUEtiapine 25 MG TAB PO (08:21)
[2022-10-22] MEDS: Furosemide 20 MG TAB PO (08:21)
[2022-10-22] MEDS: Lisinopril 5 MG TAB 15 MG PO (08:21)
[2022-10-22] MEDS: Senna TAB 2 TAB PO (08:21)
[2022-10-22] MEDS: Calcium Carbonate 1.5 GM TAB PO (08:21)
[2022-10-22] MEDS: Cholecalciferol (Vitamin D3) 400 UNIT TAB PO (08:21)
[2022-10-22] MEDS: Atenolol 50 MG TAB PO (08:21)
[2022-10-22] MEDS: Aspirin E.C. 81 MG TABEC PO (08:21)
[2022-10-22] MEDS: Pantoprazole 40 MG TABCR PO (08:21)
[2022-10-22] MEDS: Doxycycline Hyclate 100 MG CAP PO (08:21)
[2022-10-22] MEDS: Polyethylene Glycol 3350 17 GM PACKET PO (08:22)
[2022-10-22] MEDS: Enoxaparin 40 MG/0.4 ML SYR SC (08:22)
[2022-10-22] MEDS: Nystatin POWDER 60 GM JAR TP (08:23)
[2022-10-22] MEDS: Carbidopa 25/Levodopa 100 TAB PO ×2 (08:23→11:31)
--- NOTE | 2022-10-22 10:56 | W.PM.DS.N ---
Date of service: 10/22/22 Time of Service: 10:56 DS: Diagnosis Discharge Diagnosis (1) COPD exacerbation: Status: Resolved (2) Acute on chronic heart failure: Status: Acute (3) Diabetes mellitus: (4) Hypertension: (5) Metabolic encephalopathy: Status: Resolved (6) DVT prophylaxis: Status: Acute (7) Discharge planning issues: Status: Acute Discharge Plan Disposition Patient Disposition[facility] Jail Facility(SNF) Condition: Fair Discharge Details Reason For Visit: COPD Exacerbation Admit Date/Time: 10/12/22 15:25 Admit Provider: Marco Jordan Attending Provider: Marco Jordan Primary Care Provider: [facility] Hospital Course: This is a 76 yr old female oxygen dependent resident of [facility] with past medical history of Parkinson?s Disease, COPD and diabetes mellitus who presented to [facility] ED 10/12/22 with symptoms of dyspnea, increasingly worse for 2 days, with oxygen saturations in the low 80?s. She denied any fever or rigors and had minimal cough or sputum production. No associated CP. She had some mild leg edema.? Evaluation in the ED included labs, EKG, CTA chest. Labs were remarkable, CBC, CMP elevated CO2 41, low Mg 1.6 otherwise normal renal and liver fxn, pro-BNP 1179 (previous values of 600 to 700), normal troponin, normal procalcitonin, normal TSH, VBG w/ elevated PCO2 83, pH 7.29.? Patient was treated w/ lasix 20 mg IVP and given solumedrol 125 mg IVP and DuoNeb treatments. She was not started on antibiotics as she had no evidence for pneumonia or infectious cause. She was diagnosed with combination of CHF and COPD exacerbation and admitted to the medical floor. Patient had an adverse reaction, assumed related to a new medication, and was anxious, confused and trying to remove IVs and oxygen.? The medication was stopped and Seroquel 25 mg BID started.? She cleared quickly from her delirium and was conversant, pleasant and engaged in her plan of care. She received 7 days of doxycycline.? Her labs are unremarkable and she has not had difficulty breathing in several days.? She is clear and lucid, communicating with family on the phone, she knows where she is.? Recommend not starting her back on Nuplazid, although we don?t know for sure that was the problem, the hypoxia probably contributed to her ?delirium, however oxygen saturations here were in the mid 90s with no increased work of breathing, but she was in respiratory acidosis in the ED. Recommend continuing Seroquel and increase as needed.? She was seen? by neurology who recommended discontinuing ropinirole which could have contrinuted to hallucinations and for which there isn't a significant role for as she is on carbidopa-levodopa.? Neurology also recommended discontinuing clonazepam as this may be contributing to delirum or slowing recovery. Though, if there is a strong anxiety component when coming off, re-evaluation may be necessary.? Neurology reached out to her retirement team regarding Nuplazid.? If that was of significant benefit, it would seem she should transition back to that as an outpatient - which will be somewhat complicated and team should reach out to [facility] for instructions.?Continue Sinemet 2 tabs TID. She is at baseline now and returning to the [facility], [facility]. Home Meds and New Rx's Prescriptions: New quetiapine 25 mg Tablet 25 mg PO BID Qty: 0 0RF Spiriva Respimat 2.5 mcg/actuation Mist 2 puff inhalation DAILY Qty: 0 0RF nystatin 100,000 unit/gram Powder 0 g topical BID Qty: 0 0RF guaifenesin [Mucus Relief ER] 600 mg Tablet Extended Release 12hr 600 mg PO BID Qty: 0 0RF albuterol sulfate 90 mcg/actuation HFA aerosol inhaler 2 puff inhalation Q6H PRNQty: 8.5 0RF carbidopa-levodopa 25-100 mg Tablet 2 tab PO TID Qty: 0 0RF Continued calcium carbonate [Calcium 600] 600 mg calcium (1,500 mg) Tablet 600 mg PO DAILY lisinopril 10 mg tablet 15 mg PO DAILY Patient Comments: TAKE 1 TABLET BY MOUTH ONCE DAILY atenolol 50 mg tablet 50 mg PO DAILY Patient Comments: TAKE 1 TABLET BY MOUTH ONCE DAILY FOR 90 DAYS multivitamin Tablet 1 tab PO DAILY aspirin 81 mg Tablet 81 mg PO DAILY sennosides [senna] 8.6 mg Tablet 17.2 mg PO DAILY atorvastatin 10 mg tablet 10 mg PO QHS pantoprazole 40 mg tablet,delayed release (DR/EC) 40 mg PO DAILY furosemide 20 mg Tablet 20 mg PO DIRECTED Rx Instructions: daily for 4 days gabapentin 100 mg capsule 200 mg PO TID acetaminophen 325 mg Capsule 650 mg PO PRN PRN cholecalciferol (vitamin D3) 10 mcg (400 unit) Tablet 400 unit PO DAILY polyethylene glycol 3350 [Miralax] 17 gram Powder In Packet 17 g PO BID Discontinued carbidopa-levodopa 25-100 mg tablet 1 tab PO DIRECTED Rx Instructions: 2 tab at 0830 and 1700. 1 tab at noontime ropinirole 0.5 mg Tablet 0.5 mg PO QHS Nuplazid 34 mg capsule 34 mg PO DAILY Discharge Instructions Instructions: Quetiapine (By mouth), Heart Failure (DC), COPD (Chronic Obstructive Pulmonary Disease) (DC) Stand Alone Forms: Nursing Discharge Form Referrals: An Tello [Primary Care Provider] - 10/26/22 2:30 pm Activity:: Activity as Tolerated Equipment/Supplies:: No Equipment Needed Diet:: As Tolerated Discharge Orders Discharge Orders: Discharge Order (Routine); Ordered 10/22/22 Ordered By: Anitha Camacho DS: Summary Time Spent with Patient providing and/or coordinating discharge services: Greater than 30 minutes Status at Discharge Functional status at discharge: independent ambulation Overall status at discharge: patient is back to baseline Mental Status: mental status grossly normal Speech and Movement: speech and movement normal Mood: congruent mood Affect: normal affect Exam Narrative Exam Narrative: Patient is awake alert, oriented x 4, speaks in full sentences, carries on a conversation and is understanding of questions and has appropriate responses She is not in any acute respiratory distress , no accessory respiratory muscle use, conversant, pleasant and cooperative, on 2 lpm O2 NC - this is her baseline Lungs are clear anteriorly with prolonged expiratory phase there is no rales wheezes or rhonchi Heart is regular rate and rhythm Abdomen soft nondistended Lower extremities without peripheral cyanosis or edema. Psych Mental Status: mental status grossly normal Speech and Movement: speech and movement normal Mood: congruent mood Affect: normal affect DS: Data Vitals/I&O Vitals and I&O: Vital Signs Temperature 36.5 C 10/22/22 07:20 Temperature Source Tympanic 10/22/22 07:20 Pulse 77 10/22/22 07:40 Pulse Rhythm Regular 10/21/22 20:16 Respiratory Rate 16 10/22/22 07:40 Respiratory Effort Normal, Non-Labored 10/21/22 20:16 Respiratory Depth Normal 10/21/22 20:16 Respiratory Pattern Normal 10/21/22 20:16 Blood Pressure 115/68 10/22/22 07:20 Pulse Oximetry 89 L 10/22/22 07:40 Oxygen Delivery Method Nasal Cannula 10/22/22 07:40 Oxygen Flow Rate 2 10/22/22 07:40 Fraction of Inspired Oxygen (FIO2) 40 10/14/22 10:18 Pain Level 0 10/22/22 07:20 Comment Pt. denies pain at this time. 10/21/22 11:10 Intake & Output 10/21/22 10/21/22 10/22/22 11:59 23:59 11:59 Intake Total 600 / 1000 400 / 1000 300 / 300 Output Total 1150 / 1700 550 / 1700 400 / 400 Balance -550 / -700 -150 / -700 -100 / -100 Intake: Oral 600 / 1000 400 / 1000 300 / 300 Output: Urine 1150 / 1700 550 / 1700 400 / 400 Other: Urine Color Straw Straw Yellow Urine Appearance Clear Clear Urine Odor None Foul Stool Size Moderate Stool Characteristics Soft Formed Voiding Methods Bedside Commode Bedside Commode Bedside Commode Data Completed and Pending Labs on day of discharge: Labs from last 24 hours 10/22/22 10/22/22 06:50 06:50 WBC 5.99 RBC 5.34 H Hgb 15.7 Hct 49.1 H MCV 92 MCH 29.4 MCHC 32.0 RDW 13.8 Plt Count 213 MPV 10.0 Immature Gran % 2.5 Neutrophils % 59.8 Lymphocytes % 27.2 Monocytes % 7.5 Eosinophils % 2.2 Basophils % 0.8 Nucleated RBC % 0.0 Absolute Neutrophils 3.58 Absolute Lymphocytes 1.63 Absolute Monocytes 0.45 Absolute Eosinophils 0.13 Absolute Basophils 0.05 Sodium 140 Potassium 4.2 Chloride 100 Carbon Dioxide 34.6 H Anion Gap 5.4 BUN 24 H Creatinine 0.9 Est GFR (CKD-EPI 2020) 66.67 Glucose 118 H Calcium 9.1 Magnesium 2.2 PFSH All Active Problems (Updated 10/21/22 @ 17:57 by Anitha Camacho NP) Advanced care planning/counseling discussion (Acute) Hypoxia (Acute) Ascending aortic aneurysm (Acute) Hallucination, hypnopompic (Acute) Due to Parkinsons Disease. Parkinson disease (Chronic) Palliative care patient (Acute) Discharge planning issues (Acute) DVT prophylaxis (Acute) Delirium (Acute) Acute on chronic heart failure (Acute) Epiretinal membrane (ERM) of right eye (Chronic) Medical History Aortic valve insufficiency Carpal tunnel syndrome, right Diabetes mellitus Functional heart murmur History of adenomatous polyp of colon Hypercholesteremia Hyperlipidemia Hypertension Lipoma of left thigh Parkinson disease Swelling of both lower extremities Surgical History History of lumpectomy History of tubal ligation Hx of carpal tunnel repair Right Social History Smoking/Tobacco Use Status: Unknown Smoking risk assessment performed?: Yes Alcohol Intake: never Drug use: Never Substance use type: does not use Housing: retirement Do you feel safe at home: Yes Time Spent with Patient Time Spent with Patient: 45-69 minutes Time was spent: preparing to see the patient(eg.review tests), ordering medications,tests, procedures, referring, communicating with other health menagerie caretaker, indepentently interpreting results, counseling the patient and care coordination
--- NOTE | 2022-10-22 13:09 | PT.INTREAT ---
Date of service: 10/22/22 Time of Service: 09:55 PT Notes Visit Reasons: COPD Exacerbation Inpatient Physical Therapy Treatment Note [facility] Date: 10/22/22 PRECAUTIONS: Standard, fall, activity as tolerated, monitor SaO2 (acceptable between 88-92). SUBJECTIVE: Patient supine in bed, agreeable to therapy. Reports she thinks she was tested and is able to come off O2. On 2L / min supplemental O2 via nasal cannula. OBJECTIVE: PAIN: none reported BED MOBILITY/TRANSFERS Rolling L/R: independent Supine-sit: independent Sit-supine: independent Sit-stand: standby Stand-sit: standby Bed-Chair: standby Chair-bed: standby GAIT Assistive Device: Front wheeled walker Weight bearing: full Assist: CGA with wheelchair follow Distance: 200 feet with 2 seated rests. Deviation: [] VITALS: SaO2 repeatedly falls to 83-85% despite cueing patient to breathe through nose. NEURO EVELINA: Patient participates in diaphragmatic breathing exercises, cueing patient to breathe through nose during various activities seated and in standing. Patient continually reverts to mouth breathing. ASSESSMENT: Patient tolerates therapy well PLAN: Patient to return to [facility] today. Would benefit from continued skilled therapy. TREATMENT CODE/TIME: 99603 Neuro 15 minutes, [id number] Gait 17 minutes beginning at 9:55
--- NOTE | 2022-10-22 17:58 | PDOC.CMDIS ---
Date of service: 10/22/22 Time of Service: 17:58 LACE Index Scoring Tool Questions: Length of Stay (in days): 7 - 13 Was the patient admitted via the E.D.?: Yes Comorbidities: Congestive Heart Failure and Chronic Pulmonary Disease E.D. Visits: 2 Answers: Total Score: 15 Risk of Readmission: High Risk Care Management Discharge Plan Reason for Hospitalization: COPD exacerbation Discharge Plan: Pamela will discharge back to [facility]. She will follow up with the facility provider and plan of care and transport via [facility]. coordinated by CM. Patient/Family Education Needs: Review of discharge instructions, limitations, activity, follow up plan discuss Ask Me Three Services Needed at Discharge: [facility]
--- NOTE | 2022-10-23 13:54 | INDS_ITS ---
Date of service: 10/22/22 PT Notes Visit Reasons: COPD Exacerbation Physical Therapy Inpatient Discharge Summary Date: 10/22/2022 Dates of service: 10/18/2019 thorugh 10/22/2022 This is a clinical summary of care provided for the duration of dates listed above. No charge was made in the completion of this documentation. Referring Doctor: Camelia Asencio MD PT Orders: PT CONSULT: Limited ability Precautions: Fall. Standard. Activity as tolerated. Patient Profile/Admitting Diagnosis:? Ivette is a 76-year-old female with past medical history significant for Parkinson's disease and diabetes mellitus who was admitted to the ED on 10/12/2022 due to worsening shortness of breath, wheezing, and generalized weakness.? Patient is admitted to the MedSurg unit for COPD exacerbation, acute on chronic heart failure, diabetes mellitus, hypertension, and metabolic encephalopathy. PMHX: All Active Problems?(Updated 10/12/22 @ 21:53 by Marco Jordan MD) Acute on chronic heart failure (Acute) COPD exacerbation (Acute) Epiretinal membrane (ERM) of right eye (Chronic) Medical History? Aortic valve insufficiency Carpal tunnel syndrome, right Diabetes mellitus Functional heart murmur History of adenomatous polyp of colon Hypercholesteremia Hyperlipidemia Hypertension Lipoma of left thigh Parkinson disease Swelling of both lower extremities Surgical History? History of lumpectomy History of tubal ligation Hx of carpal tunnel repair Right Social History/Home Situation: Resident of the [facility].? Assistance with transfers provided by nursing staff at the SNF.? Patient is able to wheel herself from her room to the dining room with her wheelchair. Equipment Owned/DME: Wheelchair,? FWW Subjective: NT. See most recent [employer]I C[employer]ICER notes. Objective: General Observation: NT. See most recent [employer] notes. Mental Status: NT. See most recent [employer] notes. Pain: NT. See most recent [employer] notes. Vital Signs: NT. See most recent [employer] notes. ROM: Right Upper Extremity: ? Shoulder Flexion WFL. Shoulder abduction WFL. Elbow flexion WFL. Wrist flexion WFL. Functional opening and closing of hand WFL. Left Upper Extremity:? Shoulder Flexion WFL. Shoulder abduction WFL. Elbow flexion WFL. Wrist flexion WFL. Functional opening and closing of hand WFL. Right Lower Extremity: Hip flexion WFL. Hip abduction WFL. Knee flexion WFL. Ankle dorsiflexion WFL. Ankle plantarflexion WFL. Left Lower Extremity: Hip flexion WFL. Hip abduction WFL. Knee flexion WFL. Ankle dorsiflexion WFL. Ankle plantarflexion WFL. Strength: Right Upper Extremity: Shoulder flexors 4-/5. Shoulder abductors 4-/5. Elbow flexors 4-/5. Elbow extensors 4-/5. Cdl Flatbed Truck Driver strong. Left Upper Extremity: Shoulder flexors 4-/5. Shoulder abductors 4-/5. Elbow flexors 4-/5. Elbow extensors 4-/5. Cdl Flatbed Truck Driver strong. Right Lower Extremity: Hip flexors 3+/5. Hip abductors 3+/5. Knee flexors 4-/5. Knee extensors 3+/5. Ankle dorsiflexors 4-/5. Ankle plantarflexors 4-/5. Left Lower Extremity: Hip flexors 3+/5. Hip abductors 3+/5. Knee flexors 4-/5. Knee extensors 3+/5. Ankle dorsiflexors 4-/5. Ankle plantarflexors 4-/5. BED MOBILITY/TRANSFERS? Rolling L/R: independent Supine-sit: independent? Sit-supine: independent ? Sit-stand: standby? Stand-sit: standby ? Bed-Chair: standby ? Chair-bed: standby ? GAIT? Assistive Device: Front wheeled walker? Weight bearing: full Assist: CGA with wheelchair follow ? Distance:? 200 feet with 2 seated rests.? Deviation: Gait speed slowed ? Balance: Static Sitting: Normal Dynamic Sitting: Good Static Standing: Fair Dynamic Standing: Poor Assessment: Impaired activity tolerance due to pneumonia and COPD exacerbation compounded by pre-existing Parkinson's disease limit ability of patient to perform mobility ADL performance safely.? She requires the assistance of 2 for transfers and the use of FWW.? She needs verbal,? visual, and tactile cueing to maximize her motor initiation,? execution, and completion.? Patient presents with clinical signs and symptoms consistent with current/admitting diagnoses that have resulted to mobility limitations, gait instability, generalized weakness, and overall ADL decline as demonstrated by the following impairment level findings: 1.? Decreased strength to B UE/LE major muscle groups 2.? Impaired sitting/standing balance 3.? Impaired activity tolerance 4.? Shortness of breath 6.? Impaired motor planning from pre-existing PD and ongoing metabollic encephalopahty Impairments are contributing to the following functional limitations: 1.? Decline in bed mobility skills 2.? Decline in transfer skills 3.? Difficulty with ambulation without assistive device and physical assistance 4.? Increased completion time for mobility ADL performance 5.? Increased risk for falls 6.? Difficulty with managing steps alone safely Goals: Goals X1 week 1. Supine-Sit supervision MET 2. Sit-Supine supervision MET 3. Sit-Stand supervision NOT MET 4. Stand-Sit stand by assist with FWW MET 5. Bed-Chair stand by assist with FWW MET 6. Chair-Bed stand by assist with FWW MET 7. Stand by assist gait on level surface with use of FWW for at least 25 feet without report of pain nor dyspnea MET 8. Good static and dynamic standing balance/tolerance NOT MET DISCHARGE RECOMMENDATIONS: [] ? Home with no services [] [] ? Home with services [specify] [] ? Home with outpatient PT [] [] ? SNF for continued rehabilitation [] [] ? Penitentiary Care [] [] ? SNF versus LTC based on ability to participate and progress [] [X] Return to SNF when medically cleared and continue with sub-acute rehab to maximize functional mobility outcomes TREATMENT CODE/TIME: CA Thank you for the opportunity to participate in the care of this patient. Brittany Negrete PT, DPT, CLT [facility] [place], [place]
== END 2022-10-22 13:01 | disposition skilled nursing facility (03) | DRG 190 ==
LOC: ER 16:01 → MS 16:55
PROVIDERS: Family Medicine; Internal Medicine; Nurse Practitioner Family; Admitting Provider Internal Medicine; Emergency Provider Emergency Medicine; PCP Nurse Practitioner; Visit Provider Internal Medicine
DX: J44.1 Chronic obstructive pulmonary disease with (acute) exacerbation (principal); G93.41 Metabolic encephalopathy; I50.33 Acute on chronic diastolic (congestive) heart failure; J96.01 Acute respiratory failure with hypoxia; J96.02 Acute respiratory failure with hypercapnia; F05 Delirium due to known physiological condition; F02.811 Dementia in other diseases classified elsewhere, unspecified severity, with agitation; E11.9 Type 2 diabetes mellitus without complications; I11.0 Hypertensive heart disease with heart failure; Z99.81 Dependence on supplemental oxygen; G20 Parkinson's disease; R60.0 Localized edema; E83.42 Hypomagnesemia; Z86.718 Personal history of other venous thrombosis and embolism; I35.0 Nonrheumatic aortic (valve) stenosis; E78.00 Pure hypercholesterolemia, unspecified; Z87.891 Personal history of nicotine dependence; Z78.1 Physical restraint status; Z66 Do not resuscitate; R44.1 Visual hallucinations; I71.21 Aneurysm of the ascending aorta, without rupture
CPT/HCPCS: 36410; 36415; 71275; 80048; 80053; 82805; 84145; 87040; 87635; 93005; 93308; 94640; 97112; 97116; 97530; 99223; 99231; J1650; 81003; 81015; 82140; 83036; 83735; 83880; 84443; 84484; 85025; 85610; 85730; 93010; 93306; 94660; 94664; 94667; 94668; 94760; 99232; 99233; 99239; J1200; J1630; J1940; J2060; J2930; J3490; J7512; J7620

== ENCOUNTER → 2022-10-17 13:55 | Outpatient (BNVA) | payer MEDICARE, OTHER, SELFPAY | PROVIDERS: PCP Nurse Practitioner; Referring Provider Nurse Practitioner; Visit Provider Psychiatry & Neurology Neurology ==

== ENCOUNTER 2022-11-07 15:48 | Outpatient (REF) | payer MEDICARE, OTHER, SELFPAY ==
[2022-11-07 16:08] LABS: ALT 13 U/L (14-59); AST 16 U/L (15-37); Albumin 3.8 g/dL (3.4-5.0); Alkaline Phosphatase 88 U/L (46-116); Anion Gap 5.1 mmol/L (3-11); BUN 10 mg/dL (7-18); Bilirubin, Total 0.6 mg/dL (0.2-1.0); CO2 32.9 mmol/L (21.0-32.0); CREATININE 0.9 mg/dL (0.55-1.02); Chloride 104 mmol/L (98-107); Estimated GFR 66.67 (mL/min/1.73m2); Glucose 155 mg/dL (74-106); Potassium 4.4 mmol/L (3.5-5.1); Sodium 142 mmol/L (136-145); Total Protein 6.2 g/dL (6.4-8.2)
[2022-11-07 19:01] LABS: NT-proBNP 1118 pg/mL (<300)
== END 2022-11-07 15:49 | disposition home or self-care (01) ==
LOC: LBN 15:48
PROVIDERS: PCP Nurse Practitioner; Visit Provider Nurse Practitioner Gerontology
DX: I50.9 Heart failure, unspecified (principal); G89.4 Chronic pain syndrome
CPT/HCPCS: 80053; 83880

== ENCOUNTER 2022-11-13 02:59 | Outpatient (CLI) | payer MEDICARE, OTHER, SELFPAY ==
--- NOTE | 2022-11-13 | DI.RAD_ITS ---
Exam(s) XR CHEST 2V PA LATERAL EXAM: XR CHEST 2V PA LATERAL CLINICAL HISTORY: F/U 3 WKS, AAA 4.6 CM TECHNIQUE: 2D digital imaging was performed. COMPARISON: CR,XR XR CHEST 2V PA LATERAL from 07/14/[address] CHEST PE CTA from 10/12/2022 FINDINGS: HEART: Mildly enlarged. Aorta: Proximal dilatation. Similar to prior. Tortuous. PULMONARY VASCULATURE: Normal. LUNGS: Clear. PLEURAL SPACE: No pleural effusion or pneumothorax. BONE:Unremarkable for age. IMPRESSION: Dilated ascending aorta appears stable. No acute abnormality. DATA REPOSITORY: RADIATION DOSE DELIVERED:
--- OUTSIDE RECORDS SUMMARY | 2022-11-13 03:05 | XMS_ITS | Patient Health Record ---
Author Name Unknown Organization [facility], Former[facility] Address [address], [place] [id number] Care Team Providers Care Radiology Tech Name Role Phone Omer An Primary Care Provider Vane Belle Unavailable [phone] ALLERGIES Allergen (clinical drug ingredient) Drug/Non Drug Allergy documented on EMR Reaction Allergy Type Onset Date Status Niacin Flushing and hives Drug Allergy Active RESULTS Component Value Reference Range Notes ARTERIAL BLOOD GAS Reviewed date:05/14/2022 11:49:04 AM Interpretation: Performing Lab: Notes/Report: Results called to and read back by Reyna Plunkett RN on 05/14/2022 at 00:50. (PCO2, PO2) SITE (A) LEFT RADIAL DENILSON'S POSITIVE FIO2 8 LPM DEVICE Nasal Cannula PH(A) 7.36 7.35-7.45 PCO2 72.5 35.0-45.0 mm Hg PO2 30.0 70.0-100.0 mm Hg BE 16.0 HCO3 41.1 22.0-26.0 mmol/L O2SAT 52.0 95.0-100.0 % TCO2 43.0 23.0-27.0 mmol/L CBC WITH DIFF Reviewed date:05/14/2022 11:49:04 AM Interpretation: Performing Lab: Notes/Report: WBC 4.9 4.8-10.8 10^3/mm^3 RBC 3.74 3.90-5.03 10^6/mm^3 HGB 11.2 12.0-15.5 g/dL HCT 36 36-46 % MCV 96.8 81.0-99.0 fL MCH 29.9 27.1-32.0 pg MCHC 31 33-36 g/dL RDW 15.1 11.6-14.8 % PLATELETS 160 150-400 10^3/mm^3 NE# 3.72 1.20-6.70 10^3/mm^3 LY# 0.65 1.20-3.40 10^3/mm^3 MO# 0.45 0.11-0.70 10^3/mm^3 EO# 0.04 0.00-0.70 10^3/mm^3 BA# 0.01 0.00-0.20 10^3/mm^3 NEUT% 76 40-74 % per 100 WBC LY% 13 19-48 % per 100 WBC MO% 9.1 3.0-10.0 % per 1 00 WBC EO% 0.8 1.0-7.0 % per 10 0 WBC BA% 0.2 0.0-2.0 % per 10 0 WBC BMP Reviewed date:05/14/2022 11:49:04 AM Interpretation: Performing Lab: Notes/Report: GLU 125 70-100 mg/dL BUN 9 7-18 mg/dL CREAT 0.87 0.55-1.02 mg/dL NA 146 136-145 mEq/L K 3.7 3.5-5.1 mEq/L CL 104 98-107 mEq/L CO2 38 21-31 mEq/L CA 8.2 8.5-10.1 mg/dL AGAP 7.7 BN/CR 10.7 EGFRAA 76.93 EGFRNAA 63.47 CBC WITH DIFF Reviewed date:05/14/2022 11:49:04 AM Interpretation: Performing Lab: Notes/Report: WBC 5.1 4.8-10.8 10^3/mm^3 RBC 3.77 3.90-5.03 10^6/mm^3 HGB 11.3 12.0-15.5 g/dL HCT 37 36-46 % MCV 97.9 81.0-99.0 fL MCH 30.0 27.1-32.0 pg MCHC 31 33-36 g/dL RDW 15.1 11.6-14.8 % PLATELETS 189 150-400 10^3/mm^3 NE# 3.64 1.20-6.70 10^3/mm^3 LY# 1.02 1.20-3.40 10^3/mm^3 MO# 0.36 0.11-0.70 10^3/mm^3 EO# 0.06 0.00-0.70 10^3/mm^3 BA# 0.01 0.00-0.20 10^3/mm^3 NEUT% 71 40-74 % per 100 WBC LY% 20 19-48 % per 100 WBC MO% 7.0 3.0-10.0 % per 1 00 WBC EO% 1.2 1.0-7.0 % per 10 0 WBC BA% 0.2 0.0-2.0 % per 10 0 WBC BMP Reviewed date:05/14/2022 11:49:04 AM Interpretation: Performing Lab: Notes/Report: GLU 113 70-100 mg/dL BUN 10 7-18 mg/dL CREAT 0.80 0.55-1.02 mg/dL NA 144 136-145 mEq/L K 4.4 3.5-5.1 mEq/L CL 105 98-107 mEq/L CO2 40 21-31 mEq/L CA 8.5 8.5-10.1 mg/dL AGAP 4.5 BN/CR 12.9 EGFRAA 84.75 EGFRNAA 69.93 C-REACTIVE PROTEIN Reviewed date:05/14/2022 11:49:04 AM Interpretation: Performing Lab: Notes/Report: CRP 4.70 <0.90 mg/dl ESR Reviewed date:05/14/2022 11:49:04 AM Interpretation: Performing Lab: Notes/Report: ESR 16.00 0.00-30.00 mm/hr CBC WITH DIFF Reviewed date:05/14/2022 11:49:04 AM Interpretation: Performing Lab: Notes/Report: WBC 5.5 4.8-10.8 10^3/mm^3 RBC 3.90 3.90-5.03 10^6/mm^3 HGB 11.8 12.0-15.5 g/dL HCT 38 36-46 % MCV 98.2 81.0-99.0 fL MCH 30.3 27.1-32.0 pg MCHC 31 33-36 g/dL RDW 15.2 11.6-14.8 % PLATELETS 199 150-400 10^3/mm^3 NE# 4.23 1.20-6.70 10^3/mm^3 LY# 0.89 1.20-3.40 10^3/mm^3 MO# 0.36 0.11-0.70 10^3/mm^3 EO# 0.02 0.00-0.70 10^3/mm^3 BA# 0.01 0.00-0.20 10^3/mm^3 NEUT% 76 40-74 % per 100 WBC LY% 16 19-48 % per 100 WBC MO% 6.5 3.0-10.0 % per 1 00 WBC EO% 0.4 1.0-7.0 % per 10 0 WBC BA% 0.2 0.0-2.0 % per 10 0 WBC BMP Reviewed date:05/14/2022 11:49:04 AM Interpretation: Performing Lab: Notes/Report: GLU 129 70-100 mg/dL BUN 10 7-18 mg/dL CREAT 0.79 0.55-1.02 mg/dL NA 145 136-145 mEq/L K 4.6 3.5-5.1 mEq/L CL 105 98-107 mEq/L CO2 38 21-31 mEq/L CA 8.4 8.5-10.1 mg/dL AGAP 6.7 BN/CR 12.8 EGFRAA 85.99 EGFRNAA 70.95 MAGNESIUM Reviewed date:05/11/2022 09:15:45 AM Interpretation: Performing Lab: Notes/Report: MG 1.9 1.8-2.4 mg/dL CBC WITH DIFF Reviewed date:05/11/2022 09:15:16 AM Interpretation: Performing Lab: Notes/Report: WBC 3.0 4.8-10.8 10^3/mm^3 RBC 3.77 3.90-5.03 10^6/mm^3 HGB 11.3 12.0-15.5 g/dL HCT 36 36-46 % MCV 96.3 81.0-99.0 fL MCH 30.0 27.1-32.0 pg MCHC 31 33-36 g/dL RDW 14.9 11.6-14.8 % PLATELETS 173 150-400 10^3/mm^3 NE# 2.27 1.20-6.70 10^3/mm^3 LY# 0.57 1.20-3.40 10^3/mm^3 MO# 0.15 0.11-0.70 10^3/mm^3 EO# 0.00 0.00-0.70 10^3/mm^3 BA# 0.01 0.00-0.20 10^3/mm^3 NEUT% 75 40-74 % per 100 WBC LY% 19 19-48 % per 100 WBC MO% 5.0 3.0-10.0 % per 1 00 WBC EO% 0.0 1.0-7.0 % per 10 0 WBC BA% 0.3 0.0-2.0 % per 10 0 WBC BMP Reviewed date:05/11/2022 09:15:45 AM Interpretation: Performing Lab: Notes/Report: GLU 180 70-100 mg/dL BUN 14 7-18 mg/dL CREAT 0.80 0.55-1.02 mg/dL NA 141 136-145 mEq/L K 4.5 3.5-5.1 mEq/L CL 104 98-107 mEq/L CO2 36 21-31 mEq/L CA 8.6 8.5-10.1 mg/dL AGAP 6.2 BN/CR 17.5 EGFRAA 84.75 EGFRNAA 69.93 TROPONIN-I HIGH SENSITIVITY Reviewed date:05/10/2022 04:12:00 PM Interpretation: Performing Lab: Notes/Report: TROP-I HS 10 0-51 ng/L Results were determined using the FDA-approved Siemens Dimension EXL High Sensitivity Troponin I assay. According to the 4th Mathis Definition of Myocardial Infarction, the following criteria with a clinical presentation consistent with acute myocardial ischemia meets the diagnosis for a myocardial infarction: . Detection of a rise and/or fall of cTn with at least one value greater than the 99th percentile (51 ng/L for females, 76 ng/L for males), with at least one of the following. . Symptoms of acute myocardial ischemia . New ischemic electrocardiographic (ECG) changes . Development of pathologic Q waves . Imaging evidence of new loss of viable myocardium or new regional wall motion abnormality consistent with an ischemic etiology . Identification of an intracoronary thrombus by angiography or autopsy. Serial sampling of cTNI is recommended to detect the temporal rise and fall of troponin levels characteristic of AMI. Consistently elevated troponin concentrations may be associated with non-AMI conditions, such as renal failure, arrhythmias, pulmonary embolism, chronic renal disease, myocarditis, and cardiotoxicity. Measurable concentrations of cTNI above the LoD will be attained in at least 50% of healthy subjects using this assay. Plasma containing biotin at a concentration >300 ng/mL may have falsely depressed results. Testing specimens from renal dysfunction patients taking biotin may lead to false negative results. Dextran 40 at 60 g/L increases the troponin result in patient plasma. References: Fourth Mathis Definition of Myocardial Infarction. [facility], 72, 0980 - 6909. 2018 Dimension EXL LOCI High-Sensitivity Troponin I [package insert]. [employer], [place], [place]. Rev. F 11-13-2018 CULTURE, BLOOD ADULT 1([facility] Reviewed date:05/16/2022 11:45:28 AM Interpretation: Performing Lab: Notes/Report: Lab performed by: [facility], Dept. of Pathology [place] [address] Sales Branch Manager: Yomaira Dias MD, [facility] BLOOD CULTURE See Result Notes Produced by Clinical Reporting XR . Final Report [] Verified: 05/15/2022 23:01 EST No growth at 5 days. Preliminary Report [] Verified: 05/14/2022 23:01 EST No growth at 4 days. CULTURE, BLOOD ADULT 2([facility]) Reviewed date:05/16/2022 11:45:09 AM Interpretation: Performing Lab: Notes/Report: Lab performed by: [facility], Dept. of Pathology [facility], [facility] Sales Branch Manager: Yomaira Dias MD, [facility] BLOOD CULTURE See Result Notes Produced by Clinical Reporting XR . Final Report [] Verified: 05/15/2022 23:01 EST No growth at 5 days. Preliminary Report [] Verified: 05/14/2022 23:01 EST No growth at 4 days. VIRAL PANEL BY PCR (FLU A/B, RSV, SARS-COV-2) Reviewed date:05/10/2022 04:12:01 PM Interpretation: Performing Lab: Notes/Report: see note (SARS CoV-2) Critical value verified and results called to Hong Mckee RN and read back on 05/10/2022 at 11:47 by tech: DL Device Information: GeneXpert Xpress System_Cepheid Device Information: Xpert Xpress SARS-COV-2/Flu/RSV_Cepheid Device Information: Xpert Xpress SARS-COV-2/Flu/RSV_Cepheid Device Information: Xpert Xpress SARS-COV-2/Flu/RSV_Cepheid TROPONIN-I HIGH SENSITIVITY Reviewed date:05/10/2022 04:12:01 PM Interpretation: Performing Lab: Notes/Report: TROP-I HS 12 0-51 ng/L Results were determined using the FDA-approved Siemens Dimension EXL High Sensitivity Troponin I assay. According to the 4th Mathis Definition of Myocardial Infarction, the following criteria with a clinical presentation consistent with acute myocardial ischemia meets the diagnosis for a myocardial infarction: . Detection of a rise and/or fall of cTn with at least one value greater than the 99th percentile (51 ng/L for females, 76 ng/L for males), with at least one of the following. . Symptoms of acute myocardial ischemia . New ischemic electrocardiographic (ECG) changes . Development of pathologic Q waves . Imaging evidence of new loss of viable myocardium or new regional wall motion abnormality consistent with an ischemic etiology . Identification of an intracoronary thrombus by angiography or autopsy. Serial sampling of cTNI is recommended to detect the temporal rise and fall of troponin levels characteristic of AMI. Consistently elevated troponin concentrations may be associated with non-AMI conditions, such as renal failure, arrhythmias, pulmonary embolism, chronic renal disease, myocarditis, and cardiotoxicity. Measurable concentrations of cTNI above the LoD will be attained in at least 50% of healthy subjects using this assay. Plasma containing biotin at a concentration >300 ng/mL may have falsely depressed results. Testing specimens from renal dysfunction patients taking biotin may lead to false negative results. Dextran 40 at 60 g/L increases the troponin result in patient plasma. References: Fourth Mathis Definition of Myocardial Infarction. [facility], 72, 3719 - 3797. 2018 Dimension EXL LOCI High-Sensitivity Troponin I [package insert]. [employer], [place], [place]. Rev. F 11-13-2018 SARS-COV ANTIGEN, QUINTON Reviewed date:05/10/2022 04:12:01 PM Interpretation: Performing Lab: Notes/Report: SARS COV ANTIGEN NEGATIVE NEGATIVE The Zeinab SARS-CoV Antigen assay gives reliable results using upper respiratory specimens from patients during the acute phase of infection-- within the first 5 days of symptom onset. Negative results from asymptomatic patients or patients with symptom onset beyond five days are presumptive. Confirmation using a PCR assay is recommended. Positive results indicate the presence of SARS-CoV antigen. Positive results do not rule out bacterial infection or co-infection with other viruses. This assay cannot distinguish between the Novel SARS-CoV-2 and other SARS-CoV. Results of this assay should not be used as the sole basis for patient management and treatment decisions; results must be considered in the context of a patient's recent exposures, history and the presence and duration of clinical signs and symptoms. Any suspect results should be confirmed using a PCR assay. The Zeinab SARS-CoV Antigen assay is valid for use only under the FDA's Emergency Use Authorization. For futher information about this assay, please refer to the FDA Fact Sheets: Fact sheets for patients are found on the [facility] website at: https://www.[facility]. rg/covid-corner Choose more information about antigen testing. Fact Sheets for Healthcare providers can be accessed on the FDA's website at: https://www.fda.gov/media/137 884/download Device Information: Zeinab Instrument_Quidel D-DIMER Reviewed date:05/10/2022 04:12:01 PM Interpretation: Performing Lab: Notes/Report: DDIMER 1620.0 0.0-400.0 ng/mL Elevated con centrations of D-dimer are indicative of the presence of a clot and have been reported in cases of DVT, PE, DIC and many other clinical conditions. The clinical utility of this test is its high negative predictive value for ruling out these conditions when results fall below the normal reference range value. This method has NOT been FDA cleared to report a cut-off value for the exclusion of DVT and PE. The reference range provided is based on the 90th percentile of 208 apparently healthy individuals and should be used in conjunction with other clinical information. LDH Reviewed date:05/10/2022 04:12:01 PM Interpretation: Performing Lab: Notes/Report: LDH 281 81-234 U/L PT INR OUTSIDE FACILITY Reviewed date:05/10/2022 04:12:00 PM Interpretation: Performing Lab: Notes/Report: 10.9 9.3-11.2 sec New reference r izzy effective 01/27/2021 INR 1.06 CBC WITH DIFF Reviewed date:05/10/2022 04:12:00 PM Interpretation: Performing Lab: Notes/Report: WBC 5.8 4.8-10.8 10^3/mm^3 RBC 4.26 3.90-5.03 10^6/mm^3 HGB 12.6 12.0-15.5 g/dL HCT 41 36-46 % MCV 96.9 81.0-99.0 fL MCH 29.6 27.1-32.0 pg MCHC 31 33-36 g/dL RDW 15.4 11.6-14.8 % PLATELETS 189 150-400 10^3/mm^3 NE# 4.38 1.20-6.70 10^3/mm^3 LY# 0.75 1.20-3.40 10^3/mm^3 MO# 0.46 0.11-0.70 10^3/mm^3 EO# 0.15 0.00-0.70 10^3/mm^3 BA# 0.03 0.00-0.20 10^3/mm^3 NEUT% 76 40-74 % per 100 WBC LY% 13 19-48 % per 100 WBC MO% 7.9 3.0-10.0 % per 1 00 WBC EO% 2.6 1.0-7.0 % per 10 0 WBC BA% 0.5 0.0-2.0 % per 10 0 WBC BNP BETA NATRIURETIC PEPTIDE Reviewed date:05/10/2022 04:12:00 PM Interpretation: Performing Lab: Notes/Report: BNP 275 0-100 pg/mL <100 pg/ml: normal values in patients without CHF >100: abnormal and suggestive of patients with CHF CMP Reviewed date:05/10/2022 04:12:00 PM Interpretation: Performing Lab: Notes/Report: specimen slightly hemolyzed NA 138 136-145 mEq/L K 5.0 3.5-5.1 mEq/L CL 99 98-107 mEq/L CO2 35 21-31 mEq/L AGAP 9.5 GLU 137 70-100 mg/dL BUN 23 7-18 mg/dL CREAT 0.95 0.55-1.02 mg/dL BN/CR 24.1 CA 8.6 8.5-10.1 mg/dL ALKP 76 50-130 U/L ALT 6 14-59 U/L AST 29 15-37 U/L TBIL 0.8 <=1.2 mg/dL Use of Total Bi lirubin assay is not recommended for patients undergoing treatment with eltrombopag due to the potential for falsely elevated results. TP 7.0 6.4-8.2 g/dL ALB 3.2 3.4-5.0 g/dL GLOB 3.76 A/G 0.9 EGFRAA 69.50 EGFRNAA 57.35 PTT Reviewed date:04/23/2022 08:16:30 AM Interpretation: Performing Lab: Notes/Report: 6 hours post heparin bolus and readjustment. PTT 54.1 21.7-29.3 sec Normal and therapeutic reference ranges effective 2021 Therapeutic Reference Range: 44.3-109.6 seconds. The therapeutic reference range corresponds to heparin concentrations of 0.3 U/mL-0.7U/mL SARS-COV ANTIGEN, QUINTON Reviewed date:04/23/2022 08:16:30 AM Interpretation: Performing Lab: Notes/Report: SARS COV ANTIGEN NEGATIVE NEGATIVE The Zeinab SARS-CoV Antigen assay gives reliable results using upper respiratory specimens from patients during the acute phase of infection-- within the first 5 days of symptom onset. Negative results from asymptomatic patients or patients with symptom onset beyond five days are presumptive. Confirmation using a PCR assay is recommended. Positive results indicate the presence of SARS-CoV antigen. Positive results do not rule out bacterial infection or co-infection with other viruses. This assay cannot distinguish between the Novel SARS-CoV-2 and other SARS-CoV. Results of this assay should not be used as the sole basis for patient management and treatment decisions; results must be considered in the context of a patient's recent exposures, history and the presence and duration of clinical signs and symptoms. Any suspect results should be confirmed using a PCR assay. The Zeinab SARS-CoV Antigen assay is valid for use only under the FDA's Emergency Use Authorization. For futher information about this assay, please refer to the FDA Fact Sheets: Fact sheets for patients are found on the [facility] website at: https://www.[facility].o rg/covid-corner Choose more information about antigen testing. Fact Sheets for Healthcare providers can be accessed on the FDA's website at: https://www.fda.gov/media/259 182/download Device Information: Zeinab Instrument_Quidel HEMOGLOBIN A1C Reviewed date:04/20/2022 09:10:02 AM Interpretation: Performing Lab: Notes/Report: A1C 6.2 <5.7 % IMPORTANT NOTICE New Refernce Range, effective 06/04/19: <5.7% ESTAVEGLUC 131 <140 CALC C-REACTIVE PROTEIN Reviewed date:04/23/2022 08:16:30 AM Interpretation: Performing Lab: Notes/Report: Please add to current labs. CRP 29.20 <0.90 mg/dl FERRITIN Reviewed date:04/23/2022 08:16:30 AM Interpretation: Performing Lab: Notes/Report: Please add to current labs. FERR 288 8-252 ng/mL PTT Reviewed date:04/20/2022 09:10:02 AM Interpretation: Performing Lab: Notes/Report: STAT - 6 hours after BOLUS. PTT 39.7 21.7-29.3 sec Normal and therapeutic reference ranges effective 2021 Therapeutic Reference Range: 44.3-109.6 seconds. The therapeutic reference range corresponds to heparin concentrations of 0.3 U/mL-0.7U/mL LDH Reviewed date:04/23/2022 08:16:30 AM Interpretation: Performing Lab: Notes/Report: Please add to current labs. LDH 362 81-234 U/L FOLATE (JAYNAAGE) Reviewed date:04/20/2022 09:10:02 AM Interpretation: Performing Lab: Notes/Report: FOL 46.3 8.6-58.9 ng/ml CMP Reviewed date:04/20/2022 09:10:02 AM Interpretation: Performing Lab: Notes/Report: NA 139 136-145 mEq/L K 4.2 3.5-5.1 mEq/L CL 101 98-107 mEq/L CO2 31 21-31 mEq/L AGAP 11.4 GLU 141 70-100 mg/dL BUN 27 7-18 mg/dL CREAT 0.85 0.55-1.02 mg/dL BN/CR 31.4 CA 8.3 8.5-10.1 mg/dL ALKP 67 50-130 U/L ALT 6 14-59 U/L AST 15 15-37 U/L TBIL 0.7 <=1.2 mg/dL Use of Total Bi lirubin assay is not recommended for patients undergoing treatment with eltrombopag due to the potential for falsely elevated results. TP 6.6 6.4-8.2 g/dL ALB 2.9 3.4-5.0 g/dL GLOB 3.72 A/G 0.8 EGFRAA 79.02 EGFRNAA 65.20 VIRAL PANEL BY PCR (FLU A/B, RSV, SARS-COV-2) Reviewed date:04/20/2022 09:10:02 AM Interpretation: Performing Lab: Notes/Report: Results called to and read back by Cecile Dimas RN M-S on 04/19/2022 at 20:17. (SARS CoV-2) Device Information: [employer] Xpress System_Cepheid Device Information: Xpert Xpress SARS-COV-2/Flu/RSV_Cepheid Device Information: Xpert Xpress SARS-COV-2/Flu/RSV_Cepheid Device Information: Xpert Xpress SARS-COV-2/Flu/RSV_Cepheid D-DIMER Reviewed date:04/20/2022 09:10:02 AM Interpretation: Performing Lab: Notes/Report: DDIMER >5000.0 0.0-400.0 ng/mL Elevated con centrations of D-dimer are indicative of the presence of a clot and have been reported in cases of DVT, PE, DIC and many other clinical conditions. The clinical utility of this test is its high negative predictive value for ruling out these conditions when results fall below the normal reference range value. This method has NOT been FDA cleared to report a cut-off value for the exclusion of DVT and PE. The reference range provided is based on the 90th percentile of 208 apparently healthy individuals and should be used in conjunction with other clinical information. CBC WITH DIFF Reviewed date:04/20/2022 09:10:02 AM Interpretation: Performing Lab: Notes/Report: WBC 8.1 4.8-10.8 10^3/mm^3 RBC 4.50 3.90-5.03 10^6/mm^3 HGB 13.7 12.0-15.5 g/dL HCT 43 36-46 % MCV 95.8 81.0-99.0 fL MCH 30.4 27.1-32.0 pg MCHC 32 33-36 g/dL RDW 14.6 11.6-14.8 % PLATELETS 167 150-400 10^3/mm^3 NE# 6.17 1.20-6.70 10^3/mm^3 LY# 1.03 1.20-3.40 10^3/mm^3 MO# 0.72 0.11-0.70 10^3/mm^3 EO# 0.12 0.00-0.70 10^3/mm^3 BA# 0.03 0.00-0.20 10^3/mm^3 NEUT% 76 40-74 % per 100 WBC LY% 13 19-48 % per 100 WBC MO% 8.9 3.0-10.0 % per 1 00 WBC EO% 1.5 1.0-7.0 % per 10 0 WBC BA% 0.4 0.0-2.0 % per 10 0 WBC HGA1C FINGERSTICK Reviewed date:11/28/2021 02:25:04 PM Interpretation: Performing Lab: Notes/Report: HGA1C 6.0 4 - 7 Venous Doppler Reviewed date:04/25/2022 04:03:06 PM Interpretation: Performing Lab: Notes/Report: D-DIMER Reviewed date:04/23/2022 08:16:30 AM Interpretation: Performing Lab: Notes/Report: Please add to current labs. DDIMER 4290.0 0.0-400.0 ng/mL Elevated con centrations of D-dimer are indicative of the presence of a clot and have been reported in cases of DVT, PE, DIC and many other clinical conditions. The clinical utility of this test is its high negative predictive value for ruling out these conditions when results fall below the normal reference range value. This method has NOT been FDA cleared to report a cut-off value for the exclusion of DVT and PE. The reference range provided is based on the 90th percentile of 208 apparently healthy individuals and should be used in conjunction with other clinical information. CBC WITH DIFF Reviewed date:04/20/2022 09:10:02 AM Interpretation: Performing Lab: Notes/Report: WBC 5.8 4.8-10.8 10^3/mm^3 RBC 4.72 3.90-5.03 10^6/mm^3 HGB 14.6 12.0-15.5 g/dL HCT 45 36-46 % MCV 94.3 81.0-99.0 fL MCH 30.9 27.1-32.0 pg MCHC 33 33-36 g/dL RDW 14.5 11.6-14.8 % PLATELETS 129 150-400 10^3/mm^3 NE# 4.01 1.20-6.70 10^3/mm^3 LY# 0.99 1.20-3.40 10^3/mm^3 MO# 0.57 0.11-0.70 10^3/mm^3 EO# 0.15 0.00-0.70 10^3/mm^3 BA# 0.02 0.00-0.20 10^3/mm^3 NEUT% 69 40-74 % per 100 WBC LY% 17 19-48 % per 100 WBC MO% 9.9 3.0-10.0 % per 1 00 WBC EO% 2.6 1.0-7.0 % per 10 0 WBC BA% 0.3 0.0-2.0 % per 10 0 WBC BMP Reviewed date:12/06/2021 11:33:49 AM Interpretation: Performing Lab:NL1, [employer] [facility], [address] [place] [address], [facility], [place], [id number] Phu Rosenberg M.D. Notes/Report: Received Date: GLUCOSE TNP TEST NOT PERFORMED No suitable specimen received. Please review the test requirements at testdirectory.[employer] UREA NITROGEN (BUN) 18 7-25 mg/dL CREATININE 0.98 0.60-1.00 mg/dL EGFR 60 > OR = 60 mL/min/1.73m2 The eGFR is based on the CKD-EPI 2020 equation. To calculate the new eGFR from a previous Creatinine or Cystatin C result, go to https://www.kidney.org/profes sionals/ kdoqi/gfr%5Fcalculator BUN/CREATININE RATIO NOT APPLICABLE 6-22 (calc) SODIUM 145 135-146 mmol/L CHLORIDE 97 98-110 mmol/L CARBON DIOXIDE 24 20-32 mmol/L CALCIUM 9.6 8.6-10.4 mg/dL CBC WITH DIFF Reviewed date:05/18/2022 08:19:07 AM Interpretation: Performing Lab: Notes/Report: WBC 5.2 4.8-10.8 10^3/mm^3 RBC 4.15 3.90-5.03 10^6/mm^3 HGB 12.5 12.0-15.5 g/dL HCT 40 36-46 % MCV 95.7 81.0-99.0 fL MCH 30.1 27.1-32.0 pg MCHC 32 33-36 g/dL RDW 15.4 11.6-14.8 % PLATELETS 198 150-400 10^3/mm^3 NE# 3.38 1.20-6.70 10^3/mm^3 LY# 1.22 1.20-3.40 10^3/mm^3 MO# 0.41 0.11-0.70 10^3/mm^3 EO# 0.06 0.00-0.70 10^3/mm^3 BA# 0.01 0.00-0.20 10^3/mm^3 NEUT% 65 40-74 % per 100 WBC LY% 24 19-48 % per 100 WBC MO% 7.9 3.0-10.0 % per 1 00 WBC EO% 1.2 1.0-7.0 % per 10 0 WBC BA% 0.2 0.0-2.0 % per 10 0 WBC BMP Reviewed date:05/18/2022 08:19:06 AM Interpretation: Performing Lab: Notes/Report: GLU 103 70-100 mg/dL BUN 12 7-18 mg/dL CREAT 0.82 0.55-1.02 mg/dL NA 142 136-145 mEq/L K 3.7 3.5-5.1 mEq/L CL 100 98-107 mEq/L CO2 33 21-31 mEq/L CA 8.7 8.5-10.1 mg/dL AGAP 12.4 BN/CR 15.1 EGFRAA 82.37 EGFRNAA 67.96 CBC WITH DIFF Reviewed date:05/17/2022 11:04:01 AM Interpretation: Performing Lab: Notes/Report: WBC 4.4 4.8-10.8 10^3/mm^3 RBC 4.10 3.90-5.03 10^6/mm^3 HGB 12.3 12.0-15.5 g/dL HCT 40 36-46 % MCV 96.8 81.0-99.0 fL MCH 30.0 27.1-32.0 pg MCHC 31 33-36 g/dL RDW 15.5 11.6-14.8 % PLATELETS 186 150-400 10^3/mm^3 NE# 2.86 1.20-6.70 10^3/mm^3 LY# 1.08 1.20-3.40 10^3/mm^3 MO# 0.25 0.11-0.70 10^3/mm^3 EO# 0.09 0.00-0.70 10^3/mm^3 BA# 0.01 0.00-0.20 10^3/mm^3 NEUT% 65 40-74 % per 100 WBC LY% 25 19-48 % per 100 WBC MO% 5.7 3.0-10.0 % per 1 00 WBC EO% 2.1 1.0-7.0 % per 10 0 WBC BA% 0.2 0.0-2.0 % per 10 0 WBC BMP Reviewed date:05/17/2022 11:04:01 AM Interpretation: Performing Lab: Notes/Report: GLU 97 70-100 mg/dL BUN 12 7-18 mg/dL CREAT 0.72 0.55-1.02 mg/dL NA 145 136-145 mEq/L K 4.0 3.5-5.1 mEq/L CL 104 98-107 mEq/L CO2 39 21-31 mEq/L CA 8.5 8.5-10.1 mg/dL AGAP 5.9 BN/CR 16.4 EGFRAA 95.71 EGFRNAA 78.97 I-STAT BMP W/IONIZED CALCIUM (BACKUP) Reviewed date:05/16/2022 08:20:38 AM Interpretation: Performing Lab: Notes/Report: IGLUC 91 70-105 mg/dL IBUN 10.0 8.0-26.0 mg/dL ICREAT 0.9 0.6-1.3 mg/dL ISODIUM 141 138-146 mmol/L IPOT 3.90 3.50-4.90 mmol/L ICL 97 98-109 mmol/L ICO2 37 24-29 mmol/L IONIZEDCA 1.18 1.12-1.32 mmol/L CBC WITH DIFF Reviewed date:05/16/2022 07:44:55 AM Interpretation: Performing Lab: Notes/Report: WBC 4.4 4.8-10.8 10^3/mm^3 RBC 4.07 3.90-5.03 10^6/mm^3 HGB 12.0 12.0-15.5 g/dL HCT 40 36-46 % MCV 97.1 81.0-99.0 fL MCH 29.5 27.1-32.0 pg MCHC 30 33-36 g/dL RDW 15.3 11.6-14.8 % PLATELETS 181 150-400 10^3/mm^3 NE# 2.80 1.20-6.70 10^3/mm^3 LY# 1.09 1.20-3.40 10^3/mm^3 MO# 0.33 0.11-0.70 10^3/mm^3 EO# 0.06 0.00-0.70 10^3/mm^3 BA# 0.00 0.00-0.20 10^3/mm^3 NEUT% 63 40-74 % per 100 WBC LY% 25 19-48 % per 100 WBC MO% 7.5 3.0-10.0 % per 1 00 WBC EO% 1.4 1.0-7.0 % per 10 0 WBC BA% 0.0 0.0-2.0 % per 10 0 WBC CBC WITH DIFF Reviewed date:05/15/2022 08:01:45 AM Interpretation: Performing Lab: Notes/Report: WBC 4.6 4.8-10.8 10^3/mm^3 RBC 3.71 3.90-5.03 10^6/mm^3 HGB 11.3 12.0-15.5 g/dL HCT 36 36-46 % MCV 97.3 81.0-99.0 fL MCH 30.5 27.1-32.0 pg MCHC 31 33-36 g/dL RDW 15.3 11.6-14.8 % PLATELETS 165 150-400 10^3/mm^3 NE# 2.98 1.20-6.70 10^3/mm^3 LY# 1.12 1.20-3.40 10^3/mm^3 MO# 0.39 0.11-0.70 10^3/mm^3 EO# 0.06 0.00-0.70 10^3/mm^3 BA# 0.01 0.00-0.20 10^3/mm^3 NEUT% 65 40-74 % per 100 WBC LY% 24 19-48 % per 100 WBC MO% 8.4 3.0-10.0 % per 1 00 WBC EO% 1.3 1.0-7.0 % per 10 0 WBC BA% 0.2 0.0-2.0 % per 10 0 WBC BMP Reviewed date:05/17/2022 11:04:01 AM Interpretation: Performing Lab: Notes/Report: GLU 117 70-100 mg/dL BUN 11 7-18 mg/dL CREAT 0.72 0.55-1.02 mg/dL NA 145 136-145 mEq/L K 4.1 3.5-5.1 mEq/L CL 103 98-107 mEq/L CO2 38 21-31 mEq/L CA 8.3 8.5-10.1 mg/dL AGAP 8.5 BN/CR 14.9 EGFRAA 95.71 EGFRNAA 78.97 CBC WITH DIFF Reviewed date:05/04/2022 07:03:04 PM Interpretation: Performing Lab:NL1, [facility], [address] [place] [address] ([address], [address] Phu Rosenberg M.D. Notes/Report: Received Date: WHITE BLOOD CELL COUNT 10.3 3.8-10.8 Thousand/uL RED BLOOD CELL COUNT 4.51 3.80-5.10 Million/uL HEMOGLOBIN 13.9 11.7-15.5 g/dL HEMATOCRIT 41.7 35.0-45.0 % MCV 92.5 80.0-100.0 fL MCH 30.8 27.0-33.0 pg MCHC 33.3 32.0-36.0 g/dL RDW 14.0 11.0-15.0 % PLATELET COUNT 316 140-400 Thousand/uL MPV 9.7 7.5-12.5 fL ABSOLUTE NEUTROPHILS 7632 3628-8814 cells/uL ABSOLUTE LYMPHOCYTES 2084 300-7461 cells/uL ABSOLUTE MONOCYTES 721 200-950 cells/uL ABSOLUTE EOSINOPHILS 82 15-500 cells/uL ABSOLUTE BASOPHILS 52 0-200 cells/uL NEUTROPHILS 74.1 LYMPHOCYTES 17.6 MONOCYTES 7.0 EOSINOPHILS 0.8 BASOPHILS 0.5 COMMENT(S) Review of peripheral smear confirms automated results. URINE CULTURE ROUTINE Reviewed date:05/04/2022 07:03:04 PM Interpretation: Performing Lab:NL1, [facility], [address] [place] [address] (1)[place], [address] Phu Rosenberg M.D. Notes/Report: Received Date: CULTURE, URINE, ROUTINE SEE NOTE CULTURE, URINE, ROUTINE Micro Number: [id number] Test Status: Final Specimen Source: Urine Specimen Quality: Adequate Result: Less than 10,000 CFU/mL of single Gram positive organism isolated. No further testing will be performed. If clinically indicated, recollection using a method to minimize contamination, with prompt transfer to Urine Culture Transport Tube, is recommended. CMP Reviewed date:05/04/2022 07:03:04 PM Interpretation: Performing Lab:NL1, [facility], [address] [place] [address] ([facility])[place], [address] Phu Rosenberg M.D. Notes/Report: Received Date: GLUCOSE 88 65-99 mg/dL Fasting reference interval UREA NITROGEN (BUN) 25 7-25 mg/dL CREATININE 0.95 0.60-1.00 mg/dL EGFR 62 > OR = 60 mL/min/1.73m2 The eGFR is based on the CKD-EPI 202 equation. To calculate the new eGFR from a previous Creatinine or Cystatin C result, go to https://www.kidney.org/profes sionals/ kdoqi/gfr%5Fcalculator BUN/CREATININE RATIO NOT APPLICABLE 6-22 (calc) SODIUM 142 135-146 mmol/L POTASSIUM 4.1 3.5-5.3 mmol/L CHLORIDE 100 98-110 mmol/L CARBON DIOXIDE 37 20-32 mmol/L CALCIUM 8.8 8.6-10.4 mg/dL PROTEIN, TOTAL 6.0 6.1-8.1 g/dL ALBUMIN 4.0 3.6-5.1 g/dL GLOBULIN 2.0 1.9-3.7 g/dL (calc) ALBUMIN/GLOBULIN RATIO 2.0 1.0-2.5 (calc) BILIRUBIN, TOTAL 0.6 0.2-1.2 mg/dL ALKALINE PHOSPHATASE 47 37-153 U/L AST 13 10-35 U/L ALT 12 6-29 U/L URINE DIP IH Reviewed date:05/01/2022 12:04:45 PM Interpretation: Performing Lab: Notes/Report: Microscopic Examination Urine-Color yellow Appearance cloudy Specific [place] 1.010 pH 6 Glucose normal Protein negative Occult Blood negative Bilirubin negative Urobilinogen,Semi-Qn negative Nitrite, Urine negative Ketones negative Leukocyte esterase +++ HCG Urinalysis Gross Exam DEXA Reviewed date:02/06/2022 04:44:31 PM Interpretation:Normal Performing Lab: Notes/Report: Normal RESULTS: Normal MAMMOGRAM Reviewed date:02/08/2022 12:58:43 PM Interpretation:BIRADS Category 1 Performing Lab: Notes/Report: BIRADS Category 1 Results: Birads 1 SPECIMEN INTEGRITY COMPROMIS ED Reviewed date:12/06/2021 11:34:03 AM Interpretation: Performing Lab:NL1, [facility], [address] [place] [address], [address], [place], [address] Phu Rosenberg M.D. Notes/Report: Received Date: [id number] SPECIMEN INTEGRITY COMPROMISED Whole blood, unspun or partially spun gel barrier tube was received more than 6 hours since collection. A false elevation of K, Phos and LD as well as a false decrease in glucose may occur due to prolonged contact with red cells. PTT Reviewed date:04/23/2022 08:16:29 AM Interpretation: Performing Lab: Notes/Report: PTT 63.3 21.7-29.3 sec Normal and therapeutic reference ranges effective 2021 Therapeutic Reference Range: 44.3-109.6 seconds. The therapeutic reference range corresponds to heparin concentrations of 0.3 U/mL-0.7U/mL CBC WITH DIFF Reviewed date:04/23/2022 08:16:29 AM Interpretation: Performing Lab: Notes/Report: WBC 8.4 4.8-10.8 10^3/mm^3 RBC 4.26 3.90-5.03 10^6/mm^3 HGB 12.9 12.0-15.5 g/dL HCT 40 36-46 % MCV 94.1 81.0-99.0 fL MCH 30.3 27.1-32.0 pg MCHC 32 33-36 g/dL RDW 14.0 11.6-14.8 % PLATELETS 229 150-400 10^3/mm^3 NE# 7.32 1.20-6.70 10^3/mm^3 LY# 0.73 1.20-3.40 10^3/mm^3 MO# 0.31 0.11-0.70 10^3/mm^3 EO# 0.00 0.00-0.70 10^3/mm^3 BA# 0.01 0.00-0.20 10^3/mm^3 NEUT% 87 40-74 % per 100 WBC LY% 9 19-48 % per 100 WBC MO% 3.7 3.0-10.0 % per 1 00 WBC EO% 0.0 1.0-7.0 % per 10 0 WBC BA% 0.1 0.0-2.0 % per 10 0 WBC PTT Reviewed date:04/23/2022 08:16:30 AM Interpretation: Performing Lab: Notes/Report: PTT 45.0 21.7-29.3 sec Normal and therapeutic reference ranges effective 2021 Therapeutic Reference Range: 44.3-109.6 seconds. The therapeutic reference range corresponds to heparin concentrations of 0.3 U/mL-0.7U/mL CBC WITH DIFF Reviewed date:04/23/2022 08:16:30 AM Interpretation: Performing Lab: Notes/Report: WBC 5.8 4.8-10.8 10^3/mm^3 RBC 3.98 3.90-5.03 10^6/mm^3 HGB 12.2 12.0-15.5 g/dL HCT 38 36-46 % MCV 95.2 81.0-99.0 fL MCH 30.7 27.1-32.0 pg MCHC 32 33-36 g/dL RDW 14.3 11.6-14.8 % PLATELETS 179 150-400 10^3/mm^3 NE# 3.70 1.20-6.70 10^3/mm^3 LY# 1.19 1.20-3.40 10^3/mm^3 MO# 0.58 0.11-0.70 10^3/mm^3 EO# 0.27 0.00-0.70 10^3/mm^3 BA# 0.03 0.00-0.20 10^3/mm^3 NEUT% 64 40-74 % per 100 WBC LY% 20 19-48 % per 100 WBC MO% 10.0 3.0-10.0 % per 1 00 WBC EO% 4.6 1.0-7.0 % per 10 0 WBC BA% 0.5 0.0-2.0 % per 10 0 WBC REASON FOR REFERRAL No Information MEDICATIONS Medication SIG (Take, Route, Frequency, Duration) Notes Start Date End Date Status Senna Lax 8.6 MG 2 tablets as needed Orally Once a day 06/01/2022 Active Atorvastatin Calcium 10 MG 1 tablet Oral ly Once a day 06/01/2022 Active Vitamin D3 2000 UNIT as directed Orally Once a day 02/08/2014 Active Calcium Carbonate 500 MG 2 tablets with food Orally Twice a day 06/01/2022 Active Zofran ODT 4 MG 1 tablet on the tong ue and allow to dissolve as needed Orally Every 8 hours 06/01/2022 Active Carbidopa-Levodopa 25-100 MG 2 tablets Orally Three times a day Active Accu-Chek Amarilys Plus N/A as directed In Vitro Once a day (250.00, medical necessity) for 90 days 10/27/2012 Active Ecotrin Low Strength 81 MG 1 tablet Oral ly every 24 hours 04/23/2022 Active ACCUCHEK AMARILYS PLUS FASTCLIX DRUM 1 as directed Code 250 Medicall necessity Test once daily for 90 days 10/27/2012 Active Gabapentin 100 MG two capsules Orally three times a day for 90 days Active Lisinopril 5 MG 3 tablets Orally Onc e a day for 90 days 05/30/2022 Active Miconazole Nitrate 2 % 1 application Top ically Twice a day 06/01/2022 Active MiraLax 17 GM 1 packet mixed with 8 ounces of fluid Orally Once a day 06/01/2022 Active One Daily - 1 tablet Orally Once a day Active Apixaban 5 MG 1 tablet Orally Twic e a day 06/01/2022 Active Protonix 40 MG 1 tablet Orally ever y 24 hours 04/23/2022 Active Atenolol 50 MG 1 tablet Orally Once a day for 90 days Active IMMUNIZATIONS Vaccine Route Administration Date Status Sujatha huynh Zostavax [facility] [address] SC Subcutaneous 01/07/2013 Administered Patient in for f/u and reports that [facility] Called to verify. He confirms zostavax given on 01/07/13. He reports that he will fax immunization. Tetanus Toxoid 72625 Unknown 04/14/2010 Administered TDaP Adult [facility] 56270 Unknown 11/12/2019 Administered Prevnar PCV 13 [facility] 46708 Unknown 11/30/2015 Administered Pneumovax [facility] 25590 IM Intramuscular 02/01/2014 Administered Influenza Adult FluBlok high dose PURCHASED IM Intramuscular 01/27/2018 Administered Influenza Adult FluBlok high dose PURCHASED IM Intramuscular 01/16/2019 Administered Influenza Adult FluBlok high dose PURCHASED IM Intramuscular 12/23/2019 Administered Influenza Adult FluBlok high dose PURCHASED IM Intramuscular 01/24/2022 Administered INFLUENZA 18 YRS TO 64 YRS OLD-STATE SUPPLIED Unknown 01/16/2010 Administered INFLUENZA 18 YRS TO 64 YRS OLD-STATE SUPPLIED Unknown 01/13/2014 Administered INFLUENZA 18 YRS TO 64 YRS OLD-STATE SUPPLIED Unknown 01/28/2015 Administered INFLUENZA 18 YRS TO 64 YRS OLD-STATE SUPPLIED Unknown 11/30/2015 Administered INFLUENZA 18 YRS TO 64 YRS OLD-STATE SUPPLIED IM Intramuscular 02/20/2017 Administered COVID-19 Pfizer IM Intramuscular 03/10/2021 Administered COVID-19 Pfizer Unknown 08/29/2021 Administered COVID-19 Moderna 94490 Unknown 06/21/2020 Administered COVID-19 Moderna 79793 Unknown 07/19/2020 Administered SOCIAL HISTORY Tobacco Use: Social History Observation Description Date Details (start date - stop date) Former Smoker NA - NA Sex Assigned At : Social History Observation Description Sex Assigned At Unknown OTHER TOBACCO USE: Question Answer Notes Are you an other tobacco user? No SMOKING STATUS: Question Answer Notes Are you a: Former smoker PRAPARE Question Answer Notes Date Completed/Updated: [...] phone, visiting friends or family, going to taoism or club meetings) 3 to 5 times a week How stressed are you? Stress is when someone feels tense, nervous, anxious, or can't sleep at night because their mind is troubled A little bit In the past year have you sp ent more than 2 nights in a row in a half-way, [place] health care facility, senior care center, or juvenile correctional facility? No Are you a refugee? No What country are you from? [place] Do you feel physically and e motionally safe where you currently live? Yes In the past year, have you b een afraid of your partner or ex-partner? No PRAPARE Score: 4 PROBLEMS Problem Type ICD Code Onset Dates Problem Status W/U Status Risk SNOMED Code Notes Problem Hyperlipidemia, unspecified (E78.5) Active confirmed Hyperlipidemia (97631547) Problem Other specified diabetes mellitus without complications (E13.9) Active confirmed Diabetes mellit us without complication (597224149) Problem Hypertension (I10) Active confirmed 59181911 Problem GERD (gastroesophagea l reflux disease) (K21.9) Active confirmed 048169111 Problem Osteopenia (M85.80) Active confirmed 892493777 Problem Neuropathy (G62.9) Active confirmed 104309182 Problem Murmur (R01.1) Active confirmed 1082467 6 Problem Cataract (H26.9) Active confirmed 05204 0009 Problem Arthritis (M19.90) Active confirmed 0926804 Problem Family history of breast cancer (Z80.3) Active confirmed 304976030 Problem Parkinson disease (G20) Active confirmed 54095234 Problem Controlled type 2 diabetes mellitus without complication, without long-term current use of insulin (E11.9) Active confirmed 812884423 Problem Unsteady (R26.81) Active confirmed 17035130 Problem Swelling of both lower extremities (M79.89) Active confirmed 72498063546234601 Problem Aortic valve insufficiency, etiology of cardiac valve disease unspecified (I35.1) Active confirmed 78863332 VITAL SIGNS Heart Rate 70 BPM 05/01/2022 Temperature 98.2 degrees Fahrenheit 05/01/2022 Respiratory Rate 16 /min 04/19/2022 Oximetry 97 % 05/01/2022 Blood pressure diastolic 80 mmHg 05/01/2022 Height 67 in 05/01/2022 Blood pressure systolic 132 mmHg 05/01/2022 Weight 187 lbs 01/24/2022 BMI 29.29 kg/m2 01/24/2022 Encounters Encounter Location Date Provider Diagnosis [facility] [address] [place], [place] [id number] 12/15/[address] [id number] 12/21/2021 An [facility] [address] [place] [address] 12/28/2021 An [facility] [address] [facility] [place] [address] 01/01/2022 [facility] Medicaid for Elderly and Disabled VTMED ; Housing Assistance HOUS and CCM CCM [facility] [address] [facility], [place] [id number] 01/10/2022 [facility] Medicaid for Elderly and Disabled VTMED [facility] [address] [place] [address] 01/18/2022 An [facility] Care Coordination [facility] Care Coordination [address], [place] [id number] 02/15/2022 [facility] [address] [facility], [place] [id number] 02/20/2022 [facility] [address] [facility], [place] [id number] 04/19/2022 [facility] [address] [facility], [place] [id number] 04/24/2022 [facility] Admit HOSP and Transitional Care Management [facility] [address] [facility], [place] [id number] 04/25/2022 [facility] [address] [facility], [place] [id number] 05/02/2022 [facility] Housing Assistance H OUS [facility] [address] [facility], [place] [id number] 05/04/2022 [facility] [address] [facility], [place] [id number] 05/10/2022 [facility] [address] [facility], [place] [id number] 05/14/2022 [facility] Admit HOSP and Transitional Care Management [facility] [address] [facility], [place] [id number] 06/01/2022 [facility] [address] [facility], [place] [id number] 06/22/2022 [facility] Update Care Plan CCM Update Care Plan [place] [id number] [facility] [place] [id number] 06/22/2022 [facility] [address] [facility], [place] [id number] 07/16/2022 [facility] ER [address] [id number] 07/31/[address] [id number] 10/15/2022 An [place] [facility] Visit ER [address], [place] [id number] 10/22/2022 An [place] [address] [id number] 10/29/2022 An [place] [address] [id number] 11/28/2021 [facility] Controlled type 2 diabetes mellitus without complication, unspecified [employer]cher [employer] insulin use status E11.9 ; Osteopenia M85.80 ; GERD (gastroesophageal reflux disease) K21.9 ; Murmur R01.1 ; Hypertension I10 ; Hyperlipidemia, unspecified E78.5 ; Neuropathy G62.9 and Breast cancer screening by mammogram Z12.[address] [id number] 10/26/[address] [id number] 05/01/2022 [facility] Controlled type 2 diabetes mellitus without complication, unspecified [employer] insulin use status E11.9 ; Burning sensation R20.8 and History of recent hospitalization Z92.[address] [id number] 01/24/2022 [facility] Screening mammogram for breast cancer Z12.31 ; Osteopenia M85.80 ; Annual physical exam Z00.00 ; Encounter for immunization Z23 ; Other specified diabetes mellitus without complications E13.9 and Parkinson disease G20 [address] [id number] 04/25/[address] [id number] 07/31/2022 [facility] Dietary counseling a nd surveillance Z71.3 ; Counseling on health promotion and disease prevention Z71.89 and Controlled type 2 diabetes mellitus without complication, without long-term current use of insulin E11.[address] [id number] 02/06/2022 [facility] Referral Insuran ce Coverage [facility] Referral Insurance Coverage [place] [address] [place], [place] [id number] 04/19/2022 Vane Belle Diffuse pain in left lower extremity M79.605 ; Left leg swelling M79.89 and Cellulitis of left lower extremity L03.116 ASSESSMENTS Encounter Date Diagnosis Assessment Notes Treatment Notes Treatment Clinical Notes 11/28/2021 Osteopenia (ICD-10 - M85.80) 11/28/2021 Controlled type 2 diabetes mellitus without complication, unspecified correction insulin use status (ICD-10 - E11.9) 01/01/2022 Housing Assistance (ICD9-CM - HOUS) 01/01/2022 [place] Medicaid for Elderly and Disabled (ICD9-CM - VTMED) 01/10/2022 [place] Medicaid for Elderly and Disabled (ICD9-CM - VTMED) 01/18/2022 CCM [facility] Care Coordination (ICD9-CM - CCM [facility] Care Coordination) 01/24/2022 Osteopenia (ICD-10 - M85.80) [facility] 01/24/2022 Screening mammogram for breast cancer (ICD-10 - Z12.31) [facility] 04/19/2022 Left leg swelling (ICD-10 - M79.89) 04/19/2022 Diffuse pain in left lower extremity (ICD-10 - M79.605) 04/24/2022 Transitional Care Management (ICD-10 - TCM) 04/24/2022 Hospital Admit (ICD9-CM - HOSP) 05/01/2022 Controlled type 2 diabetes mellitus without complication, unspecified correction insulin use status (ICD-10 - E11.9) 05/01/2022 Burning sensation (ICD-10 - R20.8) 05/02/2022 Housing Assistance (ICD9-CM - HOUS) 05/14/2022 Hospital Admit (ICD9-CM - HOSP) 06/22/2022 CCM Update Care Plan (ICD9-CM - CCM Update Care Plan ) 07/16/2022 ER Visit (ICD9-CM - ER) 07/31/2022 Dietary counseling and surveillance (ICD-10 - Z71.3) 10/15/2022 ER Visit (ICD9-CM - ER) 02/06/2022 [facility] Referral Insurance Coverage (ICD9-CM - [facility] Referral Insurance Coverage) 01/24/2022 Annual physical exam (ICD-10 - Z00.00) 07/31/2022 Counseling on health promotion and disease prevention (ICD-10 - Z71.89) Physical activity counseling provided 07/31/2022 Controlled type 2 diabetes mellitus without complication, without long-term current use of insulin (ICD-10 - E11.9) 05/14/2022 Transitional Care Management (ICD-10 - TCM) 05/01/2022 History of recent hospitalization (ICD-10 - Z92.89) 04/19/2022 Cellulitis of left lower extremity (ICD-10 - L03.116) 01/01/2022 CCM (ICD-10 - CCM) 11/28/2021 GERD (gastroesophageal reflux disease) (ICD-10 - K21.9) 11/28/2021 Murmur (ICD-10 - R01.1) 11/28/2021 Hypertension (ICD-10 - I10) 01/24/2022 Encounter for immunization (ICD-10 - Z23) Patient presents for flu shot. Screening questions reviewed with patient. There was no contraindication to patient receiving the flu shot today. Consent received prior to injection. Vaccine Information Sheet offered to patient. 01/24/2022 Other specified diabetes mellitus without complications (ICD-10 - E13.9) 11/28/2021 Hyperlipidemia, unspecified (ICD-10 - E78.5) 11/28/2021 Neuropathy (ICD-10 - G62.9) 01/24/2022 Parkinson disease (ICD-10 - G20) 11/28/2021 Breast cancer screening by mammogram (ICD-10 - Z12.31) 11/28/2021 Other Scribed for BENNIE Campoverde, by Elaina Feliz scribe. An Price FNP, have personally reviewed and agreed with the information entered by the Virtual scribe. 01/24/2022 Other Scribed for BENNIE Campoverde, by Elaina Felizibsteve. An Price FNP, have personally reviewed and agreed with the information entered by the Virtual scribe. 02/06/2022 Other Assisted mike t with [facility] Application, attached all supporting documentation. Dropped application off to sister and she will have patient sign and return so I can fax in. 04/19/[address] Belle by Demetrice Becker, medical receptionist medical assistant, on 04/19/2022. I, Dr. Belle, have personally reviewed and agreed with the information entered by the medical receptionist medical assistant. 05/01/2022 Other Scribed for BENNIE Campoverde, by Morenita Dumas Virtual scribe. I, BENNIE Machuca, have personally reviewed and agreed with the information entered by the Virtual scribe. PLAN OF TREATMENT No Information Insurance Providers Payer Name Payer Address Payer Phone Subscriber Number Group Number Insured Name Patient Relationship to Insured Coverage Start Date Coverage End Date MEDICARE FQHC [address] [place] [address] [id number] Keesha Ivette Self - patient is the insured 3 [facility] [address] [place] [address] [phone] [id number] Keesha Ivette Self - patient is the insured [place] [address] [place] [phone] [id number] Keesha Ivette Self - patient is the insured MEDICATIONS ADMINISTERED Medication Instructions Date of Administration Dosage Notes Toradol Ketorolac Tromethamine 03/08/2020 60 mg MEDICAL (GENERAL) HISTORY Medical History History ICD Code Type II diabetes Hypertension Hyperlipidemia Hypercholesterolemia Carpal Tunnel Right Hand Lipoma Left Thigh Functional Heart Murmur Early Cataracts family history of Adenomatous Polyps Surgical History Surgery Date(Month/Year) Lumpectomy- benign 1977 Bilateral cataracts 2020 Hospitalization History Reason Date(Month/Year) [facility]Asthenia; A cute hypoxemic respiratory failure; Pneumonia; DVT; Hypertensive disorder 05/17-05/30/22 [facility]-Deep Venous Thrombosis; Covid-19; Coronary Arteriosclerosis 04/19-04/23/22
== END 2022-11-13 03:19 ==
LOC: DI 03:02
PROVIDERS: PCP Nurse Practitioner; Visit Provider Nurse Practitioner Gerontology
DX: I71.40 Abdominal aortic aneurysm, without rupture, unspecified (principal)
CPT/HCPCS: 71046

== ENCOUNTER 2022-11-13 17:53 | Outpatient (REF) | payer MEDICARE, OTHER, SELFPAY ==
[2022-11-13 19:50] LABS: Abs Immature Grans 0.04 10^3/uL (0.0-0.06); Absolute Basophil Count 0.03 10^3/uL (0.0-0.2); Absolute Eosinophil Count 0.11 10^3/uL (0.0-0.7); Absolute Lymphocyte Count 1.38 10^3/uL (1.2-3.4); Absolute Monocyte Count 0.43 10^3/uL (0.1-0.8); Basophils % 0.6; HCT 42.9 % (36.0-46.0); HGB 14.1 g/dL (11.2-15.7); Immature Grans % 0.7; Lymphocytes % 25.6; MCH 29.6 pg (27.0-33.0); MCHC 32.9 % (32.0-36.0); MCV 90 fL (80-95); MPV 10.3 fL (8.0-11.0); Neutrophils % 63.1; Platelet Count 204 10^3/uL (130-400); RBC 4.76 10^6/uL (3.93-5.22); RDW 14.1 % (11.7-14.6); RDW-SD 46.2 fL; WBC 5.39 10^3/uL (4.4-10.8)
[2022-11-13 20:05] LABS: ALT 12 U/L (14-59); AST 15 U/L (15-37); Alkaline Phosphatase 98 U/L (46-116); Anion Gap 7.1 mmol/L (3-11); BUN 10 mg/dL (7-18); Bilirubin, Total 0.4 mg/dL (0.2-1.0); CO2 31.9 mmol/L (21.0-32.0); CREATININE 0.8 mg/dL (0.55-1.02); Chloride 103 mmol/L (98-107); Estimated GFR 76.79 (mL/min/1.73m2); Glucose 149 mg/dL (74-106); Potassium 4.1 mmol/L (3.5-5.1); Sodium 142 mmol/L (136-145); Total Protein 6.7 g/dL (6.4-8.2)
== END 2022-11-13 17:54 | disposition home or self-care (01) ==
LOC: LBN 17:53
PROVIDERS: PCP Nurse Practitioner; Visit Provider Nurse Practitioner Gerontology
DX: I50.9 Heart failure, unspecified (principal); R68.89 Other general symptoms and signs; J44.9 Chronic obstructive pulmonary disease, unspecified
CPT/HCPCS: 80053; 85025

== ENCOUNTER → 2022-12-20 12:31 | Outpatient (BNVA) | payer MEDICARE, OTHER, SELFPAY | PROVIDERS: PCP Nurse Practitioner; Referring Provider Nurse Practitioner; Visit Provider Psychiatry & Neurology Neurology | DX: G20 Parkinson's disease (principal); I11.0 Hypertensive heart disease with heart failure; E11.9 Type 2 diabetes mellitus without complications; J44.9 Chronic obstructive pulmonary disease, unspecified; I50.42 Chronic combined systolic (congestive) and diastolic (congestive) heart failure | CPT/HCPCS: 99214 ==

== ENCOUNTER 2023-01-22 08:49 | Outpatient (CLI) | payer MEDICARE, OTHER, SELFPAY ==
--- NOTE | 2023-01-22 08:45 | RT.EKG_ITS ---
APPROVED REPORT Exam: Resting ECG Reason for Exam: HF, [place] Patient Location: O HR:63 bpm ECG Measurements Heart Rate 63 AXIS MI 216 P 35 QRSd 161 QRS -66 QT 480 T 46 QTc 492 Conclusion Sinus rhythm...normal P axis, V-rate 50- 99 Borderline prolonged MI interval...MI >212, V-rate 50- 90 Left bundle branch block...QRSd>120, broad/notched R
== END 2023-01-22 08:50 | disposition home or self-care (01) ==
LOC: DI.CARD 08:49
PROVIDERS: PCP Nurse Practitioner; Visit Provider Internal Medicine Cardiovascular Disease
DX: I35.1 Nonrheumatic aortic (valve) insufficiency (principal); I50.9 Heart failure, unspecified
CPT/HCPCS: 93010

== ENCOUNTER → 2023-01-22 11:05 | Outpatient (BNVA) | payer MEDICARE, OTHER, SELFPAY | PROVIDERS: PCP Nurse Practitioner; Referring Provider Nurse Practitioner; Visit Provider Internal Medicine Cardiovascular Disease | DX: I71.21 Aneurysm of the ascending aorta, without rupture (principal); I35.1 Nonrheumatic aortic (valve) insufficiency | CPT/HCPCS: 93005; 99203; 99213 ==

== ENCOUNTER → 2023-02-20 09:02 | Outpatient (BNVA) | payer MEDICARE, OTHER, SELFPAY | PROVIDERS: PCP Nurse Practitioner; Referring Provider Nurse Practitioner; Visit Provider Psychiatry & Neurology Neurology | DX: G20.A1 Parkinson's disease without dyskinesia, without mention of fluctuations (principal); G31.84 Mild cognitive impairment of uncertain or unknown etiology; N32.81 Overactive bladder; R35.1 Nocturia; I11.0 Hypertensive heart disease with heart failure; I50.9 Heart failure, unspecified; E11.9 Type 2 diabetes mellitus without complications | CPT/HCPCS: 99214 ==

== ENCOUNTER 2023-04-22 17:56 | Outpatient (REF) | payer MEDICARE, OTHER, SELFPAY ==
[2023-04-22 19:23] LABS: CREATININE 0.9 mg/dL (0.55-1.02); Estimated GFR 66.26 (mL/min/1.73m2)
[2023-04-22 20:16] LABS: C-Reactive Protein 0.15 mg/dL (0.0-0.3)
== END 2023-04-22 17:57 | disposition home or self-care (01) ==
LOC: LBN 17:56
PROVIDERS: PCP Nurse Practitioner; Visit Provider Nurse Practitioner Gerontology
DX: I71.9 Aortic aneurysm of unspecified site, without rupture (principal); I50.43 Acute on chronic combined systolic (congestive) and diastolic (congestive) heart failure; R53.83 Other fatigue
CPT/HCPCS: 82565; 86140

== ENCOUNTER 2023-04-25 19:01 | Outpatient (REF) | payer MEDICARE, OTHER, SELFPAY ==
[2023-04-25 19:29] LABS: Bilirubin Negative (Negative); Blood Negative (Negative); Clarity Cloudy (Clear); Glucose Negative (Negative); Ketones Negative (Negative); Leukocyte Esterase Trace (Negative); Nitrite Negative (Negative); Urobilinogen 0.2 mg/dL (Up to 0.2)
[2023-04-25 19:36] LABS: Bacteria Few HPF (Negative); C & S Indicated? C&S Done As Ordered; Casts 0-2 Hyaline LPF (Negative); Crystals Negative HPF (Negative); Epithelial Cells Rare HPF (Negative); Mucus Negative (Negative); RBC 0-2 HPF (0-2)
== END 2023-04-25 19:02 | disposition home or self-care (01) ==
LOC: LBN 19:01
PROVIDERS: PCP Nurse Practitioner; Visit Provider Nurse Practitioner Gerontology
DX: R82.998 Other abnormal findings in urine (principal); R53.81 Other malaise; R53.83 Other fatigue
CPT/HCPCS: 81003; 81015; 87086

== ENCOUNTER 2023-04-29 15:53 | Outpatient (REF) | payer MEDICARE, OTHER, SELFPAY ==
[2023-04-29 15:53] LABS: Abs Immature Grans 0.02 10^3/uL (0.0-0.06); Absolute Basophil Count 0.02 10^3/uL (0.0-0.2); Absolute Eosinophil Count 0.05 10^3/uL (0.0-0.7); Absolute Lymphocyte Count 1.42 10^3/uL (1.2-3.4); Absolute Monocyte Count 0.45 10^3/uL (0.1-0.8); Absolute Neutrophil Count 3.71 10^3/uL (1.2-6.7); Basophils % 0.4; Eosinophils % 0.9; HCT 43.9 % (36.0-46.0); HGB 14.5 g/dL (11.2-15.7); Immature Grans % 0.4; MCH 30.9 pg (27.0-33.0); MCV 94 fL (80-95); MPV 9.9 fL (8.0-11.0); Monocytes % 7.9; Neutrophils % 65.4; Platelet Count 226 10^3/uL (130-400); RBC 4.69 10^6/uL (3.93-5.22); RDW-SD 47.5 fL; WBC 5.67 10^3/uL (4.4-10.8)
[2023-04-29 16:32] LABS: ALT 11 U/L (14-59); AST 13 U/L (15-37); Albumin 4.1 g/dL (3.4-5.0); Alkaline Phosphatase 81 U/L (46-116); Anion Gap 7.8 mmol/L (3-11); BUN 17 mg/dL (7-18); Bilirubin, Total 0.5 mg/dL (0.2-1.0); CO2 32.2 mmol/L (21.0-32.0); Calcium 9.1 mg/dL (8.5-10.1); Chloride 104 mmol/L (98-107); Estimated GFR 58.39 (mL/min/1.73m2); Glucose 125 mg/dL (74-106); NT-proBNP 4103 pg/mL (<300); Potassium 4.4 mmol/L (3.5-5.1); Sodium 144 mmol/L (136-145)
[2023-04-29 16:53] LABS: Total Protein 6.9 g/dL (6.4-8.2)
== END 2023-04-29 15:54 | disposition home or self-care (01) ==
LOC: LBN 15:53
PROVIDERS: PCP Nurse Practitioner; Visit Provider Nurse Practitioner Gerontology
DX: I50.23 Acute on chronic systolic (congestive) heart failure (principal); J44.9 Chronic obstructive pulmonary disease, unspecified; R60.0 Localized edema; G31.84 Mild cognitive impairment of uncertain or unknown etiology; G20.C Parkinsonism, unspecified
CPT/HCPCS: 80053; 83880; 85025

== ENCOUNTER 2023-05-06 19:18 | Outpatient (REF) | payer MEDICARE, OTHER, SELFPAY ==
[2023-05-06 20:39] LABS: ALT 17 U/L (14-59); AST 12 U/L (15-37); Albumin 4.1 g/dL (3.4-5.0); Alkaline Phosphatase 75 U/L (46-116); Anion Gap 7.5 mmol/L (3-11); BUN 22 mg/dL (7-18); Bilirubin, Total 0.5 mg/dL (0.2-1.0); CO2 32.5 mmol/L (21.0-32.0); Calcium 9.2 mg/dL (8.5-10.1); Chloride 103 mmol/L (98-107); Estimated GFR 58.39 (mL/min/1.73m2); Glucose 186 mg/dL (74-106); NT-proBNP 1853 pg/mL (<300); Potassium 4.4 mmol/L (3.5-5.1); Sodium 143 mmol/L (136-145); Total Protein 6.8 g/dL (6.4-8.2)
== END 2023-05-06 19:19 | disposition home or self-care (01) ==
LOC: LBN 19:18
PROVIDERS: PCP Nurse Practitioner; Visit Provider Nurse Practitioner Gerontology
DX: I50.43 Acute on chronic combined systolic (congestive) and diastolic (congestive) heart failure (principal); I11.0 Hypertensive heart disease with heart failure; E78.49 Other hyperlipidemia; J44.1 Chronic obstructive pulmonary disease with (acute) exacerbation
CPT/HCPCS: 80053; 83880

== ENCOUNTER 2023-05-20 17:07 | Outpatient (REF) | payer MEDICARE, OTHER, SELFPAY ==
[2023-05-20 18:42] LABS: ALT 17 U/L (14-59); AST 15 U/L (15-37); Alkaline Phosphatase 71 U/L (46-116); Anion Gap 8.7 mmol/L (3-11); BUN 20 mg/dL (7-18); Bilirubin, Total 0.4 mg/dL (0.2-1.0); CO2 32.3 mmol/L (21.0-32.0); Chloride 103 mmol/L (98-107); Estimated GFR 58.39 (mL/min/1.73m2); Glucose 102 mg/dL (74-106); NT-proBNP 1953 pg/mL (<300); Potassium 4.3 mmol/L (3.5-5.1); Sodium 144 mmol/L (136-145); Total Protein 6.8 g/dL (6.4-8.2)
== END 2023-05-20 17:08 | disposition home or self-care (01) ==
LOC: LBN 17:07
PROVIDERS: PCP Nurse Practitioner; Visit Provider Nurse Practitioner Gerontology
DX: I50.43 Acute on chronic combined systolic (congestive) and diastolic (congestive) heart failure (principal); I11.0 Hypertensive heart disease with heart failure; E78.49 Other hyperlipidemia
CPT/HCPCS: 80053; 83880

== ENCOUNTER → 2023-06-19 12:01 | Outpatient (BNVA) | payer MEDICARE, OTHER, MEDICAID, SELFPAY | PROVIDERS: PCP Nurse Practitioner; Referring Provider Nurse Practitioner; Visit Provider Psychiatry & Neurology Neurology | DX: G20.C Parkinsonism, unspecified (principal); G31.84 Mild cognitive impairment of uncertain or unknown etiology; R35.1 Nocturia; R44.3 Hallucinations, unspecified | CPT/HCPCS: 99214 ==

== ENCOUNTER 2023-07-08 19:07 | Outpatient (REF) | payer MEDICARE, OTHER, SELFPAY ==
[2023-07-08 20:10] LABS: ALT 12 U/L (14-59); AST 11 U/L (15-37); Alkaline Phosphatase 82 U/L (46-116); Anion Gap 8.8 mmol/L (3-11); BUN 17 mg/dL (7-18); Bilirubin, Total 0.3 mg/dL (0.2-1.0); CO2 32.2 mmol/L (21.0-32.0); CREATININE 0.8 mg/dL (0.55-1.02); Calcium 8.6 mg/dL (8.5-10.1); Chloride 104 mmol/L (98-107); Estimated GFR 76.31 (mL/min/1.73m2); Glucose 129 mg/dL (74-106); Magnesium 2.2 mg/dL (1.8-2.4); Potassium 4.4 mmol/L (3.5-5.1); Sodium 145 mmol/L (136-145); Total Protein 6.5 g/dL (6.4-8.2)
== END 2023-07-08 19:08 | disposition home or self-care (01) ==
LOC: LBN 19:07
PROVIDERS: PCP Nurse Practitioner; Visit Provider Nurse Practitioner Gerontology
DX: E83.42 Hypomagnesemia (principal); I50.9 Heart failure, unspecified; J44.1 Chronic obstructive pulmonary disease with (acute) exacerbation
CPT/HCPCS: 80053; 83735

== ENCOUNTER 2023-07-09 19:59 | Emergency (ER) | payer MEDICARE, OTHER, MEDICAID, SELFPAY ==
[2023-07-09] VITALS (69 sets, daily range): BP systolic 163–224; BP diastolic 39–59; PULSE 68–73; RESP 15–24; TEMP 36.4; O2SAT 89–94
--- NOTE | 2023-07-09 20:15 | DI.CT_ITS ---
Exam(s) CT THORAX ABD/PEL CTA EXAM: CT THORAX ABD/PEL CTA CLINICAL HISTORY: hx of thoracic aortic aneurysm, RLQ/groin pain. TECHNIQUE: Imaging Protocol: Axial CT angiography was performed with multi-slice acquisition and m ulti-planar and/or 3D reconstructions. CONTRAST MATERIAL: Intravenous: Omnipaque 350 Contrast volume:100 mL Oral: no COMPARISON: CT CT CHEST PE CTA from 10/12/2022 FINDINGS: CHEST: Pulmonary Arteries: No evidence of filling defect to suggest pulmonary emboli. Tracheobronchial tree: Patent where visualized. Mediastinum and Lanie: No dominant adenopathy or fluid collection. Small hiatal hernia. Pulmonary parenchyma: [id number] emphysematous changes. No consolidation or dominant measurabl e mass. No architectural distortion. Pleura: No effusion or pneumothorax. Heart: Mild left ventricular dilatation.. Minimal coronary artery calcifications are seen. Aorta: Ascending aorta dilated to 6.3 cm in diameter, beginning at the root. Minimal calcification. No evidence of dissection. Bones: Degenerative changes in the spine. Tubes, Catheters, and Lines: ABDOMEN AND PELVIS: Abdomen: Celiac axis/mesenteric arteries: No evidence of occlusion or significant stenosis. Renal Arteries: No evidence of occlusion or significant stenosis. There is a single renal artery per fusing each kidney. Aorta: No evidence of occlusion or significant stenosis. No aneurysm or dissection. Moderate calci fication Pelvis: Iliac Arteries: No evidence of occlusion or significant stenosis. Common Femoral Arteries: No evidence of occlusion or significant stenosis. ABDOMEN: Liver: Normal density. No measurable mass. Gallbladder and Biliary Tract: No radiodense calculus or dilation. Pancreas: Normal density, no abnormal calcifications or inflammatory process. Spleen: Normal. Adrenals: No masses seen. Kidneys: Normal size, contour and axis. No radiodense stones or obstructive uropathy. No masses seen. Bowel: No obstruction or bowel wall thickening. Moderate quantity of stool. No evidence of appendic itis. Peritoneal Cavity: No ascites, collection or mesenteric inflammatory response. Lymph Nodes: Within normal limits. Bones: Degenerative changes in the spine. Soft Tissues: Unremarkable. PELVIS: Bladder: Symmetric distention, no gross wall thickening. Reproductive Organs: Small calcified fibroids. Lymph Nodes: Within normal limits. Bones: Within normal limits. IMPRESSION: Stable dilatation of ascending aorta. No evidence of dissection. No acute abnormality in the abdomen or pelvis. RADIATION DOSE DELIVERED: Total DLP DATA REPOSITORY: All CT scans at this facility are submitted to the National Radiology Data Registry (NRDR) Dose Index Registry (DIR) with the [employer] (ACR). RADIATION OPTIMIZATION: All CT scans at this facility use at least one of these dose optimization te chniques: automated exposure control; mA and/or kV adjustment per patient size (includes targeted exa ms where dose is matched to clinical indication); or iterative reconstruction.
--- NOTE | 2023-07-09 20:18 | ED.PROG_ITS ---
Date of service: 07/09/23 Time of Service: 20:18 Medical Decision Making I evaluated this patient on arrival with her advanced practitioner. Please see her separate notes for details. In brief this is a 77-year-old female with right groin pain coming from a custodial facility. She has a known ascending aortic aneurysm but was having no chest pain no shortness of breath. Limited bedside ultrasound showed good squeeze and aortic outflow tract measuring approximately 6 cm. She had EF of 55% last summer. Quality:[facility] Health Related Social Needs: No Data to Display Discharge Plan Disposition Patient Disposition: Home Discharge Details Clinical Impression: Acute pain of right hip, Aorta aneurysm Primary Care Provider: An Tello ED Provider: Balbina Sahu Home Meds and New Rx's Prescriptions: New oxycodone 5 mg capsule 2.5 mg PO Q8H PRNQty: 5 0RF Continued sennosides-docusate sodium [Stool Softener-Laxative] 8.6-50 mg tablet 2 tab-cap PO QHS Nuplazid 34 mg capsule 34 mg PO DAILY furosemide 20 mg tablet 40 mg PO BID calcium carbonate [Calcium 600] 600 mg calcium (1,500 mg) Tablet 600 mg PO DAILY lisinopril 10 mg tablet 15 mg PO DAILY Patient Comments: TAKE 1 TABLET BY MOUTH ONCE DAILY atenolol 50 mg tablet 50 mg PO DAILY Patient Comments: TAKE 1 TABLET BY MOUTH ONCE DAILY FOR 90 DAYS multivitamin Tablet 1 tab PO DAILY aspirin 81 mg Tablet 81 mg PO DAILY atorvastatin 10 mg tablet 10 mg PO QHS pantoprazole 40 mg tablet,delayed release (DR/EC) 40 mg PO DAILY acetaminophen 325 mg Capsule 650 mg PO PRN PRN polyethylene glycol 3350 [Miralax] 17 gram Powder In Packet 17 g PO BID Spiriva Respimat 2.5 mcg/actuation Mist 2 puff inhalation DAILY Qty: 0 0RF albuterol sulfate 90 mcg/actuation HFA aerosol inhaler 2 puff inhalation Q6H PRNQty: 8.5 0RF carbidopa-levodopa 25-100 mg Tablet 2 tab PO TID Qty: 0 0RF Discharge Instructions Instructions: Leg Pain (ED) Additional Instructions: You may take half tablet of oxycodone as needed for pain I recommend light stretching and range of motion, weightbearing as tolerated with a walker Please be reassessed in 2-3 days with persistent pain and return earlier should he have new or worsening complaints Discharge Data Discharge Date/Time-TO BE ENTERED AT DEPARTURE: 07/09/23 22:02 POCUS Exam (ED) Limited Cardiac Exam DATE OF EXAM: 07/09/23 TIME OF EXAM: 20:23 PROVIDER THAT PERFORMED THE STUDY: Sudheer Beckman IS THIS A REPEAT EXAM DURING THIS ENCOUNTER: no REASON FOR EXAM: Other indication: Known ascending aortic aneurysm VISUALIZED STRUCTURES: Four Chambers and Left ventricle VIEW OBTAINED: Apical 4-Chamber and Parasternal long-axis PERTINENT FINDINGS/IMPRESSION: Other Good squeeze, aortic outflow track approximately 6 cm. RV less than LV. No significant pericardial effusion. ; No pericardial effusion Exam complete
[2023-07-09] MEDS: Normal Saline Flush 10 ML SYR IVP (20:35)
[2023-07-09 20:38] LABS: Abs Immature Grans 0.05 10^3/uL (0.0-0.06); Absolute Basophil Count 0.04 10^3/uL (0.0-0.2); Absolute Eosinophil Count 0.09 10^3/uL (0.0-0.7); Absolute Lymphocyte Count 1.41 10^3/uL (1.2-3.4); Absolute Monocyte Count 0.53 10^3/uL (0.1-0.8); Absolute Neutrophil Count 4.96 10^3/uL (1.2-6.7); Basophils % 0.6; Eosinophils % 1.3; HGB 14.7 g/dL (11.2-15.7); Immature Grans % 0.7; Lymphocytes % 19.9; MCH 30.8 pg (27.0-33.0); MCHC 32.7 % (32.0-36.0); MCV 94 fL (80-95); MPV 8.9 fL (8.0-11.0); Monocytes % 7.5; Platelet Count 200 10^3/uL (130-400); RBC 4.78 10^6/uL (3.93-5.22); RDW 14.5 % (11.7-14.6); RDW-SD 50.4 fL; WBC 7.08 10^3/uL (4.4-10.8)
[2023-07-09] MEDS: Omnipaque 350 MG/ML 100 ML BTL IJ (20:42)
[2023-07-09] MEDS: Normal Saline - Diluent 50 ML VIAL IJ (20:47)
[2023-07-09 20:53] LABS: ALT 10 U/L (14-59); AST 12 U/L (15-37); Albumin 3.9 g/dL (3.4-5.0); Alkaline Phosphatase 83 U/L (46-116); Anion Gap 7.1 mmol/L (3-11); BUN 18 mg/dL (7-18); Bilirubin, Total 0.5 mg/dL (0.2-1.0); CO2 34.9 mmol/L (21.0-32.0); CREATININE 0.8 mg/dL (0.55-1.02); Calcium 9.1 mg/dL (8.5-10.1); Chloride 102 mmol/L (98-107); Estimated GFR 76.31 (mL/min/1.73m2); Glucose 124 mg/dL (74-106); Potassium 4.4 mmol/L (3.5-5.1); Sodium 144 mmol/L (136-145); Total Protein 6.7 g/dL (6.4-8.2)
[2023-07-09] MEDS: ACETAMINOPHEN 1,000 MG/100 ML BTL 400 MG IVPB (21:11)
[2023-07-09] MEDS: fentaNYL 100 MCG/2 ML VIAL 25 MCG IVP (21:12)
[2023-07-09 21:15] LABS: Bilirubin Negative (Negative); Blood Negative (Negative); Clarity Clear (Clear); Glucose Negative (Negative); Ketones Negative (Negative); Leukocyte Esterase Negative (Negative); Nitrite Negative (Negative); Specific Gravity 1.015 (1.005-1.025); Urobilinogen 0.2 mg/dL (Up to 0.2)
--- NOTE | 2023-07-09 21:20 | DI.VRAD_ITS ---
PROCEDURE INFORMATION: Exam: CTA Chest With Contrast CTA Abdomen and Pelvis With Contrast Exam date and time: 07/09/2023 8:42 PM Age: 77 years old Clinical indication: Abdominal pain; Localized; Right lower quadrant (rlq); Prior surgery; Surgery date: 6+ months; Surgery type: Tubal ligation, lumpectomy; Patient HX: HX of thoracic aortic aneurysm, rlq/groin pain TECHNIQUE: Imaging protocol: Computed tomographic angiography of the chest with contrast. Exam focused on the arteries. Computed tomographic angiography of the abdomen and pelvis with contrast. Exam focused on the arteries. 3D rendering (Not supervised by radiologist): MIP and/or 3D reconstructed images were created by the technologist. Radiation optimization: All CT scans at this facility use at least one of these dose optimization techniques: automated exposure control; mA and/or kV adjustment per patient size (includes targeted exams where dose is matched to clinical indication); or iterative reconstruction. Contrast material: OMNIPAQUE 350; Contrast volume: 100 ml; Contrast route: INTRAVENOUS (IV); COMPARISON: CT CHEST PE CTA 10/12/2022 2:12 PM FINDINGS: VASCULATURE: Pulmonary arteries: Normal. No pulmonary emboli. Aorta: Stable fusiform dilation of the ascending aorta measuring maximum diameter of 6.2 cm at the aortic root. No evidence of acute aortic dissection. Moderate diffuse atherosclerotic calcification of the abdominal aorta. Celiac trunk and mesenteric arteries: No occlusion or significant stenosis. Renal arteries: No occlusion or significant stenosis. Right iliac arteries: No occlusion or significant stenosis. Left iliac arteries: No occlusion or significant stenosis. CHEST: Lungs: Mild changes of emphysema throughout the bilateral upper lungs. No active pulmonary infiltrate. Pleural spaces: Unremarkable. No pneumothorax. No pleural effusion. Heart: Unremarkable. No cardiomegaly. No pericardial effusion. Diaphragm: Stable small sliding-type hiatal hernia. ABDOMEN AND PELVIS: Liver: No mass. Gallbladder and bile ducts: Unremarkable. No calcified stones. No ductal dilation. Pancreas: Unremarkable. No mass. No ductal dilation. Spleen: Unremarkable. No splenomegaly. Adrenal glands: Unremarkable. No mass. Kidneys and ureters: Unremarkable. No solid mass. No hydronephrosis. Stomach and bowel: Unremarkable. No obstruction. No mucosal thickening. Appendix: No evidence of appendicitis. Intraperitoneal space: Unremarkable. No free air. No significant fluid collection. Urinary bladder: Unremarkable. No mass. Reproductive: Coarse calcification throughout the uterus compatible with leiomyomatous change. No adnexal abnormality. Lymph nodes: Unremarkable. No enlarged lymph nodes. Bones/joints: Moderate degenerative disc changes throughout the thoracolumbar spine. Severe facet arthropathy in the lower lumbar spine. Minimal grade 1 anterolisthesis of L4. No vertebral body compression or acute fracture. Soft tissues: Unremarkable. IMPRESSION: Stable chronic findings including 6.2 cm ascending aortic aneurysm. No evidence of aortic dissection or other acute abnormality. Dictated and Authenticated by: Ray Ivey MD. Ordering:JUSTEN Mortensen MD
[2023-07-09] MEDS: Carbidopa 25/Levodopa 100 TAB PO (21:46)
== END 2023-07-09 22:02 | disposition home or self-care (01) ==
PROVIDERS: Emergency Provider Physician Assistant; PCP Nurse Practitioner
DX: M25.551 Pain in right hip (principal); I71.21 Aneurysm of the ascending aorta, without rupture; G20.A1 Parkinson's disease without dyskinesia, without mention of fluctuations; E78.5 Hyperlipidemia, unspecified; I10 Essential (primary) hypertension; E11.9 Type 2 diabetes mellitus without complications; Z79.82 Long term (current) use of aspirin
CPT/HCPCS: 00123; 36415; 71275; 80053; 93308; 96374; 96375; 99285; 74174; 81003; 85025; J0131; J3010; J3490

== ENCOUNTER 2023-07-26 16:10 | Inpatient (IN) | payer MEDICARE, OTHER, MEDICAID, SELFPAY ==
[2023-07-26] VITALS (39 sets, daily range): BP systolic 134–172; BP diastolic 31–79; PULSE 66–83; RESP 10–30; TEMP 37–38.1; O2SAT 68–100
--- NOTE | 2023-07-26 16:00 | RT.EKG_ITS ---
APPROVED REPORT Exam: Resting ECG Reason for Exam: CHF Patient Location: E HR:71 bpm ECG Measurements Heart Rate 71 AXIS WI 182 P 48 QRSd 99 QRS 12 QT 399 T 39 QTc 437 Conclusion Sinus rhythm...normal P axis, V-rate 60- 99 Atrial premature complexes...SV complexes w/ short R-R intvls Probable left atrial enlargement...P >50mS, <-0.10mV V1 Left ventricular hypertrophy...multiple LVH criteria Narrow complex normal sinus rhythm at a rate of 71. Normal axis. Intervals within normal limits. C ompared to prior dated last year left bundle branch block is no longer present. WI and QTc within no rmal limits.
--- NOTE | 2023-07-26 16:30 | DI.RAD_ITS ---
Exam(s) XR PORTABLE CHEST AP EXAM: XR PORTABLE CHEST AP CLINICAL HISTORY: hypoxia TECHNIQUE: 2D digital imaging was performed of the chest. One image was obtained. An AP view was ob tained. COMPARISON: CR XR CHEST 2V PA LATERAL from 11/13/[address] THORAX ABD/PEL CTA from 07/09/2023 FINDINGS: MEDIASTINUM: Normal. HEART: Normal. PULMONARY VASCULATURE: Normal. LUNGS: No focal consolidating infiltrates. PLEURAL SPACE: No pleural effusion or pneumothorax. BONE:Within normal limits for the patient's age. OTHER FINDINGS:Normal. IMPRESSION: No focal infiltrates. DATA REPOSITORY: RADIATION DOSE DELIVERED:
[2023-07-26] MEDS: Oseltamivir 75 MG CAP PO (16:35)
[2023-07-26 16:36] LABS: BE (Venous) 10 mmol/L (-2-3); HCO3 (Venous) 37 mmol/L (23-28); O2 Sat (Venous) 61 %; TCO2 (Venous) 34 mmol/L (24-29); pO2 (Venous) 35 mmHg
[2023-07-26 16:38] LABS: Abs Immature Grans 0.04 10^3/uL (0.0-0.06); Absolute Basophil Count 0.03 10^3/uL (0.0-0.2); Absolute Eosinophil Count 0.04 10^3/uL (0.0-0.7); Absolute Monocyte Count 0.59 10^3/uL (0.1-0.8); Basophils % 0.6; Eosinophils % 0.9; Immature Grans % 0.9; MCH 30.9 pg (27.0-33.0); MCV 100 fL (80-95); MPV 9.4 fL (8.0-11.0); Monocytes % 12.6; Platelet Count 160 10^3/uL (130-400); RBC 4.21 10^6/uL (3.93-5.22); RDW 15.1 % (11.7-14.6); RDW-SD 55.8 fL
[2023-07-26 16:39] LABS: Lactate 0.4 mmol/L (0.6-1.4); pCO2 (Venous) 74 mmHg (41-51)
[2023-07-26] MEDS: methylPREDNISolone SUCC 125 MG VIAL 80 MG IVP (16:45)
[2023-07-26] MEDS: Albuterol/Ipratropium 3 ML UPD VIAL UPD (16:45)
[2023-07-26 17:00] LABS: ALT 7 U/L (14-59); AST 13 U/L (15-37); Albumin 3.8 g/dL (3.4-5.0); Alkaline Phosphatase 84 U/L (46-116); Anion Gap 3.3 mmol/L (3-11); BUN 27 mg/dL (7-18); Bilirubin, Total 0.4 mg/dL (0.2-1.0); CO2 36.7 mmol/L (21.0-32.0); CREATININE 1.1 mg/dL (0.55-1.02); Calcium 8.3 mg/dL (8.5-10.1); Chloride 107 mmol/L (98-107); Estimated GFR 52.08 (mL/min/1.73m2); Glucose 113 mg/dL (74-106); Magnesium 2.3 mg/dL (1.8-2.4); NT-proBNP 1786 pg/mL (<300); Potassium 4.4 mmol/L (3.5-5.1); Sodium 147 mmol/L (136-145); Total Protein 6.8 g/dL (6.4-8.2)
[2023-07-26 17:10] LABS: Procalcitonin 0.1 ng/mL
[2023-07-26 17:11] LABS: COVID-19 PCR Negative (Negative); Influenza A PCR Positive (Negative); Influenza B PCR Negative (Negative); RSV PCR Negative (Negative)
[2023-07-26 17:17] LABS: Source Nasopharynx
[2023-07-26] MEDS: Normal Saline 1,000 ML 100 ML IV (17:39)
--- NOTE | 2023-07-26 18:39 | W.ED.GENAD ---
Discharge Plan Discharge Details Chief Complaint: GenMedical Admit Date/Time: 07/26/23 18:38 Admit Provider: Zeke Ogden Attending Provider: Zeke Ogden Primary Care Provider: An Tello ED Provider: Balbina Sahu Home Meds and New Rx's Prescriptions: No Action sennosides-docusate sodium [Stool Softener-Laxative] 8.6-50 mg tablet 2 tab-cap PO QHS Nuplazid 34 mg capsule 34 mg PO DAILY furosemide 20 mg tablet 40 mg PO BID oxycodone 5 mg capsule 2.5 mg PO Q8H PRNQty: 5 0RF calcium carbonate [Calcium 600] 600 mg calcium (1,500 mg) Tablet 600 mg PO DAILY lisinopril 10 mg tablet 15 mg PO DAILY Patient Comments: TAKE 1 TABLET BY MOUTH ONCE DAILY atenolol 50 mg tablet 50 mg PO DAILY Patient Comments: TAKE 1 TABLET BY MOUTH ONCE DAILY FOR 90 DAYS multivitamin Tablet 1 tab PO DAILY aspirin 81 mg Tablet 81 mg PO DAILY atorvastatin 10 mg tablet 10 mg PO QHS pantoprazole 40 mg tablet,delayed release (DR/EC) 40 mg PO DAILY acetaminophen 325 mg Capsule 650 mg PO PRN PRN polyethylene glycol 3350 [Miralax] 17 gram Powder In Packet 17 g PO BID Spiriva Respimat 2.5 mcg/actuation Mist 2 puff inhalation DAILY Qty: 0 0RF albuterol sulfate 90 mcg/actuation HFA aerosol inhaler 2 puff inhalation Q6H PRNQty: 8.5 0RF carbidopa-levodopa 25-100 mg Tablet 2 tab PO TID Qty: 0 0RF HPI General Date/Time Provider Initiated Documentation: 07/26/23 16:17. HPI Narrative: This 77-year-old female with history of aortic aneurysm, MCI, COPD, CHF, DNR/DNI status Parkinson's disease, CHF presents with report of shortness of breath, fever, chills, diagnosis of influenza A today and hypoxia at the [facility], oxygen of 69%. Patient states she feels tired. She denies any chest pain. She does have some mild shortness of breath. She had Tylenol last at 12. She denies any urinary symptoms. She denies any chest pain but does have some myalgias. Related Data Home Medications Medication Instructions Recorded Confirmed atenolol 50 mg tablet 50 mg PO DAILY 06/24/20 07/26/23 calcium carbonate (Calcium 600) 600 mg PO DAILY 06/24/20 07/26/23 lisinopril 10 mg tablet 15 mg PO DAILY 06/24/20 07/26/23 aspirin 81 mg tablet 81 mg PO DAILY 06/27/20 07/26/23 multivitamin 1 tab PO DAILY 06/27/20 07/26/23 acetaminophen 325 mg capsule 650 mg PO PRN PRN 07/14/22 07/26/23 atorvastatin 10 mg tablet 10 mg PO QHS 07/14/22 07/26/23 pantoprazole 40 mg tablet,delayed 40 mg PO DAILY 07/14/22 07/26/23 release polyethylene glycol 3350 17 gram 17 g PO BID 10/12/22 07/26/23 oral powder packet (Miralax) albuterol sulfate 90 mcg/actuation 2 puff inhalation Q6H PRN #8.5 10/22/22 07/26/23 aerosol inhaler grams carbidopa 25 mg-levodopa 100 mg 2 tab PO TID #0 tabs 10/22/22 07/26/23 tablet tiotropium bromide 2.5 2 puff inhalation DAILY #0 grams 10/22/22 07/26/23 mcg/actuation mist for inhalation (Spiriva Respimat) pimavanserin 34 mg capsule 34 mg PO DAILY 11/28/22 07/26/23 (Nuplazid) sennosides 8.6 mg-docusate sodium 2 tab-cap PO QHS 11/28/22 07/26/23 50 mg tablet (Stool Softener-Laxative) furosemide 20 mg tablet 40 mg PO BID 06/19/23 07/26/23 oxycodone 5 mg capsule 2.5 mg (1/2 x 5 mg) PO Q8H PRN #5 07/09/23 07/26/23 caps Previous Rx's Medication Instructions Recorded albuterol sulfate 90 mcg/actuation 2 puff inhalation Q6H PRN #8.5 10/22/22 aerosol inhaler grams carbidopa 25 mg-levodopa 100 mg 2 tab PO TID #0 tabs 10/22/22 tablet tiotropium bromide 2.5 2 puff inhalation DAILY #0 grams 10/22/22 mcg/actuation mist for inhalation (Spiriva Respimat) oxycodone 5 mg capsule 2.5 mg (1/2 x 5 mg) PO Q8H PRN #5 07/09/23 caps Allergies Allergy/AdvReac Type Severity Reaction Status Date / Time niacin AdvReac Intermediate Flushing & Verified 07/26/23 16:19 Hives General Stated Complaint: GenMedical SHERIDAN: 3 Course Vital Signs Vital signs: Vital Signs Temperature 37.0 C 07/26/23 16:07 Pulse 75 07/26/23 16:07 Respiratory Rate 13 07/26/23 16:07 Blood Pressure 141/79 H 07/26/23 16:07 Pulse Oximetry 69 L 07/26/23 16:07 Temperature 37.0 C 07/26/23 16:19 Temperature Source Oral 07/26/23 16:19 Pulse 75 07/26/23 16:19 Respiratory Rate 13 07/26/23 16:19 Respiratory Effort Normal, Non-Labored 07/26/23 16:17 Blood Pressure 141/79 H 07/26/23 16:19 Blood Pressure Position Supine 07/26/23 16:19 Pulse Oximetry 96 07/26/23 16:19 Oxygen Delivery Method Nasal Cannula 07/26/23 16:19 Oxygen Flow Rate 2 07/26/23 16:19 Pain Level 0 07/26/23 16:19 Lab/Test Results Lab/Test Results: 07/26/23 16:28 Blood Blood Culture - Pending 07/26/23 16:17 Blood Blood Culture - Pending Laboratory Tests Range/Units 07/26/23 07/26/23 16:25 16:28 WBC (4.4-10.8) 10^3/uL 4.70 RBC (3.93-5.22) 10^6/uL 4.21 Hgb (11.2-15.7) g/dL 13.0 Hct (36.0-46.0) % 42.0 MCV (80-95) fL 100 H MCH (27.0-33.0) pg 30.9 MCHC (32.0-36.0) % 31.0 L RDW (11.7-14.6) % 15.1 H Plt Count (130-400) 10^3/uL 160 MPV (8.0-11.0) fL 9.4 Immature Gran % 0.9 Neutrophils % 68.0 Lymphocytes % 17.0 Monocytes % 12.6 Eosinophils % 0.9 Basophils % 0.6 Nucleated RBC % (0.0-0.3) % 0.0 Absolute Neutrophils (1.2-6.7) 10^3/uL 3.20 Absolute Lymphocytes (1.2-3.4) 10^3/uL 0.80 L Absolute Monocytes (0.1-0.8) 10^3/uL 0.59 Absolute Eosinophils (0.0-0.7) 10^3/uL 0.04 Absolute Basophils (0.0-0.2) 10^3/uL 0.03 VBG pH (7.31-7.41) 7.30 L VBG pCO2 (41-51) mmHg 74 H* VBG pO2 mmHg 35 VBG HCO3 (23-28) mmol/L 37 H VBG Total CO2 (24-29) mmol/L 34 H VBG O2 Saturation % 61 VBG Base Excess (-2-3) mmol/L 10 H VBG Lactate (0.6-1.4) mmol/L 0.4 L Sodium (136-145) mmol/L 147 H Potassium (3.5-5.1) mmol/L 4.4 Chloride (98-107) mmol/L 107 Carbon Dioxide (21.0-32.0) mmol/L 36.7 H Anion Gap (3-11) mmol/L 3.3 BUN (7-18) mg/dL 27 H Creatinine (0.55-1.02) mg/dL 1.1 H Est GFR (CKD-EPI 2020) (mL/min/1.73m2) 52.08 Glucose (74-106) mg/dL 113 H Calcium (8.5-10.1) mg/dL 8.3 L Magnesium (1.8-2.4) mg/dL 2.3 Total Bilirubin (0.2-1.0) mg/dL 0.4 AST (15-37) U/L 13 L ALT (14-59) U/L 7 L Alkaline Phosphatase (46-116) U/L 84 NT-Pro-B Natriuret Pep (<300) pg/mL 1786 H Total Protein (6.4-8.2) g/dL 6.8 Albumin (3.4-5.0) g/dL 3.8 Procalcitonin ng/mL 0.1 COVID-19 Source Nasopharynx SARS-CoV-2 (PCR) (Negative) Negative Influenza Type A (PCR) (Negative) Positive A Influenza Type B (PCR) (Negative) Negative RSV (PCR) (Negative) Negative Medical Decision Making 77-year-old female presenting with influenza A, shortness of breath, fatigue, hypoxia On arrival, patient's oxygen 69%, on 2 L of oxygen, 90%, labile oxygen, when she sleeps patient desats to 69%, hypercarbic 72%, tired, will initiate BiPAP for short period of time to see if it helps patient symptoms, she is also tachypneic Patient wheezy throughout, mild respiratory distress, alert and oriented x 4, tired, 1+ edema to bilateral lower extremities, no abdominal tenderness, moist mucous membranes, pupils equal round reactive to light and accommodation Given 100 cc of fluid an hour given history of CHF Patient is dehydrated on chemistry, creatinine 1.1, BUN elevated VBG with pCO2 of 74 Lactate and procalcitonin negative No leukocytosis Oxygen supplementation and BiPAP supplementation in the emergency department for hypercarbic hypoxic respiratory failure in the setting of influenza A with dehydration, DNR/DNI status Quality:SDOH Health Related Social Needs: No Data to Display Critical Care Time Critical Care Time Attestation: Approximately 45 minutes of critical care time secondary to oxygen and BiPAP supplementation for hypoxic hypercarbic respiratory failure in the presence of influenza A, IV fluid resuscitation, telemetry monitoring, diagnostic blood work interpretation review, chest x-ray interpretation and review from diagnostic imaging and admission to the hospital for further oxygen supplementation and observation PFSH All Active Problems (Updated 07/09/23 @ 21:35 by STANTON Kaplan) Aorta aneurysm (Chronic) Acute pain of right hip (Acute) Hallucinations (Acute) Nocturia (Acute) MCI (mild cognitive impairment) (Acute) Edema (Acute) Advanced care planning/counseling discussion (Acute) COPD (chronic obstructive pulmonary disease) (Chronic) Chronic heart failure (Acute) Palliative care encounter (Acute) Acute on chronic combined systolic (congestive) and diastolic (congestive) heart failure (Acute) Ascending aortic aneurysm (Acute) Parkinson disease (Chronic) Acute on chronic heart failure (Acute) Epiretinal membrane (ERM) of right eye (Chronic) Medical History Swelling of both lower extremities Aortic valve insufficiency History of adenomatous polyp of colon Functional heart murmur Lipoma of left thigh Carpal tunnel syndrome, right Hypercholesteremia Hyperlipidemia Hypertension Diabetes mellitus Surgical History Hx of carpal tunnel repair Right History of tubal ligation History of lumpectomy Social History Smoking/Tobacco Use Status: Unknown Smoking risk assessment performed?: Yes Alcohol Intake: never Drug use: Never Substance use type: does not use Housing: shelter Do you feel safe at home: Yes
--- NOTE | 2023-07-26 20:20 | HPE_ITS ---
Date of service: 07/26/23 Time of Service: 20:21 Assessment and Plan Assessment and plan (1) Influenza A: Start date: 07/26/23 Status: Acute Assessment and plan: This is a 77-year-old lady with acute influenza A infection presenting with fever, chills and dyspnea with hypoxemia and fatigue. She also was found to be hypercapnic and is responding to oxygen supplementation with BiPAP. She was initiated on Tamiflu which will be continued at 75 mg twice daily for 5 days at least. Supportive care with gentle IV hydration and holding furosemide with a history of CHF. There is no indication of secondary bacterial infection and patient will not be initiated on antibiotics at this time. Watch closely for this complication. She is a DNR/DNI. (2) Acute on chronic respiratory failure with hypoxia and hypercapnia: Start date: 07/26/23 Status: Acute Assessment and plan: Oxygen supplementation which was at 30% at 1 time with BiPAP. VBG if patient is not clearing to assess progress. He is hypercapnic and slightly sedated from this was difficult to assess not knowing her baseline with Parkinson disease. She is a DNR/DNI. (3) Acute dehydration: Start date: 07/26/23 Status: Acute Assessment and plan: Patient has mild hypernatremia with slight increase in her creatinine and will have gentle hydration with normal saline with a history of combined heart failure. Hold furosemide for now. (4) COPD (chronic obstructive pulmonary disease): Status: Chronic Assessment and plan: Supportive care with continued inhalers as needed and BiPAP for hypercapnic/hypoxic respiratory failure. She is currently on Spiriva with rescue inhalers using albuterol. Qualifiers: COPD type: chronic bronchitis Chronic bronchitis type: unspecified Qualified Code(s): J42 - Unspecified chronic bronchitis (5) Chronic heart failure: Status: Chronic Assessment and plan: Hold furosemide for now and follow-up lab reinitiating Lasix once patient is stabilizing. 100 cc normal saline at 100 cc an hour will be given initially and if she is increasing her oral intake IV hydration will be stopped. Qualifiers: Heart failure type: combined systolic and diastolic Qualified Code(s): I50.42 - Chronic combined systolic (congestive) and diastolic (congestive) heart failure (6) Parkinson disease: Status: Chronic Assessment and plan: Continue outpatient medical therapy. Qualifiers: Dyskinesia presence: with dyskinesia Fluctuating manifestations: w ithout fluctuating manifestations Qualified Code(s): G20.B1 - Parkinson's disease with dyskinesia, without mention of fluctuations (7) Hyperlipidemia: Assessment and plan: Continue outpatient medical therapy. Qualifiers: Hyperlipidemia type: mixed hyperlipidemia Qualified Code(s): E78.2 - Mixed hyperlipidemia (8) Hypertension: Assessment and plan: Continue outpatient medical therapy adjusting acutely as needed. Qualifiers: Hypertension type: primary hypertension Qualified Code(s): I10 - Essential (primary) hypertension History of Present Illness History of Present Illness Chief Complaint: Dyspnea with chills and fever having influenza A Narrative: This is a 77-year-old female patient who resides at the [facility] and has chronic COPD with mixed diastolic and systolic CHF, aortic aneurysm and Parkinson disease presenting with dyspnea with fever chills as well as hypoxemia with pulse ox 100 down below 70% when measured at the [facility]. She is very fatigued but is not having any chest discomfort with her cough. She is taken Tylenol for her fever and aches. She has no urinary complaints. She does have myalgias. She was in the ED because of her hypoxemia and was placed on O2 with BiPAP having hypercapnia by VBG. She is tolerating BiPAP well but is a DNR/DNI. There is no evidence of bacterial pneumonia by imaging or lab with procalcitonin and WBC normal. She was admitted for supportive care with mild dehydration despite CHF history with holding her usual furosemide and having a 500 cc infusion of normal saline with patient beginning to eat and drink better with supportive care. She did have slight increase in her creatinine and sodium. She was initiated on Tamiflu which will be continued on this for at least 5 days. Furosemide will be held with IV hydration and then restarted when she nears her baseline intake. Her CODE STATUS will be respected which is DNR/DNI. Review of Systems Narrative: 13 point review of systems otherwise unrevealing or stable. Patient is fatigued and has a masklike facies with minimal conversation. She does have chronic edema peripherally with compression stocking. PFSH All Active Problems (Updated 07/26/23 @ 20:41 by Zeke Ogden) Acute dehydration (Acute) Influenza A (Acute) Acute on chronic respiratory failure with hypoxia and hypercapnia (Acute) Aorta aneurysm (Chronic) Acute pain of right hip (Acute) Hallucinations (Acute) Nocturia (Acute) MCI (mild cognitive impairment) (Acute) Edema (Acute) Advanced care planning/counseling discussion (Acute) COPD (chronic obstructive pulmonary disease) (Chronic) Chronic heart failure (Chronic) Palliative care encounter (Acute) Acute on chronic combined systolic (congestive) and diastolic (congestive) heart failure (Acute) Ascending aortic aneurysm (Acute) Parkinson disease (Chronic) Acute on chronic heart failure (Acute) Epiretinal membrane (ERM) of right eye (Chronic) Medical History Swelling of both lower extremities Aortic valve insufficiency History of adenomatous polyp of colon Functional heart murmur Lipoma of left thigh Carpal tunnel syndrome, right Hypercholesteremia Hyperlipidemia Hypertension Diabetes mellitus Surgical History Hx of carpal tunnel repair Right History of tubal ligation History of lumpectomy Social History Smoking/Tobacco Use Status: Unknown Smoking risk assessment performed?: Yes Alcohol Intake: never Drug use: Never Substance use type: does not use Housing: group home Do you feel safe at home: Yes Meds Allergies and Home Medications Allergies Allergy/AdvReac Type Severity Reaction Status Date / Time niacin AdvReac Intermediate Flushing & Verified 07/26/23 16:19 Hives Home Medications Medication Instructions Recorded Confirmed Type atenolol 50 mg tablet 50 mg PO DAILY 06/24/20 07/26/23 History calcium carbonate (Calcium 600) 600 mg PO DAILY 06/24/20 07/26/23 History lisinopril 10 mg tablet 15 mg PO DAILY 06/24/20 07/26/23 History aspirin 81 mg tablet 81 mg PO DAILY 06/27/20 07/26/23 History multivitamin 1 tab PO DAILY 06/27/20 07/26/23 History acetaminophen 325 mg capsule 650 mg PO PRN PRN 07/14/22 07/26/23 History atorvastatin 10 mg tablet 10 mg PO QHS 07/14/22 07/26/23 History pantoprazole 40 mg tablet,delayed 40 mg PO DAILY 07/14/22 07/26/23 History release polyethylene glycol 3350 17 gram 17 g PO BID 10/12/22 07/26/23 History oral powder packet (Miralax) albuterol sulfate 90 mcg/actuation 2 puff inhalation Q6H PRN #8.5 10/22/22 07/26/23 Rx aerosol inhaler grams carbidopa 25 mg-levodopa 100 mg 2 tab PO TID #0 tabs 10/22/22 07/26/23 Rx tablet tiotropium bromide 2.5 2 puff inhalation DAILY #0 grams 10/22/22 07/26/23 Rx mcg/actuation mist for inhalation (Spiriva Respimat) pimavanserin 34 mg capsule 34 mg PO DAILY 11/28/22 07/26/23 History (Nuplazid) sennosides 8.6 mg-docusate sodium 2 tab-cap PO QHS 11/28/22 07/26/23 History 50 mg tablet (Stool Softener-Laxative) furosemide 20 mg tablet 40 mg PO BID 06/19/23 07/26/23 History oxycodone 5 mg capsule 2.5 mg (1/2 x 5 mg) PO Q8H PRN #5 07/09/23 07/26/23 Rx caps Exam Narrative Exam Narrative: General: Patient appears older than stated age, masklike facies but fatigued with BiPAP in place and having minimal conversation. She is alert and oriented at least to person and place. She appears comfortable and in no acute distress. HEENT: Normocephalic, eyes with pupils equal and reactive to light symmetrically, extraocular movement intact and sclera anicteric. Oropharynx with dry mucosa. Neck: Supple without JVD. Back: Kyphotic without CVA tenderness. Lungs: Fair aeration with no focalizing rales or rhonchi. No expiratory wheeze. Good air movement. Breast: Exam deferred. Heart: Regular rhythm with occasional extrasystole, 4/6 systolic murmur left sternal border. Abdomen: Obese contour, soft nontender to palpation with no palpable hepatosplenomegaly. No guarding or rebound. Bowel sounds positive all quadrants. Genitalia/rectal: Exam deferred. Extremities: Nonpitting edema lower extremities with compression stockings in place. No cyanosis or clubbing. Joints have arthritic changes with no swelling. Good capillary refill. Skin: Pale, hot and dry. Neuro: Masklike facies with cranial nerves II through XII intact. Increased tone with rigidity but no tremor noted. No focal motor deficits. Psych: Flattened affect with depressed mood difficult to interpret with patient slightly delirious with fever and influenza A infection. No normal thought processes manifested. Remote and recent memory grossly intact the patient difficult to assess with fatigue. Results Imaging Imaging Studies: EXAM: XR PORTABLE CHEST AP CLINICAL HISTORY: hypoxia TECHNIQUE: 2D digital imaging was performed of the chest. One image was obtained. An AP view was obtained. COMPARISON: CR XR CHEST 2V PA LATERAL from 11/13/[address] THORAX ABD/PEL CTA from 07/09/2023 FINDINGS: MEDIASTINUM: Normal. HEART: Normal. PULMONARY VASCULATURE: Normal. LUNGS: No focal consolidating infiltrates. PLEURAL SPACE: No pleural effusion or pneumothorax. BONE:Within normal limits for the patient's age. OTHER FINDINGS:Normal. IMPRESSION: No focal infiltrates. Labs 07/26/23 16:28 07/26/23 16:28 Labs: Laboratory Results - last 24 hr 07/26/23 07/26/23 16:25 16:28 WBC 4.70 RBC 4.21 Hgb 13.0 Hct 42.0 MCV 100 H MCH 30.9 MCHC 31.0 L RDW 15.1 H Plt Count 160 MPV 9.4 Immature Gran % 0.9 Neutrophils % 68.0 Lymphocytes % 17.0 Monocytes % 12.6 Eosinophils % 0.9 Basophils % 0.6 Nucleated RBC % 0.0 Absolute Neutrophils 3.20 Absolute Lymphocytes 0.80 L Absolute Monocytes 0.59 Absolute Eosinophils 0.04 Absolute Basophils 0.03 VBG pH 7.30 L VBG pCO2 74 H* VBG pO2 35 VBG HCO3 37 H VBG Total CO2 34 H VBG O2 Saturation 61 VBG Base Excess 10 H VBG Lactate 0.4 L Sodium 147 H Potassium 4.4 Chloride 107 Carbon Dioxide 36.7 H Anion Gap 3.3 BUN 27 H Creatinine 1.1 H Est GFR (CKD-EPI 2020) 52.08 Glucose 113 H Calcium 8.3 L Magnesium 2.3 Total Bilirubin 0.4 AST 13 L ALT 7 L Alkaline Phosphatase 84 NT-Pro-B Natriuret Pep 1786 H Total Protein 6.8 Albumin 3.8 Procalcitonin 0.1 COVID-19 Source Nasopharynx SARS-CoV-2 (PCR) Negative Influenza Type A (PCR) Positive A Influenza Type B (PCR) Negative RSV (PCR) Negative Last Vital Signs Temp 38.1 C H 07/26/23 19:39 Pulse 78 07/26/23 19:39 Resp 23 07/26/23 19:52 BP 149/55 H 07/26/23 19:39 Pulse Ox 90 L 07/26/23 19:52 Time Spent Time spent with Patient: >75 minutes Time was spent: preparing to see the patient(eg.review tests), obtaining and/or reviewing separately otained hiistory, ordering medications,tests, procedures, indepentently interpreting results and care coordination
[2023-07-26] MEDS: Acetaminophen 325 MG TAB PO (23:49)
[2023-07-27] VITALS (11 sets, daily range): BP systolic 145–163; BP diastolic 42–64; PULSE 53–74; RESP 10–20; TEMP 36.4–36.6; O2SAT 92–97
[2023-07-27] MEDS: methylPREDNISolone SUCC 125 MG VIAL 80 MG IVP ×2 (00:41→10:15)
[2023-07-27 06:47] LABS: HCT 39.8 % (36.0-46.0); HGB 12.7 g/dL (11.2-15.7); MCH 31.1 pg (27.0-33.0); MCHC 31.9 % (32.0-36.0); MCV 97 fL (80-95); MPV 9.3 fL (8.0-11.0); Platelet Count 150 10^3/uL (130-400); RBC 4.09 10^6/uL (3.93-5.22); RDW 14.5 % (11.7-14.6); RDW-SD 52.1 fL; WBC 3.23 10^3/uL (4.4-10.8)
[2023-07-27 07:08] LABS: ALT 19 U/L (14-59); AST 17 U/L (15-37); Albumin 3.3 g/dL (3.4-5.0); Alkaline Phosphatase 72 U/L (46-116); Anion Gap 4.9 mmol/L (3-11); BUN 21 mg/dL (7-18); Bilirubin, Total 0.3 mg/dL (0.2-1.0); CO2 34.1 mmol/L (21.0-32.0); CREATININE 0.7 mg/dL (0.55-1.02); Calcium 8.4 mg/dL (8.5-10.1); Chloride 107 mmol/L (98-107); Estimated GFR 89.58 (mL/min/1.73m2); Glucose 162 mg/dL (74-106); Magnesium 2.2 mg/dL (1.8-2.4); Potassium 4.3 mmol/L (3.5-5.1); Sodium 146 mmol/L (136-145); Total Protein 6.4 g/dL (6.4-8.2)
[2023-07-27] MEDS: Pantoprazole 40 MG TABCR PO (08:02)
[2023-07-27] MEDS: Calcium Carbonate 1.5 GM TAB PO (08:02)
[2023-07-27] MEDS: Aspirin 81 MG CHEW PO (08:03)
[2023-07-27] MEDS: Multivitamin TAB 1 TAB PO (08:03)
[2023-07-27] MEDS: Lisinopril 10 MG TAB 15 MG PO (08:04)
[2023-07-27] MEDS: Polyethylene Glycol 3350 17 GM PACKET PO ×2 (08:04→21:10)
[2023-07-27] MEDS: Carbidopa 25/Levodopa 100 TAB PO ×3 (08:04→21:09)
[2023-07-27] MEDS: Oseltamivir 75 MG CAP PO ×2 (08:04→21:09)
[2023-07-27 08:27] LABS: Bilirubin Negative (Negative); Blood Negative (Negative); Clarity Clear (Clear); Glucose Negative (Negative); Ketones Negative (Negative); Leukocyte Esterase Negative (Negative); Nitrite Negative (Negative); Specific Gravity 1.025 (1.005-1.025); Urobilinogen 0.2 mg/dL (Up to 0.2); pH 5.5 (5-8)
[2023-07-27] MEDS: Tiotropium Bromide-Respimat 10 PUFF INH 2 PUFF IH (08:28)
--- NOTE | 2023-07-27 10:37 | PGE_ITS ---
Date of Service Date of service: 07/27/23 Time of Service: 10:37 Assessment and Plan Assessment and plan (1) Acute on chronic respiratory failure with hypoxia and hypercapnia: Status: Acute Assessment and plan: multifactoral with positive influenza A and copd exacerbation continue treatment with tamiflu and steroids wean oxygen as able continue home respiratory inhalers. (2) Influenza A: Status: Acute Assessment and plan: continue tamiflu, pulmonary toilet and wean oxygen (3) COPD (chronic obstructive pulmonary disease): Status: Chronic Assessment and plan: BiPAP for hypercapnic/hypoxic respiratory failure, wean as able continue Spiriva with rescue inhalers using albuterol. steroid burst Qualifiers: COPD type: chronic bronchitis Chronic bronchitis type: unspecified Qualified Code(s): J42 - Unspecified chronic bronchitis (4) Acute dehydration: Status: Acute Assessment and plan: continue gentle hydration with normal saline todya, monitor closely with a history of combined heart failure. Hold furosemide today (5) Chronic heart failure: Status: Chronic Assessment and plan: Hold furosemide for now and follow-up lab reinitiating Lasix once patient is stabilizing. 100 cc normal saline at 100 cc an hour will be given initially and if she is increasing her oral intake IV hydration will be stopped. Qualifiers: Heart failure type: combined systolic and diastolic Qualified Code(s): I50.42 - Chronic combined systolic (congestive) and diastolic (congestive) heart failure (6) Parkinson disease: Status: Chronic Assessment and plan: Continue outpatient medical therapy. Qualifiers: Dyskinesia presence: with dyskinesia Fluctuating manifestations: without fluctuating manifestations Qualified Code(s): G20.B1 - Parkinson's disease with dyskinesia, without mention of fluctuations (7) Hyperlipidemia: Assessment and plan: Continue outpatient medical therapy. Qualifiers: Hyperlipidemia type: mixed hyperlipidemia Qualified Code(s): E78.2 - Mixed hyperlipidemia (8) Hypertension: Assessment and plan: Continue outpatient medical therapy adjusting acutely as needed. discussed with Dr Jordan Qualifiers: Hypertension type: primary hypertension Qualified Code(s): I10 - Essential (primary) hypertension Subjective Subjective Patient reports: no new complaints, feels better, tolerating liquids well, tolerating a regular diet, shortness of breath and afebrile Exam Const General: no acute distress Orientation: alert HENMT Head: normal to inspection Ears: external ears normal General nose exam: external nose normal Mouth: moist mucous membranes Eyes General: appearance normal, both eyes and all related structures Neck Neck: normal visual inspection Resp Effort & Inspection: normal respiratory effort Auscultation: wheezes expiratory wheezes Cardio Jugular venous pressure: no JVD Rate: regular rate Rhythm: regular rhythm GI Inspection: normal to inspection Palpation: soft Skin General skin exam: no rashes or lesions noted Neuro General: patient alert and patient oriented x3 Extrem General: normal to inspection Psych Mental Status: mental status grossly normal Objective Last Vital Signs Temp 36.4 C L 07/27/23 08:06 Pulse 74 07/27/23 08:06 Resp 18 07/27/23 08:06 BP 163/64 H 07/27/23 08:06 Pulse Ox 94 07/27/23 08:06 Laboratory Results - last 24 hr 07/26/23 07/26/23 07/27/23 16:25 16:28 06:30 WBC 4.70 3.23 L RBC 4.21 4.09 Hgb 13.0 12.7 Hct 42.0 39.8 MCV 100 H 97 H MCH 30.9 31.1 MCHC 31.0 L 31.9 L RDW 15.1 H 14.5 Plt Count 160 150 MPV 9.4 9.3 Immature Gran % 0.9 Neutrophils % 68.0 Lymphocytes % 17.0 Monocytes % 12.6 Eosinophils % 0.9 Basophils % 0.6 Nucleated RBC % 0.0 Absolute Neutrophils 3.20 Absolute Lymphocytes 0.80 L Absolute Monocytes 0.59 Absolute Eosinophils 0.04 Absolute Basophils 0.03 VBG pH 7.30 L VBG pCO2 74 H* VBG pO2 35 VBG HCO3 37 H VBG Total CO2 34 H VBG O2 Saturation 61 VBG Base Excess 10 H VBG Lactate 0.4 L Sodium 147 H 146 H Potassium 4.4 4.3 Chloride 107 107 Carbon Dioxide 36.7 H 34.1 H Anion Gap 3.3 4.9 BUN 27 H 21 H Creatinine 1.1 H 0.7 Est GFR (CKD-EPI 2020) 52.08 89.58 Glucose 113 H 162 H Calcium 8.3 L 8.4 L Magnesium 2.3 2.2 Total Bilirubin 0.4 0.3 AST 13 L 17 ALT 7 L 19 Alkaline Phosphatase 84 72 NT-Pro-B Natriuret Pep 1786 H Total Protein 6.8 6.4 Albumin 3.8 3.3 L Procalcitonin 0.1 Urine Color Urine Clarity Urine pH Ur Specific [place] Urine Protein Urine Ketones Urine Blood Urine Nitrite Urine Bilirubin Urine Urobilinogen Ur Leukocyte Esterase Urine Glucose COVID-19 Source Nasopharynx SARS-CoV-2 (PCR) Negative Influenza Type A (PCR) Positive A Influenza Type B (PCR) Negative RSV (PCR) Negative 07/27/23 07:56 WBC RBC Hgb Hct MCV MCH MCHC RDW Plt Count MPV Immature Gran % Neutrophils % Lymphocytes % Monocytes % Eosinophils % Basophils % Nucleated RBC % Absolute Neutrophils Absolute Lymphocytes Absolute Monocytes Absolute Eosinophils Absolute Basophils VBG pH VBG pCO2 VBG pO2 VBG HCO3 VBG Total CO2 VBG O2 Saturation VBG Base Excess VBG Lactate Sodium Potassium Chloride Carbon Dioxide Anion Gap BUN Creatinine Est GFR (CKD-EPI 2020) Glucose Calcium Magnesium Total Bilirubin AST ALT Alkaline Phosphatase NT-Pro-B Natriuret Pep Total Protein Albumin Procalcitonin Urine Color Yellow Urine Clarity Clear Urine pH 5.5 Ur Specific [place] 1.025 Urine Protein Negative Urine Ketones Negative Urine Blood Negative Urine Nitrite Negative Urine Bilirubin Negative Urine Urobilinogen 0.2 Ur Leukocyte Esterase Negative Urine Glucose Negative COVID-19 Source SARS-CoV-2 (PCR) Influenza Type A (PCR) Influenza Type B (PCR) RSV (PCR) Time Spent with Patient Time Spent with Patient: 25-34 minutes Time was spent: preparing to see the patient(eg.review tests), obtaining and/or reviewing separately otained hiistory, ordering medications,tests, procedures, indepentently interpreting results and counseling the patient
--- NOTE | 2023-07-27 13:43 | PHA.REVIEW2 ---
Pharmacy Admission Review Admission Clinical Review Admission Pharmacy Review: Acute dehydration (Acute) Influenza A (Acute) Acute on chronic respiratory failure with hypoxia and hypercapnia (Acute) niacin Adverse Reaction (Intermediate, Verified 07/26/23 16:19) Flushing & Hives Resuscitation Status DNR/DNI Height 5 ft 7 in Weight 85.7 kg Pharmacy Admission Review Renal Dosing Renal Dosing: BUN 21 mg/dL (7-18) H 07/27/23 06:30 Creatinine 0.7 mg/dL (0.55-1.02) 07/27/23 06:30 Medications needing adjustments: Reviewed (CrCl 53.82 mL/min, BUN decreased from 27 to 21 and SCr decreased from 1.1 to 0.7) List of meds needing interventions: Current medications are okay Anticoagulation Anticoagulation: Hgb 12.7 g/dL (11.2-15.7) 07/27/23 06:30 Hct 39.8 % (36.0-46.0) 07/27/23 06:30 Plt Count 150 10^3/uL (130-400) 07/27/23 06:30 Creatinine 0.7 mg/dL (0.55-1.02) 07/27/23 06:30 DVT Prophylaxis: Reviewed Medications: Enoxaparin (40mg daily) Opiate Usage Evaluate Pain Scale/Pains Meds: Reviewed (PRN oxycodone) Scheduled Bowel Reg ordered if on Opiates?: No (PRN Miralax/docusate) Relevant Labs Relevant Labs: Sodium 146 mmol/L (136-145) H 07/27/23 06:30 Potassium 4.3 mmol/L (3.5-5.1) 07/27/23 06:30 Chloride 107 mmol/L (98-107) 07/27/23 06:30 Magnesium 2.2 mg/dL (1.8-2.4) 07/27/23 06:30 Electrolytes, C-Reactive P, ESR: Reviewed (Na 146, glucose 162, WBC 3.23, blood cultures pending) Cardiac Review Cardiac Review: NT-Pro-B Natriuret Pep 1786 pg/mL (<300) H 07/26/23 16:28 Blood Pressure 150/42 1134 Blood Pressure 163/64 0806 BP, HR, EF%: Reviewed (BP 150/42 and HR 53) QTc Review QTc: Reviewed (437 from 4/12/24) IV to PO Switch IV Medications: Reviewed Home Meds Home Med List reviewed: Intervened Relevent Home Meds Not ordered & why?: Furosemide (on hold per H+P) Recently filled gabapentin (from external fill information). Called nursing to check with patient, waiting on response. Has Patient's Own Nuplazid. Called nursing to see if this could be brought in for the patient. Have not heard back yet. Current Meds Current Medication Order Review: Reviewed Comments: Patient is on Tamiflu, day 2 Pharmacy Antibiotic Review Relevant Labs: Relevant Labs 07/26/23 16:28 Procalcitonin 0.1
--- NOTE | 2023-07-27 20:14 | INITIAL_ITS ---
Date of service: 07/27/23 Time of Service: 20:14 Care Management Initial Assmt Initial Assessment REASON FOR HOSPITALIZATION:: Influenza A, acute hypoxic respiratory failure PREVIOUS FUNCTIONAL STATUS/SOCIAL/FAMILY SUPPORTS:: Pamela lives at the [facility] [place]. She has a son Gianfranco and a daughter Mckayla and both live locally. She also has 3 grandchildren that she sees from time to time. [place]vetet is . CURRENT FUNCTIONAL STATUS:: Pamela was lying in bed when CM met with her. She is on supplemental O2, which she states that she is not on at baseline. She stated that she is comfortable living at the [facility], and that her two children live locally, and are able to visit her regularly at the [facility], which she enjoys. Per report, she is being treated with tamiflu and steroids. Although she is not on O2 at baseline, she can likely get O2 at the facility where she resides, therefore it may not be a barrier to discharge. Pamela stated that she is wheelchair bound, and usually transports via [facility] w/c van. CM will continue to follow. ADVANCE DIRECTIVES:: [facility] on file. Ginafranco (son) listed as HCA. Has patient been provided with info about the portal/API?: Yes Did the patient sign up for the portal?: No CODE STATUS:: DNR/DNI INSURANCE COVERAGE / FINANCIAL ISSUES:: MCR. [facility]. CURRENT HOME/COMMUNITY SERVICES/EQUIPMENT:: Pamela currently lives at the [facility] in [place]. PRIMARY CARE PHYSICIAN:: An Tello POTENTIAL DISCHARGE NEEDS:: Coordinated return to the [facility]. PATIENT/FAMILY EDUCATION NEEDS:: Review discharge instructions and limitations, discussion of self care needs including ask me three. ANTICIPATED BARRIERS TO DISCHARGE:: None. TRANSPORTATION:: Via [facility] w[facility] van, coordinated by CM. PLAN:: Anticipate Pamela will return to the [facility] once medically cleared. She will transport via [facility] w/c van, coordinated by CM. She will follow up with her PCP and discharge plan of care. CM will continue to follow. [facility] All Active Problems (Updated 07/26/23 @ 20:41 by Zeke Ogden) Acute dehydration (Acute) Influenza A (Acute) Acute on chronic respiratory failure with hypoxia and hypercapnia (Acute) Aorta aneurysm (Chronic) Acute pain of right hip (Acute) Hallucinations (Acute) Nocturia (Acute) MCI (mild cognitive impairment) (Acute) Edema (Acute) Advanced care planning/counseling discussion (Acute) COPD (chronic obstructive pulmonary disease) (Chronic) Chronic heart failure (Chronic) Palliative care encounter (Acute) Acute on chronic combined systolic (congestive) and diastolic (congestive) heart failure (Acute) Ascending aortic aneurysm (Acute) Parkinson disease (Chronic) Acute on chronic heart failure (Acute) Epiretinal membrane (ERM) of right eye (Chronic) Medical History Swelling of both lower extremities Aortic valve insufficiency History of adenomatous polyp of colon Functional heart murmur Lipoma of left thigh Carpal tunnel syndrome, right Hypercholesteremia Hyperlipidemia Hypertension Diabetes mellitus Surgical History Hx of carpal tunnel repair Right History of tubal ligation History of lumpectomy Social History Smoking/Tobacco Use Status: Unknown Smoking risk assessment performed?: Yes Alcohol Intake: never Drug use: Never Substance use type: does not use Housing: assisted Do you feel safe at home: Yes SDOH(Care Management) Screening Will the Patient Participate in the Screening?: Unable to obtain
[2023-07-27] MEDS: Atorvastatin 10 MG TAB PO (21:09)
[2023-07-27] MEDS: Sennosides/Docusate Sodium TAB 2 TAB PO (21:09)
[2023-07-27] MEDS: Enoxaparin 40 MG/0.4 ML SYR SC (21:10)
[2023-07-27] MEDS: Acetaminophen 325 MG TAB PO (21:10)
[2023-07-28] VITALS (7 sets, daily range): BP systolic 118–149; BP diastolic 45–68; PULSE 58–76; RESP 17–18; TEMP 36–36.8; O2SAT 86–95
[2023-07-28 06:56] LABS: Abs Immature Grans 0.04 10^3/uL (0.0-0.06); Absolute Basophil Count 0.01 10^3/uL (0.0-0.2); Absolute Eosinophil Count 0.01 10^3/uL (0.0-0.7); Absolute Lymphocyte Count 1.09 10^3/uL (1.2-3.4); Absolute Neutrophil Count 4.22 10^3/uL (1.2-6.7); Basophils % 0.2; Eosinophils % 0.2; HGB 13.2 g/dL (11.2-15.7); Immature Grans % 0.7; Lymphocytes % 18.6; MCH 30.6 pg (27.0-33.0); MCHC 31.4 % (32.0-36.0); MCV 97 fL (80-95); MPV 9.5 fL (8.0-11.0); Monocytes % 8.5; Neutrophils % 71.8; Platelet Count 172 10^3/uL (130-400); RBC 4.32 10^6/uL (3.93-5.22); RDW 14.5 % (11.7-14.6); RDW-SD 52.6 fL; WBC 5.87 10^3/uL (4.4-10.8)
[2023-07-28 07:12] LABS: Anion Gap 5.6 mmol/L (3-11); BUN 25 mg/dL (7-18); CO2 35.4 mmol/L (21.0-32.0); CREATININE 0.7 mg/dL (0.55-1.02); Calcium 8.9 mg/dL (8.5-10.1); Chloride 105 mmol/L (98-107); Estimated GFR 89.58 (mL/min/1.73m2); Glucose 100 mg/dL (74-106); Potassium 4.5 mmol/L (3.5-5.1); Sodium 146 mmol/L (136-145)
[2023-07-28] MEDS: Aspirin 81 MG CHEW PO (08:30)
[2023-07-28] MEDS: Calcium Carbonate 1.5 GM TAB PO (08:30)
[2023-07-28] MEDS: Polyethylene Glycol 3350 17 GM PACKET PO ×2 (08:30→20:25)
[2023-07-28] MEDS: Oseltamivir 75 MG CAP PO ×2 (08:31→20:26)
[2023-07-28] MEDS: predniSONE 20 MG TAB 40 MG PO (08:31)
[2023-07-28] MEDS: Carbidopa 25/Levodopa 100 TAB PO ×3 (08:31→20:26)
[2023-07-28] MEDS: Pantoprazole 40 MG TABCR PO (08:32)
[2023-07-28] MEDS: Multivitamin TAB 1 TAB PO (08:32)
--- NOTE | 2023-07-28 08:40 | W.PM.PROGNOT ---
Date of Service Date of service: 07/28/23 Time of Service: 08:40 Assessment and Plan Assessment and plan (1) Acute on chronic respiratory failure with hypoxia and hypercapnia: Status: Acute Assessment and plan: multifactoral with positive influenza A and copd exacerbation continue treatment with tamiflu and steroids wean oxygen as able continue home respiratory inhalers. (2) Influenza A: Status: Acute Assessment and plan: continue tamiflu, pulmonary toilet and wean oxygen (3) COPD (chronic obstructive pulmonary disease): Status: Chronic Assessment and plan: on 3 L NC, continue to wean continue Spiriva with rescue inhalers using albuterol. steroid burst Qualifiers: COPD type: chronic bronchitis Chronic bronchitis type: unspecified Qualified Code(s): J42 - Unspecified chronic bronchitis (4) Acute dehydration: Status: Acute Assessment and plan: resolved. IV stopped. resume lasix (5) Chronic heart failure: Status: Chronic Assessment and plan: stable, will resume lasix while closely monitoring last EF 55% and when compared with echo from 08/03 comparable. Qualifiers: Heart failure type: combined systolic and diastolic Qualified Code(s): I50.42 - Chronic combined systolic (congestive) and diastolic (congestive) heart failure (6) Parkinson disease: Status: Chronic Assessment and plan: Continue outpatient medical therapy. Qualifiers: Dyskinesia presence: with dyskinesia Fluctuating manifestations: without fluctuating manifestations Qualified Code(s): G20.B1 - Parkinson's disease with dyskinesia, without mention of fluctuations (7) Hyperlipidemia: Assessment and plan: Continue outpatient medical therapy. Qualifiers: Hyperlipidemia type: mixed hyperlipidemia Qualified Code(s): E78.2 - Mixed hyperlipidemia (8) Hypertension: Assessment and plan: Continue outpatient medical therapy adjusting acutely as needed. atenolol was placed on hold yesterday for bradycardia with HR 40-50's discussed with Dr Jordan Qualifiers: Hypertension type: primary hypertension Qualified Code(s): I10 - Essential (primary) hypertension Subjective Subjective Patient reports: no new complaints, feels better, tolerating liquids well, tolerating a regular diet and afebrile Interval history since last seen: HR 50-60's down to nasal cannula maintaining sats in mid 90's on 3 liters Exam Const General: no acute distress Orientation: alert HENMT Head: normal to inspection Ears: external ears normal General nose exam: external nose normal Mouth: moist mucous membranes Eyes General: appearance normal, both eyes and all related structures Neck Neck: normal visual inspection Resp Effort & Inspection: normal respiratory effort Auscultation: wheezes expiratory wheezes Cardio Jugular venous pressure: no JVD Rate: regular rate Rhythm: regular rhythm GI Inspection: normal to inspection Palpation: soft Skin General skin exam: no rashes or lesions noted Neuro General: patient alert and patient oriented x3 Extrem General: normal to inspection Psych Mental Status: mental status grossly normal Objective Last Vital Signs Temp 36.3 C L 07/28/23 07:38 Pulse 58 L 07/28/23 07:38 Resp 18 07/28/23 07:38 BP 149/45 H 07/28/23 07:38 Pulse Ox 93 07/28/23 07:38 Laboratory Results - last 24 hr 07/28/23 06:30 WBC 5.87 RBC 4.32 Hgb 13.2 Hct 42.0 MCV 97 H MCH 30.6 MCHC 31.4 L RDW 14.5 Plt Count 172 MPV 9.5 Immature Gran % 0.7 Neutrophils % 71.8 Lymphocytes % 18.6 Monocytes % 8.5 Eosinophils % 0.2 Basophils % 0.2 Nucleated RBC % 0.0 Absolute Neutrophils 4.22 Absolute Lymphocytes 1.09 L Absolute Monocytes 0.50 Absolute Eosinophils 0.01 Absolute Basophils 0.01 Sodium 146 H Potassium 4.5 Chloride 105 Carbon Dioxide 35.4 H Anion Gap 5.6 BUN 25 H Creatinine 0.7 Est GFR (CKD-EPI 2020) 89.58 Glucose 100 Calcium 8.9 Time Spent with Patient Time Spent with Patient: 25-34 minutes Time was spent: preparing to see the patient(eg.review tests), obtaining and/or reviewing separately otained hiistory, ordering medications,tests, procedures, indepentently interpreting results and counseling the patient
[2023-07-28] MEDS: Lisinopril 10 MG TAB 15 MG PO (09:41)
[2023-07-28] MEDS: Tiotropium Bromide-Respimat 10 PUFF INH 2 PUFF IH (10:42)
[2023-07-28] MEDS: Furosemide 20 MG TAB 40 MG PO (16:36)
[2023-07-28] MEDS: Enoxaparin 40 MG/0.4 ML SYR SC (20:24)
[2023-07-28] MEDS: Sennosides/Docusate Sodium TAB 2 TAB PO (20:25)
[2023-07-28] MEDS: Milk of Magnesia 30 ML CUP PO (20:25)
[2023-07-28] MEDS: Atorvastatin 10 MG TAB PO (20:26)
[2023-07-29 00:18] VITALS: BP 126/71; PULSE 77; RESP 18; TEMP 36.6; O2SAT 94
[2023-07-29 07:43] LABS: Abs Immature Grans 0.03 10^3/uL (0.0-0.06); Absolute Basophil Count 0.02 10^3/uL (0.0-0.2); Absolute Eosinophil Count 0.02 10^3/uL (0.0-0.7); Absolute Lymphocyte Count 1.42 10^3/uL (1.2-3.4); Absolute Monocyte Count 0.54 10^3/uL (0.1-0.8); Absolute Neutrophil Count 3.67 10^3/uL (1.2-6.7); Basophils % 0.4; Eosinophils % 0.4; HCT 43.5 % (36.0-46.0); Immature Grans % 0.5; Lymphocytes % 24.9; MCH 30.7 pg (27.0-33.0); MCHC 32.2 % (32.0-36.0); MCV 95 fL (80-95); MPV 9.3 fL (8.0-11.0); Monocytes % 9.5; Neutrophils % 64.3; Platelet Count 191 10^3/uL (130-400); RBC 4.56 10^6/uL (3.93-5.22); RDW 14.2 % (11.7-14.6); RDW-SD 50.4 fL
[2023-07-29 07:55] LABS: Anion Gap 3.3 mmol/L (3-11); BUN 22 mg/dL (7-18); CO2 40.7 mmol/L (21.0-32.0); CREATININE 0.7 mg/dL (0.55-1.02); Chloride 102 mmol/L (98-107); Estimated GFR 89.58 (mL/min/1.73m2); Glucose 98 mg/dL (74-106); Potassium 4.4 mmol/L (3.5-5.1); Sodium 146 mmol/L (136-145)
[2023-07-29 08:10] VITALS: BP 156/55; PULSE 67; RESP 18; TEMP 36.8; O2SAT 90
[2023-07-29] MEDS: Pantoprazole 40 MG TABCR PO (08:18)
[2023-07-29] MEDS: Polyethylene Glycol 3350 17 GM PACKET PO (08:18)
[2023-07-29] MEDS: predniSONE 20 MG TAB 40 MG PO (08:18)
[2023-07-29] MEDS: Aspirin 81 MG CHEW PO (08:18)
[2023-07-29] MEDS: Atenolol 50 MG TAB PO (08:19)
[2023-07-29] MEDS: Calcium Carbonate 1.5 GM TAB PO (08:19)
[2023-07-29] MEDS: Carbidopa 25/Levodopa 100 TAB PO ×2 (08:19→13:26)
[2023-07-29] MEDS: Multivitamin TAB 1 TAB PO (08:19)
[2023-07-29] MEDS: Furosemide 20 MG TAB 40 MG PO (08:19)
[2023-07-29] MEDS: Oseltamivir 75 MG CAP PO (08:19)
[2023-07-29] MEDS: Lisinopril 10 MG TAB 15 MG PO (08:20)
[2023-07-29] MEDS: Normal Saline Flush 10 ML SYR IVP (08:21)
[2023-07-29 08:22] VITALS: O2SAT 90
[2023-07-29] MEDS: Tiotropium Bromide-Respimat 10 PUFF INH 2 PUFF IH (08:22)
[2023-07-29 08:29] VITALS: O2SAT 90
--- NOTE | 2023-07-29 09:18 | CMPROGNOTE_ITS ---
Date of service: 07/29/23 Care Management Progress Note Progress Note Text Progress Note Text: S/O: A: Ivette is a 77 year old woman admitted to [facility] 07/26/23 for influenza A. acute hypoxic and hypercapnic. P: Anticipate Pamela will return to the [facility] once medically cleared. She will transport via [facility] w/c van, coordinated by CM. She will follow up with her PCP and discharge plan of care. CM will continue to follow. SDOH(Care Management) Screening Will the Patient Participate in the Screening?: Unable to obtain
[2023-07-29 11:41] VITALS: BP 107/48; PULSE 60; RESP 19; TEMP 37.1; O2SAT 90
--- NOTE | 2023-07-29 12:59 | PDOC.CMDIS ---
Date of service: 07/29/23 LACE Index Scoring Tool Questions: Length of Stay (in days): 3 Was the patient admitted via the E.D.?: Yes Comorbidities: Congestive Heart Failure and Chronic Pulmonary Disease E.D. Visits: 1 Answers: Total Score: 12 Risk of Readmission: High Risk Care Management Discharge Plan Reason for Hospitalization: Influenza A, acute hypoxic respiratory failure Discharge Plan: Pamela is being discharged back to the [facility]. She will transport via [facility] w/c van, coordinated by ALEX ROSE. She will follow up with her PCP and discharge plan of care. Patient/Family Education Needs: Review discharge instructions and plan of care as prescribed. Discussion of Ask Me Three self care needs upon discharge. SDOH Health Related Social Needs: No Data to Display
--- NOTE | 2023-07-29 13:03 | DSE_ITS ---
Date of service: 07/29/23 Time of Service: 13:03 DS: Diagnosis Discharge Diagnosis (1) Acute on chronic respiratory failure with hypoxia and hypercapnia: Status: Acute (2) Influenza A: Status: Acute (3) COPD (chronic obstructive pulmonary disease): Status: Chronic (4) Acute dehydration: Status: Acute (5) Chronic heart failure: Status: Chronic (6) Parkinson disease: Status: Chronic (7) Hyperlipidemia: (8) Hypertension: Discharge Plan Disposition Patient Disposition: Home Condition: Improving Discharge Details Reason For Visit: Influenza A,Acute Hypoxic and Hypercapnic Respirat Admit Date/Time: 07/26/23 18:38 Admit Provider: Zeke Ogden Attending Provider: Zeke Ogden [facility] Course: This is a 77-year-old female patient past medical history significant for COPD heart failure combined systolic and diastolic ascending aortic aneurysm Parkinson's mild cognitive impairment who presented to the emergency department with fever chills hypoxia and shortness of breath. She was found to be in acute hypoxic hypercapnic respiratory failure and required BiPAP to stabilize her symptoms. Her workup in the emergency department showed influenza A. Chest x- ray with no infiltrates. She was started on steroids and Tamiflu and admitted to the medical surgical unit for further management. She was weaned off BiPAP and slowly improving. She was really ambulated eating and drinking at baseline bowels and bladder functioning. She is still requiring 1 L of nasal cannula but is stable for discharge to home. She should continue her course of Tamiflu and steroid burst. She will also continue her previous medications as directed. Discharge back to the [facility] discussed with Wilberto Kensett Meds and New Rx's Prescriptions: New prednisone 20 mg Tablet 40 mg PO DAILY Qty: 8 0RF oseltamivir 75 mg Capsule 75 mg PO BID Qty: 5 0RF Continued sennosides-docusate sodium [Stool Softener-Laxative] 8.6-50 mg tablet 2 tab-cap PO QHS Nuplazid 34 mg capsule 34 mg PO DAILY furosemide 20 mg tablet 40 mg PO BID oxycodone 5 mg capsule 2.5 mg PO Q8H PRNQty: 5 0RF calcium carbonate [Calcium 600] 600 mg calcium (1,500 mg) Tablet 600 mg PO DAILY lisinopril 10 mg tablet 15 mg PO DAILY Patient Comments: TAKE 1 TABLET BY MOUTH ONCE DAILY atenolol 50 mg tablet 50 mg PO DAILY Patient Comments: TAKE 1 TABLET BY MOUTH ONCE DAILY FOR 90 DAYS multivitamin Tablet 1 tab PO DAILY aspirin 81 mg Tablet 81 mg PO DAILY atorvastatin 10 mg tablet 10 mg PO QHS pantoprazole 40 mg tablet,delayed release (DR/EC) 40 mg PO DAILY acetaminophen 325 mg Capsule 650 mg PO PRN PRN polyethylene glycol 3350 [Miralax] 17 gram Powder In Packet 17 g PO BID Spiriva Respimat 2.5 mcg/actuation Mist 2 puff inhalation DAILY Qty: 0 0RF albuterol sulfate 90 mcg/actuation HFA aerosol inhaler 2 puff inhalation Q6H PRNQty: 8.5 0RF carbidopa-levodopa 25-100 mg Tablet 2 tab PO TID Qty: 0 0RF Discharge Instructions Instructions: Influenza (DC) Additional Instructions: complete steroids and tamiflu as directed even if you feel better. continue to cough and deep breath and use incentive spirometer every 2 -3 hours while awake until symptoms resolved. wean oxygen off as able. see your primary care care provider for further outpatient pulmonary evaluation when you are recovered. Referrals: Practice Provider [Provider Group] Activity:: Activity as Tolerated Equipment/Supplies:: No Equipment Needed Diet:: As Tolerated Discharge Orders Discharge Orders: Discharge Order (Routine); Ordered 07/29/23 Ordered By: Fernanda Quintero DS: Summary Time Spent with Patient providing and/or coordinating discharge services: Greater than 30 minutes Status at Discharge Functional status at discharge: uses cane/walker Overall status at discharge: patient is progressing back to baseline Mental Status: mental status grossly normal Speech and Movement: speech and movement normal Mood: congruent mood Affect: normal affect Quality:SDOH Health Related Social Needs: No Data to Display Exam Const General: no acute distress Orientation: alert HENMT Head: normal to inspection Ears: external ears normal General nose exam: external nose normal Mouth: moist mucous membranes Eyes General: appearance normal, both eyes and all related structures Neck Neck: normal visual inspection Resp Effort & Inspection: normal respiratory effort Auscultation: wheezes expiratory wheezes Cardio Jugular venous pressure: no JVD Rate: regular rate Rhythm: regular rhythm GI Inspection: normal to inspection Palpation: soft Skin General skin exam: no rashes or lesions noted Neuro General: patient alert and patient oriented x3 Extrem General: normal to inspection Psych Mental Status: mental status grossly normal Speech and Movement: speech and movement normal Mood: congruent mood Affect: normal affect DS: Data Vitals/I&O Vitals and I&O: Vital Signs Temperature 37.1 C 07/29/23 11:41 Temperature Source Tympanic 07/29/23 11:41 Pulse 60 07/29/23 11:41 Pulse Rhythm Regular 07/29/23 08:29 Pulse 80 07/26/23 18:50 Respiratory Rate 19 07/29/23 11:41 Respiratory Effort Normal 07/29/23 08:29 Respiratory Depth Normal 07/29/23 08:29 Respiratory Pattern Normal 07/29/23 08:29 Blood Pressure 107/48 L 07/29/23 11:41 Blood Pressure Mean 84 07/26/23 18:45 Blood Pressure Position Supine 07/26/23 16:19 Pulse Oximetry 90 L 07/29/23 11:41 Oxygen Delivery Method Nasal Cannula 07/29/23 11:41 Oxygen Flow Rate 1 07/29/23 11:41 Fraction of Inspired Oxygen (FIO2) 30 07/27/23 00:17 Pain Level 0 07/29/23 11:41 Comment Patient disoriented; 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 Attempted to reorient and redirect. Patient resistive to care. Unable to obtain blood pressure or temperature at this time. 07/27/23 23:28 Intake & Output 07/28/23 07/29/23 07/29/23 23:59 11:59 23:59 Intake Total 220 / 220 Output Total 800 / 1200 Balance -800 / -1190 220 / 220 Intake: Oral 220 / 220 Output: Urine 800 / 1200 Other: Urine Color Yellow Urine Appearance Clear Voiding Methods Bedside Commode Data Completed and Pending Labs on day of discharge: Labs from last 24 hours 07/29/23 07:31 WBC 5.70 RBC 4.56 Hgb 14.0 Hct 43.5 MCV 95 MCH 30.7 MCHC 32.2 RDW 14.2 Plt Count 191 MPV 9.3 Immature Gran % 0.5 Neutrophils % 64.3 Lymphocytes % 24.9 Monocytes % 9.5 Eosinophils % 0.4 Basophils % 0.4 Nucleated RBC % 0.0 Absolute Neutrophils 3.67 Absolute Lymphocytes 1.42 Absolute Monocytes 0.54 Absolute Eosinophils 0.02 Absolute Basophils 0.02 Sodium 146 H Potassium 4.4 Chloride 102 Carbon Dioxide 40.7 H Anion Gap 3.3 BUN 22 H Creatinine 0.7 Est GFR (CKD-EPI 2020) 89.58 Glucose 98 Calcium 9.0 Preliminary micro results at discharge 07/26/23 16:28 Blood Culture - Preliminary Blood NO GROWTH 24 HOURS PFSH All Active Problems (Updated 07/26/23 @ 20:41 by Zeke Ogden) Acute dehydration (Acute) Influenza A (Acute) Acute on chronic respiratory failure with hypoxia and hypercapnia (Acute) Aorta aneurysm (Chronic) Acute pain of right hip (Acute) Hallucinations (Acute) Nocturia (Acute) MCI (mild cognitive impairment) (Acute) Edema (Acute) Advanced care planning/counseling discussion (Acute) COPD (chronic obstructive pulmonary disease) (Chronic) Chronic heart failure (Chronic) Palliative care encounter (Acute) Acute on chronic combined systolic (congestive) and diastolic (congestive) heart failure (Acute) Ascending aortic aneurysm (Acute) Parkinson disease (Chronic) Acute on chronic heart failure (Acute) Epiretinal membrane (ERM) of right eye (Chronic) Medical History Swelling of both lower extremities Aortic valve insufficiency History of adenomatous polyp of colon Functional heart murmur Lipoma of left thigh Carpal tunnel syndrome, right Hypercholesteremia Hyperlipidemia Hypertension Diabetes mellitus Surgical History Hx of carpal tunnel repair Right History of tubal ligation History of lumpectomy Social History Smoking/Tobacco Use Status: Unknown Smoking risk assessment performed?: Yes Alcohol Intake: never Drug use: Never Substance use type: does not use Housing: senior living Do you feel safe at home: Yes Time Spent with Patient Time Spent with Patient: 45-69 minutes Time was spent: preparing to see the patient(eg.review tests), obtaining and/or reviewing separately otained hiistory, ordering medications,tests, procedures, indepentently interpreting results and counseling the patient
[2023-07-29 13:32] VITALS: O2SAT 86
== END 2023-07-29 15:26 | disposition home or self-care (01) | DRG 193 ==
LOC: ER 19:20 → MS 19:25
PROVIDERS: Nurse Practitioner Acute Care; Admitting Provider Family Medicine; Emergency Provider Physician Assistant; PCP Nurse Practitioner; Visit Provider Family Medicine
DX: J10.1 Influenza due to other identified influenza virus with other respiratory manifestations (principal); J96.21 Acute and chronic respiratory failure with hypoxia; J96.22 Acute and chronic respiratory failure with hypercapnia; I50.42 Chronic combined systolic (congestive) and diastolic (congestive) heart failure; J44.1 Chronic obstructive pulmonary disease with (acute) exacerbation; E86.0 Dehydration; G20.B1 Parkinson's disease with dyskinesia, without mention of fluctuations; E78.2 Mixed hyperlipidemia; R35.1 Nocturia; I71.21 Aneurysm of the ascending aorta, without rupture; G31.84 Mild cognitive impairment of uncertain or unknown etiology; R60.0 Localized edema; E78.00 Pure hypercholesterolemia, unspecified; E11.9 Type 2 diabetes mellitus without complications; I11.0 Hypertensive heart disease with heart failure; Z66 Do not resuscitate
CPT/HCPCS: 00123; 36415; 80048; 80053; 82805; 84145; 85027; 87040; 87637; 93005; 94640; 96361; 96374; 99291; J1650; 71045; 81003; 83605; 83735; 83880; 85025; 93010; 94664; 94760; 99223; 99231; 99232; 99239; J2919; J7512; J7620

== ENCOUNTER → 2023-08-13 12:51 | Outpatient (BNVA) | payer MEDICARE, OTHER, MEDICAID, SELFPAY | PROVIDERS: PCP Nurse Practitioner; Referring Provider Nurse Practitioner; Visit Provider Student in an Organized Health Care Education/Training Program | DX: J42 Unspecified chronic bronchitis (principal); J96.11 Chronic respiratory failure with hypoxia; J96.12 Chronic respiratory failure with hypercapnia | CPT/HCPCS: 99215 ==

== ENCOUNTER 2023-09-02 14:48 | Outpatient (CLI) | payer MEDICARE, OTHER, MEDICAID, SELFPAY ==
--- NOTE | 2023-09-02 14:30 | DI.RAD_ITS ---
Exam(s) XR PELVIS AP EXAM: XR PELVIS AP CLINICAL HISTORY: ?hip OA causing knee pain. TECHNIQUE: 2D digital imaging was performed. Single AP view. COMPARISON: No exams were available for comparison FINDINGS: BONES: No acute fracture is present. No bony destructive lesion is seen. JOINTS: No dislocation present. No joint space narrowing is present. Bilateral mild acetabular spur ring. Mild degenerative changes of both SI joints. SOFT TISSUE: Calcified fibroids. IMPRESSION: Mild degenerative changes of both hips. DATA REPOSITORY: RADIATION DOSE DELIVERED:
--- NOTE | 2023-09-02 14:30 | DI.RAD_ITS ---
Exam(s) XR KNEE LT 2V AP,LAT EXAM: XR KNEE LT 2V AP,LAT CLINICAL HISTORY: eval L knee pain. TECHNIQUE: 2D digital imaging was performed. Three views. COMPARISON: No exams were available for comparison FINDINGS: BONES: No acute fracture is present. No bony destructive lesion is seen. No significant periarticul ar spurring. JOINTS: The knee is normally aligned. No joint effusion is seen. Joint spaces are maintained. SOFT TISSUE: Normal. IMPRESSION: No acute abnormality. DATA REPOSITORY: RADIATION DOSE DELIVERED:
--- NOTE | 2023-09-02 14:30 | DI.RAD_ITS ---
Exam(s) XR KNEE RT 2V AP,LAT EXAM: XR KNEE RT 2V AP,LAT CLINICAL HISTORY: right knee pain. TECHNIQUE: 2D digital imaging was performed. Three views. COMPARISON: CR XR KNEE LT 2V AP,LAT from 09/02/2023 FINDINGS: BONES: No acute fracture is present. No bony destructive lesion is seen. JOINTS: The knee is normally aligned. No joint effusion is seen. Moderate narrowing of the medial f emoral tibial joint space. Lateral femoral tibial joint is maintained. Prominent spurring from the femoral condyles and tibial plateaus. Spurring at the tibial spines. Mild spurring at the patellofe moral joint. SOFT TISSUE: Normal. IMPRESSION: Moderate to severe degenerative changes of the medial femoral tibial joint. DATA REPOSITORY: RADIATION DOSE DELIVERED:
== END 2023-09-02 14:49 | disposition home or self-care (01) ==
LOC: DIORS 14:48
PROVIDERS: PCP Nurse Practitioner; Referring Provider Nurse Practitioner; Visit Provider Student in an Organized Health Care Education/Training Program
DX: M17.11 Unilateral primary osteoarthritis, right knee; M17.12 Unilateral primary osteoarthritis, left knee; M16.0 Bilateral primary osteoarthritis of hip; M47.816 Spondylosis without myelopathy or radiculopathy, lumbar region
CPT/HCPCS: 20610; 99214; J1010; 72170; 73560

== ENCOUNTER 2023-09-10 02:21 | Outpatient (CLI) | payer MEDICARE, OTHER, MEDICAID, SELFPAY ==
[2023-09-10] MEDS: Levalbuterol HFA 15 GM INH 4 PUFF IH (11:53)
[2023-09-10] MEDS: Inhaler, Assist Device 1 EACH MC (11:53)
--- NOTE | 2023-09-12 09:32 | W.PFT ---
Date of service: 09/10/23 Time of Service: 10:39 Pulmonary Function Test Result Indications: COPD Interpretation Spirometry: There is severe airflow limitation. No significant bronchodilator response. Lung Volumes: There is air trapping Diffusion Capacity: Decreased diffusion Airway Pressure: Increased airways resistance Impression Severe airflow obstruction with air trapping and a decreased diffusion consistent with COPD with emphysema. Clinical Correlation therefore is recommended.
== END 2023-09-10 02:22 | disposition home or self-care (01) ==
LOC: RT 02:21
PROVIDERS: PCP Nurse Practitioner; Visit Provider Student in an Organized Health Care Education/Training Program
DX: J44.9 Chronic obstructive pulmonary disease, unspecified (principal)
CPT/HCPCS: 94060; 94726; 94729; 36600

== ENCOUNTER 2023-09-10 02:22 | Outpatient (CLI) | payer MEDICARE, OTHER, MEDICAID, SELFPAY ==
[2023-09-10 10:36] LABS: BE 5 mmol/L (-2-3); HCO3 30 mmol/L (22-26); Site Right Radial; pCO2 50 mmHg (35-45); pH 7.39 (7.35-7.45); pO2 58 mmHg (80-105); sO2 90 % (95-98); tCO2 27 mmol/L (23-27)
[2023-09-10 10:37] LABS: FIO2 21 %
== END 2023-09-10 02:23 | disposition home or self-care (01) ==
LOC: RT 02:22
PROVIDERS: PCP Nurse Practitioner; Visit Provider Student in an Organized Health Care Education/Training Program
DX: J96.12 Chronic respiratory failure with hypercapnia
CPT/HCPCS: 82805; 94060; 94726; 94729; 36600

== ENCOUNTER → 2023-09-17 12:30 | Outpatient (BNVA) | payer MEDICARE, OTHER, MEDICAID, SELFPAY | PROVIDERS: PCP Nurse Practitioner; Referring Provider Nurse Practitioner; Visit Provider Physician Assistant Surgical | DX: Z13.858 Encounter for screening for other nervous system disorders (principal) ==

== ENCOUNTER → 2023-10-23 12:23 | Outpatient (BNVA) | payer MEDICARE, OTHER, MEDICAID, SELFPAY | PROVIDERS: PCP Nurse Practitioner; Visit Provider Psychiatry & Neurology Neurology | DX: G20.B1 Parkinson's disease with dyskinesia, without mention of fluctuations (principal); G31.84 Mild cognitive impairment of uncertain or unknown etiology; R35.1 Nocturia; R44.3 Hallucinations, unspecified | CPT/HCPCS: 99214 ==

== ENCOUNTER → 2023-11-19 10:20 | Outpatient (BNVA) | payer MEDICARE, OTHER, MEDICAID, SELFPAY | PROVIDERS: PCP Nurse Practitioner; Referring Provider Nurse Practitioner; Visit Provider Physician Assistant Surgical | DX: J42 Unspecified chronic bronchitis (principal); J96.11 Chronic respiratory failure with hypoxia; J96.12 Chronic respiratory failure with hypercapnia | CPT/HCPCS: 99215 ==

== ENCOUNTER → 2023-12-24 13:08 | Outpatient (BNVA) | payer MEDICARE, OTHER, MEDICAID, SELFPAY | PROVIDERS: PCP Nurse Practitioner; Referring Provider Nurse Practitioner; Visit Provider Psychiatry & Neurology Neurology | DX: G20.B1 Parkinson's disease with dyskinesia, without mention of fluctuations (principal); G31.84 Mild cognitive impairment of uncertain or unknown etiology; R35.1 Nocturia; R44.3 Hallucinations, unspecified | CPT/HCPCS: 99215 ==

== ENCOUNTER 2023-12-30 19:39 | Outpatient (REF) | payer MEDICARE, OTHER, MEDICAID, SELFPAY ==
--- OUTSIDE RECORDS SUMMARY | 2023-12-30 19:43 | XMS_ITS | Encounter Summary ---
Author Organization [facility] Address [facility] [place] [address] Care Team Providers Care [employer] Supervisor Name Role Phone Omer An Schneider APRN Primary Care Provider [phone] Reason for Visit * Reason Onset Date Comments Medication Refill 04/13/2021 Encounter Details Date Type Department Care Team (Late st Contact Info) Description 04/13/2021 Refill Neurology at [facility] [place] [id number] John Whittington MD [facility] [place] [address] [place] [address] Social History Tobacco Use Types Packs/Day Years Used Date Smoking Tobacco: Former Cigarettes Q uit: 05/27/1987 Smokeless Tobacco: Never Alcohol Use Standard Drinks/Week Comments No 0 (1 standard drink = 0.6 oz pur e alcohol) Sex and Gender Information Value Date Recorded Sex Assigned at Not on file Gender Identity Not on file Sexual Orientation Not on file documented as of this encounter Miscellaneous Notes * Telephone Encounter - Dinorah Chadwick CMA - 04/13/2021 11:27 AM EST Surescript request for : carbidopa levodopa 25-100 Last rx: 01/13/21 Quantity: 270 Refills: 0 Last appt: 01/17/21 Next appt: 05/24/21 documented in this encounter Plan of Treatment Not on file documented as of this encounter Visit Diagnoses Not on filedocumented in this encounter Care Teams [employer] Supervisor Relationship Specialty Start Date End Date An Tello APRN [address] [place] [address] PCP - General Family Medicine 11/27/16 documented as of this encounter
--- OUTSIDE RECORDS SUMMARY | 2023-12-30 19:43 | XMS_ITS | Encounter Summary ---
Author Organization [facility] Address [facility] [place] [address] Care Team Providers Care Machine Sewer Name Role Phone An Tello APRN Primary Care Provider [phone] [phone] Reason for Visit * Consultation (Routine) - Closed Specialty Diagnoses / Procedures Referred By Chelly perea Referred To Contact Cardiac Surgery Diagnoses Dilated aortic root Moderate aortic valve insufficiency Suellen Glasgow APRN [facility] [place] [address] Sancho Harris MD [facility] [place] [address] Referral ID Status Reason Start Date Expiration Date V isits Requested Visits Authorized [id number] Closed Consult, Test & Treat 01/01/2023 01/01/2024 1 1 Encounter Details Date Type Department Care Team (Late st Contact Info) Description 02/11/2023 10:50 AM EDT Office Visit [place] [address] Sancho Harris MD [facility] [place] [address] Aortic root aneurysm; Essential hypertension Social History Tobacco Use Types Packs/Day Years Used Date Smoking Tobacco: Former Cigarettes Q uit: 05/27/1987 Smokeless Tobacco: Never Alcohol Use Standard Drinks/Week Comments No 0 (1 standard drink = 0.6 oz pur e alcohol) Sex and Gender Information Value Date Recorded Sex Assigned at Not on file Gender Identity Not on file Sexual Orientation Not on file documented as of this encounter Last Filed Vital Signs Vital Sign Reading Time Taken Comments Blood Pressure 145/53 02/11/2023 11:08 AM EDT Pulse 64 02/11/2023 11:08 AM EDT Temperature - - Respiratory Rate - - Oxygen Saturation 96% 02/11/2023 11:08 AM EDT Inhaled Oxygen Concentration - - Weight 85.3 kg (188 lb) 02/11/2023 11:08 AM EDT Height 167.6 cm (5' 6) 02/11/2023 11:08 AM EDT Body Mass Index 30.34 02/11/2023 11:08 AM EDT documented in this encounter Progress Notes * Sancho Harris MD - 02/11/2023 10:50 AM EDT 77 yo female found to have a dilated aorta on ECHO in 2016. ECHO at that time showed a 4.6 cm ascending aorta and a 4.4 cm root with moderate AI. A CT scan of the chest in September for shortness of breath was read as showing a 5.6 x 6.[address]. [address] scan reading is obviously incorrect, the quality is poor and there is significant motion artifact, but I would say the aorta on CT scan looks to be about 5.5 cm (estimation at best). AN ECHO was done after that CT scan showing an Ascending aorta of 4.5 and an aortic root of 4.6 with moderate AI. She currently lives in a [facility] care facility due to problems with parkinson's. I have a note from a Palliative care provider documenting her desire to avoid complex procedures. She is currently DNR/DNI/ no transfer. She is able to get around a little with a walker. Her feet are numb and she has chronic leg swelling. She did not really know why she was seeing me. She has two children (son and daughter) who are not present with her today. Allergies Allergen Reactions Niacin Outpatient Medications Marked as Taking for the 02/11/23 encounter (Office Visit) with Sancho Harris MD Medication Sig Dispense Refill aspirin EC 81 mg EC (DR) tablet Take 81 mg by mouth daily. tiotropium bromide (Spiriva Respimat) 2.5 mcg/actuation Mist Inhale 2 puffs into the lungs daily. pantoprazole EC (Protonix) [address] tablet furosemide (Lasix) 20 mg Tablet Take 20 mg by mouth 2 times daily. carbidopa-levodopa (Sinemet) 25-100 mg Tablet Take 2 tablets by mouth 3 times daily. 540 tablet 3 CALCIUM CARBONATE (CALCIUM 600 ORAL) Take 2 tablets by mouth daily. cholecalciferol, Vitamin D3, 2,000 unit Capsule Take 2,000 Units by mouth daily. lisinopril (PRINIVIL;ZESTRIL) 10 mg Tablet Take 10 mg by mouth daily. multivitamin (THERAGRAN) Tablet Take 1 tablet by mouth daily. Patient Active Problem List Diagnosis Code Parkinson's disease G20.A1 Neuropathy G62.9 leg edema R60.0 PMH: Parkinsons HTN Aortic aneurysm Neuropathy FH: negative for aneurysm disease SH: from leukemia. She has a son in [place] and a daughter [place]. 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 Physical Exam: BP 145/53 (BP Location (NBP): Right arm, Patient Position: Sitting, BP Cuff Sizes: Adult (25-34 cm)) Pulse 64 Ht 167.6 cm (5' 6) Wt 85.3 kg (188 lb) SpO2 96% BMI 30.34 kg/m?? Frail appearing, difficulty moving from wheelchair to chair A/P: Complicated situation with a 77 yo female who has an aortic root aneurysm which may have expanded over time. I think we have very poor imaging and measures of this. ECHO is the only consistent study over time, but the ECHO measures are wildly different than the CT SCAN measures. I don't feel Ireally know how big the aorta really is. BP is elevated but not horribly out of control. There is documentation that she has stated that she does not want any complicated or involved procedures. SHe is currently DNR/DNI. I reviewed the aneurysm disease, concerns and possibilities with her. It is hard for me to gauge how much of this she really understands. The real question being whether we would ever do anything about this. After our discussion today I can at least say that we would NEVER PROCEED WITH EMERGENCY SURGERY INTHE EVENT OF AORTIC DISSECTION OR RUPTURE. This is consistent with her previous statements and wishes. The other question is whether we would ever consider more elective repair of this. Elective repair would entail rescinding the DNR/DNI. I think she would have a very difficult time recovering from open heart surgery and it would likely diminish her current quality of life. I would like to see her again in three months with repeat CT ANGIO CHEST done here at [facility] on the day of the appointment. If possible, I would like to see if we could have at least one of her children here to participate in the discussion. AT least, at this time, we have decided that she would not undergo emergency surgery for her aorta. In the mean time, she would benefit from close BP control with the addition of a beta-megan to her medication regimen. I would recommend metoprolol 25 mg po BID to start. documented in this encounter Plan of Treatment Not on file documented as of this encounter Visit Diagnoses Diagnosis Aortic root aneurysm Aortic aneurysm of unspecified site without mention of rupture Essential hypertension Unspecified essential hypertension documented in this encounter Care Teams Machine Sewer Relationship Specialty Start Date End Date An Tello APRN [address] [place] [address] PCP - General Family Medicine 11/27/16 documented as of this encounter
--- OUTSIDE RECORDS SUMMARY | 2023-12-30 19:43 | XMS_ITS | Encounter Summary ---
Author Organization [facility] Address [facility] [place] [address] Care Team Providers Care Sharepoint Analyst Name Role Phone Omer An Schneider APRN Primary Care Provider [phone] Reason for Visit * Reason Onset Date Comments Knee Pain 05/06/2020 Encounter Details Date Type Department Care Team (Late st Contact Info) Description 05/06/2020 [place] [id number] John Whittington MD [facility] [place] [address] Knee Pain Social History Tobacco Use Types Packs/Day Years [...] encounter Miscellaneous Notes * Telephone Encounter - Yvette Pack RN - 05/06/2020 4:39 PM EST Returned call and relayed following as per : Likely orthopedic issue. Please let her know, its not from Parkinsons Can see her earlier in clinic if she wants She is in agreement and will keep her appointment with her orthopedist on 06/12/[address] Elliott * Telephone Encounter - Yvette Pack RN - 05/06/2020 3:59 PM EST LV: 01/18/20 [place]: none scheduled Returned call and Ivette reports she's having very bad pain 8/10 to right knee and has had several episodes where her right knee pops and than the pain is relieved. She has a lot of leg swelling and was switched from Gabapentin to Pregabalin yesterday by PCP. She calls today at her PCP's suggestion for her right knee pain and is concerned that it has something to do with parkinson's She states she has seen an ortho provider at [facility] and he told her everything that can be wrong with your right knee is wrong she has a FU in May. Med list reviewed: Outpatient Medications Marked as Taking for the 05/06/20 encounter (Telephone) with John Whittington MD Medication Sig Dispense Refill ??? pregabalin (Lyrica) 50 mg Capsule Take 50 mg by mouth 3 times daily. ??? carbidopa-levodopa (Sinemet) 25-100 mg Tablet TAKE 1 TABLET BY MOUTH THREE TIMES DAILY 270 tablet 0 ??? ammonium lactate (LAC-HYDRIN) 12 % Lotion Apply 1 Application topically as needed. ??? aspirin 81 mg Tablet, Delayed Release (E.C.) Take 81 mg by mouth daily. ??? atenolol (TENORMIN) 50 mg Tablet Take 50 mg by mouth daily. ??? CALCIUM CARBONATE (CALCIUM 600 ORAL) Take 2 tablets by mouth daily. ??? cholecalciferol, Vitamin D3, 2,000 unit Capsule Take 2,000 Units by mouth daily. ??? lisinopril (PRINIVIL;ZESTRIL) 10 mg Tablet Take 10 mg by mouth daily. ??? lovastatin (MEVACOR) 40 mg Tablet Take 40 mg by mouth nightly. ??? multivitamin (THERAGRAN) Tablet Take 1 tablet by mouth daily. I told her I would forward this to for advise and get back to her. She was agreeable. * Telephone Encounter - Lyndsey Whiting - 05/06/2020 2:27 PM EST Call Center / [place] Message - Pain Do not use for calls regarding chest pain or headaches/head pain Provider pt sees in Clinic: John Whittington Caller and relationship (if other than patient-full name): self Call back number: [phone] Ok to leave a message: yes Reason for call: PAIN Where is the pain: Knee Is the pain still happening/present: Yes Has the patient had this pain before: Yes Level of pain on 0-10 scale (7 or greater red arrow message to the nurse): unknown Additional information for the nurse: Patient called complaining of right knee pain and also popping of knee if she turns it a bit and can't any weight on it. Disposition of Call ??? Red arrow message as pain is currently 7 or greater on 1-10 scale ??? Routine message to nurse Yes documented in this encounter Plan of Treatment Not on file documented as of this encounter Visit Diagnoses Not on filedocumented in this encounter Care Teams Sharepoint Analyst Relationship Specialty Start Date End Date An Tello APRN [address] [place] [address] PCP - General Family Medicine 11/27/16 documented as of this encounter
--- OUTSIDE RECORDS SUMMARY | 2023-12-30 19:43 | XMS_ITS | Encounter Summary ---
Author Organization [facility] Address [facility] [place] [address] Care Team Providers Care Corporate Intern Name Role Phone An Tello APRN Primary Care Provider [phone] [phone] Reason for Visit * Reason Comments Medication Refill Encounter Details Date Type Department Care Team (Late st Contact Info) Description 07/16/[address] [facility] [place] [address] John Whittington MD [facility] [place] [address] Social History Tobacco Use Types Packs/Day Years Used Date Smoking Tobacco: Former Cigarettes Q uit: 05/27/1987 Smokeless Tobacco: Never Alcohol Use Standard Drinks/Week Comments No 0 (1 standard drink = 0.6 oz pur e alcohol) Sex and Gender Information Value Date Recorded Sex Assigned at Not on file Gender Identity Not on file Sexual Orientation Not on file documented as of this encounter Plan of Treatment Not on file documented as of this encounter Visit Diagnoses Not on filedocumented in this encounter Care Teams Corporate Intern Relationship Specialty Start Date End Date An Tello APRN [address] [place] [address] PCP - General Family Medicine 11/27/16 documented as of this encounter
--- OUTSIDE RECORDS SUMMARY | 2023-12-30 19:43 | XMS_ITS | Encounter Summary ---
Author Organization [facility] Address [facility] [place] [address] Care Team Providers Care Roll Wrapper Name Role Phone An Tello APRN Primary Care Provider [phone] [phone] Encounter Details Date Type Department Care Team (Late st Contact Info) Description 10/12/2022 Ancillary Procedure Radiology Library at [facility] [place] [address] An Tello APRN [address] [place] [address] Social History Tobacco Use Types Packs/Day Years [...] on file documented as of this encounter Procedures Procedure Name Priority Date/Time Associated Diagnosis Comments FILM LIBRARY STORAGE ONLY CT CHEST Routine 10/12/2022 12:00 AM EDT documented in this encounter Results * Film Library- Storage Only CT Chest (10/12/2022 12:00 AM EDT) Narrative RAD - 12/19/2022 9:25 PM EDT This exam is auto-finalizing. It's purpose is for storage only. An Tello APRN IMG FILM LIBRARY ORDERABLES [place], [place] documented in this encounter Visit Diagnoses Not on filedocumented in this encounter Care Teams Roll Wrapper Relationship Specialty Start Date End Date An Tello APRN [address] [place] [address] PCP - General Family Medicine 11/27/16 documented as of this encounter
--- OUTSIDE RECORDS SUMMARY | 2023-12-30 19:43 | XMS_ITS | Encounter Summary ---
Author Organization [facility] [place] [address] Care Team Providers Care Car Painter Name Role Phone An Tello APRN Primary Care Provider [phone] [phone] Encounter Details Date Type Department Care Team (Late st Contact Info) Description 02/02/2022 Interpretation Only [address] [address] An Tello APRN [address] [place] [address] Social History Tobacco Use Types Packs/Day Years [...] Procedure Name Priority Date/Time Associated Diagnosis Comments MAMMO SCREENING CAD AND BECK BILATERAL Routine 02/02/2022 11:01 AM EDT documented in this encounter Results * Mammo Screening Cad and Beck Bilateral (02/02/2022 11:01 AM EDT) PT CLASS O DH RAD ADMITDTTM RAD PT RAD INFO [id number]^BRISTO L^AN RAD EXAM DESC MADDSCTO^BREAST SCREEN TOMOSYNTHESIS BI^RIS RAD Anatomical Region Laterality Modality Breast Bilateral Mammography Impressions 02/05/2022 1:04 PM EDT BI-RADS ??category 1: negative- No mammographic evidence of malignancy. RECOMMENDATION: * ??Regular screening mammograms starting between age 40 and 50 reduces the risk of from breast cancer. * ??All screening tests have both risks and benefits. These risks and benefits should be assessed for each individual patient through discussion with their provider to determine their preferred breast cancer screening schedule. * ??Women should report any breast changes to a health care provider right away. * ??Some women, because of their family history, a genetic tendency, or other factors, should be screened with annual breast MRI as well as with mammograms. (The number of women who fall into this category is very small). Patients and health care providers should discuss the history of each patient to decide if earlier screening and/or breast MRI are appropriate. * ??Screening should continue as long as a woman is in good health and is expected to live 10 years or longer. * ??Screening mammography may not detect 10-15% of breast cancers. Thank you for letting us participate in the care of this patient. ??If you are a health care provider and have any questions regarding this report, please contact the number below. ??For patients who have questions please contact the health special needs caregiver that requested your imaging first. ? Narrative 02/05/2022 1:04 PM EDT EXAMINATION: BREAST SCREEN TOMOSYNTHESIS BI, SCREEN MAMMO BL INCLUDES CAD CLINICAL HISTORY: screening for breast cancer Family history of breast cancer: Maternal aunt and sister Reproductive history: Parous No personal history of breast cancer. COMPARISON: Previous mammograms were reviewed. TECHNIQUE: ??Bilateral MLO and CC digital mammograms were obtained and reviewed with CAD. ?? 2-D and 3-D tomosynthesis images were obtained. FINDINGS: There are no suspicious microcalcifications, masses, or areas of distortion. No changes compared to prior studies. Breast density: The breasts are heterogeneously dense, which may obscure small masses. Procedure Note Tonio Reyes MD - 02/05/2022 EXAMINATION: BREAST SCREEN TOMOSYNTHESIS BI, SCREEN MAMMO BL INCLUDESCAD CLINICAL HISTORY: screening for breast cancer Family history of breast cancer: Maternal aunt and sister Reproductive history: Parous No personal history of breast cancer. COMPARISON: Previous mammograms were reviewed. TECHNIQUE: Bilateral MLO and CC digital mammograms were obtained andreviewed with CAD. 2-D and 3-D tomosynthesis images were obtained. FINDINGS: There are no suspicious microcalcifications, masses, or areasof distortion. No changes compared to prior studies. Breast density: The breasts are heterogeneously dense, which may obscuresmall masses. IMPRESSION BI-RADS category 1: negative- No mammographic evidence of malignancy. RECOMMENDATION: * Regular screening mammograms starting between age 40 and 50 reduces therisk of from breast cancer. * All screening tests have both risks and benefits. These risks andbenefits should be assessed for each individual patient through discussion withtheir provider to determine their preferred breast cancer screening schedule. * Women should report any breast changes to a health care provider rightaway. * Some women, because of their family history, a genetic tendency, orother factors, should be screened with annual breast MRI as well as withmammograms. (The number of women who fall into this category is very small). Patientsand health care providers should discuss the history of each patient to decideif earlier screening and/or breast MRI are appropriate. * Screening should continue as long as a woman is in good health and is expected to live 10 years or longer. * Screening mammography may not detect 10-15% of breast cancers. Thank you for letting us participate in the care of this patient. If youare a health care provider and have any questions regarding this report,please contact the number below. For patients who have questions please contactthe health special needs caregiver that requested your imaging first. An Tello APRN IMG MAMMO ORDERAB LES documented in this encounter Visit Diagnoses Not on filedocumented in this encounter Care Teams Car Painter Relationship Specialty Start Date End Date An Tello APRN [address] [place] [address] PCP - General Family Medicine 11/27/16 documented as of this encounter
--- OUTSIDE RECORDS SUMMARY | 2023-12-30 19:43 | XMS_ITS | Encounter Summary ---
Author Organization [facility] Address [facility] [place] [address] Care Team Providers Care Paraprofessional Interpreter Name Role Phone An Tello APRN Primary Care Provider [phone] Reason for Referral * Diagnostic Test (Routine) - Closed Specialty Diagnoses / Procedures Referred By Chelly t Referred To Contact Radiology Diagnoses Aortic aneurysm, unspecified portion of aorta, unspecified whether ruptured Procedures CT Angiogram Chest (Non-Coronary) w Contrast Jennifer Cheng APRN [facility] [place] [address] [facility] [place] [address] Referral ID Status Reason Start Date Expiration Date V isits Requested Visits Authorized [id number] Closed Specialty Service Requested 02/13/2023 08/13/2024 1 1 Encounter Details Date Type Department Care Team (Late st Contact Info) Description 02/13/2023 [place] [address] Jennifer Cheng APRN [facility] [place] [address] Aortic aneurysm, unspecified portion of aorta, unspecified whether ruptured Social History Tobacco Use Types Packs/Day Years [...] as of this encounter Plan of Treatment Scheduled Orders Name Type Priority Associated Diagnoses Orde r Schedule Creatinine Lab Routine Aortic Aneurysm, Unspecified Portion Of Aorta, Unspecified Whether Ruptured Expected: 02/13/2023, Expires: 02/14/2024 documented as of this encounter Results * CT Angiogram Chest (Non-Coronary) w Contrast (05/10/2023 11:13 AM EST) Anatomical Region Laterality Modality Chest Computed Tomogra phy Impressions 05/10/2023 4:05 PM EST Dilation of the aortic root and ascending thoracic aorta, maximum caliber 64 mm. Thank you for letting us participate in the care of this patient. ??If you are a health care provider and have any questions regarding this report, please contact the number below. ??For patients who have questions please contact the health daycare director that requested your imaging first. ? Electronically signed by: Jessica Howell MD, [facility] ([phone]), at 05/10/2023 4:05 PM Narrative 05/10/2023 4:05 PM EST EXAMINATION: CT ANGIOGRAM CHEST (NON-CORONARY)W CONTRAST CLINICAL HISTORY: Aortic aneurysm, known or suspected TECHNIQUE: Helical CT angiogram of the chest was performed following the intravenous administration of contrast. Administered 61.0 ml of OMNIPAQUE 350.00 mg/ml. Maximum intensity projection (MIP) were reformatted. 3D images were generated on an independent workstation. COMPARISON: October 12, 2022 FINDINGS: VASCULAR Heart: Normal heart size without pericardial effusion. Aorta: Smooth-walled dilation ascending thoracic aorta to the room without dissection. Maximum diameters of the aorta were measured at the following levels on center line reformatted images: * ??Sinuses of Valsalva: 60 mm * ??Sinotubular junction: 62 mm * ??Mid ascending aorta: 64 mm * ??Proximal aortic arch: 34 mm * ??Mid aortic arch: 29 mm * ??Proximal descending thoracic aorta: 2 mm * ??Mid descending aorta: 28 mm * ??Aorta at diaphragm: 30 mm * ??Abdominal aorta at celiac axis origin: 24 mm Great vessels: Conjoined origin left common carotid and right brachiocephalic arteries, smooth-walled and widely patent. No central pulmonary artery filling defects. Celiac/SMA: No stenosis or aneurysm. NON-VASCULAR Lungs and large airways: Centrilobular emphysematous disease Pleura: No pleural effusion Mediastinum and miguel: Small hiatal hernia Limited views of the upper abdomen: No significant findings. Osseous structures: Within normal limits. Procedure Note Jessica Howell MD - 05/10/2023 EXAMINATION: CT ANGIOGRAM CHEST (NON-CORONARY)W CONTRAST CLINICAL HISTORY: Aortic aneurysm, known or suspected TECHNIQUE: Helical CT angiogram of the chest was performed following the intravenous administration of contrast. Administered 61.0 ml of BKVTAJCHX543.00 mg/ml. Maximum intensity projection (MIP) were reformatted. 3D imageswere generated on an independent workstation. COMPARISON: October 12, 2022 FINDINGS: VASCULAR Heart: Normal heart size without pericardial effusion. Aorta: Smooth-walled dilation ascending thoracic aorta to the roomwithout dissection. Maximum diameters of the aorta were measured at the following levels oncenter line reformatted images: * Sinuses of Valsalva: 60 mm * Sinotubular junction: 62 mm * Mid ascending aorta: 64 mm * Proximal aortic arch: 34 mm * Mid aortic arch: 29 mm * Proximal descending thoracic aorta: 2 mm * Mid descending aorta: 28 mm * Aorta at diaphragm: 30 mm * Abdominal aorta at celiac axis origin: 24 mm Great vessels: Conjoined origin left common carotid and rightbrachiocephalic arteries, smooth-walled and widely patent. No central pulmonary artery filling defects. Celiac/SMA: No stenosis or aneurysm. NON-VASCULAR Lungs and large airways: Centrilobular emphysematous disease Pleura: No pleural effusion Mediastinum and miguel: Small hiatal hernia Limited views of the upper abdomen: No significant findings. Osseous structures: Within normal limits. IMPRESSION Dilation of the aortic root and ascending thoracic aorta, maximum [id number] mm. Thank you for letting us participate in the care of this patient. If youare a health care provider and have any questions regarding this report,please contact the number below. For patients who have questions please contactthe health daycare director that requested your imaging first. Jennifer Cheng APRN IMG CT ORDERABLES documented in this encounter Visit Diagnoses Diagnosis Aortic aneurysm, unspecified portion of aorta, unspecified whether ruptured Aortic aneurysm, unspecified portion of aorta, unspecified whether ruptured documented in this encounter Care Teams Paraprofessional Interpreter Relationship Specialty Start Date End Date An Tello APRN [address] [place] [address] PCP - General Family Medicine 11/27/16 documented as of this encounter
--- OUTSIDE RECORDS SUMMARY | 2023-12-30 19:43 | XMS_ITS | Encounter Summary ---
Author Organization [facility] Address [facility] [place] [address] Care Team Providers Care Dining Room Hostess Name Role Phone An Tello APRN Primary Care Provider [phone] Reason for Visit * Reason Comments Medication Refill Encounter Details Date Type Department Care Team (Late st Contact Info) Description 01/13/2021 Refill Neurology at [facility] [place] [address] John Whittington MD [facility] [place] [address] Social History Tobacco Use Types Packs/Day Years [...] encounter Miscellaneous Notes * Telephone Encounter - Jessie Moore LPN - 01/13/2021 4:06 PM EDT Refill received from [facility] for carbidopa-levodopa (Sinemet) 25-100 mg tablet. BECCA: 01/18/20 NOV: 01/17/21 Medication last refilled: 07/18/20 ([id number] R-1) Per last appointment note: PLAN/RECOMMENDATIONS: ?? Clinically stable since last seen. ?? Tolerating sinemet. Peripheral neuropathy stable on gabapentin. ?? Leg swelling may be secondary to gabapentin and neuropathy. Limb elevation and compression stocking advised. ?? Continue home exercises. Fall precautions advised. Walk with cane. ?? Follow up in a year. documented in this encounter Plan of Treatment Not on file documented as of this encounter Visit Diagnoses Not on filedocumented in this encounter Care Teams Dining Room Hostess Relationship Specialty Start Date End Date An Tello APRN [address] [place] [address] PCP - General Family Medicine 11/27/16 documented as of this encounter
--- OUTSIDE RECORDS SUMMARY | 2023-12-30 19:43 | XMS_ITS | Encounter Summary ---
Author Organization [facility] Address [facility] Dahlia ramirez [place] [id number] Care Team Providers Care Web Analyst Name Role Phone An Tello APRN Primary Care Provider [phone] Reason for Referral * Consultation (Routine) - Closed Specialty Diagnoses / Procedures Referred By Contmelody t Referred To Contact Cardiac Surgery Diagnoses Dilated aortic root Moderate aortic insufficiency Procedures AAA Duplex, Complete/Bilateral Suellen Glasgow APRN [facility] [place] [address] Sancho Harris MD [facility] CARDIOTH[place]AC[place] [address] Referral ID Status Reason Start Date Expiration Date V isits Requested Visits Authorized [id number] Closed Consult & Test 11/06/2022 11/06/2023 1 1 Encounter Details Date Type Department Care Team (Late st Contact Info) Description 11/06/2022 Orders Only [place] [address] Suellen Glasgow APRN [facility] [address] Abdominal aortic aneurysm (AAA) without rupture, unspecified part Social History Tobacco Use Types Packs/Day Years [...] as of this encounter Visit Diagnoses Diagnosis Abdominal aortic aneurysm (AAA) without rupture, unspecified part documented in this encounter Care Teams Web Analyst Relationship Specialty Start Date End Date An Tello APRN [address] [place] [id number] PCP - General Family Medicine 11/27/16 documented as of this encounter
--- OUTSIDE RECORDS SUMMARY | 2023-12-30 19:43 | XMS_ITS | Encounter Summary ---
Author Organization [facility] [place] [address] Care Team Providers Care Kick Press Setter Name Role Phone An Tello APRN Primary Care Provider [phone] [phone] Encounter Details Date Type Department Care Team (Latest Contact Info) Description 04/10/2022 Travel Social History Tobacco Use Types Packs/Day Years [...] on filedocumented in this encounter Care Teams Kick Press Setter Relationship Specialty Start Date End Date An Tello APRN [address] [place] [id number] PCP - General Family Medicine 11/27/16 documented as of this encounter
--- OUTSIDE RECORDS SUMMARY | 2023-12-30 19:43 | XMS_ITS | Continuity of Care Document ---
Author Organization [facility] Address [address] [place] [id number] Care Team Providers Care Infection Prevention Coordinator Name Role Phone Kimberly Carrillo Primary Care Physician Encounter [facility] [id number] Date(s): 07/23/23 - 07/23/23 [place] [id number] Discharge Disposition: Home or Self Care Attending Physician: Kimberly Carrillo Admitting Physician: Kimberly Carrillo Referring Physician: Kimberly Carrillo Social History Social History Type Response Sex Female Patient Care team information Care Team Personnel Name: Kimberly Carrillo Position: No Access Member Role: Primary Care Physician Care Team Related Persons Name: GATO HU
--- OUTSIDE RECORDS SUMMARY | 2023-12-30 19:43 | XMS_ITS | Encounter Summary ---
Author Organization [facility] [place] [address] Care Team Providers Care Stitch Bonding Machine Tender Helper Name Role Phone Omer Ansteve Schneider APRN Primary Care Provider [phone] [phone] Encounter Details Date Type Department Care Team (Late st Contact Info) Description 07/23/2023 Interpretation Only [address] [address] Kimberly Carrillo MD [address] [place] [id number] Social History Tobacco Use Types Packs/Day Years [...] Associated Diagnosis Comments MAMMO SCREENING CAD AND MEE BILATERAL (CH) Routine 07/23/2023 11:48 AM EDT documented in this encounter Results * MAMMO SCREENING CAD AND MEE BILATERAL (CH) (07/23/2023 11:48 AM EDT) PT CLASS O RAD ADMITDTTM [id number] RAD PT RAD INFO [id number]^Fatigat i^Kimberly^Mrs RAD EXAM DESC MADDSCTOCH^MG Mammo Screening Bilateral w/ Mee.^[facility] RAD Anatomical Region Laterality Modality Other 07/23/2023 11:2 4 AM EDT Impressions 07/29/2023 11:29 AM EDT BI-RADS Category 1: Negative RECOMMENDATION: Routine mammography screening * ??Regular screening mammograms starting at age 40 reduce the risk of from breast cancer. * ??Women should discuss the risks and benefits with their provider to determine their preferred breast cancer screening schedule, and at what age screening should stop. * ??Women should report any breast changes to a health care provider right away. * ??Some women, because of their family history, a genetic tendency, or other factors, should consider being screened with annual breast MRI as well as with mammograms. * ??Screening mammography may not detect 10-15% of?breast cancers. Thank you for letting us participate in the care of this patient. ??If you are a health care provider and have any questions regarding this report, please contact the number below. ??For patients who have questions please contact the health childbirth and infant care teacher that requested your imaging first. ? Narrative 07/29/2023 11:29 AM EDT EXAMINATION: MG Mammo Screening Bilateral w/ Mee. REASON FOR EXAM: Screening Family history of breast cancer: Maternal aunt and sister Reproductive history: Parous No personal history of breast cancer. COMPARISON: Previous mammograms were reviewed. TECHNIQUE: ??CC and MLO views were obtained of BOTH breasts. 2D and 3D tomosynthesis images were obtained. Computer aided detection was used FINDINGS: There are no suspicious microcalcifications, masses, or areas of distortion. No changes compared to prior studies. BREAST DENSITY: The breasts are heterogeneously dense, which may obscure small masses. Procedure Note Tonio Reyes MD - 07/29/2023 EXAMINATION: MG Mammo Screening Bilateral w/ Mee. REASON FOR EXAM: Screening Family history of breast cancer: Maternal aunt and sister Reproductive history: Parous No personal history of breast cancer. COMPARISON: Previous mammograms were reviewed. TECHNIQUE: CC and MLO views were obtained of BOTH breasts. 2D and 3D tomosynthesis images were obtained. Computer aided detection was used FINDINGS: There are no suspicious microcalcifications, masses, or areasof distortion. No changes compared to prior studies. BREAST DENSITY: The breasts are heterogeneously dense, which may obscuresmall masses. IMPRESSION BI-RADS Category 1: Negative RECOMMENDATION: Routine mammography screening * Regular screening mammograms starting at age 40 reduce the risk ofdeath from breast cancer. * Women should discuss the risks and benefits with their provider todetermine their preferred breast cancer screening schedule, and at what agescreening should stop. * Women should report any breast changes to a health care provider rightaway. * Some women, because of their family history, a genetic tendency, orother factors, should consider being screened with annual breast MRI as well aswith mammograms. * Screening mammography may not detect 10-15% of?breast cancers. Thank you for letting us participate in the care of this patient. If youare a health care provider and have any questions regarding this report,please contact the number below. For patients who have questions please contactthe health childbirth and infant care teacher that requested your imaging first. Kimberly Carrillo MD PACS IMAGES documented in this encounter Visit Diagnoses Not on filedocumented in this encounter Care Teams Stitch Bonding Machine Tender Helper Relationship Specialty Start Date End Date An Tello APRN [address] [place] [address] PCP - General Family Medicine 11/27/16 documented as of this encounter
--- OUTSIDE RECORDS SUMMARY | 2023-12-30 19:43 | XMS_ITS | Encounter Summary ---
[place] [address] Care Team Providers Care Construction Administrative Assistant Name Role Phone An Tello APRN Primary Care Provider [phone] [phone] Reason for Referral * Diagnostic Test (Routine) - Closed Specialty Diagnoses / Procedures Referred By Contac t Referred To Contact Cardiology Diagnoses COPD with exacerbation Procedures Mobile Hari Wisdom MD [address] [place] [address] [facility] [place] [address] Referral ID Status Reason Start Date Expiration Date V isits Requested Visits Authorized [id number] Closed Specialty Service Requested 10/17/2022 10/17/2023 1 1 Reason for Visit * Diagnostic Test (Routine) - Closed Specialty Diagnoses / Procedures Referred By Contac t Referred To Contact Cardiology Diagnoses COPD with exacerbation Procedures Mobile Hari Wisdom MD [address] [place] [address] [facility] [place] [address] Referral ID Status Reason Start Date Expiration Date V isits Requested Visits Authorized [id number] Closed Specialty Service Requested 10/17/2022 10/17/2023 1 1 Encounter Details Date Type Department Care Team (Latest Contact Info) Description 10/17/2022 10:54 AM EDT - 10/17/2022 11:59 PM EDT Hospital Encounter [place] [address] Hari Asencio MD [address] [place] [address] COPD with exacerbation Discharge Disposition: Home Social History Tobacco Use Types Packs/Day Years Used Date Smoking Tobacco: Former Cigarettes Q uit: 05/27/1987 Smokeless Tobacco: Never Alcohol Use Standard Drinks/Week Comments No 0 (1 standard drink = 0.6 oz pur e alcohol) Sex and Gender Information Value Date Recorded Sex Assigned at Not on file Gender Identity Not on file Sexual Orientation Not on file documented as of this encounter Medications at Time of Discharge Medication Sig Dispensed Refills Start Date End Date furosemide (Lasix) 20 mg Tablet Take 20 mg by mouth 2 times daily. carbidopa-levodopa (Sinemet) 25-100 mg Tablet Take 2 tablets by mouth 3 times daily. 540 tablet 3 08/01/2021 atenolol (TENORMIN) 50 mg Tablet Take 50 mg by mouth daily. CALCIUM CARBONATE (CALCIUM 600 ORAL) Take 2 tablets by mouth daily. cholecalciferol, Vitamin D3, 2,000 unit Capsule Take 2,000 Units by mouth daily. lisinopril (PRINIVIL;ZESTRIL) 10 mg Tablet Take 5 mg by mouth daily. multivitamin (THERAGRAN) Tablet Take 1 tablet by mouth daily. pregabalin (Lyrica) 50 mg Capsule Take 50 mg by mouth 3 times daily. lovastatin (MEVACOR) 40 mg Tablet Take 40 mg by mouth nightly. documented as of this encounter Plan of Treatment Not on file documented as of this encounter Procedures Procedure Name Priority Date/Time Associated Diagnosis Comments ECHO COMPLETE Routine 10/17/2022 11:02 AM EDT COPD with exacerbation documented in this encounter Results * ECHO COMPLETE (10/17/2022 11:02 AM EDT) Anatomical Region Laterality Modality Other 10/17/2022 8:43 AM EDT Narrative 10/17/2022 11:15 AM EDT ? Echocardiogram Report Name: RIOS THAO ?Study Date: 10/17/2022 08:43 AMBP: 124/79 mmHg ? Patient Location: 4A : 1945 ? Height: 168 cm ? Account: [id number] Age: 76 yrs ? Weight: 85 kg Gender: Female ?BSA: 1.9 m2 Ordering Physician: HARI ASENCIO Referring Physician: HARI ASENCIO Performed By: DAVID Exam Location: [facility]. Interpretation Summary Normal left ventricle size with preserved LV systolic function. LV ejection fraction 55%. Normal right ventricle. Aortic sclerosis without stenosis. Moderate aortic regurgitation. Dilated aortic root (at least 4.6 cm - measurement challenging due to effacement of the sinotubular junction). Dilated ascending aorta (at least 4.5 cm). Consider alternative tomographic modality for more precise measurement. When compared to prior echo dated 08/05/2020, comparable findings. Procedure Complete-[id number]. Satisfactory quality. Left Ventricle Left ventricle is of normal size. Wall thickness is normal. Left ventricular systolic function is normal. Left ventricular ejection fraction is estimated visually at 55%. There are no segmental wall motion abnormalities. Right Ventricle The right ventricle is of normal size. Right ventricular systolic function is normal. Left Atrium The left atrium is normal. There is no evidence for a patent foramen ovale. Right Atrium The right atrium is normal. Aortic Valve The aortic valve is tricuspid. The aortic valve is mildly thickened. There is aortic valve sclerosis without stenosis. There is restriction of the left coronary cusp. There is moderate aortic regurgitation. Mitral Valve Thickening of the anterior leaflet of the mitral valve. There is trace mitral regurgitation. Tricuspid Valve The tricuspid valve is structurally normal. There is trace tricuspid regurgitation. Pulmonic Valve The pulmonic valve appears to be structurally and functionally normal. Great Arteries The diameter at the level of the sinuses of Valsalva is 4.6 cm. The aortic root is severely dilated. The maximum diameter of the proximal ascending aorta is 4.5 cm. Venous Inferior vena cava is normal in size. Inferior vena cava collapse greater than 50% with respiration. Pericardium/Pleural The pericardium appears normal. Hemodynamics The peak right ventricular systolic pressure is 30.2 mmHg . The estimated right atrial pressure is 3mmHg. Left ventricular diastolic function is abnormal. Ejection Fraction ?2D Measurements ? Volumes LV Biplane EF: 52.2 % ? IVSd: 0.73 cm ?EDV Biplane: 99.1 ml ?LVPWd: 0.74 cm ? EDV Biplane Index: 51.0 ? ESV Biplane: 47.4 ml ? ESV Biplane Index: 24.4 Doppler TR max leona: 260.7 cm/sec RVSP(TR): 30.2 mmHg LV V1 VTI: 22.0 cm Ao V2 VTI: 32.5 cm Ao Max: 223.3 cm/sec Ao valve max: 20.0 mmHg MV E max leona: 59.3 cm/sec MV A max leona: 97.2 cm/sec MV E/A: 0.61 Dimensionless index Aov: 0.68 I ?WMSI = 1.00 ? % Normal = 100 ?Segments ??Size X - Cannot ?? 1 - Normal ?? 2 - ? 3 - Akinetic 4 - ?1-2 ? small Interpret ? Hypokinetic ?Dyskinetic ?? 3-5 ? moderate 5 - ? 6-14 ?large Aneurysmal ?15-16 ?? diffuse Procedure Note Zeke Li MD - 10/17/2022 Echocardiogram Report Name: RIOS THAO Study Date:10/17/2022 08:43 AMBP: 124/79 mmHg Patient Location: : 1945 Height: 168 cm Account: [id number] Age: 76 yrs Weight: 85 kg Gender: Female BSA: 1.9 m2 Ordering Physician: HARI ASENCIO Referring Physician: HARI ASENCIO Performed By: P Exam Location: [facility]. Interpretation Summary Normal left ventricle size with preserved LV systolic function. LVejection fraction 55%. Normal right ventricle. Aortic sclerosis without stenosis. Moderate aortic regurgitation. Dilated aortic root (at least 4.6 cm - measurement challenging due toeffacement of the sinotubular junction). Dilated ascending aorta (at least 4.5 cm).Consider alternative tomographic modality for more precise measurement. When compared to prior echo dated 08/05/2020, comparable findings. Procedure Complete-[id number]. Satisfactory quality. Left Ventricle Left ventricle is of normal size. Wall thickness is normal. Leftventricular systolic function is normal. Left ventricular ejection fraction isestimated visually at 55%. There are no segmental wall motion abnormalities. Right Ventricle The right ventricle is of normal size. Right ventricular systolic functionis normal. Left Atrium The left atrium is normal. There is no evidence for a patent foramenovale. Right Atrium The right atrium is normal. Aortic Valve The aortic valve is tricuspid. The aortic valve is mildly thickened. Thereis aortic valve sclerosis without stenosis. There is restriction of the leftcoronary cusp. There is moderate aortic regurgitation. Mitral Valve Thickening of the anterior leaflet of the mitral valve. There is tracemitral regurgitation. Tricuspid Valve The tricuspid valve is structurally normal. There is trace tricuspid regurgitation. Pulmonic Valve The pulmonic valve appears to be structurally and functionally normal. Great Arteries The diameter at the level of the sinuses of Valsalva is 4.6 cm. The aorticroot is severely dilated. The maximum diameter of the proximal ascending aorta is4.5 cm. Venous Inferior vena cava is normal in size. Inferior vena cava collapse greaterthan 50% with respiration. Pericardium/Pleural The pericardium appears normal. Hemodynamics The peak right ventricular systolic pressure is 30.2 mmHg . The estimatedright atrial pressure is 3mmHg. Left ventricular diastolic function isabnormal. Ejection Fraction 2D Measurements Volumes LV Biplane EF: 52.2 % IVSd: 0.73 cm EDV Biplane: 99.1ml LVPWd: 0.74 cm EDV BiplaneIndex: 51.0 ESV Biplane: 47.4ml ESV BiplaneIndex: 24.4 Doppler TR max leona: 260.7 cm/sec RVSP(TR): 30.2 mmHg LV V1 VTI: 22.0 cm Ao V2 VTI: 32.5 cm Ao Max: 223.3 cm/sec Ao valve max: 20.0 mmHg MV E max leona: 59.3 cm/sec MV A max leona: 97.2 cm/sec MV E/A: 0.61 Dimensionless index Aov: 0.68 I WMSI = 1.00 % Normal = 100 SegmentsSize X - Cannot 1 - Normal 2 - 3 - Akinetic 4 - 1-2small Interpret Hypokinetic Dyskinetic 3-5moderate 5 - 6-14large Aneurysmal 15-16diffuse Hari Asencio MD ECHO ORDERABLES documented in this encounter Visit Diagnoses Diagnosis COPD with exacerbation Obstructive chronic bronchitis with exacerbation documented in this encounter Care Teams Construction Administrative Assistant Relationship Specialty Start Date End Date An Tello APRN [address] [place] [id number] PCP - General Family Medicine 11/27/16 documented as of this encounter
--- OUTSIDE RECORDS SUMMARY | 2023-12-30 19:43 | XMS_ITS | Encounter Summary ---
Author Organization [place] [address] Care Team Providers Care Company Truck Driver Name Role Phone An Tello APRN Primary Care Provider [phone] [phone] Encounter Details Date Type Department Care Team (Late st Contact Info) Description 02/02/2022 Interpretation Only [address] [address] An Tello APRN [address] [place] [address] Social History Tobacco Use Types Packs/Day Years [...] Date/Time Associated Diagnosis Comments MAMMO SCREENING CAD BILATERAL Routine 02/02/2022 11:01 AM EDT documented in this encounter Results * Mammo Screening Cad Bilateral (02/02/2022 11:01 AM EDT) PT CLASS O DH RAD ADMITDTTM DH RAD PT RAD INFO [id number]^BR ISTOL^AN RAD EXAM DESC MADDSC^SCREEN MAMMO BL INCLUDES CAD^RIS RAD Anatomical Region Laterality Modality Breast Bilateral [...] who have questions please contact the health day care provider that requested your imaging first. ? Electronically signed by: Tonio Reyes MD, [facility] ([phone]), at 02/05/2022 1:04 PM Narrative 02/05/2022 1:04 PM EDT EXAMINATION: BREAST [...] patients who have questions please contactthe health day care provider that requested your imaging first. An Tello APRN IMG MAMMO ORDERAB LES documented in this encounter Visit Diagnoses Not on filedocumented in this encounter Care Teams Company Truck Driver Relationship Specialty Start Date End Date An Tello APRN [address] [place] [address] PCP - General Family Medicine 11/27/16 documented as of this encounter
--- OUTSIDE RECORDS SUMMARY | 2023-12-30 19:43 | XMS_ITS | Encounter Summary ---
Author Organization [facility] [place] [address] Care Team Providers Care Adjunct Sociology Professor Name Role Phone An Tello APRN Primary Care Provider [phone] [phone] Encounter Details Date Type Department Care Team (Late st Contact Info) Description 02/02/2022 Interpretation Only [address] [address] An Tello APRN [address] [place] [address] Social History Tobacco Use Types Packs/Day Years [...] Procedure Name Priority Date/Time Associated Diagnosis Comments DXA CENTRAL SPINE, HIP, AND/OR WHOLE BODY (GENERIC) Routine 02/02/2022 11:01 AM EDT documented in this encounter Results * DXA Central Spine, Hip, and/or Whole Body (Generic) (02/02/2022 11:01 AM EDT) PT CLASS O DH RAD ADMITDTTM RAD PT RAD INFO [id number]^B RISTOL^ELVIA NE RAD EXAM DESC XDXAC^DEXA SCAN AXIAL^RIS RAD Anatomical Region Laterality Modality C-spine, Hip N/A Radiographic Rachelle ging Impressions 02/05/2022 9:56 AM EDT Normal. FRAX ten-year fracture risk: Major osteoporotic fracture: 8.5%. Hip fracture: 1%. Thank you for letting us participate in the care of this patient. ??If you are a health care provider and have any questions regarding this report, please contact the number below. ??For patients who have questions please contact the health rn coronary care unit that requested your imaging first. ? Electronically signed by: Tonio Reyes MD, [facility] ([phone]), at 02/05/2022 9:56 AM Narrative 02/05/2022 9:56 AM EDT EXAMINATION: DEXA SCAN AXIAL CLINICAL HISTORY: Osteoporosis w/o current fx TECHNIQUE: Scans were acquired at the lumbar spine, left hip. COMPARISON: None. FINDINGS: Lowest T score at a diagnostic region of interest: T score: -0.7, ALISON:Total hip, WHO diagnosis: Normal Procedure Note Tonio Reyes MD - 02/05/2022 EXAMINATION: DEXA SCAN AXIAL CLINICAL HISTORY: Osteoporosis w/o current fx TECHNIQUE: Scans were acquired at the lumbar spine, left hip. COMPARISON: None. FINDINGS: Lowest T score at a diagnostic region of interest: T score: -0.7, ALISON:Total hip, WHO diagnosis: Normal IMPRESSION Normal. FRAX ten-year fracture risk: Major osteoporotic fracture: 8.5%. Hip fracture: 1%. Thank you for letting us participate in the care of this patient. If youare a health care provider and have any questions regarding this report,please contact the number below. For patients who have questions please contactthe health rn coronary care unit that requested your imaging first. An Tello APRN IMG DEXA ORDERABL ES documented in this encounter Visit Diagnoses Not on filedocumented in this encounter Care Teams Adjunct Sociology Professor Relationship Specialty Start Date End Date An Tello APRN [address] [place] [address] PCP - General Family Medicine 11/27/16 documented as of this encounter
--- OUTSIDE RECORDS SUMMARY | 2023-12-30 19:43 | XMS_ITS | Clinical Summary ---
Author Organization [facility] Address [facility] [place] [address] Care Team Providers Care Feather Duster Winder Name Role Phone An Tello APRN Primary Care Provider +1 [phone] Allergies Active Allergy Reactions Criticality Noted Date Comments Niacin 05/27/2017 Medications Medication Sig Dispensed Refills Start Date End Date Status atenolol (TENORMIN) 50 mg Tablet Take 50 mg by mouth daily. Active CALCIUM CARBONATE (CALCIUM 600 ORAL) Take 2 tablets by mouth daily. Active cholecalciferol, Vitamin D3, 2,000 unit Capsule Take 2,000 Units by mouth daily. Active lisinopril (PRINIVIL;ZESTRIL) 10 mg Tablet Take 5 mg by mouth daily. Active lovastatin (MEVACOR) 40 mg Tablet Take 40 mg by mouth nightly. Active multivitamin (THERAGRAN) Tablet Take 1 tablet by mouth daily. Active pregabalin (Lyrica) 50 mg Capsule Take 50 mg by mouth 3 times daily. Active furosemide (Lasix) 20 mg Tablet Take 20 mg by mouth 2 times daily. Active carbidopa-levodopa (Sinemet) 25-100 mg Tablet Take 2 tablets by mouth 3 times daily. 540 tablet 3 08/01/2021 Active aspirin EC 81 mg EC (DR) tablet Take 81 mg by mouth daily. Active tiotropium bromide (Spiriva Respimat) 2.5 mcg/actuation Mist Inhale 2 puffs into the lungs daily. Active pantoprazole EC (Protonix) [address] tablet 01/17/2023 Active polyethylene glycoL (Miralax) 17 gram oral powder packet Take 17 g by mouth daily. Active atorvastatin (Lipitor) 10 mg tablet Take 10 mg by mouth daily. Active pimavanserin (Nuplazid) 34 mg capsule Take 34 mg by mouth daily. Active Active Problems Problem Noted Date Diagnosed Date Parkinson's disease 08/01/2021 Neuropathy 08/01/2021 leg edema 08/01/2021 Social History Tobacco Use Types Packs/Day Years Used Date Smoking Tobacco: Former Cigarettes Q uit: 05/27/1987 Smokeless Tobacco: Never Alcohol Use Standard Drinks/Week Comments No 0 (1 standard drink = 0.6 oz pur e alcohol) Sex and Gender Information Value Date Recorded Sex Assigned at Not on file Gender Identity Not on file Sexual Orientation Not on file Last Filed Vital Signs Vital Sign Reading Time Taken Comments Blood Pressure 139/56 05/10/2023 1:05 PM EST Pulse 78 05/10/2023 1:05 PM EST Temperature - - Respiratory Rate - - Oxygen Saturation 93% 05/10/2023 1:05 PM EST Inhaled Oxygen Concentration - - Weight 84.7 kg (186 lb 11.2 oz) 05/10/2023 1:05 PM EST Height 167.6 cm (5' 6) 05/10/2023 1:05 PM EST Body Mass Index 30.13 05/10/2023 1:05 PM EST Plan of Treatment Health Maintenance Due Date Last Done Comments Hepatitis C Screening 1963 Tdap adult 1965 Tetanus vaccine 1965 Zoster vaccine (1 of 2) 1996 Advance Directive 2001 Pneumoccocal Vaccine: 65+ (1 of 1 - PCV) 11/23/2011 Covid-19 Vaccine (1 - 2022-24 season) 2023 Influenza (Flu) vaccine (1 o f 1 - Influenza standard series) 12/15/2023 Bone Density Scan 02/02/2037 02/02/2022 Breast Cancer screening Discontinued 02/02/2022, 02/02 Procedures Procedure Name Priority Date/Time Associated Diagnosis Comments DXA CENTRAL SPINE, HIP, AND/OR WHOLE BODY (GENERIC) Routine 02/02/2022 11:01 AM EDT MAMMO SCREENING CAD BILATERAL Routine 02/02/2022 11:01 AM EDT from Last 3 Months or Most Recently Relevant to Health Maintenance Results * DXA Central Spine, Hip, and/or Whole Body (Generic) (02/02/2022 11:01 AM EDT) PT CLASS O RAD ADMITDTTM RAD PT RAD INFO [id number]^B RISTOL^ELVIA NE RAD EXAM DESC XDXAC^DEXA SCAN [...] who have questions please contact the health progressive care unit registered nurse that requested your imaging first. ? Narrative 02/05/2022 9:56 AM EDT EXAMINATION: DEXA [...] patients who have questions please contactthe health progressive care unit registered nurse that requested your imaging first. [address] Tello CHAPERONE IMG DEXA ORDERABL ES * Mammo Screening Cad Bilateral (02/02/2022 11:01 AM EDT) PT CLASS O RAD ADMITDTTM RAD PT RAD INFO [id number]^BR ISTOL^AN RAD EXAM DESC MADDSC^SCREEN MAMMO BL [...] who have questions please contact the health progressive care unit registered nurse that requested your imaging first. ? Narrative [...] patients who have questions please contactthe health progressive care unit registered nurse that requested your imaging first. An Tello APRN IMG MAMMO ORDERAB LES from Last 3 Months or Most Recently Relevant to Health Maintenance Care Teams Feather Duster Winder Relationship Specialty Start Date End Date An Tello, EULOGIO [address] [place] [address] PCP - General Family Medicine 11/27/16
--- OUTSIDE RECORDS SUMMARY | 2023-12-30 19:43 | XMS_ITS | Encounter Summary ---
Author Organization [facility] Address [facility] [place] [address] Care Team Providers Care Mortgage Advisor Name Role Phone An Tello APRN Primary Care Provider [phone] [phone] Encounter Details Date Type Department Care Team (Late st Contact Info) Description 04/20/2022 Interpretation Only [facility] [address] [place] [address] Cedrick Hodge, DO [address] [place] [address] Social History Tobacco Use Types Packs/Day Years [...] Procedure Name Priority Date/Time Associated Diagnosis Comments XR CHEST ONE VIEW STAT 04/20/2022 12: 14 PM EST documented in this encounter Results * XR Chest One View (04/20/2022 12:14 PM EST) PT CLASS I DH RAD ADMITDTTM RAD PT RAD INFO [id number]^D EHART^DILLAR D^L DH RAD EXAM DESC XCXR1^XR CHEST 1 VIEW^RIS RAD Anatomical Region Laterality Modality Chest N/A Radiographic Rachelle ging Impressions 04/20/2022 12:24 PM EST 1. ??No acute cardiopulmonary process. 2. ??Specifically no evidence of pneumonia Thank you for letting us participate in the care of this patient. ??If you are a health care provider and have any questions regarding this report, please contact the number below. ??For patients who have questions please contact the health caregiver assisted living that requested your imaging first. ? Electronically signed by: Hernán Davidson MD, [facility] ([phone]), at 04/20/2022 12:24 PM Narrative 04/20/2022 12:24 PM EST EXAMINATION: XR CHEST 1 VIEW CLINICAL HISTORY: Mild SOB. ??Pt pos for COVID. TECHNIQUE: AP chest radiograph, single image COMPARISON: None FINDINGS: There are mild low bilateral lung volumes. No focal consolidation or airspace opacity. No pulmonary vascular congestion. No pneumothorax. No pleural effusions. Normal size of the miguel. There is mild cardiomegaly. 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 No acute osseous findings. Procedure Note Hernán Davidson MD - 04/20/2022 EXAMINATION: XR CHEST 1 VIEW CLINICAL HISTORY: Mild SOB. Pt pos for COVID. TECHNIQUE: AP chest radiograph, single image COMPARISON: None FINDINGS: There are mild low bilateral lung volumes. No focal consolidation orairspace opacity. No pulmonary vascular congestion. No pneumothorax. No pleural effusions. Normal size of the miguel. 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 No acute osseous findings. IMPRESSION 1. No acute cardiopulmonary process. 2. Specifically no evidence of pneumonia Thank you for letting us participate in the care of this patient. If youare a health care provider and have any questions regarding this report,please contact the number below. For patients who have questions please contactthe health caregiver assisted living that requested your imaging first. Philip L Ayesha DO IMG DX ORDERABLES documented in this encounter Visit Diagnoses Not on filedocumented in this encounter Care Teams Mortgage Advisor Relationship Specialty Start Date End Date An Tello APRN [address] [place] [address] PCP - General Family Medicine 11/27/16 documented as of this encounter
--- OUTSIDE RECORDS SUMMARY | 2023-12-30 19:43 | XMS_ITS | Encounter Summary ---
Author Organization Formerly [facility] Address [facility] [place] [address] Care Team Providers Care Information Technology Program Manager Name Role Phone An Tello APRN Primary Care Provider [phone] [phone] Reason for Referral * Diagnostic Test (Routine) - Closed Specialty Diagnoses / Procedures Referred By Chelly t Referred To Contact Radiology Diagnoses Aortic aneurysm, unspecified portion of aorta, unspecified whether ruptured Procedures CT Angiogram Chest (Non-Coronary) w Contrast Jennifer Cheng APRN [facility] [place] [address] [facility] [place] [address] Referral ID Status Reason Start Date Expiration Date V isits Requested Visits Authorized [id number] Closed Specialty Service Requested 02/13/2023 08/13/2024 1 1 Reason for Visit * Diagnostic Test (Routine) - Closed Specialty Diagnoses / Procedures Referred By Contmelody t Referred To Contact Radiology Diagnoses Aortic aneurysm, unspecified portion of aorta, unspecified whether ruptured Procedures CT Angiogram Chest (Non-Coronary) w Contrast Jennifer Cheng APRN [facility] [place] [address] [facility] [place] [address] Referral ID Status Reason Start Date Expiration Date V isits Requested Visits Authorized [id number] Closed Specialty Service Requested 02/13/2023 08/13/2024 1 1 Encounter Details Date Type Department Care Team (Latest Contact Info) Description 05/10/2023 10:42 AM EST - 05/10/2023 11:59 PM EST Hospital Encounter CT Scan at [facility] [place] [address] Jennifer Cheng APRN [facility] [place] [address] Aortic aneurysm, unspecified portion of aorta, unspecified whether ruptured Discharge Disposition: Home Social History Tobacco Use [...] Sig Dispensed Refills Start Date End Date polyethylene glycoL (Miralax) 17 gram oral powder packet Take 17 g by mouth daily. atorvastatin (Lipitor) 10 mg tablet Take 10 mg by mouth daily. pimavanserin (Nuplazid) 34 mg capsule Take 34 mg by mouth daily. aspirin EC 81 mg EC (DR) tablet Take 81 mg by mouth daily. tiotropium bromide (Spiriva Respimat) 2.5 mcg/actuation Mist Inhale 2 puffs into the lungs daily. pantoprazole EC (Protonix) [address] tablet 01/17/2023 furosemide (Lasix) 20 mg Tablet Take 20 [...] Procedure Name Priority Date/Time Associated Diagnosis Comments CT ANGIOGRAM OF CHEST (NON-CORONARY) W CONTRAST Routine 05/10/2023 11:13 AM EST Aortic aneurysm, unspecified portion of aorta, unspecified whether ruptured documented in this encounter Results * CT Angiogram Chest [...] who have questions please contact the health professional healthcare representative that requested your imaging first. ? Electronically signed by: Jessica Howell MD, [facility] ([phone]), at 05/10/2023 4:05 PM Narrative 05/10/2023 4:05 [...] administration of contrast. Administered 61.0 ml of [id number] mg/ml. Maximum intensity projection (MIP) were reformatted. [...] aortic root and ascending thoracic aorta, maximum mm. Thank you for letting us participate in the care of this patient. If youare a health care provider and have any questions regarding this report,please contact the number below. For patients who have questions please contactthe health professional healthcare representative that requested your imaging first. Electronically signed by: Jessica Howell MD, [facility]([phone]), at 05/10/2023 4:05 PM Jennifer Cheng SWIMMING POOL PLASTERER HELPER IMG CT ORDERABLES documented in this encounter Visit Diagnoses Diagnosis Aortic aneurysm, unspecified portion of aorta, unspecified whether ruptured documented in this encounter Administered Medications Inactive Administered Medications - up to 3 most recent administrations Medication Order MAR Action Action Date Dose Rate Site iohexoL (Omnipaque) (350 mg/mL) solution 0-200 mL 0-200 mL, Intravenous, ONCE PRN, 1 dose, Starting on Sat05/10/23 at 1056, Until Sat05/10/23 at 1056, Per Protocol, Warning Vesicant/Irritant Medication , Radiology Contrast, Routine Given 05/10/2023 10:56 AM EST 61 mLs documented in this encounter Care Teams Information Technology Program Manager Relationship Specialty Start Date End Date An Tello APRN [address] [place] [address] PCP - General Family Medicine 11/27/16 documented as of this encounter
--- OUTSIDE RECORDS SUMMARY | 2023-12-30 19:43 | XMS_ITS | Encounter Summary ---
Author Organization Formerly [facility] [place] [address] Care Team Providers Care Mold Checker Name Role Phone An Tello APRN Primary Care Provider [phone] [phone] Encounter Details Date Type Department Care Team (Late st Contact Info) Description 05/10/2022 10:24 AM EST - 05/10/2022 11:59 PM EST Hospital Encounter [facility] [address] [place] [id number] Gianfranco Schultz MD [address] [place] [address] An Tello APRN [address] [place] [address] Discharge Disposition: Home Social History Tobacco Use [...] Procedure Name Priority Date/Time Associated Diagnosis Comments BLOOD CULTURE STAT 05/10/2022 11:06 AM EST BLOOD CULTURE STAT 05/10/2022 11:05 AM EST documented in this encounter Results * Blood culture (05/10/2022 11:06 AM EST) Blood Culture No growth at 5 days. [facility] Blood ANTECUBITAL REGION STRUCTURE / Unknown 05/10/2022 11:06 AM EST 05/10/2022 3:51 PM EST Narrative Resulting Agency Comment Spec In Lab An Tello APRN MICROBIOLOGY [place] [address] * Blood culture (05/10/2022 11:05 AM EST) Blood Culture No growth at 5 days. [facility] Blood ANTECUBITAL REGION STRUCTURE / Unknown 05/10/2022 11:05 AM EST 05/10/2022 3:51 PM EST Narrative Resulting Agency Comment Spec In Lab Gianfranco Schultz MD MICROBIOLOGY [place] [address] documented in this encounter Visit Diagnoses Not on filedocumented in this encounter Care Teams Mold Checker Relationship Specialty Start Date End Date An Tello APRN [address] [place] [address] PCP - General Family Medicine 11/27/16 documented as of this encounter
--- OUTSIDE RECORDS SUMMARY | 2023-12-30 19:43 | XMS_ITS | Encounter Summary ---
Author Organization [facility] [place] [address] Care Team Providers Care Office Auditor Name Role Phone An Tello APRN Primary Care Provider [phone] [phone] Encounter Details Date Type Department Care Team (Latest Contact Info) Description 02/11/2023 Travel Social History Tobacco Use Types Packs/Day [...] on filedocumented in this encounter Care Teams Office Auditor Relationship Specialty Start Date End Date An Tello APRN [address] [place] [address] PCP - General Family Medicine 11/27/16 documented as of this encounter
--- OUTSIDE RECORDS SUMMARY | 2023-12-30 19:43 | XMS_ITS | Encounter Summary ---
Author Organization [facility] Address [facility] [place] [address] Care Team Providers Care Commercial Real Estate Underwriter Name Role Phone An Tello APRN Primary Care Provider [phone] Reason for Referral * Consultation (Routine) - Closed Specialty Diagnoses / Procedures Referred By Chelly perea Referred To Contact Neurology Diagnoses Parkinson's disease John Whittington MD [facility] [place] [address] Amanda Salguero MD [facility] [place] [address] Referral ID Status Reason Start Date Expiration Date V isits Requested Visits Authorized [id number] Closed Consult, Test & Treat 01/17/2021 01/17/2022 1 1 Encounter Details Date Type Department Care Team (Late st Contact Info) Description 01/17/2021 12:00 PM EDT Office Visit Neurology at [facility] [address] John Whittington MD [facility] [place] [address] Parkinson's disease Social History Tobacco Use Types Packs/Day Years Used Date Smoking Tobacco: Former Cigarettes Q uit: 05/27/1987 Smokeless Tobacco: Never Alcohol Use Standard Drinks/Week Comments No 0 (1 standard drink = 0.6 oz pur e alcohol) Sex and Gender Information Value Date Recorded Sex Assigned at Not on file Gender Identity Not on file Sexual Orientation Not on file documented as of this encounter Progress Notes * John Whittington MD - 01/17/2021 12:00 PM EDT NEUROLOGY CLINIC [facility] [place] [address] 01/17/2021 Patient name: Ivette Carvajal Page Date of : 1945 Referring provider: An Tello APRN [address] [place] [id number] REASON FOR REFERRAL/CHIEF COMPLAINT: Weakness. HISTORY OF PRESENTING COMPLAINTS: She says that all kinds of things are going on with her. Her ankles and feet are swollen. She can hardly put weight on. She says her feet are deep red and some times they get purple in color. Her PCPtold her she had neuropathy. She has pain in the legs. Sometimes she has pain in the plantar aspect of foot. Symptoms have been going on for over a year now. Her toes would be numb. She has had problems with walking and balance in the past. She also has back pain at times. Sleep can be interrupted by the neuropathic pains. Per daughter her walking is off, she shuffles, she tends to have weakness of arms. Maybe some memory problems. 05/27/2017: 71 Y F previously seen for weakness, neuropathy, parkinsonism comes for follow up. She was thought to have peripheral neuropathy during last visit. She was planned to have an EMG testing and comes here today for that. Per her daughter, she had significant improvement in her strength and balance following PT. She has been taking gabapentin for her neuropathic symptoms which seems to be helping her. 07/25/2017: Peripheral neuropathy, vestibular dysfunction, parkinsonism follow up. Last visit she had EMG - confirmative of peripheral neuropathy. To evaluate parkinsonism further she was planned to have MRI/ BLAIR scan etc which hasn't been performed yet. She has completed physical therapy. She feels gait is much better now compared to what it was in March. Tried shoveling some snow the other day and had a fall. 01/21/2018 Following previous visit she had a BLAIR Scan which was confirmative of parkinson disease. MRI scan was unremarkable. She was started on sinemet. Overall she feels significant improvement with sinemet. She says her mentioned to there that she was making noises and movements during her sleep. 01/15/2019: Things have been okay since last year. She had some swelling of her ankles. She had ECHO which was normal. There was concern of increased salt intake. She is taking gabapentin 01/18/2020: F/up PD, Peripheral neuropathy, vestibular dysfunction. She has swelling in her legs that is worse than before. Parkinson's stable with no progression. She has balance issues. Her in June. 01/17/2021: F/up PD, PN, Vestibular dysfunction. She has knee issues. She had knee injections which helped. She is living by herself. Her dog recently. PD has been stable. Gabapentin has been changes 1 AM, 2 HS. Sometimes has freezing spells. Had falls x 2. PMHx: Past Medical History: Diagnosis Date ??? Diabetes mellitus ??? Hyperlipidemia ??? Hypertension ??? Neuropathy No past surgical history on file. Family History: No family history on file. Brother has PD Cousin has neuropathy. Social History: reports that she quit smoking about 33 years ago. Her smoking use included cigarettes. She has never used smokeless tobacco. She reports that she does not drink alcohol and does not use drugs. No flowsheet data found. 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 Non smoker. No alcohol use. Review of systems: Constitutional: No fever/chills Eyes: No vision problems ENT: No nose bleed Cardiovascular: No chest pain or palpitations Respiratory: No cough or shortness of breath Gastrointestinal: No nausea, vomiting, diarrhea or constipation Genitourinary: No dysuria, no incontinence Hematologic: No bleeding or bruising Endocrine: No heat or cold intolerance Musculoskeletal: Arthritis + Integumentary: No skin rashes. Neurologic: See HPI Psychiatric: No depression, normal sleep Allergy/ Immunology: Allergy as documented. [x] Review of systems otherwise negative Medications: Current Outpatient Medications on File Prior to Visit Medication Sig Dispense Refill ??? carbidopa-levodopa (Sinemet) 25-100 mg Tablet TAKE 1 TABLET BY MOUTH THREE TIMES DAILY 270 tablet 0 ??? pregabalin (Lyrica) 50 mg Capsule Take 50 mg by mouth 3 times daily. ??? ammonium lactate (LAC-HYDRIN) 12 % Lotion Apply 1 Application topically as needed. ??? gabapentin (NEURONTIN) 300 mg Capsule TAKE 1 CAPSULE BY MOUTH NIGHTLY (Patient not taking: Reported on 05/06/2020) 30 capsule 3 ??? gabapentin (NEURONTIN) 100 mg Capsule Take 1 capsule by mouth 2 times daily. (Patient not taking: Reported on 05/06/2020) 90 capsule 12 ??? aspirin 81 mg Tablet, Delayed Release [...] Tablet Take 1 tablet by mouth daily. No current facility-administered medications on file prior to visit. Allergies: Allergies Allergen Reactions ??? Niacin PHYSICAL EXAMINATION Vitals: There were no vitals taken for this visit. General Examination: Appearance: alert, no distress ENT, Throat: oral mucosa moist, no thrush, no carotid bruits, no thyromegaly Extremity: Leg edema + Neurological Examination o Higher functions: - Speech: fluent, no aphasia/dysarthria or dysphonia - Alert and oriented. o Cranial Nerves - II-XII: Pupils bilaterally equal and symmetric conjugate gaze, reacting to light. No ptosis/nystagmus. Vision normal. No field deficits. EOMI. No facial droop. No weakness of jaw/uvula/ palate - Hearing loss bilaterally. o Reflexes - Diminished DTRs bilaterally. o Motor and Coordination - Mild cog wheeling bilaterally, more on the right side. o Sensory - Sensory gradient below knee - Romberg - sway + o Skull and Spine/ Gait - Normal - Tandem: Imbalance LABS/IMAGING: Labs GENERAL THYROID: No results found for: TSH, P3ZDOUL, FREET4, TT4, THYROIDAB, THGAB Folate Lab Results Component Value Date SFOLATE >20.0 05/27/2017 ESR Lab Results Component Value Date SEDRATE 7 05/27/2017 CRPNo results found for: CRP B12 Lab Results Component Value Date [id number] 05/27/2017 CKNo results found for: CK Angiotensin ConvertaseNo results found for: JASMIN INFECTIONS HIVNo results found for: HIV12 HEPATITIS PANELNo results found for: HAV, HEPBSAB, HBEAG, HEPBSAG, HEPCAB AUTOIMMUNE PANEL ANANo results found for: JOE DSDNANo results found for: DNAABDS Dary results found for: TRIPP C3,C4, COMPLEMENTSNo results found for: C3, C4 CARDIOLIPIN, LUPUSNo components found for: CARDIOLIPINANTIBODY, LUPUS, ANTICOAGULANT CELIAC: TTG, GLIADIN, ENDOMYSIALNo components found for: TTRANSGLUTAMINASEANTIBODY ANTIGLIADINANTIBODY VASCULITIS: C,P,ANCA, MPONo results found for: PANCA, CANCA, MYELOP, PR3AB NMONo components found for: NEUROMYELITISOPTICAANTIBODY MG: ACHRAB, Anit MuSK, LEMSNo components found for: ACETYLCHOLINERECEPTORABBINDING, LEMSANTIBODY, ANTISKELETALMUSCLEANTIBODY CRYOGLOBULINSNo components found for: CRYOGLOBULINS METABOLIC CERULOPLASMINNo components found for: CERULOPLASMIN BETA 2 MICROGLOBULINNo results found for: B2MG No results found for: TPROTEINPEP, ALBELECT, ALPHA1, ALPHA2, GAMMAGLOB, APB1 CORTISOLNo results found for: CORTISOL LDH No results found for: LDH NUTRITIONAL VITAMIN DNo results found for: 25OHVITD PRE ALBUMINNo results found for: PREALBUMIN FERRITINNo results found for: IRON COPPERNo results found for: COPPER PERIPHERAL NEUROPATHY HEMOGLOBIN A1CNo results found for: HA1C LIPID PROFILENo results found for: CHLPL, HDL, CHOLHDL, TRIG, LDLCHOL, LDLDIRECT DOMONIQUE 65No results found for: MWH25HY ANTI GM1,ANTI SGPG, MAG@RESUFAST (MAGAUTOAB,SGPG,MAGWB,GM1AB)@ HEAVY METAL SCREENNo results found for: LEAD, ARSENIC METHYLMLONIC ACIDNo results found for: METHYLMAL IgA, IGG No results found for: IGA, IGG CSF PANEL No results found for: NUCCELMANCSF, RBCCSFCT, SEGSCSF, LYMPHSCSF, NUMCELLCTCSF, CSFGLUC, CSFPROTEIN, XANTHOCHROM, MCSBFTYPE, MCS, CSFIGGINDEX, LYMEAB, VDRLSCRNCSF, OLIGOCSF, HSVDNA, ARBOWNILECSF, ENTVPCR, VZVPCR PARANEOPLASTIC PANEL No results found for: PARANEOINTRP, ANNA1, ANNA2, ANNA3, AGNA1, PCA1, PCA2, PCATYPETR, AMPHIPHYSIN,[id number], STRIATMSCLAB, CACHABPQTYPE, CACHABNTYPE, ACHRBINDAB, NEUROKCHAB, NMDARECEPTOR, ETM74TM THROMBOSIS HOMEOCYSTEINENo results found for: HOMOCYSTEINE THROMBOSIS PANELNo results found for: ACAIGM, [id number] FACTOR V LEIDEN No components found for: FACTORVLEIDEN PROTEIN C,SNo components found for: PROTEINC, PROTEINS ANTITHROMBIN IIINo components found for: ANTITHROMBINIII Miscellaneous Send outsNo results found for: MISCSENDOUT, MISCMAYO EMG: Absent sural. Low amplitude tibial and peroneal with corresponding slowing and prolongation of f waves. BLAIR Scan: Parkinsons + MRI Brain: Unremarkable. ASSESSMENT: 71 Y F with history of Parkinsonism, Peripheral neuropathy, Vestibular dysfunction, HTN, HL, borderline DM. There is family history of parkinson's disease. She has rigidity, postural instability and imbalance. She also features suggestive of peripheral neuropathy and vestibular dysfunction. Symptoms have improved since sinemet was initiated. She has remained stable since last seen. Leg edema persists. No significant changes since last seen. IMPRESSION: 1. Peripheral Neuropathy: Idiopathic/ Hereditary 2. Parkinsonism. Atypical rigid parkinsons 3 Vestibular dysfunction PLAN/RECOMMENDATIONS: Parkinson's gradually progressing over the years. Peripheral neuropathy stable on gabapentin. R Knee arthritis seems bothering her. Recommend knee replacement if needed to help with mobility. Will have her see PD clinic for additional resource for her parkinson's disease. Neuropathy has been stable. Continue gabapentin. Follow up in a year. John Whittington MD Department of Neurology [facility] documented in this encounter Plan of Treatment Scheduled Referrals Name Type Priority Associated Diagnoses Orde r Schedule Referral to Neurology Outpatient Referral Routine Parkinson's disease Ordered: 01/17/2021 documented as of this encounter Visit Diagnoses Diagnosis Parkinson's disease Paralysis agitans documented in this encounter Care Teams Commercial Real Estate Underwriter Relationship Specialty Start Date End Date An Tello APRN [address] [place] [address] PCP - General Family Medicine 11/27/16 documented as of this encounter
--- OUTSIDE RECORDS SUMMARY | 2023-12-30 19:43 | XMS_ITS | Encounter Summary ---
Author Organization [facility] Address [facility] [place] [address] Care Team Providers Care Milking System Installer Name Role Phone An Tello APRN Primary Care Provider [phone] Encounter Details Date Type Department Care Team (Late st Contact Info) Description 05/10/2023 1:00 PM EST Office [place] [address] Sancho Harris MD [facility] DR C[place] [address] Aneurysm of ascending aorta without rupture Social History Tobacco Use Types Packs/Day Years [...] Mass Index 30.13 05/10/2023 1:05 PM EST documented in this encounter Progress Notes * Sancho Harris MD - 05/10/2023 1:00 PM EST I had a long discussion with Ms. Thao and her son. She has been having more problems with fluid retention and is on oxygen today. CT today shows the aorta to be 5.6 x 6.4 cm on centerline reimaging We discussed the pro's and cons of elective surgery vs doing nothing. She does not want to proceed with surgery. She understands that the risks of rupture or dissection are high, by our standards (at least 15 % per year). I know her risks of surgery are high, but I am mostly concerned about her ability to actually recover from the procedure and return to even her current quality of life. As of this point she and her son understand 1) she has a large aneurysm which has a fairly high risk of rupture or dissection 2) she is not a candidate for emergency repair in the event of rupture or dissection 3) as of now we will NOT proceed with elective surgery 4) She can contact me for further discussion if she wishes 5) the aneurysm plays no role in her current symptoms documented in this encounter Plan of Treatment Not on file documented as of this encounter Visit Diagnoses Diagnosis Aneurysm of ascending aorta without rupture documented in this encounter Care Teams Milking System Installer Relationship Specialty Start Date End Date An Tello APRN [address] [place] [address] PCP - General Family Medicine 11/27/16 documented as of this encounter
--- OUTSIDE RECORDS SUMMARY | 2023-12-30 19:43 | XMS_ITS | Encounter Summary ---
Author Organization [place] [address] Care Team Providers Care Engineer Design And Construction Name Role Phone An Tello APRN Primary Care Provider [phone] Encounter Details Date Type Department Care Team (Latest Contact Info) Description 05/10/2023 Travel Social History Tobacco Use Types Packs/Day [...] on filedocumented in this encounter Care Teams Engineer Design And Construction Relationship Specialty Start Date End Date An Tello APRN [address] [place] [address] PCP - General Family Medicine 11/27/16 documented as of this encounter
--- OUTSIDE RECORDS SUMMARY | 2023-12-30 19:43 | XMS_ITS | Encounter Summary ---
Author Organization [facility] Address [facility] [place] [address] Care Team Providers Care Software Analyst Name Role Phone An Tello APRN Primary Care Provider [phone] [phone] Encounter Details Date Type Department Care Team (Late st Contact Info) Description 04/10/2022 10:00 AM EST [place] [address] Amanda Salguero MD [facility] [place] [address] Parkinson's disease Social History Tobacco Use Types [...] Sign Reading Time Taken Comments Blood Pressure 154/63 04/10/2022 9:58 AM EST Pulse 66 04/10/2022 9:58 AM EST Temperature - - Respiratory Rate - - Oxygen Saturation - - Inhaled Oxygen Concentration - - Weight 78.6 kg (173 lb 3.2 oz) 04/10/2022 9:58 A M EST Height 167.6 cm (5' 6) 04/10/2022 9:58 AM EST Body Mass Index 27.96 04/10/2022 9:58 AM EST documented in this encounter Progress Notes * Amanda Salguero MD - 04/10/2022 10:00 AM EST [facility] Movement Disorders Follow Up Patient Evaluation Date of service 04/10/2022 Referring provider An Tello APRN [address] [place] [address] Cc: parkinson's [facility] History of present illness Ivette Thao is a 76 y.o. right handed woman who presents to the movement disorders clinic for evaluation of PD. She previously saw Dr. Whittington for neuropathy and parkinsonism. She had a positive Mary in 2018. To review: She has had stiffness and slowness. She has used a walker since about 2019. Her balance is poor andshe has knee pain requiring an injection. She has a hard time getting out of chairs. ADLs take a long time. Getting dressed takes longer. She FOG when in reverse. She may hallucinate some music. She may see cats that are not really there. PD meds: CL 25/100mg 2 tabs TID, denies nausea, not sure about benefit She lived on an animal farm in [place]. One brother (5 years younger) has PD. Also paternal uncle had PD and father had PD. In the interim: Things are about the same. She has some continued issues with walking/balance. She had a fall abouta week ago when she was in her home using a two wheeled walker and got stuck on a threshold. She did go for PT over the summer. She has not continued the exercises. She has three steps to get out of her house and has two railings. Chewing and swallowing is ok. No memory changes. She does not drive and has not in the last 3 years. She asks about trying alpha lipoic acid for her neuropathy. Current Outpatient Medications: ??? furosemide (Lasix) 20 mg Tablet, Take 20 mg by mouth 2 times daily., Disp: , Rfl: ??? carbidopa-levodopa (Sinemet) 25-100 mg Tablet, Take 2 tablets by mouth 3 times daily., Disp: 540 tablet, Rfl: 3 ??? pregabalin (Lyrica) 50 mg Capsule, Take 50 mg by mouth 3 times daily., Disp: , Rfl: ??? atenolol (TENORMIN) 50 mg Tablet, Take 50 mg by mouth daily., Disp: , Rfl: ??? CALCIUM CARBONATE (CALCIUM 600 ORAL), Take 2 tablets by mouth daily., Disp: , Rfl: ??? cholecalciferol, Vitamin D3, 2,000 unit Capsule, Take 2,000 Units by mouth daily., Disp: , Rfl: ??? lisinopril (PRINIVIL;ZESTRIL) 10 mg Tablet, Take 10 mg by mouth daily., Disp: , Rfl: ??? lovastatin (MEVACOR) 40 mg Tablet, Take 40 mg by mouth nightly., Disp: , Rfl: ??? multivitamin (THERAGRAN) Tablet, Take 1 tablet by mouth daily., Disp: , Rfl: Past Medical History: Diagnosis Date ??? Diabetes mellitus ??? Hyperlipidemia ??? Hypertension ??? Neuropathy Social History: , lives in [place] Review of Systems - All others negative except as per HPI Physical Exam Patient Vitals for the past 24 hrs: Pulse BP 04/10/22 0958 66 154/63 General: the patient appears stated age, not in any acute distress, well groomed, Body mass index is 27.96 kg/m??. Additional movement disorder specific findings: Movement Disorder Society - Unified Parkinson's Disease Rating Scale Part lll: Motor Examination Speech: 1 - Slight: Loss of modulation, diction or volume, but still all words easy to understand. Facial Expression: 2 - Mild: In addition to decreased eye-blink frequency, Masked facies present inthe lower face as well, namely fewer movements around the mouth, such as less spontaneous smiling, but lips not parted. Rigidity - Neck: 2 - Mild: Rigidity detected without the activation maneuver, but full range of motion is easily achieved. Rigidity - RUE: 2 - Mild: Rigidity detected without the activation maneuver, but full range of motion is easily achieved. Rigidity - LUE: 2 - Mild: Rigidity detected without the activation maneuver, but full range of motion is easily achieved. Rigidity - RLE: 0 - Normal: No rigidity. Rigidity - LLE: 0 - Normal: No rigidity. Finger tapping -Right hand: 2 - Mild: Any of the following: a) 3 to 5 interruptions during tapping b) mild slowing c) the amplitude decrements midway in the 10-tap sequence. Finger tapping -Left hand: 2 - Mild: Any of the following: a) 3 to 5 interruptions during tapping b) mild slowing c) the amplitude decrements midway in the 10-tap sequence. Hand movements - Right hand: 2 - Mild: Any of the following: a) 3 to 5 interruptions during the movements b) mild slowing c) c) the amplitude decrements midway in the task. Hand movements - Left hand: 2 - Mild: Any of the following: a) 3 to 5 interruptions during the movements b) mild slowing c) c) the amplitude decrements midway in the task. Pronation-supination movements- Right hand: 1 - Slight: Any of the following: a) the regular rhythmis broken with one or two interruptions or hesitations of the movement b) slight slowing c) he amplitude decrements near the end of the sequence. Pronation-supination movements- Left hand: 1 - Slight: Any of the following: a) the regular rhythm is broken with one or two interruptions or hesitations of the movement b) slight slowing c) he amplitude decrements near the end of the sequence. Toe tapping- Right foot: 2 - Mild: Any of the following: a) 3 to 5 interruptions during the tappingmovements b) mild slowing c) amplitude decrements midway in the task. Toe tapping- Left foot: 2 - Mild: Any of the following: a) 3 to 5 interruptions during the tapping movements b) mild slowing c) amplitude decrements midway in the task. Leg agility - Right le - Normal: No problems. Leg agility - Left le - Normal: No problems. Arising from chair: 2 - Mild: Pushes self up from arms of chair without difficulty. Gait: 2 - Mild: Independent walking but with substantial gait impairment. Freezing of gait: 2 - Mild: Freezes on starting, turning or walking through doorway with more than one halt during any of these activities, but continues smoothly without freezing during straight walking. Postural stability: 2 - Mild: More than 5 steps, but subject recovers unaided. Posture: 2 - Mild: Definite flexion, scoliosis or leaning to one side, but patient can correct posture to normal posture when asked to do so. Global spontaneity of movement: 2 - Mild: Mild global slowness and poverty of spontaneous movements. Postural tremor - Right hand: 0 - Normal: No tremor. Postural tremor - Left hand: 0 - Normal: No tremor. Kinetic tremor - Right hand: 0 - Normal: No tremor. Kinetic tremor - Left hand: 0 - Normal: No tremor. Rest tremor amplitude - RUE: 0 - Normal: No tremor. Rest tremor amplitude - LUE: 0 - Normal: No tremor. Rest tremor amplitude - RLE: 0 - Normal: No tremor. Rest tremor amplitude - LLE: 0 - Normal: No tremor. Rest tremor amplitude - Lip/jaw: 0 - Normal: No tremor. Constancy of rest tremor: 0 - Normal: No tremor. MDS-UPDRS Part III - Motor Exam Score: 35 Dyskinesia Impact on Part lll Ratings Modified Lorie and Yahr Stage Review of available labs and imaging: Assessment: ICD-10-CM 1. Parkinson's disease G20 Akinetic rigid PD with onset at least in 2018 and likely a few years prior. She is on sinemet 25/100mg two tabs TID. She also has neuropathy and knee issues that affect her gait and balance. She would benefit from PT for gait and BIG exercises if available. Plan: - continue the CL 2 tabs TID - remain active, do the PT exercises F/u in 6 months Amanda Salguero MD [facility] Neurology-Movement Disorders documented in this encounter Plan of Treatment Not on file documented as of this encounter Visit Diagnoses Diagnosis Parkinson's disease Paralysis agitans documented in this encounter Care Teams Software Analyst Relationship Specialty Start Date End Date An Tello APRN [address] [place] [address] PCP - General Family Medicine 11/27/16 documented as of this encounter
--- OUTSIDE RECORDS SUMMARY | 2023-12-30 19:43 | XMS_ITS | Encounter Summary ---
Author Organization [place] [address] Care Team Providers Care Guide Rail Cleaner Name Role Phone Omer Ansteve Schneider APRN Primary Care Provider [phone] Encounter Details Date Type Department Care Team (Late st Contact Info) Description 04/19/2022 Interpretation Only [address] [address] Vane Belle MD [address] [place] [id number] Social History Tobacco Use Types Packs/Day Years [...] Procedure Name Priority Date/Time Associated Diagnosis Comments US EXTREMITY VENOUS DUPLEX Routine 04/19/2022 12:15 PM EST documented in this encounter Results * US EXTREMITY VENOUS DUPLEX (04/19/2022 12:15 PM EST) PT CLASS O RAD ADMITDTTM RAD PT RAD INFO [id number]^H JYOTI^FAY^F DH RAD EXAM DESC UEXTDUP^US LEG VEINS UNI^RIS RAD Anatomical Region Laterality Modality Other Impressions 04/19/2022 12:25 PM EST Extensive left lower extremity DVT through the common femoral vein. The proximalmost extent is not imaged. Thank you for letting us participate in the care of this patient. ??If you are a health care provider and have any questions regarding this report, please contact the number below. ??For patients who have questions please contact the health career advisor that requested your imaging first. ? Narrative 04/19/2022 12:25 PM EST EXAMINATION: US LEG VEINS UNI CLINICAL HISTORY: Left lower extremity swelling TECHNIQUE: A duplex scan was performed utilizing both color and spectral Doppler of the left lower extremity COMPARISON: DVT study 03/14/2020. FINDINGS: Nonocclusive intraluminal filling defect visualized on grayscale and color Doppler ultrasound extending from the calves through the common femoral veins. Full proximal extent not imaged. The vessels are noncompressible. Procedure Note Mindy Best MD - 04/19/2022 EXAMINATION: US LEG VEINS UNI CLINICAL HISTORY: Left lower extremity swelling TECHNIQUE: A duplex scan was performed utilizing both color and spectralDoppler of the left lower extremity COMPARISON: DVT study 03/14/2020. FINDINGS: Nonocclusive intraluminal filling defect visualized on grayscaleand color Doppler ultrasound extending from the calves through the commonfemoral veins. Full proximal extent not imaged. The vessels are noncompressible. IMPRESSION Extensive left lower extremity DVT through the common femoral vein. The proximalmost extent is not imaged. Thank you for letting us participate in the care of this patient. If youare a health care provider and have any questions regarding this report,please contact the number below. For patients who have questions please contactthe health career advisor that requested your imaging first. Vane Belle MD PACS IMAGES documented in this encounter Visit Diagnoses Not on filedocumented in this encounter Care Teams Guide Rail Cleaner Relationship Specialty Start Date End Date An Tello APRN [address] [place] [address] PCP - General Family Medicine 11/27/16 documented as of this encounter
--- OUTSIDE RECORDS SUMMARY | 2023-12-30 19:43 | XMS_ITS | Encounter Summary ---
Author Organization [facility] [place] [address] Care Team Providers Care Director Internal Control Name Role Phone An Tello APRN Primary Care Provider [phone] [phone] Reason for Referral * Consultation (Routine) - Closed Specialty Diagnoses / Procedures Referred By Contmelody t Referred To Contact Vascular Surgery Diagnoses Abdominal aortic aneurysm (AAA), unspecified part, unspecified whether ruptured ROUTINE, MD/MELISSA, AAA Kimberly Carrillo MD [address] [place] [address] [facility] [address] [place] [address] Referral ID Status Reason Start Date Expiration Date V isits Requested Visits Authorized [id number] Closed Consult, Test & Treat 11/06/2022 11/06/2023 1 1 Encounter Details Date Type Department Care Team (Latest Contact Info) Description 11/06/2022 Transcribe Orders eDH Incoming Referrals [phone] Kimberly Carrillo MD [address] [place] [address] [phone] Abdominal aortic aneurysm (AAA), unspecified part, unspecified whether ruptured Social History Tobacco Use [...] of this encounter Plan of Treatment Scheduled Referrals Name Type Priority Associated Diagnoses Orde r Schedule Referral to Vascular Surgery Outpatient Referral Routine Abdominal Aortic Aneurysm (Aaa), Unspecified Part, Unspecified Whether Ruptured Ordered: 11/06/2022 documented as of this encounter Visit Diagnoses Diagnosis Abdominal aortic aneurysm (AAA), unspecified part, unspecified whether ruptured documented in this encounter Care Teams Director Internal Control Relationship Specialty Start Date End Date An Tello APRN [address] [place] [id number] PCP - General Family Medicine 11/27/16 documented as of this encounter
--- OUTSIDE RECORDS SUMMARY | 2023-12-30 19:43 | XMS_ITS | Encounter Summary ---
Author Organization [facility] Address [facility] [place] [address] Care Team Providers Care Staff Electrical Engineer Name Role Phone An Tello APRN Primary Care Provider [phone] [phone] Reason for Referral * Physical Therapy (Routine) - Closed Specialty Diagnoses / Procedures Referred By Chelly t Referred To Contact Neurology Diagnoses Parkinson's disease Amanda Salguero MD [facility] [place] [address] Referral ID Status Reason Start Date Expiration Date V isits Requested Visits Authorized [id number] Closed Evaluate and Treat 08/01/2021 01/28/2022 12 12 Reason for Visit * Consultation (Routine) - Closed Specialty Diagnoses / Procedures Referred By Chelly perea Referred To Contact Neurology Diagnoses Parkinson's disease John Whittington MD [facility] [place] [address] Amanda Salguero MD [facility] [place] [address] Referral ID Status Reason Start Date Expiration Date V isits Requested Visits Authorized [id number] Closed Consult, Test & Treat 01/17/2021 01/17/2022 1 1 Encounter Details Date Type Department Care Team (Late st Contact Info) Description 08/01/2021 8:00 AM EDT Office [place] [address] Amanda Salguero MD [facility] [place] [address] Parkinson's disease; Neuropathy Social History Tobacco Use Types Packs/Day Years [...] Sign Reading Time Taken Comments Blood Pressure 132/54 08/01/2021 8:24 AM EDT Pulse 70 08/01/2021 8:24 AM EDT Temperature - - Respiratory Rate - - Oxygen Saturation - - Inhaled Oxygen Concentration - - Weight 84.8 kg (187 lb) 08/01/2021 8:24 AM EDT Height 167.6 cm (5' 6) 08/01/2021 8:24 AM EDT Body Mass Index 30.18 08/01/2021 8:24 AM EDT documented in this encounter Patient Instructions * Patient Instructions* Amanda Salguero MD - 08/01/2021 8:55 AM EDT Increase the carbidopa/levodopa to 1.5 tabs three times a day for one week then up to 2 tabs three times a day Make sure you are not on both gabapentin and pregabalin (lyrica) [phone] documented in this encounter Progress Notes * Amanda Salguero MD - 08/01/2021 8:00 AM EDT [facility] Movement Disorders New Patient Evaluation Date of service 08/01/2021 Referring provider None None Cc: parkinson's establish care History of present illness Ivette Thao is a 75 y.o. right handed woman who presents to the movement disorders clinic for evaluation of PD. She previously saw Dr. Whittington for neuropathy and parkinsonism. She had a positive Mary in 2018. She has had stiffness and slowness. She has used a walker for a couple of years. Her balance is poor and she has knee pain requiring an injection. She has a hard time getting out of chairs. No recentfalls. ADLs take a long time. Getting dressed takes longer. She is taking CL 25/100mg TID with meals. No particular benefit. The dose has not been higher. No nausea. She FOG when in reverse. She may hallucinate some music. She may see cats that are not really there. She lived on an animal farm in [place]. One brother (5 years younger) has PD. Also paternal uncle had PD and father had PD. Patient Active Problem List Diagnosis Code ??? Parkinson's disease G20 ??? Neuropathy G62.9 ??? leg edema R60.0 Current Outpatient Medications: ??? furosemide (Lasix) 20 mg Tablet, Take 20 mg by mouth 2 times daily., Disp: , Rfl: ??? pregabalin (Lyrica) 50 mg Capsule, Take [...] tablet by mouth daily., Disp: , Rfl: ??? carbidopa-levodopa (Sinemet) 25-100 mg Tablet, Take 2 tablets by mouth 3 times daily., Disp: 540 tablet, Rfl: 3 Past Medical History: Diagnosis Date ??? Diabetes mellitus ??? Hyperlipidemia ??? Hypertension ??? Neuropathy No past surgical history on file. Social History: , lives in [place] No family history on file. Review of Systems - All others negative except as per HPI Physical Exam Patient Vitals for the past 24 hrs: Pulse BP 08/01/21 0824 70 132/54 General: the patient appears stated age, not in any acute distress, well groomed, Body mass index is 30.18 kg/m??. HEENT: normal cephalic atraumatic, eye conjunctiva moist with no abnormal discharge, no abnormal nasal discharge Voice/language: no vocal tremor or dysarthria. Normal fluency and comprehension Extremities: full ROM and no visible deformities Mental status: oriented to place, self, date and reason for visit Cranial Nerves: III, IV, : EOMI, normal saccades and pursuit VIII: hearing normal in conversation Additional movement disorder specific findings: Movement Disorder [...] motion is easily achieved. Rigidity - RLE: 1 - Slight: Rigidity only detected with activation maneuver. Rigidity - LLE: 1 - Slight: Rigidity only detected with activation maneuver. Finger tapping -Right hand: 2 - Mild: [...] 10-tap sequence. Hand movements - Right hand: 1 - Slight: Any of the following: a) the regular rhythm is broken withone or two interruptions or hesitations of the movement b) slight slowing c) the amplitude decrements near the end of the task. Hand movements - Left hand: 3 - Moderate: Any of the following: a) more than 5 interruptions duringthe movement or at least one longer arrest (freeze) in ongoing movement, b) moderate slowing, c) the amplitude decrements starting after the 1st [id number] sequence. Pronation-supination movements- Right hand: 1 - Slight: Any of the following: a) the regular rhythmis broken with one or two interruptions or hesitations of the movement b) slight slowing c) he amplitude decrements near the end of the sequence. Pronation-supination movements- Left hand: 3 - Moderate: Any of the following: a) more than 5 interruptions during the movement or at least one longer arrest (freeze) in ongoing movement b) moderate slowing c) the amplitude decrements starting after the 1st supination-pronation sequence. Toe tapping- Right foot: 0 - Normal: No problem. Toe tapping- Left foot: 2 - Mild: Any of the following: a) 3 to 5 interruptions during the tapping movements b) mild slowing c) amplitude decrements midway in the task. Leg agility - Right le - Slight: Any of the following: a) the regular rhythm is broken with oneor two interruptions or hesitations of the movement b) slight slowing c) amplitude decrements near the end of the task. Leg agility - Left le - Mild: Any of the following: a) 3 to 5 interruptions during the movements b) mild slowness c) amplitude decrements midway in the task. Arising from chair: 2 - Mild: Pushes self up from arms of chair without difficulty. Gait: 3 - Moderate: Requires an assistance device for safe walking (walking stick, walker) but not a person. Freezing of gait: 1 - Slight: Freezes on starting, turning or walking through doorway with a singlehalt during any of these events, but then continues smoothly without freezing during straight walking. Postural stability: 3 - Moderate: Stands safely, but with absence of postural response, falls if not caught by examiner. Posture: 2 - Mild: Definite flexion, scoliosis [...] MDS-UPDRS Part III - Motor Exam Score: 41 Dyskinesia Impact on Part lll Ratings Were dyskinesias (chorea or dystonia) present during exam?: No Did these movements interfere with ratings?: No Modified Lorie and Yahr Stage Modified Lorie and Yahr Stage: 3: Mild to moderate involvement, some postural instability but physically independent, needs assistance to recover from pull test. Review of available labs and imaging: Assessment: ICD-10-CM 1. Parkinson's disease G20 Referral to Physical Therapy 2. 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 She is on sinemet 25/100mg TID and we discussed trial of a dose increase. She also has neuropathy and knee issues that affect her gait and balance. She would benefit from PT for gait and BIG exercises if available. Plan: - referral to PT - increase the CL to 2 tabs TID - remain active - look at home to see if you are on the pregabalin or the gabapentin, should not be on both Amanda Salguero MD [facility] Neurology-Movement Disorders documented in this encounter Plan of Treatment Scheduled Referrals Name Type Priority Associated Diagnoses Orde r Schedule Referral to Physical Therapy Outpatient Referral Routine Parkinson's disease Ordered: 08/01/2021 documented as of this encounter Visit Diagnoses Diagnosis Parkinson's disease Paralysis agitans Neuropathy Mononeuritis of unspecified site documented in this encounter Care Teams Staff Electrical Engineer Relationship Specialty Start Date End Date An Tello APRN [address] [place] [id number] PCP - General Family Medicine 11/27/16 documented as of this encounter
--- OUTSIDE RECORDS SUMMARY | 2023-12-30 19:43 | XMS_ITS | Encounter Summary ---
Author Organization [facility] [place] [address] Care Team Providers Care Sharepoint Designer Developer Name Role Phone Omer An Wyatt KRISHANN Primary Care Provider [phone] Encounter Details Date Type Department Care Team (Late st Contact Info) Description 05/10/2022 Interpretation Only [address] [phone] Gianfranco Schultz MD [address] [place] [address] Social History Tobacco Use Types Packs/Day Years [...] Diagnosis Comments XR CHEST ONE VIEW STAT 05/10/2022 10: 40 AM EST documented in this encounter Results * XR Chest One View (05/10/2022 10:40 AM EST) PT CLASS E RAD ADMITDTTM RAD PT RAD INFO [id number]^F INDLEY^WYATT CARBONE ANTOINE RAD EXAM DESC XCXR1^XR CHEST 1 VIEW^RIS RAD Anatomical Region Laterality Modality Chest N/A Radiographic Rachelle ging Impressions 05/10/2022 10:43 AM EST Left lower lobe pneumonia. Thank you for letting us participate in the care of this patient. ??If you are a health care provider and have any questions regarding this report, please contact the number below. ??For patients who have questions please contact the health group care worker that requested your imaging first. ? Electronically signed by: Stuart Watson MD, [facility] ([phone]), at 05/10/2022 10:43 AM Narrative 05/10/2022 10:43 AM EST EXAMINATION: XR CHEST 1 VIEW CLINICAL HISTORY: short of breath TECHNIQUE: AP portable upright chest COMPARISON: April 20, 2022 FINDINGS: There are patchy areas of opacification in the left lower lobe. The visualized lungs are otherwise clear. Heart and pulmonary vasculature are not increased. No significant osseous finding. Procedure Note Stuart Watson MD - 05/10/2022 EXAMINATION: XR CHEST 1 VIEW CLINICAL HISTORY: short of breath TECHNIQUE: AP portable upright chest COMPARISON: April 20, 2022 FINDINGS: There are patchy areas of opacification in the left lower lobe. Thevisualized lungs are otherwise clear. Heart and pulmonary vasculature are notincreased. No significant osseous finding. IMPRESSION Left lower lobe pneumonia. Thank you for letting us participate in the care of this patient. If youare a health care provider and have any questions regarding this report,please contact the number below. For patients who have questions please contactthe health group care worker that requested your imaging first. Electronically signed by: Stuart Watson MD, [facility]([phone]), at 05/10/2022 10:43 AM Gianfranco Schultz MD IMG DX ORDERABL ES documented in this encounter Visit Diagnoses Not on filedocumented in this encounter Care Teams Sharepoint Designer Developer Relationship Specialty Start Date End Date An Tello APRN [address] [place] [address] PCP - General Family Medicine 11/27/16 documented as of this encounter
--- OUTSIDE RECORDS SUMMARY | 2023-12-30 19:44 | XMS_ITS | Encounter Summary ---
Author Organization [facility] Address [facility] [place] [address] Care Team Providers Care Elevated Work Platform Operator Name Role Phone An Tello APRN Primary Care Provider [phone] Encounter Details Date Type Department Care Team (Late st Contact Info) Description 08/19/2017 Orders Only Neurology at [facility] [place] [address] John Whittington MD [place] [id number] Social History Tobacco Use Types Packs/Day Years [...] Progress Notes * John Whittington MD - 08/19/2017 7:36 AM EDT Called and discussed BLAIR scan results. Ropinirole discussed. Decided to hold off till next visit. documented in this encounter Plan of Treatment Not on file documented as of this encounter Visit Diagnoses Not on filedocumented in this encounter Care Teams Elevated Work Platform Operator Relationship Specialty Start Date End Date An Tello APRN [address] [place] [address] PCP - General Family Medicine 11/27/16 documented as of this encounter
--- OUTSIDE RECORDS SUMMARY | 2023-12-30 19:44 | XMS_ITS | Encounter Summary ---
Author Organization [facility] Address [facility] [place] [address] Care Team Providers Care Fish Conservationist Name Role Phone An Tello APRN Primary Care Provider [phone] Reason for Visit * Reason Onset Date Comments Medication Refill 04/16/2018 Encounter Details Date Type Department Care Team (Late st Contact Info) Description 04/16/2018 Refill Neurology at [facility] [place] [address] John Whittington MD [facility] [address] Social History Tobacco Use Types Packs/Day Years [...] encounter Miscellaneous Notes * Telephone Encounter - Sahra Haddad CMA - 04/18/2018 12:16 PM EST Refill request prepped and sent to Dr. Whittington, pharmacy updated. * Telephone Encounter - Zaldivar Juliet - 04/18/2018 11:55 AM EST Patient called to check on her status of her Cabidopa-Levadopa refill being sent to [facility] as shestates she does not want to run out. * Telephone Encounter - Cat Zaldivarissa - 04/16/2018 2:16 PM EST Clinical [place] message Caller: Ivette If not Pt / Relation to pt: Call back number: [phone] Best time to reach caller if there are questions with medication refill request: Anytime Name of Med: Carbidopa-Levodopa Strength of Pills: 25-100mg Dosing Directions: Take 1 tablet by mouth 3 times daily 30 or 90 Day: 90 Pharmacy: [facility] [phone]. States new insurance it has to go through and it is mail order. Last Appointment: 01/21/18 Next Appointment: Did not schedule at this time. Is Patient out of Medication?: Has a week left. documented in this encounter Plan of Treatment Not on file documented as of this encounter Visit Diagnoses Not on filedocumented in this encounter Care Teams Fish Conservationist Relationship Specialty Start Date End Date An Tello APRN [address] [place] [id number] PCP - General Family Medicine 11/27/16 documented as of this encounter
--- OUTSIDE RECORDS SUMMARY | 2023-12-30 19:44 | XMS_ITS | Encounter Summary ---
Author Organization [facility] Address [facility] [place] [address] Care Team Providers Care Kiln Pusher Name Role Phone An Tello APRN Primary Care Provider [phone] Reason for Referral * Diagnostic Test (Routine) - Closed Specialty Diagnoses / Procedures Referred By Contac t Referred To Contact Radiology Diagnoses Imbalance Primary parkinsonism Procedures MRI Brain wo Contrast MRI Brain wwo Contrast (Generic) John Whittington MD [facility] [place] [address] [facility] [place] [address] Referral ID Status Reason Start Date Expiration Date V isits Requested Visits Authorized [id number] Closed Specialty Service Requested 05/27/2017 05/27/2018 1 1 * Diagnostic Test (Routine) - Closed Specialty Diagnoses / Procedures Referred By Contac t Referred To Contact Radiology Diagnoses Primary parkinsonism Procedures NM MARY Scan John Whittington MD [facility] [place] [address] [facility] [place] [address] Referral ID Status Reason Start Date Expiration Date V isits Requested Visits Authorized [id number] Closed Specialty Service Requested 05/27/2017 05/27/2018 1 1 Encounter Details Date Type Department Care Team (Latest Contact Info) Description 05/27/2017 9:15 AM EST Procedure [place] [address] John Whittington MD [facility] [place] [address] Idiopathic peripheral neuropathy; Vestibular dysfunction of both ears; Imbalance; Primary Parkinsonism Social History Tobacco Use Types Packs/Day Years [...] Sign Reading Time Taken Comments Blood Pressure 139/73 05/27/2017 8:48 AM EST Pulse 62 05/27/2017 8:48 AM EST Temperature - - Respiratory Rate - - Oxygen Saturation - - Inhaled Oxygen Concentration - - Weight 82.6 kg (182 lb) 05/27/2017 8:48 AM EST Height 167.6 cm (5' 6) 05/27/2017 8:48 AM EST r eported Body Mass Index 29.38 05/27/2017 8:48 AM EST documented in this encounter Progress Notes * John Whittington MD - 05/27/2017 9:15 [place] [address] 05/27/2017 Patient name: Ivette Carvajal Page Date of : 1945 Referring provider: An Tello APRN [address] [place] [id number] REASON FOR REFERRAL/CHIEF COMPLAINT: Weakness. HISTORY OF [...] symptoms which seems to be helping her. PMHx: Past Medical History: Diagnosis Date ??? Diabetes mellitus ??? Hyperlipidemia ??? Hypertension ??? Neuropathy History reviewed. No pertinent surgical history. Family History: History reviewed. No pertinent family history. Brother has PD Cousin has neuropathy. Social History: reports that she quit smoking about 30 years ago. Her smoking use included Cigarettes. She has never used smokeless tobacco. She reports that she does not drink alcohol or use illicit drugs. No flowsheet data found. 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 No [...] of systems otherwise negative Medications: Current Outpatient Prescriptions on File Prior to Visit Medication Sig Dispense Refill ??? gabapentin (NEURONTIN) 300 mg Capsule Take 1 capsule by mouth nightly. 30 capsule 3 ??? gabapentin (NEURONTIN) 100 mg Capsule Take 1 capsule by mouth 2 times daily. 90 capsule 12 No current facility-administered medications on file prior to visit. Allergies: Allergies Allergen Reactions ??? Niacin PHYSICAL EXAMINATION Vitals: BP 139/73 (BP Location (NBP): Right arm, Patient Position: Sitting, BP Cuff Sizes: Adult (25-34 cm)) Pulse 62 Ht 167.6 cm (5' 6) Comment: reported Wt 82.6 kg (182 lb) BMI 29.38 kg/m2 General Examination: Appearance: alert, no distress ENT, Throat: oral mucosa moist, no thrush, no carotid bruits, no thyromegaly, no lymphadenopathy Respiratory: Symmetric expansion Gastrointestinal: Abdomen soft, nontender Extremity: Bilateral leg edema and erythema. Skin: Distal erythema present. Neurological Examination o Higher functions: - Speech: fluent, no aphasia/dysarthria or dysphonia - Alert and oriented. o Cranial Nerves - II-XII: Pupils bilaterally equal and symmetric conjugate gaze, reacting to light. No ptosis/nystagmus. Vision normal. No field deficits. EOMI. No facial droop. No weakness of jaw/uvula/ palate - Hearing loss bilaterally. o Reflexes - Brisker DTR left LE compared to right. Ankles reflex present bilaterally. Brisk biceps reflex. o Motor and Coordination - Mild cog wheeling bilaterally, more on the right side. - Intrinsic hand muscle wasting + o Sensory - Sensory gradient below knee, most prominent nursing home down foot. - Romberg + o Skull and Spine/ Gait - Normal - Normal gait - Tandem: Imbalance LABS/IMAGING: Labs GENERAL THYROID: No results found for: TSH, E2ZODOV, FREET4, TT4, THYROIDAB, THGAB FolateNo results found for: SFOLATE ESRNo results found for: SEDRATE CRPNo results found for: CRP B12No results found for: [id number] CKNo results found for: CK Angiotensin ConvertaseNo [...] LDLCHOL, LDLDIRECT DOMONIQUE 65No results found for: SFM79CH ANTI GM1,ANTI SGPG, MAG@RESUFAST (MAGAUTOAB,SGPG,MAGWB,GM1AB)@ HEAVY METAL [...] ANNA1, ANNA2, ANNA3, AGNA1, PCA1, PCA2, PCATYPETR, AMPHIPHYSIN,ZKDA5CZK, STRIATMSCLAB, CACHABPQTYPE, CACHABNTYPE, ACHRBINDAB, NEUROKCHAB, NMDARECEPTOR, HLO23EQ THROMBOSIS HOMEOCYSTEINENo results found for: HOMOCYSTEINE THROMBOSIS PANELNo results found for: ACAIGM, [id number] FACTOR V LEIDEN No components found for: FACTORVLEIDEN PROTEIN C,SNo components found for: PROTEINC, PROTEINS ANTITHROMBIN IIINo components found for: ANTITHROMBINIII Miscellaneous Send outsNo results found for: MISCSENDOUT, MISCMAYO EMG: Absent sural. Low amplitude tibial and peroneal with corresponding slowing and prolongation of f waves. ASSESSMENT: 71 Y F with history of HTN, HL, borderline DM previously seen for neuropathy/ balance problems. There is family history of parkinson's disease. She has rigidity, postural instability and imbalance. She has features suggestive of peripheral neuropathy. There also seems to be a component of UMN involvement/ myelopathy causing brisk DTRs. No imaging available. IMPRESSION: 1. Peripheral Neuropathy 2.? Parkinsonism 3. ? Arthritis with Cervical Myelopathy 4. Vestibular dysfunction PLAN/RECOMMENDATIONS: Peripheral neuropathy, vestibular dysfunction, imbalance: EMG/NCS shows evidence of moderate to severe peripheral neuropathy. Will do basic lab workup for that. TSH/ A1C through PCP.Continue gabapentin 100-100-300 to help with her symptoms. May increase to 300 mg TID. Leg swelling could get worse with gabapentin. Compression stockings can be considered. Optimize blood sugar control. Parkinsonism: Will obtain MRI brain, MARY scan to evaluate for parkinsonism. Arthritis/ myelopathy: MRI C spine Continue physical therapy for arthritis neck, balance problems from peripheral neuropathy and vestibular dysfunction Follow up 2 months. John Whittington MD Department of Neurology [facility] documented in this encounter Miscellaneous Notes * Addendum Note - Alfonso Saul - 05/27/2017 10:09 AM ESTAddended by: ALFONSO SAUL on: 05/27/2017 10:09 AM Modules accepted: Orders documented in this encounter Plan of Treatment Not on file documented as of this encounter Procedures Procedure Name Priority Date/Time Associated Diagnosis Comments HEMOGRAM Routine 05/27/2017 10:29 AM EST Idiopathic peripheral neuropathy DIFFERENTIAL, AUTOMATED Routine 05/27/2017 10:29 AM EST Idiopathic peripheral neuropathy SEDIMENTATION RATE Routine 05/27/2017 10 :29 AM EST Idiopathic peripheral neuropathy CBC (WITH DIFF) Routine 05/27/2017 10:29 AM EST Idiopathic peripheral neuropathy FOLATE, SERUM Routine 05/27/2017 10:29 AM EST Idiopathic peripheral neuropathy VITAMIN B12 Routine 05/27/2017 10:29 AM EST Idiopathic peripheral neuropathy COMPREHENSIVE METABOLIC PANEL Routine 05/27/2017 10:29 AM EST Idiopathic peripheral neuropathy documented in this encounter Results * MRI Brain wo Contrast (08/08/2017 5:10 PM EDT) Anatomical Region Laterality Modality Head Magnetic Resonan ce Impressions 08/08/2017 5:57 PM EDT Age-appropriate brain MRI. Narrative 08/08/2017 5:57 PM EDT EXAMINATION: MRI BRAIN WO CONTRAST CLINICAL HISTORY: Parkinson disease TECHNIQUE: Brain MRI without contrast. Dementia protocol. COMPARISON: Nuclear medicine brain scan dated 08/08/2017. FINDINGS: Scattered areas of supratentorial white matter signal alteration consistent with mild small vessel ischemic disease. No intracranial masses, mass effect or extra-axial collections. Midline structures appear normal. No diffusion-weighted abnormalities. Hippocampi are symmetric size and signal intensity. Paranasal sinuses are clear. Proximal intracranial flow voids appear normal. Procedure Note Ernestina Null MD - 08/08/2017 EXAMINATION: MRI BRAIN WO CONTRAST CLINICAL HISTORY: Parkinson disease TECHNIQUE: Brain MRI without contrast. Dementia protocol. COMPARISON: Nuclear medicine brain scan dated 08/08/2017. FINDINGS: Scattered areas of supratentorial white matter signalalteration consistent with mild small vessel ischemic disease. No intracranialmasses, mass effect or extra-axial collections. Midline structures appear normal. No diffusion-weighted abnormalities. Hippocampi are symmetric size andsignal intensity. Paranasal sinuses are clear. Proximal intracranial flow voidsappear normal. IMPRESSION Age-appropriate brain MRI. John Whittington MD IMG MRI ORDERABLES * NM MARY Scan (08/08/2017 3:30 PM EDT) Anatomical Region Laterality Modality Nuclear Medicine Impressions 08/08/2017 4:16 PM EDT Abnormal Mary scan, consistent with a Parkinsonian syndrome. Narrative 08/08/2017 4:16 PM EDT EXAMINATION: NM MARY SCAN CLINICAL HISTORY: ? Parkinson disease TECHNIQUE: Pretreatment with oral potassium iodide was given. Following this, I-123 ioflupane was administered intravenously in a dose of 4.7 mCi. Four hours later, tomographic imaging of the brain was performed with images reconstructed in the axial, sagittal and coronal planes. COMPARISON: None. FINDINGS: There is significantly decreased activity in the bilateral putamen. There is mildly decreased activity in the left caudate head. There is relatively normal activity in the right caudate head. Procedure Note Kateryna Gasca MD - 08/08/2017 EXAMINATION: NM MARY SCAN CLINICAL HISTORY: ? Parkinson disease TECHNIQUE: Pretreatment with oral potassium iodide was given. Followingthis, I-123 ioflupane was administered intravenously in a dose of 4.7 mCi. Fourhours later, tomographic imaging of the brain was performed with imagesreconstructed in the axial, sagittal and coronal planes. COMPARISON: None. FINDINGS: There is significantly decreased activity in the bilateralputamen. There is mildly decreased activity in the left caudate head. There isrelatively normal activity in the right caudate head. IMPRESSION Abnormal Mary scan, consistent with a Parkinsonian syndrome. John Whittington MD [facility] ORDERABLES * Differential, Automated (05/27/2017 10:29 AM EST) Neutrophil % 63.4 % [facility] Neutrophil Absolute 3.24 1.70 - 6.10 x10(3)/[facility] Lymph % 27.2 % [facility] Lymphocytes Abs 1.4 0.9 - 3.2 x10(3)/[facility] Monocyte % 7.4 % [facility] Monocyte Abs 0.4 0.3 - 0.9 x10(3)/[facility] Eos % 0.8 % [facility] Eosinophils Abs 0.0 0.0 - 0.4 x10(3)/[facility] Basophil % 0.6 % [facility] Baso Absolute 0.0 0.0 - 0.1 x10(3)/[facility] Immature Gran % 0.60 % [facility] Comment: Immature granulocytes(IG's)percentage and absolute count will include metamyelocytes, myelocytes, and promyelocytes. Blood smears from CBCs yielding IG's will be scanned manually for concordance. If this scan disagrees with the automated IG or if promyelocytes are noted, a manual differential will be performed. Immature Gran Absolute 0.03 0.00 - 0.04 x10(3)/[facility] Blood specimen (specimen) 05/27/2017 10:29 AM EST 05/27/2017 10:37 AM EST Narrative Resulting Agency Comment Spec In Lab John Whittington MD HEMATOLOGY ORDERABLE S Performing Organization Address City/State/[facility] Co de Phone Number [facility] [place] [address] * Hemogram (05/27/2017 10:29 AM EST) White Blood Cell 5.1 4.0 - 9.5 x10(3)/[facility] Red Blood Cell 4.85 4.00 - 5.21 x10(6)/[facility] Hemoglobin 14.5 11.7 - 15.5 gm/dL [facility] Hematocrit 43.4 35.7 - 45.8 % [facility] Mean Cell Volume 89.5 82.6 - 94.4 fL [facility] Mean Cell Hemoglobin 29.9 27.1 - 32.0 pg [facility] Mean Cell Hemoglobin Concentration 33.4 31.7 - 35.0 gm/dL [facility] Platelet 213 145 - 357 x10(3)/[facility] RDW Standard Deviation 43.2 37.0 - 46.0 [facility] RDW coefficient of variation 13.2 11.5 - 14.1 % [facility] Mean Platelet Volume 9.7 7.6 - 12.9 [facility] NRBC% auto 0.0 % [facility] NRBC Absolute 0.000 0.000 - 0.000 x10(3)/[facility] Blood specimen (specimen) 05/27/2017 10:29 AM EST 05/27/2017 10:37 AM EST Narrative Resulting Agency Comment Spec In Lab John Whittington MD HEMATOLOGY ORDERABLE S Performing Organization Address City/[facility]/ZIP Co de Phone Number [facility] [place] [address] * Vitamin B12 (05/27/2017 10:29 AM EST) Vitamin B12 592 232 - 1,245 pg/mL [facility] Comment: Please note: Effective 03/13/2017, the reference interval and the lower limit of detection for Vitamin B12 have been updated due to a new reagent formulation. Blood specimen (specimen) 05/27/2017 10:29 AM EST 05/27/2017 10:37 AM EST Narrative Resulting Agency Comment Spec In Lab John Whittington MD CHEMISTRY ORDERABLES Performing Organization Address City/[facility]/ZIP Co de Phone Number [facility] [place] [address] * Sedimentation rate (05/27/2017 10:29 AM EST) Sedimentation Rate Automated 7 0 - 20 mm/hr [facility] Blood specimen (specimen) 05/27/2017 10:29 AM EST 05/27/2017 10:37 AM EST Narrative Resulting Agency Comment Spec In Lab John Whittington MD HEMATOLOGY ORDERABLE S Performing Organization Address City/[facility]/ZIP Co de Phone Number [facility] [place] [address] * Folate, serum (05/27/2017 10:29 AM EST) Pathologist [facility] Folate >20.0 4.8 - 24.2 ng/mL [facility] Blood specimen (specimen) 05/27/2017 10:29 AM EST 05/27/2017 10:37 AM EST Narrative Resulting Agency Comment Spec In Lab John Whittington MD CHEMISTRY ORDERABLES Performing Organization Address [facility] Co de Phone Number [facility] [place] [address] * Comprehensive metabolic panel (non-fasting) (05/27/2017 10:29 AM EST) [facility] Glucose 121 65 - 199 mg/dL [facility] Comment:Diabetes: >=200 mg/d L plus symptoms Blood Urea Nitrogen 12 8 - 18 mg/dL [facility] Creatinine 0.79 0.70 - 1.20 mg/dL [facility] Sodium 144 135 - 145 mmol/L [facility] Potassium 4.3 3.5 - 5.0 mmol/L [facility] Comment: Please note: ??Patients with WBC >100,000 may have falsely elevated Potassium levels. ??For accurate Potassium quantification in these patients send serum separator tube (gold top) for subsequent determinations. ??Contact the Clinical Chemistry Laboratory if there are any questions. Chloride 102 98 - 107 mmol/L [facility] Carbon Dioxide 30 22 - 31 mmol/L [facility] Anion Gap 12 5 - 15 mmol/L [facility] Calcium 9.6 8.5 - 10.5 mg/dL [facility] Protein, Total 7.0 6.1 - 8.0 gm/dL [facility] Albumin 4.4 3.2 - 5.2 gm/dL [facility] Aspartate Aminotransferase 17 0 - 30 unit/L [facility] Alanine Aminotransferase 17 0 - 30 unit/L [facility] Alkaline Phosphatase 66 40 - 104 unit/L [facility] Bilirubin, Total 0.3 0.2 - 1.3 mg/dL [facility] Est Glomerular Filtration Rate >60 >=60 [facility] Comment: The reported eGFR should be multiplied by 1.2 for patients. The MDRD is not an appropriate measure of renal function for patients with body mass extremes or in patients with acute kidney failure. http://[employer]/DHnkdep http://[employer]/DHMCnkf Blood specimen (specimen) 05/27/2017 10:29 AM EST 05/27/2017 10:37 AM EST Narrative Resulting Agency Comment Spec In Lab John Whittington MD CHEMISTRY ORDERABLES [facility] [place] [phone] documented in this encounter Visit Diagnoses Diagnosis Idiopathic peripheral neuropathy Unspecified hereditary and idiopathic peripheral neuropathy Vestibular dysfunction of both ears Imbalance Abnormality of gait Primary parkinsonism Paralysis agitans Primary parkinsonism Paralysis agitans Imbalance Abnormality of gait Primary parkinsonism Paralysis agitans documented in this encounter Care Teams Kiln Pusher Relationship Specialty Start Date End Date An Tello APRN [address] [place] [id number] PCP - General Family Medicine 11/27/16 documented as of this encounter
--- OUTSIDE RECORDS SUMMARY | 2023-12-30 19:44 | XMS_ITS | Encounter Summary ---
Author Organization [facility] Address [facility] [place] [address] Care Team Providers Care Cigarette Book Maker Name Role Phone An Tello APRN Primary Care Provider [phone] [phone] Reason for Referral * Physical Therapy (Routine) - Specialty Diagnoses / Procedures Referred By Chelly perea Referred To Contact Diagnoses Leg weakness, bilateral John Whittington MD [facility] [place] [address] Referral ID Status Reason Start Date Expiration Date V isits Requested Visits Authorized [id number] Evaluate and Treat 04/18/2017 10/15/2017 12 12 Reason for Visit * Consultation (Routine) - Closed Specialty Diagnoses / Procedures Referred By Chelly perea Referred To Contact Neurology Diagnoses Muscle weakness (generalized) progressing weakness and unsteadiness An Tello APRN [address] [place] [id number] [facility] [address] [place] [phone] Referral ID Status Reason Start Date Expiration Date V isits Requested Visits Authorized [id number] Closed Consult, Test & Treat Connection Center 02/22/2017 02/22/2018 1 1 Encounter Details Date Type Department Care Team (Late st Contact Info) Description 04/18/2017 7:15 AM EST [place] [address] John Whittington MD [facility] [address] [place] Leg weakness, bilateral; Balance problems; Idiopathic peripheral neuropathy Social History Tobacco Use Types Packs/Day Years Used Date Smoking Tobacco: Never Assessed Sex and Gender Information Value Date Recorded Sex Assigned at Not on file Gender Identity Not on file Sexual Orientation Not on file documented as of this encounter Progress Notes * John Whittington MD - 04/18/2017 7:15 AM EST NEUROLOGY CLINIC [facility] [place] 04/18/2017 Patient name: Ivette Thao Date of : 1945 Referring provider: An Tello APRN [address] [place] [address] REASON FOR REFERRAL/CHIEF COMPLAINT: Weakness. HISTORY OF [...] weakness of arms. Maybe some memory problems. PMHx: Past Medical History: Diagnosis Date ??? Diabetes mellitus ??? Hyperlipidemia ??? Hypertension ??? Neuropathy No past surgical history on file. Family History: No family history on file. Brother has PD Cousin has neuropathy. Social History: No flowsheet data found. 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 No [...] [x] Review of systems otherwise negative Medications: No current outpatient prescriptions on file prior to visit. No current facility-administered medications on file prior to visit. Allergies: Allergies not on file PHYSICAL EXAMINATION Vitals: There were no vitals taken for this visit. General Examination: Appearance: alert, no distress ENT, Throat: oral mucosa moist, no thrush, no carotid bruits, no thyromegaly, no lymphadenopathy Cardiovascular: Rate regular, S1S2 normal, no murmur Respiratory: Symmetric expansion, lungs clear to auscultation Gastrointestinal: Abdomen soft, nontender Extremity: Bilateral leg [...] compared to right. Ankles reflex present bilaterally. o Motor and Coordination - Mild cog wheeling bilaterally, more on the right side. - Intrinsic hand muscle wasting + o Sensory - Sensory gradient below knee, most prominent fpc down foot. - Romberg + o Skull and Spine/ Gait - Normal - Normal gait - Tandem: Imbalance LABS/IMAGING: Labs GENERAL THYROID: No results found for: TSH, [id number], FREET4, TT4, THYROIDAB, THGAB FolateNo results found for: SFOLATE ESRNo results found for: SEDRATE CRPNo results found for: CRP B12No results found for: [id number] CKNo results found for: CK Angiotensin ConvertaseNo [...] LDLCHOL, LDLDIRECT DOMONIQUE 65No results found for: [id number] ANTI GM1,ANTI SGPG, MAG@RESUFAST (MAGAUTOAB,SGPG,MAGWB,GM1AB)@ HEAVY METAL [...] ANNA1, ANNA2, ANNA3, AGNA1, PCA1, PCA2, PCATYPETR, AMPHIPHYSIN,[id number], STRIATMSCLAB, CACHABPQTYPE, CACHABNTYPE, ACHRBINDAB, NEUROKCHAB, NMDARECEPTOR, [id number] THROMBOSIS HOMEOCYSTEINENo results found for: HOMOCYSTEINE THROMBOSIS PANELNo results found for: ACAIGM, [id number] FACTOR V LEIDEN No components found for: FACTORVLEIDEN PROTEIN C,SNo components found for: PROTEINC, PROTEINS ANTITHROMBIN IIINo components found for: ANTITHROMBINIII Miscellaneous Send outsNo results found for: MISCSENDKEYLA, MISCMAYO ASSESSMENT: 71 Y F with history of HTN, HL, borderline DM referred for evaluation of weakness, neuropathy symptoms. There is family history of parkinson's disease. History from her is limited. On evaluation she has mild increase in tone bilaterally. She has features suggestive of peripheral neuropat hy. There also seems to be a component of UMN involvement/ myelopathy causing brisk DTRs. No imaging available. IMPRESSION: 1. Peripheral Neuropathy 2.? Parkinsonism 3. ? Arthritis with Cervical Myelopathy PLAN/RECOMMENDATIONS: There appears to be more than one issue going on with her at this time. She does have features of peripheral neuropathy. Recent worsening of neuropathy may be secondary to her borderline diabetic status. In addition, she has mild increase in tone bilaterally which raises suspicion for parkinsonism.She also seems to have brisk DTRs which may be related to parkinsonism or cervical myelopathy from arthritis. Peripheral neuropathy: Will arrange an EMG/NCS testing to evaluate further in that direction. Will also consider additional blood testing based on her type of neuropathy. She was advised gabapentin 100-100-300 to help with her symptoms. Leg swelling could get worse with gabapentin. Compression stockings can be considered. Optimize blood sugar control. ? Parkinsonism: She doesn't have a clear diagnosis at this time. Will consider NM-BLAIR scan in the future based on progression of her symptoms. ? Arthritis/ myelopathy: will also consider an MRI of C spine and brain during follow ups. Follow up in a month. John Whittington MD Department of Neurology [facility] documented in this encounter Plan of Treatment Scheduled Referrals Name Type Priority Associated Diagnoses Orde r Schedule Referral to Physical Therapy Outpatient Referral Routine Leg weakness, bilateral Ordered: 04/18/2017 documented as of this encounter Visit Diagnoses Diagnosis Leg weakness, bilateral Other musculoskeletal symptoms referable to limbs Balance problems Other symptoms involving nervous and musculoskeletal systems Idiopathic peripheral neuropathy Unspecified hereditary and idiopathic peripheral neuropathy documented in this encounter Care Teams Cigarette Book Maker Relationship Specialty Start Date End Date An Tello APRN [address] [place] [address] PCP - General Family Medicine 11/27/16 documented as of this encounter
--- OUTSIDE RECORDS SUMMARY | 2023-12-30 19:44 | XMS_ITS | Encounter Summary ---
Author Organization [facility] Address [facility] [place] [address] Care Team Providers Care Timber Sprinkler Name Role Phone An Tello APRN Primary Care Provider [phone] [phone] Encounter Details Date Type Department Care Team (Late st Contact Info) Description 07/25/2017 9:45 AM EDT Office [place] [address] John Whittington MD [facility] [place] [address] Atypical Parkinsonism; Imbalance; Idiopathic peripheral neuropathy Social History Tobacco Use [...] Progress Notes * John Whittington MD - 07/25/2017 9:45 [place] [address] 07/25/2017 Patient name: Ivette Thao Date of : 1945 Referring provider: An Tello APRN [address] [place] [id number] REASON FOR REFERRAL/CHIEF COMPLAINT: Weakness. HISTORY OF [...] the other day and had a fall. PMHx: Past Medical History: Diagnosis Date ??? [...] found. 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 No [...] to Visit Medication Sig Dispense Refill ??? aspirin 81 mg Tablet, Delayed Release [...] Tablet Take 1 tablet by mouth daily. ??? ranitidine (ZANTAC) 150 mg Tablet Take 150 mg by mouth daily. ??? gabapentin (NEURONTIN) 300 mg Capsule Take [...] no carotid bruits, no thyromegaly, no lymphadenopathy Extremity: Leg edema improved. Skin: Distal erythema present. Neurological Examination o Higher functions: - Speech: fluent, no aphasia/dysarthria or dysphonia - Alert and oriented. o Cranial Nerves - II-XII: Pupils bilaterally equal and symmetric conjugate gaze, reacting to light. No ptosis/nystagmus. Vision normal. No field deficits. EOMI. No facial droop. No weakness of jaw/uvula/ palate - Hearing loss bilaterally. o Reflexes - Normal DTRs bilaterally. o Motor and Coordination - Mild cog wheeling bilaterally, more on the right side. o Sensory - Sensory gradient below knee - Romberg + o Skull and Spine/ Gait - Normal - Normal gait - Retropulsion testing + - Tandem: Imbalance LABS/IMAGING: Labs GENERAL THYROID: No results found for: TSH, Q2TSIDK, FREET4, TT4, THYROIDAB, THGAB Folate Lab Results Component Value Date SFOLATE >20.0 05/27/2017 ESR Lab Results Component Value Date SEDRATE 7 05/27/2017 CRPNo results found for: CRP B12 Lab Results Component Value Date [id number] 592 05/27/2017 CKNo results found for: CK [...] LDLCHOL, LDLDIRECT DOMONIQUE 65No results found for: [id number] ANTI GM1,ANTI SGPG, MAG@RESUFAST (MAGAUTOAB,SGPG,MAGWB,GM1AB)@ HEAVY METAL [...] ANNA1, ANNA2, ANNA3, AGNA1, PCA1, PCA2, PCATYPETR, AMPHIPHYSIN,[id number], STRIATMSCLAB, CACHABPQTYPE, CACHABNTYPE, ACHRBINDAB, NEUROKCHAB, NMDARECEPTOR, [id number] THROMBOSIS HOMEOCYSTEINENo results found for: HOMOCYSTEINE THROMBOSIS PANELNo results found for: ACAIGM, [id number] FACTOR V LEIDEN No components found for: [...] imbalance. She has features suggestive of peripheral neuropathy and vestibular dysfunction. No imaging available. She has made improvements with physical therapy. Gait and balance is slightly better. IMPRESSION: 1. Peripheral Neuropathy 2.? Parkinsonism 3 Vestibular dysfunction PLAN/RECOMMENDATIONS: Her balance has increased overall. However, she still has some imbalance. Parkinsonism features +. Brother has advanced parkinsonism. MRI and BLAIR scan ordered previously is still pending. Will add sinemet if BLAIR suggestive of parkinsonism Cancelled MRI C spine as reflexes have improved now. Fall precautions advised. Follow up in 6 months. John Whittington MD Department of Neurology [facility] documented in this encounter Plan of Treatment Not on file documented as of this encounter Visit Diagnoses Diagnosis Atypical parkinsonism Paralysis agitans Imbalance Abnormality of gait Idiopathic peripheral neuropathy Unspecified hereditary and idiopathic peripheral neuropathy documented in this encounter Care Teams Timber Sprinkler Relationship Specialty Start Date End Date An Tello APRN [address] [place] [address] PCP - General Family Medicine 11/27/16 documented as of this encounter
--- OUTSIDE RECORDS SUMMARY | 2023-12-30 19:44 | XMS_ITS | Encounter Summary ---
Author Organization [facility] Address [facility] [place] [address] Care Team Providers Care Rolling Mill Operator Helper Name Role Phone An Tello APRN Primary Care Provider [phone] [phone] Encounter Details Date Type Department Care Team (Late st Contact Info) Description 01/15/2019 11:15 AM EDT Office Visit Neurology at [facility] [place] [address] John Whittington MD [facility] [place] [address] Atypical Parkinsonism; Balance problems; Imbalance; Idiopathic peripheral neuropathy Social History Tobacco [...] Sign Reading Time Taken Comments Blood Pressure 131/59 01/15/2019 10:50 AM EDT Pulse 66 01/15/2019 10:50 AM EDT Temperature - - Respiratory Rate - - Oxygen Saturation - - Inhaled Oxygen Concentration - - Weight 85.7 kg (189 lb) 01/15/2019 10:50 AM EDT With shoes Height 167.6 cm (5' 6) 01/15/2019 10:50 AM EDT Reported Body Mass Index 30.51 01/15/2019 10:50 AM EDT documented in this encounter Progress Notes * John Whittington MD - 01/15/2019 11:15 AM EDT [place] [address] 01/15/2019 Patient name: Ivette Thao Date of : 1945 Referring provider: An Tello APRN [address] [place] [id number] REASON FOR REFERRAL/CHIEF COMPLAINT: Weakness. HISTORY OF [...] 01/15/2019: Things have been okay since last years. She had some swelling of her ankles. She had ECHO which was normal. There was concern of increased salt intake. She is taking gabapentin PMHx: Past Medical History: Diagnosis Date ??? Diabetes mellitus ??? Hyperlipidemia ??? Hypertension ??? Neuropathy No past surgical history on file. Family History: No family history on file. Brother has PD Cousin has neuropathy. Social History: reports that she quit smoking about 31 years ago. Her smoking use included cigarettes. She has never used smokeless tobacco. She reports that she does not drink alcohol or use drugs. No flowsheet data found. 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 No [...] Visit Medication Sig Dispense Refill ??? carbidopa-levodopa (SINEMET) 25-100 mg Tablet Take 1 tablet by mouth 3 times daily. 270 tablet 3 ??? gabapentin (NEURONTIN) 300 mg Capsule TAKE 1 CAPSULE BY MOUTH NIGHTLY 30 capsule 3 ??? gabapentin (NEURONTIN) 100 mg Capsule Take 1 capsule by mouth 2 times daily. 90 capsule 12 ??? aspirin 81 mg [...] Tablet Take 150 mg by mouth daily. No current facility-administered medications [...] GENERAL THYROID: No results found for: TSH, [id number], FREET4, TT4, THYROIDAB, THGAB Folate Lab Results Component Value Date SFOLATE >20.0 05/27/2017 ESR Lab Results Component Value Date SEDRATE 7 05/27/2017 CRPNo results found for: CRP B12 Lab Results Component Value Date [id number] 592 05/27/2017 CKNo results found for: CK [...] LDLCHOL, LDLDIRECT DOMONIQUE 65No results found for: [id number] ANTI GM1,ANTI SGPG, MAG@RESUFAST (MAGAUTOAB,SGPG,MAGWB,GM1AB)@ HEAVY METAL [...] ANNA1, ANNA2, ANNA3, AGNA1, PCA1, PCA2, PCATYPETR, AMPHIPHYSIN,YYNV3OOL, STRIATMSCLAB, CACHABPQTYPE, CACHABNTYPE, ACHRBINDAB, NEUROKCHAB, NMDARECEPTOR, [id number] THROMBOSIS HOMEOCYSTEINENo results found for: HOMOCYSTEINE THROMBOSIS PANELNo results found for: ACAIGM, [id number] FACTOR V LEIDEN No components found for: [...] stable since last seen. Leg edema persists. IMPRESSION: 1. Peripheral Neuropathy 2. Parkinsonism. Atypical rigid parkinsons 3 Vestibular dysfunction PLAN/RECOMMENDATIONS: Clinically stable since last seen. Tolerating sinemet. Peripheral neuropathy stable on gabapentin. Leg swelling may be secondary to gabapentin and neuropathy. Limb elevation advised. Continue home exercises. Fall precautions advised. Follow up in a year. John Whittington MD Department of Neurology [facility] documented in this encounter Plan of Treatment Not on file documented as of this encounter Visit Diagnoses Diagnosis Atypical parkinsonism Paralysis agitans Balance problems Other symptoms involving nervous and musculoskeletal systems Imbalance Abnormality of gait Idiopathic peripheral neuropathy Unspecified hereditary and idiopathic peripheral neuropathy documented in this encounter Care Teams Rolling Mill Operator Helper Relationship Specialty Start Date End Date An Tello APRN [address] [place] [address] PCP - General Family Medicine 11/27/16 documented as of this encounter
--- OUTSIDE RECORDS SUMMARY | 2023-12-30 19:44 | XMS_ITS | Encounter Summary ---
Author Organization [facility] Address [facility] [place] [address] Care Team Providers Care Intelligence Chief Name Role Phone An Tello APRN Primary Care Provider [phone] [phone] Reason for Visit * Reason Onset Date Comments Other 08/12/2017 Encounter Details Date Type Department Care Team (Late st Contact Info) Description 08/12/2017 Telephone Neurology at [facility] [place] [place] [address] John Whittington MD [facility] [place] [address] Other Social History Tobacco Use Types Packs/Day Years [...] encounter Miscellaneous Notes * Telephone Encounter - July Marin RN - 08/12/2017 3:50 PM EDT Images from the original note were not included. John Whittington MD Muir, Carmen A, RN ? Caller: Unspecified (Today, ??2:04 PM) ? I'll call her on Saturday Pt notified. Dr Whittington away will review results and call her next Saturday. Pt agrees with the plan. * Telephone Encounter - Alysa Pascual - 08/12/2017 2:04 PM EDT Caller: Patient If not Pt / Relation to pt: Best time to reach caller: anytime can leave message Before 2:30pm - Informed caller that nurse will call back by the end of the day Best number to reach caller: [phone] Reason for call: Lab/Test results: Results being requested: BLAIR scan and MRI Where were tab/test done: [facility] When were lab/test done: 08/08/17 Disposition of Call: routine message to nurse documented in this encounter Plan of Treatment Not on file documented as of this encounter Visit Diagnoses Not on filedocumented in this encounter Care Teams Intelligence Chief Relationship Specialty Start Date End Date An Tello APRN [address] [place] [address] PCP - General Family Medicine 11/27/16 documented as of this encounter
--- OUTSIDE RECORDS SUMMARY | 2023-12-30 19:44 | XMS_ITS | Encounter Summary ---
Author Organization [facility] Address [facility] [place] [address] Care Team Providers Care Vinyl Cutter Name Role Phone An Tello APRN Primary Care Provider [phone] [phone] Reason for Referral * Diagnostic Test (Routine) - Closed Specialty Diagnoses / Procedures Referred By Contac t Referred To Contact Radiology Diagnoses Primary parkinsonism Procedures NM MARY Scan John Whittington MD [facility] [place] [address] [place] [address] Referral ID Status Reason Start Date Expiration Date V isits Requested Visits Authorized [id number] Closed Specialty Service Requested 05/27/2017 05/27/2018 1 1 Reason for Visit * Diagnostic Test (Routine) - Closed Specialty Diagnoses / Procedures Referred By Contac t Referred To Contact Radiology Diagnoses Primary parkinsonism Procedures NM MARY Scan John Whittington MD [facility] [place] [address] [place] [address] Referral ID Status Reason Start Date Expiration Date V isits Requested Visits Authorized [id number] Closed Specialty Service Requested 05/27/2017 05/27/2018 1 1 Encounter Details Date Type Department Care Team (Latest Contact Info) Description 08/08/2017 9:22 AM EDT - 08/08/2017 2:03 PM EDT Hospital Encounter Nuclear Medicine at [facility] [place] [address] John Whittington MD [facility] [place] [address] Primary Parkinsonism Discharge Disposition: Home Social History Tobacco Use [...] Sig Dispensed Refills Start Date End Date atenolol (TENORMIN) 50 mg Tablet Take 50 mg by mouth daily. CALCIUM CARBONATE (CALCIUM 600 ORAL) Take 2 tablets by mouth daily. cholecalciferol, Vitamin D3, 2,000 unit Capsule Take 2,000 Units by mouth daily. lisinopril (PRINIVIL;ZESTRIL) 10 mg Tablet Take 5 mg by mouth daily. multivitamin (THERAGRAN) Tablet Take 1 tablet by mouth daily. lovastatin (MEVACOR) 40 mg Tablet Take 40 mg by mouth nightly. gabapentin (NEURONTIN) 300 mg Capsule Take 1 capsule by mouth nightly. 30 capsule 3 07/25/2017 12/04/2017 ranitidine (ZANTAC) 150 mg Tablet Take 150 mg by mouth daily. 01/18/2020 documented as of this encounter Plan of Treatment Not on file documented as of this encounter Procedures Procedure Name Priority Date/Time Associated Diagnosis Comments NM BRAIN IMAGING FOR PARKINSONS DISEASE Routine 08/08/2017 3:30 PM EDT Primary Parkinsonism documented in this encounter Results * NM MARY Scan (08/08/2017 3:30 PM [...] with a Parkinsonian syndrome. John Whittington MD IMG NM ORDERABLES documented in this encounter Visit Diagnoses Diagnosis Primary parkinsonism Paralysis agitans documented in this encounter Administered Medications Inactive Administered Medications - up to 3 most recent administrations Medication Order MAR Action Action Date Dose Rate Site strong iodine (LUGOLS) 5 % oral solution 0.8 mL 0.8 mL, Oral, ONCE PRN, 1 dose, Starting on Rachel 08/08/17 at 0933, Until Rachel 08/08/17 at 0933, for thyroid blocking, Routine Given 08/08/2017 9:33 AM EDT 0.8 mLs documented in this encounter Care Teams Vinyl Cutter Relationship Specialty Start Date End Date An Tello, TAXATION ACCOUNTANT [address] [place] [id number] PCP - General Family Medicine 11/27/16 documented as of this encounter
--- OUTSIDE RECORDS SUMMARY | 2023-12-30 19:44 | XMS_ITS | Encounter Summary ---
Author Organization [facility] Address [facility] [place] [address] Care Team Providers Care Shear Helper Name Role Phone An Tello APRN Primary Care Provider [phone] [phone] Encounter Details Date Type Department Care Team (Late st Contact Info) Description 05/27/2017 External Results Neurology at [facility] [place] [address] John Whittington MD [facility] [place] [address] Social History Tobacco Use Types Packs/Day Years [...] Procedure Name Priority Date/Time Associated Diagnosis Comments EMG SCAN Routine 05/27/2017 documented in this encounter Results * Scan Doc: EMG (05/27/2017) John Whittington MD MEDIA MGR SCAN EXT O RDR/RSLT documented in this encounter Visit Diagnoses Not on filedocumented in this encounter Care Teams Shear Helper Relationship Specialty Start Date End Date An Tello APRN [address] [place] [id number] PCP - General Family Medicine 11/27/16 documented as of this encounter
--- OUTSIDE RECORDS SUMMARY | 2023-12-30 19:44 | XMS_ITS | Encounter Summary ---
Author Organization [facility] Address [facility] [place] [address] Care Team Providers Care Ground Systems Engineer Name Role Phone An Tello APRN Primary Care Provider +1 -[phone] Reason for Referral * Diagnostic Test (Routine) - Closed Specialty Diagnoses / Procedures Referred By Contac t Referred To Contact Radiology Diagnoses Imbalance Primary parkinsonism Procedures MRI Brain wo Contrast MRI Brain wwo Contrast (Generic) John Whittington MD [facility] [place] [address] [place] [address] Referral ID Status Reason Start Date Expiration Date V isits Requested Visits Authorized [id number] Closed Specialty Service Requested 05/27/2017 05/27/2018 1 1 Reason for Visit * Diagnostic Test (Routine) - Closed Specialty Diagnoses / Procedures Referred By Contac t Referred To Contact Radiology Diagnoses Imbalance Primary parkinsonism Procedures MRI Brain wo Contrast MRI Brain wwo Contrast (Generic) John Whittington MD [facility] [place] [address] [place] [address] Referral ID Status Reason Start Date Expiration Date V isits Requested Visits Authorized [id number] Closed Specialty Service Requested 05/27/2017 05/27/2018 1 1 Encounter Details Date Type Department Care Team (Latest Contact Info) Description 08/08/2017 4:08 PM EDT - 08/08/2017 11:59 PM EDT Hospital Encounter MRI at [facility] [place] [address] John Whittington MD [facility] [place] [address] Imbalance; Primary Parkinsonism Discharge Disposition: Home Social History [...] Procedure Name Priority Date/Time Associated Diagnosis Comments MRI BRAIN WO CONTRAST Routine 08/08/2017 5:10 PM EDT Imbalance Primary Parkinsonism documented in this encounter Results * MRI [...] MRI. John Whittington MD IMG MRI ORDERABLES documented in this encounter Visit Diagnoses Diagnosis Imbalance Abnormality of gait Primary parkinsonism Paralysis agitans documented in this encounter Care Teams Ground Systems Engineer Relationship Specialty Start Date End Date An Tello APRN [address] [place] [address] PCP - General Family Medicine 11/27/16 documented as of this encounter
--- OUTSIDE RECORDS SUMMARY | 2023-12-30 19:44 | XMS_ITS | Encounter Summary ---
Author Organization [facility] Address [facility] [place] [address] Care Team Providers Care Building Construction Foreman Name Role Phone An Tello APRN Primary Care Provider +1 [phone] Reason for Visit * Reason Onset Date Comments Other 09/19/2017 Encounter Details Date Type Department Care Team (Late st Contact Info) Description 09/19/2017 Telephone Neurology at [facility] [place] [address] John Whittington MD [facility] [place] [place] [id number] Other Social History Tobacco Use Types Packs/Day [...] encounter Miscellaneous Notes * Telephone Encounter - Maxine Meeks RN - 09/23/2017 9:[address] Whittington: New Rx for Sinemet 25-100 mg three times a day. Call placed to patient to relay message above. SE review with patient. Patient verb understanding and is agreeable to plan. * Telephone Encounter - Maxine Meeks RN - 09/23/2017 9:20 AM EDT Last appointment 4-12-2018 Next appointment 01-21-2018 Caller: Patient Reason for call: Patient was seen by her PCP, and she suggested a trial of Sinemet, which was also discussed at her last appointment with Dr. Whittington. Patient is experiencing rigidity in her arms and legs, and some gait instability. Patient denies any recent falls, pain or discomfort. Patient is eating, drinking and sleeping well. Plan: Forward to Dr. Whittington for review and comment. * Telephone Encounter - Maxine Meeks RN - 09/19/2017 10:35 AM EDT Call placed back to patient with message left asking for call back. * Telephone Encounter - Fouzia Aguiar - 09/19/2017 10:06 AM EDT Caller: ivette If not Pt / Relation to pt: Best time to reach caller: anytime Before 2:30pm - Informed caller that nurse will call back by the end of the day Best number to reach caller: [phone] Reason for call: Patient called stating that she would like to start the sinemet that was discussedduring her last appointment with Dr. Whittington. She would like the prescription sent to [facility] in [place]. Please call when the prescription has been sent. documented in this encounter Plan of Treatment Not on file documented as of this encounter Visit Diagnoses Not on filedocumented in this encounter Care Teams Building Construction Foreman Relationship Specialty Start Date End Date An Tello APRN [address] [place] [address] PCP - General Family Medicine 11/27/16 documented as of this encounter
--- OUTSIDE RECORDS SUMMARY | 2023-12-30 19:44 | XMS_ITS | Encounter Summary ---
Author Organization [facility] Address [facility] [place] [address] Care Team Providers Care Rodding Anode Worker Name Role Phone An Tello APRN Primary Care Provider +1 [phone] Reason for Visit * Reason Comments Follow-up Encounter Details Date Type Department Care Team (Late st Contact Info) Description 01/18/2020 10:15 AM EDT Office Visit Neurology at [facility] [place] [address] John Whittington MD [facility] [place] [address] Vestibular dysfunction of both ears; Primary Parkinsonism; Balance problems; Imbalance Social History Tobacco Use Types Packs/Day Years [...] Sign Reading Time Taken Comments Blood Pressure 132/80 01/18/2020 9:55 AM EDT Pulse 71 01/18/2020 9:55 AM EDT Temperature - - Respiratory Rate - - Oxygen Saturation 99% 01/18/2020 9:55 AM EDT Inhaled Oxygen Concentration - - Weight 85.3 kg (188 lb) 01/18/2020 9:55 AM EDT Height 165.1 cm (5' 5) 01/18/2020 9:55 AM EDT Body Mass Index 31.28 01/18/2020 9:55 AM EDT documented in this encounter Progress Notes * John Whittington MD - 01/18/2020 10:15 AM EDT NEUROLOGY CLINIC [facility] [place] [address] 01/18/2020 Patient name: Ivette Carvajal Page Date of : 1945 Referring provider: An Tello APRN [address] [place] [address] REASON FOR REFERRAL/CHIEF COMPLAINT: Weakness. HISTORY OF [...] She has balance issues. Her in June. PMHx: Past Medical History: Diagnosis Date ??? Diabetes mellitus ??? Hyperlipidemia ??? Hypertension ??? Neuropathy No past surgical history on file. Family History: No family history on file. Brother has PD Cousin has neuropathy. Social History: reports that she quit smoking about 32 years ago. Her smoking use included cigarettes. She has never used smokeless tobacco. She reports that she does not drink alcohol or use drugs. No flowsheet data found. 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 No [...] Refill ??? carbidopa-levodopa (SINEMET) 25-100 mg Tablet TAKE 1 TABLET 3 TIMES A DAY 270 tablet 3 ??? ammonium lactate (LAC-HYDRIN) 12 % Lotion [...] GENERAL THYROID: No results found for: TSH, G7TUMBT, FREET4, TT4, THYROIDAB, THGAB Folate Lab Results Component Value Date SFOLATE >20.0 05/27/2017 ESR Lab Results Component Value Date SEDRATE 7 05/27/2017 CRPNo results found for: CRP B12 Lab Results Component Value Date [id number] 592 05/27/2017 CKNo results found for: CK [...] LDLCHOL, LDLDIRECT DOMONIQUE 65No results found for: XKW15CG ANTI GM1,ANTI SGPG, MAG@RESUFAST (MAGAUTOAB,SGPG,MAGWB,GM1AB)@ HEAVY METAL [...] ANNA1, ANNA2, ANNA3, AGNA1, PCA1, PCA2, PCATYPETR, AMPHIPHYSIN,BWOW4AMK, STRIATMSCLAB, CACHABPQTYPE, CACHABNTYPE, ACHRBINDAB, NEUROKCHAB, NMDARECEPTOR, [id number] THROMBOSIS HOMEOCYSTEINENo results found for: HOMOCYSTEINE THROMBOSIS PANELNo results found for: ACAIGM, [id number] FACTOR V LEIDEN No components found for: [...] changes since last seen. IMPRESSION: 1. Peripheral Neuropathy 2. Parkinsonism. Atypical rigid parkinsons 3 Vestibular dysfunction PLAN/RECOMMENDATIONS: Clinically stable since last seen. Tolerating sinemet. Peripheral neuropathy stable on gabapentin. Leg swelling may be secondary to gabapentin and neuropathy. Limb elevation and compression stockingadvised. Continue home exercises. Fall precautions advised. Walk with cane. Follow up in a year. John Whittington MD Department of Neurology [facility] documented in this encounter Plan of Treatment Not on file documented as of this encounter Visit Diagnoses Diagnosis Vestibular dysfunction of both ears Primary parkinsonism Paralysis agitans Balance problems Other symptoms involving nervous and musculoskeletal systems Imbalance Abnormality of gait documented in this encounter Care Teams Rodding Anode Worker Relationship Specialty Start Date End Date An Tello APRN [address] [place] [address] PCP - General Family Medicine 11/27/16 documented as of this encounter
--- OUTSIDE RECORDS SUMMARY | 2023-12-30 19:44 | XMS_ITS | Encounter Summary ---
Author Organization [facility] Address [facility] [place] [address] Care Team Providers Care Dialysis Patient Care Technician Name Role Phone An Tello APRN Primary Care Provider +1 [phone] Reason for Visit * Reason Comments Medication Refill Encounter Details Date Type Department Care Team (Late st Contact Info) Description 04/04/2019 Refill Neurology at [facility] [address] John Whittington MD [facility] [place] [address] Social History Tobacco Use Types Packs/Day Years [...] encounter Miscellaneous Notes * Telephone Encounter - Vika Bernabe RN - 04/05/2019 8:12 PM EST surescript for carbidopa/levodopa FUV 01/18/2020 Last rx 04/2018 x 1 yr documented in this encounter Plan of Treatment Not on file documented as of this encounter Visit Diagnoses Not on filedocumented in this encounter Care Teams Dialysis Patient Care Technician Relationship Specialty Start Date End Date An Tello APRN [address] [place] [address] PCP - General Family Medicine 11/27/16 documented as of this encounter
--- OUTSIDE RECORDS SUMMARY | 2023-12-30 19:44 | XMS_ITS | Encounter Summary ---
Author Organization [facility] Address [facility] [place] [address] Care Team Providers Care Treer Name Role Phone An Tello APRN Primary Care Provider +1 [phone] Reason for Visit * Diagnostic Test (Routine) - Closed Specialty Diagnoses / Procedures Referred By Chelly perea Referred To Contact Radiology Diagnoses Primary parkinsonism Procedures NM BLAIR Scan John Whittington MD [facility] [place] [address] [facility] [place] [address] Referral ID Status Reason Start Date Expiration Date V isits Requested Visits Authorized [id number] Closed Specialty Service Requested 05/27/2017 05/27/2018 1 1 Encounter Details Date Type Department Care Team (Latest Contact Info) Description 08/08/2017 9:22 AM EDT - 08/08/2017 2:03 PM EDT Hospital Encounter [place] [address] John Whittington MD [facility] [place] [address] Discharge Disposition: Home Social History Tobacco Use [...] EDT Primary Parkinsonism documented in this encounter Visit Diagnoses Not on filedocumented in this encounter Administered Medications Inactive Administered Medications - up to 3 most recent administrations Medication Order MAR Action Action Date Dose Rate Site ioflupane (I-123) (DATSCAN) injection 4.7 mCi 4.7 mCi, Intravenous, ONCE PRN, 1 dose, Starting on Rachel 08/08/17 at 1035, Until Rachel 08/08/17 at 1035, Per Protocol, Routine Given 08/08/2017 10:35 AM EDT 4.7 mCi documented in this encounter Care Teams Treer Relationship Specialty Start Date End Date An Tello APRN [address] [place] [address] PCP - General Family Medicine 11/27/16 documented as of this encounter
--- OUTSIDE RECORDS SUMMARY | 2023-12-30 19:44 | XMS_ITS | Encounter Summary ---
Author Organization [facility] Address [facility] [place] [address] Care Team Providers Care Exchange Teller Name Role Phone An Tello APRN Primary Care Provider +1 -[phone] Reason for Visit * Reason Comments Medication Refill Encounter Details Date Type Department Care Team (Late st Contact Info) Description 12/04/2017 Refill Neurology at [facility] [place] [address] John Whittington MD [facility] [place] [address] Social History Tobacco Use Types Packs/Day Years [...] on filedocumented in this encounter Care Teams Exchange Teller Relationship Specialty Start Date End Date An Tello APRN [address] [place] [address] PCP - General Family Medicine 11/27/16 documented as of this encounter
--- OUTSIDE RECORDS SUMMARY | 2023-12-30 19:44 | XMS_ITS | Encounter Summary ---
Author Organization [facility] Address [facility] [place] [address] Care Team Providers Care Oyster Bed Worker Name Role Phone An Tello APRN Primary Care Provider +1 -[phone] Reason for Visit * Reason Comments Medication Refill Encounter Details Date Type Department Care Team (Late st Contact Info) Description 04/11/2020 Refill Neurology at [facility] [place] [address] John Whittington MD [facility] [place] [address] Social History Tobacco Use Types Packs/Day Years [...] on filedocumented in this encounter Care Teams Oyster Bed Worker Relationship Specialty Start Date End Date An Tello APRN [address] [place] [address] PCP - General Family Medicine 11/27/16 documented as of this encounter
--- OUTSIDE RECORDS SUMMARY | 2023-12-30 19:44 | XMS_ITS | Encounter Summary ---
Author Organization [facility] Address [facility] [place] [address] Care Team Providers Care Passenger Rate Clerk Name Role Phone An Tello APRN Primary Care Provider +1 -[phone] Encounter Details Date Type Department Care Team (Late st Contact Info) Description 01/21/2018 9:15 AM EDT [place] [address] John Whittington MD [facility] [place] [facility] Atypical Parkinsonism; Imbalance; Idiopathic peripheral neuropathy; Vestibular dysfunction of both ears; Primary Parkinsonism Social History Tobacco Use Types [...] Progress Notes * John Whittington MD - 01/21/2018 9:15 AM EDT [place] [address] 01/21/2018 Patient name: Ivette Thao Date of : 1945 Referring provider: An Tello APRN [address] [place] [address] REASON FOR REFERRAL/CHIEF COMPLAINT: Weakness. HISTORY OF [...] making noises and movements during her sleep. PMHx: Past Medical History: Diagnosis Date ??? [...] found. 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 Non smoker. No [...] Refill ??? gabapentin (NEURONTIN) 300 mg Capsule TAKE 1 CAPSULE BY MOUTH NIGHTLY 30 capsule 3 ??? carbidopa-levodopa (SINEMET) 25-100 mg Tablet Take 1 tablet by mouth 3 times daily. 90 tablet 3 ??? gabapentin (NEURONTIN) 100 mg Capsule [...] carotid bruits, no thyromegaly Extremity: Leg edema improved. Neurological Examination o Higher functions: - Speech: [...] GENERAL THYROID: No results found for: TSH, [id number], FREET4, TT4, THYROIDAB, THGAB Folate Lab Results Component Value Date SFOLATE >20.0 05/27/2017 ESR Lab Results Component Value Date SEDRATE 7 05/27/2017 CRPNo results found for: CRP B12 Lab Results Component Value Date [id number] 592 05/27/2017 CKNo results found for: CK [...] LDLCHOL, LDLDIRECT DOMONIQUE 65No results found for: [id number] ANTI GM1,ANTI SGPG, MAG@RESUFAST (MAGAUTOAB,SGPG,MAGWB,GM1AB)@ HEAVY METAL [...] ANNA1, ANNA2, ANNA3, AGNA1, PCA1, PCA2, PCATYPETR, AMPHIPHYSIN,CFLR5ODJ, STRIATMSCLAB, CACHABPQTYPE, CACHABNTYPE, ACHRBINDAB, NEUROKCHAB, NMDARECEPTOR, [id number] THROMBOSIS HOMEOCYSTEINENo results found for: HOMOCYSTEINE THROMBOSIS PANELNo results found for: ACAIGM, [id number] FACTOR V LEIDEN No components found for: [...] dysfunction. Symptoms have improved since sinemet was initiated IMPRESSION: 1. Peripheral Neuropathy 2. Atypical Parkinson 3 Vestibular dysfunction PLAN/RECOMMENDATIONS: She has confirmed Parkinsonism on BLAIR scan. Symptoms seems responsive to sinemet. Overall there is improvements in tremors and rigidity Peripheral neuropathy stable on gabapentin. Continue home exercises. Fall precautions advised. Follow up in a year. 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
--- OUTSIDE RECORDS SUMMARY | 2023-12-30 19:44 | XMS_ITS | Encounter Summary ---
Author Organization [facility] Address [facility] [place] [address] Care Team Providers Care Gas Appliance Servicer Name Role Phone An Tello APRN Primary Care Provider +1 [phone] Encounter Details Date Type Department Care Team (Late st Contact Info) Description 04/22/2018 Telephone Neurology at [facility] [place] [address] John Whittington MD [facility] [place] [address] Social History Tobacco Use Types Packs/Day Years [...] encounter Miscellaneous Notes * Telephone Encounter - Judy Toney RN - 04/22/2018 9:04 AM EST Returned call to Ivette. Patient reports that pharmacy told her that her last refill had shipped.She does not know if that means one is on the way or if no medication is coming because she needs arenewed prescription. At the end of today she will have 4 days worth of medication before she will have empty. Called [facility] at [phone]. Spoke with Gail. Transferred to Care team. Spoke with Keren. Described the patient's issue, I learned: The prescription shipment was mailed on April 20, 2018. The patient has 3 refills available. Patient may call the [employer] customer [facility] to set up auto-fill service or she can set it up online. Returned call to notify Ivette per [facility] rep [place]: The prescription shipment was mailed on April 20, 2018. The patient has 3 refills available. Patient may call the [employer] customer care toset up auto-fill service or she can set it up online. Patient reports she seems to only have a refill number on her pill bottles, does not have a computer, and asked if I had a different number for . I looked up [employer] online, on their web-site the Customer Care Number is listed as , which I gave to patient. No other questions or concerns today. * Telephone Encounter - Vika Bernabe RN - 04/22/2018 8:58 AM EST Pt left VM on Rx line with no info other than she was calling regarding her prescription and her phone number is [phone] Msg forwarded to Judy FLORES to call pt to clarify what she needs at present documented in this encounter Plan of Treatment Not on file documented as of this encounter Visit Diagnoses Not on filedocumented in this encounter Care Teams Gas Appliance Servicer Relationship Specialty Start Date End Date An Tello APRN [address] [place] [address] PCP - General Family Medicine 11/27/16 documented as of this encounter
--- OUTSIDE RECORDS SUMMARY | 2023-12-30 19:44 | XMS_ITS | Encounter Summary ---
Author Organization [facility] Address [facility] [place] [address] Care Team Providers Care Electrician Elevator Maintenance Name Role Phone An Tello APRN Primary Care Provider +1 -[phone] Encounter Details Date Type Department Care Team (Late st Contact Info) Description 07/25/2017 Orders Only [place] [address] [place] Social History Tobacco Use Types Packs/Day Years [...] on filedocumented in this encounter Care Teams Electrician Elevator Maintenance Relationship Specialty Start Date End Date An Tello APRN [address] [place] [address] PCP - General Family Medicine 11/27/16 documented as of this encounter
--- OUTSIDE RECORDS SUMMARY | 2023-12-30 19:44 | XMS_ITS | Encounter Summary ---
Author Organization [facility] Address [facility] [place] [address] Care Team Providers Care Integration Software Engineer Name Role Phone An Tello APRN Primary Care Provider +1 [phone] Reason for Referral * Diagnostic Test (Routine) - Closed Specialty Diagnoses / Procedures Referred By Contac t Referred To Contact Procedures Echocardiogram South/External Bobby Decker Jr., MD [address] [place] [address] Referral ID Status Reason Start Date Expiration Date V isits Requested Visits Authorized [id number] Closed Specialty Service Requested 11/27/2016 05/26/2017 1 1 Encounter Details Date Type Department Care Team (Late st Contact Info) Description 11/27/2016 1:00 PM EDT Interpretation Only Cardiology at [address] [address] Bobby Decker Jr., MD [address] [place] [address] Murmur Social History Tobacco Use Types Packs/Day Years Used Date Smoking Tobacco: Never Assessed Sex and Gender Information Value Date Recorded Sex Assigned at Not on file Gender Identity Not on file Sexual Orientation Not on file documented as of this encounter Plan of Treatment Not on file documented as of this encounter Procedures Procedure Name Priority Date/Time Associated Diagnosis Comments ECHOCARDIOGRAM SOUTH/EXTERNAL Routine 11/27/2016 documented in this encounter Results * Echocardiogram South/External (11/27/2016) EF 68% Anatomical Region Laterality Modality Other Narrative 11/27/2016 Echocardiogram Final Report ??Ivette Page ??D.O.B.1945 [place] [address] PCP: An Tello, EULOGIO ??Indication: murmur Date of Study: 11/27/2016 Ht: 66 in ?? Wt: 182 lbs ??BSA: 1.92 BP 122/56 Tech: L Laffoon ??Rhythm: NSR Procedure: M- Mode, 2D, Doppler, and Color Flow Doppler Quality: ?? good, digital study Measurements ?(N = normal) Ascending Aorta: 4.6 (N <3.2), Aortic Root: 4.4 ??(N<3.7), Aortic Cusp:2.0 (N >1.4) Left Atrium: 19 (N<20), Right Atrium:16(N<17 ) LV Septum:1.2 (N <1.1),LV diastolic: 4.0(N <5.6), LV posterior:1.2(N <1.1),RV: x(N<0.7) Diastolic- E/A :0.7(N > 1.0), DT:266 (N<240), IVRT: x (N <100), E': 9 Left Atrium: normal Mitral Valve: normal, ??trivial regurgitation Left Ventricle: mild LVH EF 68% ?? diastolic function normal Segments: N-normal, PN- probably normal, H-hypokinetic, SH-severely hypo, A-akinetic Anteroseptal: base- N,mid- N, apex- N Anterior: base- N, mid- N, apex- N Anterolateral:base- N, mid- N, apex- N Posterolateral:base- N, mid-N Inferior: base-N,mid-N, apex-N Inferoseptal: ??Base-N,mid-N Aortic Valve: normal, mild to moderate regurgitation Aorta: moderately enlarged Right Atrium: normal Tricuspid Valve: normal trivial regurgitation ??gradient 28 mmHg + assumed RA ??5 mmHg=PA 33 ??mmHg Right Ventricle: normal Pulmonic Valve: normal no PI Pericardium: normal comments/summary: ??Mild LVH, normal LV function, mild to moderate AI, trivial MR and TR, moderately enlarged ascending aorta Electronically signed: Bobby Decker Jr, MD [facility] ??Date: 11/27/2016 Historical Provider ECHO ORDERABLES documented in this encounter Visit Diagnoses Diagnosis Murmur Undiagnosed cardiac murmurs documented in this encounter Care Teams Integration Software Engineer Relationship Specialty Start Date End Date An Tello, ADDICTION TREATMENT COUNSELOR [address] [place] [address] PCP - General Family Medicine 11/27/16 documented as of this encounter
--- OUTSIDE RECORDS SUMMARY | 2023-12-30 19:44 | XMS_ITS | Encounter Summary ---
Author Organization [facility] Address [facility] [place] [address] Care Team Providers Care Band Edger Name Role Phone An Tello APRN Primary Care Provider [phone] Reason for Visit * Diagnostic Test (Routine) - Closed Specialty Diagnoses / Procedures Referred By Chelly perea Referred To Contact Radiology Diagnoses Primary parkinsonism Procedures NM MARY Scan John Whittington MD [facility] [place] [address] [id number] [facility] [place] [address] Referral ID Status Reason Start Date Expiration Date V isits Requested Visits Authorized [id number] Closed Specialty Service Requested 05/27/2017 05/27/2018 1 1 Encounter Details Date Type Department Care Team (Latest Contact Info) Description 08/08/2017 2:04 PM EDT - 08/08/2017 4:07 PM EDT Hospital [place]counter [place] [address] John Whittington MD [facility] [place] [id number] Discharge Disposition: Home Social History Tobacco Use [...] with a Parkinsonian syndrome. John Whittington MD IM NM ORDERABLES documented in this encounter Visit Diagnoses Not on filedocumented in this encounter Care Teams Band Edger Relationship Specialty Start Date End Date An Tello APRN [address] [place] [id number] PCP - General Family Medicine 11/27/16 documented as of this encounter
[2023-12-30 20:11] LABS: ALT 11 U/L (14-59); AST 14 U/L (15-37); Alkaline Phosphatase 72 U/L (46-116); Anion Gap 8.3 mmol/L (3-11); BUN 21 mg/dL (7-18); Bilirubin, Total 0.58 mg/dL (0.2-1.0); CO2 27.7 mmol/L (21.0-32.0); CREATININE 1.1 mg/dL (0.55-1.02); Calcium 9.1 mg/dL (8.5-10.1); Chloride 103 mmol/L (98-107); Estimated GFR 51.75 (mL/min/1.73m2); Glucose 137 mg/dL (74-106); Magnesium 2.1 mg/dL (1.8-2.4); NT-proBNP 1731 pg/mL (<300); Potassium 4.4 mmol/L (3.5-5.1); Sodium 139 mmol/L (136-145); TSH (W/Ref FT4) 0.93 uIU/mL (0.36-3.74); Total Protein 6.2 g/dL (6.4-8.2)
[2023-12-30 20:34] LABS: Hemoglobin A1C 6.4 % (<5.7)
== END 2023-12-30 19:40 | disposition home or self-care (01) ==
LOC: LBN 19:39
PROVIDERS: PCP Nurse Practitioner; Visit Provider Nurse Practitioner Gerontology
DX: R73.09 Other abnormal glucose (principal); I50.43 Acute on chronic combined systolic (congestive) and diastolic (congestive) heart failure; J44.1 Chronic obstructive pulmonary disease with (acute) exacerbation; E83.42 Hypomagnesemia; E03.9 Hypothyroidism, unspecified
CPT/HCPCS: 80053; 83036; 83735; 83880; 84443

== ENCOUNTER 2024-02-24 18:26 | Outpatient (REF) | payer MEDICARE, OTHER, MEDICAID, SELFPAY ==
[2024-02-24 18:24] LABS: Abs Immature Grans 0.02 10^3/uL (0.0-0.06); Absolute Basophil Count 0.01 10^3/uL (0.0-0.2); Absolute Lymphocyte Count 0.69 10^3/uL (1.2-3.4); Absolute Monocyte Count 0.19 10^3/uL (0.1-0.8); Absolute Neutrophil Count 3.16 10^3/uL (1.2-6.7); Basophils % 0.2 %; HCT 39.6 % (36.0-46.0); HGB 12.6 g/dL (11.2-15.7); Immature Grans % 0.5 %; MCH 31.5 pg (27.0-33.0); MCHC 31.8 % (32.0-36.0); MCV 99 fL (80-95); MPV 9.9 fL (8.0-11.0); Monocytes % 4.7 %; Neutrophils % 77.6 %; Platelet Count 176 10^3/uL (130-400); RDW 13.2 % (11.7-14.6); WBC 4.07 10^3/uL (4.4-10.8)
[2024-02-24 18:43] LABS: ALT 12 U/L (14-59); AST 17 U/L (15-37); Albumin 4.2 g/dL (3.4-5.0); Alkaline Phosphatase 101 U/L (46-116); Anion Gap 9.9 mmol/L (3-11); BUN 22 mg/dL (7-18); Bilirubin, Total 0.46 mg/dL (0.2-1.0); CO2 30.1 mmol/L (21.0-32.0); CREATININE 1.1 mg/dL (0.55-1.02); Calcium 8.8 mg/dL (8.5-10.1); Chloride 106 mmol/L (98-107); Estimated GFR 51.75 (mL/min/1.73m2); Glucose 142 mg/dL (74-106); NT-proBNP 2994 pg/mL (<300); Potassium 4.9 mmol/L (3.5-5.1); Sodium 146 mmol/L (136-145); Total Protein 6.6 g/dL (6.4-8.2)
== END 2024-02-24 18:27 | disposition home or self-care (01) ==
LOC: LBN 18:26
PROVIDERS: PCP Nurse Practitioner; Visit Provider Nurse Practitioner Gerontology
DX: J44.1 Chronic obstructive pulmonary disease with (acute) exacerbation (principal); E87.6 Hypokalemia
CPT/HCPCS: 80053; 83880; 85025

== ENCOUNTER → 2024-03-03 12:04 | Outpatient (BNVA) | payer MEDICARE, OTHER, MEDICAID, SELFPAY | PROVIDERS: PCP Nurse Practitioner; Referring Provider Nurse Practitioner; Visit Provider Psychiatry & Neurology Neurology | DX: G20.B1 Parkinson's disease with dyskinesia, without mention of fluctuations (principal); G31.84 Mild cognitive impairment of uncertain or unknown etiology; R35.1 Nocturia; R44.3 Hallucinations, unspecified | CPT/HCPCS: 99213 ==

== ENCOUNTER 2024-03-03 17:04 | Outpatient (REF) | payer MEDICARE, OTHER, MEDICAID, SELFPAY ==
[2024-03-03 18:50] LABS: ALT 9 U/L (14-59); AST 11 U/L (15-37); Alkaline Phosphatase 89 U/L (46-116); BUN 22 mg/dL (7-18); Bilirubin, Total 0.48 mg/dL (0.2-1.0); CREATININE 1.1 mg/dL (0.55-1.02); Calcium 8.6 mg/dL (8.5-10.1); Chloride 106 mmol/L (98-107); Estimated GFR 51.75 (mL/min/1.73m2); Glucose 116 mg/dL (74-106); NT-proBNP 2148 pg/mL (<300); Potassium 4.9 mmol/L (3.5-5.1); Sodium 145 mmol/L (136-145); Total Protein 6.4 g/dL (6.4-8.2)
== END 2024-03-03 17:05 | disposition home or self-care (01) ==
LOC: LBN 17:04
PROVIDERS: PCP Nurse Practitioner; Visit Provider Nurse Practitioner Gerontology
DX: I50.1 Left ventricular failure, unspecified (principal); G20.B1 Parkinson's disease with dyskinesia, without mention of fluctuations; G31.84 Mild cognitive impairment of uncertain or unknown etiology; R35.1 Nocturia; R44.3 Hallucinations, unspecified
CPT/HCPCS: 80053; 83880

== ENCOUNTER 2024-03-23 16:21 | Outpatient (REF) | payer MEDICARE, OTHER, MEDICAID, SELFPAY ==
[2024-03-23 18:50] LABS: Abs Immature Grans 0.04 10^3/uL (0.0-0.06); Absolute Basophil Count 0.02 10^3/uL (0.0-0.2); Absolute Eosinophil Count 0.04 10^3/uL (0.0-0.7); Absolute Lymphocyte Count 0.99 10^3/uL (1.2-3.4); Absolute Monocyte Count 0.35 10^3/uL (0.1-0.8); Absolute Neutrophil Count 1.65 10^3/uL (1.2-6.7); Basophils % 0.6 %; Eosinophils % 1.3 %; HCT 38.4 % (36.0-46.0); HGB 12.1 g/dL (11.2-15.7); Immature Grans % 1.3 %; MCH 31.9 pg (27.0-33.0); MCHC 31.5 % (32.0-36.0); MCV 101 fL (80-95); MPV 9.8 fL (8.0-11.0); Monocytes % 11.3 %; Neutrophils % 53.5 %; Platelet Count 186 10^3/uL (130-400); RBC 3.79 10^6/uL (3.93-5.22); RDW 13.6 % (11.7-14.6); RDW-SD 51.4 fL; WBC 3.09 10^3/uL (4.4-10.8)
[2024-03-23 19:35] LABS: ALT 8 U/L (14-59); AST 7 U/L (15-37); Albumin 3.5 g/dL (3.4-5.0); Alkaline Phosphatase 93 U/L (46-116); Anion Gap 6.8 mmol/L (3-11); BUN 20 mg/dL (7-18); Bilirubin, Total 0.33 mg/dL (0.2-1.0); CO2 30.2 mmol/L (21.0-32.0); CREATININE 1.1 mg/dL (0.55-1.02); Calcium 8.4 mg/dL (8.5-10.1); Chloride 106 mmol/L (98-107); Estimated GFR 51.75 (mL/min/1.73m2); Glucose 154 mg/dL (74-106); Potassium 4.5 mmol/L (3.5-5.1); Sodium 143 mmol/L (136-145)
== END 2024-03-23 16:22 | disposition home or self-care (01) ==
LOC: LBN 16:21
PROVIDERS: PCP Nurse Practitioner; Visit Provider Nurse Practitioner Gerontology
DX: R79.81 Abnormal blood-gas level (principal)
CPT/HCPCS: 80053; 85025

== ENCOUNTER → 2024-05-18 09:36 | Outpatient (BNVA) | payer MEDICARE, OTHER, MEDICAID, SELFPAY | PROVIDERS: PCP Nurse Practitioner; Referring Provider Nurse Practitioner; Visit Provider Physician Assistant Surgical | DX: J42 Unspecified chronic bronchitis (principal); J96.11 Chronic respiratory failure with hypoxia; J96.12 Chronic respiratory failure with hypercapnia | CPT/HCPCS: 99214 ==

== ENCOUNTER 2024-05-28 02:41 | Outpatient (CLI) | payer MEDICARE, OTHER, MEDICAID, SELFPAY ==
--- NOTE | 2024-05-28 09:53 | DI.RAD_ITS ---
Exam(s) XR CERVICAL SPINE COMP 4-5V EXAM: XR CERVICAL SPINE COMP 4-5V CLINICAL HISTORY: PARESTHESIA IN BUE. TECHNIQUE: 2D digital imaging was performed. COMPARISON: No exams were available for comparison FINDINGS: Six views, including a swimmer's view: Evidence of fracture nor significant listhesis. There is some disc space narrowing evident at C 4-5 and C6-7 levels. Oblique views reveal no significant Luschka joint osteophytes. Only mild degenerat hiren changes in the facet joints. There is partial fusion of facet joints at C 2-3 level. No osseous lesions. No prevertebral soft tissue swelling. No cervical ribs. IMPRESSION: Some disc space narrowing evident at C4-5 and C6-7 levels. DATA REPOSITORY: RADIATION DOSE DELIVERED:
== END 2024-05-28 03:01 ==
PROVIDERS: PCP Nurse Practitioner; Visit Provider Nurse Practitioner Gerontology
DX: M50.323 Other cervical disc degeneration at C6-C7 level (principal)
CPT/HCPCS: 72050

== ENCOUNTER → 2024-07-07 11:04 | Outpatient (BNVA) | payer MEDICARE, OTHER, MEDICAID, SELFPAY | PROVIDERS: PCP Nurse Practitioner; Referring Provider Nurse Practitioner; Visit Provider Psychiatry & Neurology Neurology | DX: G20.B1 Parkinson's disease with dyskinesia, without mention of fluctuations (principal); G31.84 Mild cognitive impairment of uncertain or unknown etiology; R35.1 Nocturia; R44.3 Hallucinations, unspecified | CPT/HCPCS: 99214 ==

== ENCOUNTER 2024-08-24 19:36 | Outpatient (REF) | payer MEDICARE, OTHER, MEDICAID, SELFPAY ==
[2024-08-24 18:16] LABS: ALT 8 U/L (14-59); AST 10 U/L (15-37); Alkaline Phosphatase 74 U/L (46-116); BUN 18 mg/dL (7-18); Bilirubin, Total 0.5 mg/dL (0.2-1.0); CREATININE 0.9 mg/dL (0.55-1.02); Calcium 8.9 mg/dL (8.5-10.1); Chloride 104 mmol/L (98-107); Estimated GFR 65.84 (mL/min/1.73m2); Glucose 172 mg/dL (74-106); Magnesium 2.3 mg/dL (1.8-2.4); Potassium 4.6 mmol/L (3.5-5.1); Sodium 141 mmol/L (136-145); Total Protein 6.5 g/dL (6.4-8.2)
== END 2024-08-24 19:37 | disposition home or self-care (01) ==
LOC: LBN 19:36
PROVIDERS: PCP Nurse Practitioner; Visit Provider Nurse Practitioner Gerontology
DX: E83.42 Hypomagnesemia (principal); E87.8 Other disorders of electrolyte and fluid balance, not elsewhere classified
CPT/HCPCS: 80053; 83735

== ENCOUNTER → 2024-11-10 10:59 | Outpatient (BNVA) | payer MEDICARE, OTHER, MEDICAID, SELFPAY | PROVIDERS: PCP Nurse Practitioner; Referring Provider Nurse Practitioner; Visit Provider Psychiatry & Neurology Neurology | DX: G20.B1 Parkinson's disease with dyskinesia, without mention of fluctuations (principal); G31.84 Mild cognitive impairment of uncertain or unknown etiology; R35.1 Nocturia; R44.3 Hallucinations, unspecified; E11.59 Type 2 diabetes mellitus with other circulatory complications; I10 Essential (primary) hypertension; J44.9 Chronic obstructive pulmonary disease, unspecified | CPT/HCPCS: 99214 ==

== ENCOUNTER → 2024-11-17 10:29 | Outpatient (BNVA) | payer MEDICARE, OTHER, MEDICAID, SELFPAY | PROVIDERS: PCP Nurse Practitioner; Referring Provider Nurse Practitioner; Visit Provider Internal Medicine Pulmonary Disease | DX: J42 Unspecified chronic bronchitis (principal); J96.11 Chronic respiratory failure with hypoxia; J96.12 Chronic respiratory failure with hypercapnia; Z87.891 Personal history of nicotine dependence | CPT/HCPCS: 99215 ==

== ENCOUNTER 2024-12-08 11:57 | Outpatient (REF) | payer MEDICARE, OTHER, MEDICAID, SELFPAY ==
[2024-12-08 12:13] LABS: Abs Immature Grans 0.03 10^3/uL (0.0-0.06); HCT 39.5 % (36.0-46.0); HGB 13.0 g/dL (11.2-15.7); Immature Grans % 0.6 %; MCH 31.6 pg (27.0-33.0); MCHC 32.9 % (32.0-36.0); MCV 96 fL (80-95); MPV 9.6 fL (8.0-11.0); Platelet Count 183 10^3/uL (130-400); RBC 4.11 10^6/uL (3.93-5.22); RDW 13.2 % (11.7-14.6); RDW-SD 46.8 fL; WBC 5.23 10^3/uL (4.4-10.8)
[2024-12-08 12:37] LABS: ALT 11 U/L (14-59); AST 12 U/L (15-37); Albumin 4.1 g/dL (3.4-5.0); Alkaline Phosphatase 72 U/L (46-116); Anion Gap 5.8 mmol/L (3-11); BUN 18 mg/dL (7-18); Bilirubin, Total 0.5 mg/dL (0.2-1.0); CO2 33.2 mmol/L (21.0-32.0); Calcium 8.8 mg/dL (8.5-10.1); Chloride 105 mmol/L (98-107); Estimated GFR 57.66 (mL/min/1.73m2); Glucose 116 mg/dL (74-106); Magnesium 2.4 mg/dL (1.8-2.4); Potassium 4.3 mmol/L (3.5-5.1); Sodium 144 mmol/L (136-145); TSH (W/Ref FT4) 0.91 uIU/mL (0.36-3.74); Total Protein 6.4 g/dL (6.4-8.2)
== END 2024-12-08 11:58 | disposition home or self-care (01) ==
LOC: LBN 11:57
PROVIDERS: PCP Nurse Practitioner; Visit Provider Nurse Practitioner Gerontology
DX: R53.82 Chronic fatigue, unspecified (principal); E87.8 Other disorders of electrolyte and fluid balance, not elsewhere classified; E83.42 Hypomagnesemia; D63.1 Anemia in chronic kidney disease
CPT/HCPCS: 80053; 83735; 84443; 85025

== ENCOUNTER 2025-02-08 19:28 | Outpatient (REF) | payer MEDICARE, OTHER, MEDICAID, SELFPAY ==
[2025-02-08 17:35] LABS: Abs Immature Grans 0.03 10^3/uL (0.0-0.06); HCT 36.9 % (36.0-46.0); HGB 12.2 g/dL (11.2-15.7); Immature Grans % 0.6 %; MCH 31.4 pg (27.0-33.0); MCHC 33.1 % (32.0-36.0); MCV 95 fL (80-95); MPV 9.5 fL (8.0-11.0); Platelet Count 211 10^3/uL (130-400); RBC 3.89 10^6/uL (3.93-5.22); RDW 13.5 % (11.7-14.6); RDW-SD 46.5 fL; WBC 4.63 10^3/uL (4.4-10.8)
[2025-02-08 17:52] LABS: Hemoglobin A1C 6.4 % (<5.7)
[2025-02-08 17:53] LABS: ALT 8 U/L (14-59); AST 9 U/L (15-37); Albumin 3.6 g/dL (3.4-5.0); Alkaline Phosphatase 92 U/L (46-116); Anion Gap 10.0 mmol/L (3-11); BUN 15 mg/dL (7-18); Bilirubin, Total 0.5 mg/dL (0.2-1.0); CO2 29.0 mmol/L (21.0-32.0); Calcium 8.6 mg/dL (8.5-10.1); Chloride 103 mmol/L (98-107); Estimated GFR 65.44 (mL/min/1.73m2); Glucose 198 mg/dL (74-106); Magnesium 2.3 mg/dL (1.8-2.4); Potassium 4.4 mmol/L (3.5-5.1); Sodium 142 mmol/L (136-145); TSH (W/Ref FT4) 1.00 uIU/mL (0.36-3.74); Total Protein 6.2 g/dL (6.4-8.2)
== END 2025-02-08 19:29 | disposition home or self-care (01) ==
LOC: LBN 19:28
PROVIDERS: PCP Legal Medicine; Visit Provider Nurse Practitioner Gerontology
DX: E11.9 Type 2 diabetes mellitus without complications (principal); E87.8 Other disorders of electrolyte and fluid balance, not elsewhere classified
CPT/HCPCS: 80053; 83036; 83735; 84443; 85025

== ENCOUNTER 2025-02-24 16:40 | Outpatient (REF) | payer MEDICARE, OTHER, MEDICAID, SELFPAY ==
[2025-02-24 17:53] LABS: Glucose Negative (Negative)
[2025-02-24 18:06] LABS: RBC Negative HPF (0-2); WBC >50 HPF (0-5)
== END 2025-02-24 16:41 | disposition home or self-care (01) ==
LOC: LBN 16:40
PROVIDERS: PCP Legal Medicine; Visit Provider Nurse Practitioner Gerontology
DX: N39.0 Urinary tract infection, site not specified (principal)
CPT/HCPCS: 81003; 81015; 87086

== ENCOUNTER 2025-02-25 16:57 | Outpatient (REF) | payer MEDICARE, OTHER, MEDICAID, SELFPAY ==
[2025-02-25 17:52] LABS: Glucose Negative (Negative)
== END 2025-02-25 16:58 | disposition home or self-care (01) ==
LOC: LBN 16:57
PROVIDERS: PCP Legal Medicine; Visit Provider Nurse Practitioner Gerontology
DX: N39.0 Urinary tract infection, site not specified (principal)
CPT/HCPCS: 81003; 87086